=== PATIENT | female | born 1955 | race Caucasian/White ===

== ENCOUNTER 2022-03-06 17:49 | Inpatient (IN) ==
[2022-03-06] MEDS ORDERED: POLYETHYLENE (MIRALAX) 17 GM PACK PO PRN (19:50)
--- NOTE | 2022-03-06 20:01 | History & Physical Report ---
Date of Service March 06, 2022 Assessment & Plan (1) Severe protein-calorie malnutrition: Plan: Intolerant of p.o. for past 7 weeks. Not making much stool. Persistent nausea and heightened gag reflex. Patient and her are interested in PEG tube placement and additional work-up by GI for this issue. We will consult them to see her in the morning. OF note, recently had thrush 3 weeks ago, which was improved with the clotrimazole trouche. She feels like she may still have some there. Will start nystatin swish and swallow (or spit if unable to swallow). If GI doesn't opt for a PEG tube, may need to consider temporary PPN. Appreciate nutrition input. Speech pathology consulted to evaluate this gag reflex closer. Daily weights are important for monitoring. She has significant weakness as a result. Consider PT and OT only when she is stronger. (2) Malignant neoplasm of right lung: Plan: Stage III small cell lung cancer diagnosed November 2021. Started chemoradiation on December 2021. She received 2 cycles of cisplatin and etoposide along with radiation treatment at [facility]. Last treatment was 6 weeks ago. Since then she has not been able to eat having difficulties with vomiting and electrolyte disorders. For this reason additional chemotherapy treatments have been put on hold. She has completed XRT therapy. Managed by oncologist Dr. Prajapati at [facility]. (3) Hypothyroidism: Plan: chronic, stable. Repeating TSH. May need to adjust synthroid dose with her profound weight loss. (4) Depression: Plan: chronic, managed. Cont Buproprion. (5) COPD (chronic obstructive pulmonary disease): Plan: chronic, duonebs as needed. Not on any chronic inhalers. Denies any active smoking. (6) Adult failure to thrive: Plan: Plan as above. (7) DVT prophylaxis: Plan: SCDs/heparin Full Code confirmed on admission with father and daughter at bedside. Teri Bond DO [facility] Admission and Anticipated Discharge Date Admission Date: March 06, 2022 History of Present Illness Chief Complaint: transfer for GI evaluation Primary Care Provider: NO PCP 67-year-old female with lung cancer diagnosed in November 2021 status post radiation and 2 cycles of chemotherapy presents as a transfer from outside hospital for GI evaluation for PEG placement. She has failure to thrive and has not been able to tolerate p.o. for 7 weeks. She has been surviving on intermittent IV fluid infusions in outpatient clinics. She has had significant constipation with last bowel movement over a week ago. She denies any pain but is intermittently nauseous with some frothy sputum. She reports her biggest obstacle is an intense gag reflex that starts when she even smells food. All of this began when she started treatment for cancer. She has completed her XRT therapy. She is a person with history of smoking but is not currently smoking. Family is at bedside and is interested in PEG placement. She is a confirmed full code. Allergies Allergy/AdvReac Type Severity Reaction Status Date / Time No Known Drug Allergies Allergy Verified 02/03/22 11:24 Home Medications Medication Instructions Recorded Confirmed Type albuterol sulfate 90 mcg/actuation 2 puff inhalation QID PRN 12/19/21 03/06/22 History aerosol inhaler (ProAir HFA) shortness of breath or wheezing ascorbic acid (vitamin C) 100 mg 100 mg PO DAILY 12/19/21 03/06/22 History tablet bupropion HCl 300 mg 24 hr tablet, 300 mg PO QAM 12/19/21 03/06/22 History extended release cholecalciferol (vitamin D3) 50 2,000 unit PO DAILY 12/19/21 03/06/22 History mcg (2,000 unit) capsule famotidine 20 mg tablet 20 mg PO BID 12/19/21 03/06/22 History ipratropium 0.5 mg-albuterol 3 mg 3 ml inhalation Q6H PRN shortness 12/19/21 03/06/22 History (2.5 mg base)/3 mL nebulization of breath or wheezing soln levothyroxine 88 mcg tablet 88 mcg PO DAILY 12/19/21 03/06/22 History (Synthroid) mecobalamin (vitamin B12) 1,000 1,000 mcg PO DAILY 12/19/21 03/06/22 History mcg disintegrating tablet,sublingual ondansetron HCl 8 mg tablet 8 mg PO Q8H PRN n/v 12/30/21 03/06/22 History prochlorperazine maleate 10 mg 10 mg PO Q6H PRN n/v 12/30/21 03/06/22 History tablet (Compazine) Magic Mouthwash 300 mL mouthwash 10 ml mucous membrane ACHS 01/27/22 03/06/22 Rx Dysphagia #300 mL dronabinol 2.5 mg capsule (Marinol) 2.5 mg PO BID Nausea and appetite 02/07/22 03/06/22 Rx stimulant #60 caps omeprazole 20 mg capsule,delayed 20 mg PO DAILY 03/06/22 03/06/22 History release Past Med/Surg History Medical History (Updated 03/06/22 @ 19:58 by Teri Bond DO) Adult failure to thrive 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 Chronic bronchitis Chronic kidney disease, stage 3a COPD (chronic obstructive pulmonary disease) Depression DULCE (generalized anxiety disorder) GERD (gastroesophageal reflux disease) Hypothyroidism Idiopathic peripheral neuropathy Osteoarthritis Saccular aneurysm Severe protein-calorie malnutrition Small cell lung cancer Thoracic outlet syndrome Tobacco use disorder Surgical History H/O cataract removal with insertion of prosthetic lens H/O total hysterectomy S/P bronchoscopy with biopsy (~11/28/21) S/P tonsillectomy Status post bronchoscopy diagnostic with or without washing 12/06/2021 Status post knee surgery Family History Mother , Age 27 Ovarian cancer Father , Age 70 Alcoholism Alcohol abuse with other alcohol-induced disorder Brother , Age 65 Alcohol abuse with other alcohol-induced disorder Alcoholism Sister No problems noted. Social History Smoking Status: Former smoker Tobacco Type: Cigarettes Age Started Using Tobacco: 17; Age Quit Using Tobacco: 66; packs per day: 0.5; Years Smoked: 49; Cigarettes Per Day: 8-12; Second Hand Exposure: Yes; Hx Alcohol Use: No Hx Substance Use: No Preferred Language: Montenegrin Beliefs That Will Affect Care: None Current Living Situation: Spouse current occupational status: retired current occupation: [employer]; [employer] employee; [employer] How many Children do You have: 2 Feels Safe at Home: Yes Childhood Exposure to Second-Hand Smoke: Yes caffeine: Yes (2.5 cups/day) during the past year weight has: remained stable Dental Care, Regularly: Yes Review of Systems Review of Systems: All systems were reviewed and negative except as indicated on HPI above. Physical Exam Physical Exam: CONSTITUTIONAL: cachectic, vitals as above, chronically ill- appearing but in NAD. EYES: normal conjunctivae, no scleral icterus ENT: external ear and nose normal, OP clear but with whitish substance across her tongue possibly consistent with thrush NECK: trachea midline RESPIRATORY: clear to auscultation bilaterally, no crackles, rales or wheezes, normal respiratory effort CARDIOVASCULAR: regular rate and rhythm, S1 and 2 heard without murmurs, gallops or rubs, no JVD, no peripheral edema CHEST: inspection of chest was normal GASTROINTESTINAL: soft, nontender, ND, no guarding MUSCULOSKELETAL: generalized weakness with no focal deficits, head is normocephalic and atraumatic SKIN: warm and dry NEUROLOGIC: CN 2-12 grossly intact, no sensory deficit, normal cognition, normal speech, no tremor PSYCHIATRIC: alert cooperative and oriented to person, place and time. Code Status & VTE Plan VTE Prophylaxis Plan VTE Prophylaxis will be ordered: Yes
[2022-03-06] MEDS ORDERED: ALBUT/IPRATROP 3MG/0.5MG NEB 3 ML VIAL INH PRN (20:52)
[2022-03-06] MEDS ORDERED: ALBUTEROL HFA 8 GM INHALER INH PRN (20:52)
[2022-03-06] MEDS ORDERED: ACETAMINOPHEN 1,000 MG/100 ML VIAL IV PRN (20:53)
[2022-03-06] MEDS ORDERED: GLYCERIN ADULT 12 SUPP/BOX SUPP PR PRN (20:53)
[2022-03-06] MEDS ORDERED: PROMETHAZINE HCL 12.5 MG in SODIUM CHLORIDE 0.9% 50 ML IV PRN (21:00)
[2022-03-06 21:43] LABS: Basophils # (auto) 0.01 K/uL (0-0.2); Basophils % (auto) 0.3 %; Eosinophils # (auto) 0.01 K/uL (0-0.50); Eosinophils % (auto) 0.3 %; Hemoglobin 9.2 g/dl (12.0-16.0); Immature Granulocytes # (auto) 0.04 K/uL (0.00-0.02); Immature Granulocytes % (auto) 1.3 %; Lymphocytes % (auto) 6.5 %; Mean Corpuscular Hgb Conc 35.4 g/dL (32.0-36.0); Mean Corpuscular Volume 87.5 fL (80.0-100.0); Monocytes # (auto) 0.28 K/uL (0.24-0.82); Monocytes % (auto) 9.1 %; Neutrophils # (auto) 2.53 K/uL (1.4-6.5); Neutrophils % (auto) 82.5 %; Platelet Count 155 K/uL (130-400); RDW Coefficient of Variation 17.2 % (11.5-14.5); RDW Standard Deviation 53.9 fL (36.4-46.3); Red Blood Count 2.97 M/uL (3.93-5.22); White Blood Count 3.07 K/ul (4.8-10.8)
--- NOTE | 2022-03-06 21:46 | XRay Report ---
XR chest 1V portable CLINICAL HISTORY: cough, h/o lung cancer TECHNIQUE: Single frontal radiograph of the chest was obtained. Comparison: None available at the time of this dictation. FINDINGS: No lines and tubes are seen. The cardiomediastinal silhouette is normal. The lungs are clear. No evid ence of pleural effusion or pneumothorax. IMPRESSION: No acute abnormalities and in particular no evidence of pneumonia. ACT 112: Negative or not required by law. Electronically signed by: Abel Parra M.D. 03/06/2022 9:45 PM
[2022-03-06 21:52] LABS: INR 1.1 (0.9-1.1); Prothrombin Time 11.2 Seconds (9.0-12.0)
[2022-03-06 21:56] LABS: Alanine Aminotransferase 29 U/L (7-52); Albumin Globulin Ratio 1.9 (0.9-2); Albumin Level 3.6 gm/dl (3.4-5.0); Alkaline Phosphatase 66 U/L (34-104); Anion Gap 7 (3-11); Aspartate Aminotransferase 27 U/L (13-39); BUN Creatinine Ratio 11.1 (10-20); Bilirubin,Total 1.1 mg/dl (0.2-1.0); Blood Urea Nitrogen 7 mg/dl (6-23); Calcium 8.4 mg/dl (8.5-10.1); Carbon Dioxide 31 mmol/L (21-32); Chloride 89 mmol/L (98-107); Est GFR (African American) 106.1 ml/min; Est GFR (Non-African American) 91.5 ml/min; Globulin 1.9 gm/dl (2.5-4.0); Glucose 97 mg/dl (70-99(Fasting)); Magnesium 1.2 mg/dl (1.7-2.4); Potassium 3.8 mmol/L (3.5-5.1); Sodium 127 mmol/L (136-145); Total Protein 5.5 gm/dl (6.0-8.3)
[2022-03-06] MEDS: ONDANSETRON INJ 2 MG/ML 2 ML VIAL IV SCH (22:01)
[2022-03-06] MEDS: FOLIC ACID 1 MG in SYRINGE 9.8 ML IV SCH (22:02)
[2022-03-06] MEDS: THIAMINE HCL 100 MG in SYRINGE 9 ML IV SCH (22:02)
[2022-03-06] MEDS: D5NSS + 20MEQ KCL 20 MEQ/1,000 ML BAG IV SCH (22:02)
[2022-03-06 22:11] LABS: Thyroid Stimulating Hormone 15.537 uIu/ml (0.300-4.500)
[2022-03-06 22:50] LABS: T4 Free Thyroxine 1.28 ng/dl (0.61-1.60)
[2022-03-07] MEDS: MAGNESIUM SULFATE / D5W 1 GM/100 ML BAG IV SCH ×3 (04:17→08:20)
[2022-03-07] MEDS: ONDANSETRON INJ 2 MG/ML 2 ML VIAL IV SCH ×4 (04:17→20:31)
[2022-03-07] MEDS: LEVOTHYROXINE SODIUM 88 MCG TABLET PO SCH (07:35)
[2022-03-07 07:48] LABS: Appearance Urine Clear (Clear); Bacteria Urine Automated Negative (Negative); Bilirubin Urine Negative (Negative); Blood Urine Negative (Negative); Color Urine Orange; Epithelial Cell Urine Auto 20-30 /lpf (0-5); Glucose Urine UA Negative (Negative); Ketones Urine Negative (Negative); Leukocyte Esterase Urine 1+ (Negative); Nitrite Urine Negative (Negative); Protein Urine Negative (Negative); RBC Urine Automated 0-4 /hpf (0-4); Specific Gravity Urine 1.006 (1.000-1.030); Urobilinogen Urine Negative (Negative)
[2022-03-07 08:13] LABS: Eosinophils # (auto) 0.02 K/uL (0-0.50); Eosinophils % (auto) 0.8 %; Hemoglobin 7.7 g/dl (12.0-16.0); Immature Granulocytes # (auto) 0.02 K/uL (0.00-0.02); Immature Granulocytes % (auto) 0.8 %; Lymphocytes # (auto) 0.25 K/uL (1.2-3.4); Lymphocytes % (auto) 9.5 %; Mean Corpuscular Volume 88.7 fL (80.0-100.0); Mean Platelet Volume 10.1 fL (9.4-12.3); Monocytes # (auto) 0.26 K/uL (0.24-0.82); Monocytes % (auto) 9.9 %; Neutrophils # (auto) 2.07 K/uL (1.4-6.5); Platelet Count 131 K/uL (130-400); RDW Coefficient of Variation 17.2 % (11.5-14.5); RDW Standard Deviation 55.3 fL (36.4-46.3); Red Blood Count 2.48 M/uL (3.93-5.22); White Blood Count 2.62 K/ul (4.8-10.8)
[2022-03-07] MEDS: buPROPion XL 300 MG TABCR PO SCH (08:20)
[2022-03-07] MEDS ORDERED: CHLORASEPTIC 1.4% SOLN 180 ML BTL MT PRN (08:29)
--- NOTE | 2022-03-07 08:42 | Electrocardiogram Report ---
Test Reason : Blood Pressure : / mmHG Vent. Rate : 092 BPM Atrial Rate : 092 BPM P-R Int : 108 ms QRS Dur : 082 ms QT Int : 364 ms P-R-T Axes : 000 149 153 degrees QTc Int : 450 ms Poor data quality, interpretation may be adversely affected Sinus rhythm with short KS Probable limb lead reversal, recommend repeat tracing Abnormal ECG No previous ECGs available Confirmed by Ralph Mcintyre ([id number]) on 03/07/2022 8:42:16 AM Referred By: Teri Bond Confirmed By:Ralph Mcintrye
[2022-03-07 08:44] LABS: BUN Creatinine Ratio 11.9 (10-20); Calcium 8.2 mg/dl (8.5-10.1); Creatinine Clr Calc Pharmacy 57.2 ml/min; Est GFR (African American) 103.9 ml/min; Est GFR (Non-African American) 89.7 ml/min; Potassium 3.9 mmol/L (3.5-5.1)
[2022-03-07 09:03] LABS: Hypochromasia Present
--- NOTE | 2022-03-07 09:43 | Gastrointestinal Consultation ---
Date of Consultation March 07, 2022 Assessment & Plan (1) Adult failure to thrive: 67 year old female with lung CA s/p chemo/radiation who notes difficulty tolerating PO intake, chewing/swallowing for about 3 months around the time she was diagnosed with oral marylin. Soft, slippery diet as tolerated Would treat empirically for esophageal marylin - Fluconazole 400 mg x 1 day followed by 200 mg once daily x 28 days Can plan for diagnosed EGD Thursday to evaluate for pathology Would recommend video swallow study Thank you for allowing us to participate in the care of this patient. Please call with any acute changes, questions or concerns. Please see addendum below with additional recommendation from my supervising physician. Supervising Physician Co-Signing Physician Notes I saw and evaluated the patient. The patient has been on chemotherapy and radiation therapy for a recent diagnosis of lung cancer. The patient was transferred to our center for evaluation of postprandial nausea, difficulty with swallowing, and vomiting. Patient notes that she has had some difficulty with swallowing which has been ongoing for several weeks. She was thought to have oral thrush in the recent past. Physical examination Thin female, no obvious distress, elderly appearing Impression: Patient with a history of weight loss loss likely related to ongoing chemotherapy and radiation therapy. With the new onset dysphagia I think it would be reasonable to treat her empirically over the weekend for esophageal candidiasis. We can certainly provide endoscopic evaluation early next week to further assess her esophagus and determine if her symptoms would respond to simple esophageal dilation for this patient truly need a feeding tube placed. History of Present Illness Reason for Consultation: PEG evaluation Requesting Physician: Laverne Attending Physician: Rohit Galloway MD History of Present Illness 67 year old female with history of lung cancer diagnosed in November 2021 s/p chemo/radiation transferred from outside hospital for GI evaluation for PEG placement. Pt was seen and evaluated, chart reviewed. She notes about three months ago she developed difficulty chewing, swallowing. Notes food getting stuck when she swallowed. Solids and liquids. These symptoms started about one week before she was developed oral marylin. She notes has been treated on and off w/ nystatin but has had persistent symptoms. Suggests no appetite, dysphagia, oral discomfort, increased gag reflex. She does not recall any recent EGD/Colonoscopy PET 2021: Hypermetabolic infiltrative heterogeneous right hilar/right lower lobe mass measures up to 5 cm compatible with primary bronchogenic carcinoma.Subcarinal metastatic lymphadenopathy. Subcentimeter solid pulmonary nodules of the left lung redemonstrated measuring up to 4 mm demonstrate no appreciable hypermetabolic uptake. These may be too small for PET characterization. Attention at follow-up recommended. Indeterminate mildly hypermetabolic right iliac chain lymphadenopathy is most certainly unrelated to the patient's lung cancer, however, attention at follow-up is recommended. Allergies Allergy/AdvReac Type Severity Reaction Status Date / Time No Known Drug Allergies Allergy Verified 02/03/22 11:24 Home Medications Medication Instructions Recorded Confirmed Type albuterol sulfate 90 mcg/actuation 2 puff inhalation QID PRN 12/19/21 03/06/22 History aerosol inhaler (ProAir HFA) shortness of breath or wheezing ascorbic acid (vitamin C) 100 mg 100 mg PO DAILY 12/19/21 03/06/22 History tablet bupropion HCl 300 mg 24 hr tablet, 300 mg PO QAM 12/19/21 03/06/22 History extended release cholecalciferol (vitamin D3) 50 2,000 unit PO DAILY 12/19/21 03/06/22 History mcg (2,000 unit) capsule famotidine 20 mg tablet 20 mg PO BID 12/19/21 03/06/22 History ipratropium 0.5 mg-albuterol 3 mg 3 ml inhalation Q6H PRN shortness 12/19/21 03/06/22 History (2.5 mg base)/3 mL nebulization of breath or wheezing soln levothyroxine 88 mcg tablet 88 mcg PO DAILY 12/19/21 03/06/22 History (Synthroid) mecobalamin (vitamin B12) 1,000 1,000 mcg PO DAILY 12/19/21 03/06/22 History mcg disintegrating tablet,sublingual ondansetron HCl 8 mg tablet 8 mg PO Q8H PRN n/v 12/30/21 03/06/22 History prochlorperazine maleate 10 mg 10 mg PO Q6H PRN n/v 12/30/21 03/06/22 History tablet (Compazine) Magic Mouthwash 300 mL mouthwash 10 ml mucous membrane ACHS 01/27/22 03/06/22 Rx Dysphagia #300 mL dronabinol 2.5 mg capsule (Marinol) 2.5 mg PO BID Nausea and appetite 02/07/22 03/06/22 Rx stimulant #60 caps omeprazole 20 mg capsule,delayed 20 mg PO DAILY 03/06/22 03/06/22 History release Patient History Medical History (Updated 03/06/22 @ 19:58 by Teri Bond DO) Adult failure to thrive 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 Chronic bronchitis Chronic kidney disease, stage 3a COPD (chronic obstructive pulmonary disease) Depression DULCE (generalized anxiety disorder) GERD (gastroesophageal reflux disease) Hypothyroidism Idiopathic peripheral neuropathy Osteoarthritis Saccular aneurysm Severe protein-calorie malnutrition Small cell lung cancer Thoracic outlet syndrome Tobacco use disorder Surgical History H/O cataract removal with insertion of prosthetic lens H/O total hysterectomy S/P bronchoscopy with biopsy (~11/28/21) S/P tonsillectomy Status post bronchoscopy diagnostic with or without washing 12/06/2021 Status post knee surgery Family History Mother , Age 27 Ovarian cancer Father , Age 70 Alcoholism Alcohol abuse with other alcohol-induced disorder Brother , Age 65 Alcohol abuse with other alcohol-induced disorder Alcoholism Sister No problems noted. Social History Smoking Status: Never smoker Tobacco Type: Cigarettes Age Started Using Tobacco: 17; Age Quit Using Tobacco: 66; packs per day: 0.5; Years Smoked: 49; Cigarettes Per Day: 8-12; Second Hand Exposure: Yes; Hx Alcohol Use: No Hx Substance Use: No Preferred Language: Nepali Communication Ability: Effective Web Site Designer Required: No Beliefs That Will Affect Care: None marital status: Current Living Situation: Spouse current occupational status: retired current occupation: [employer] employee; [employer] How many Children do You have: 2 Feels Safe at Home: Yes Childhood Exposure to Second-Hand Smoke: Yes caffeine: Yes (2.5 cups/day) during the past year weight has: remained stable Dental Care, Regularly: Yes Assistive Devices: Walker Review of Systems Review of Systems: All systems reviewed & are unremarkable except as noted in HPI & below Physical Exam Constitutional: WD/WN, vitals as above (Chronically ill appearing, thin female laying in bed) Respiratory: normal respiratory effort; no respiratory distress, no labored breathing and does not use accessory muscles Cardiovascular: Rate/Rhythm: regular rate Gastrointestinal (Abdomen): Inspection/Auscultation: normal bowel sounds Percussion/Palpation: abdomen soft; abdomen nontender, no guarding and abdomen not rigid Skin: no rashes, warm and dry Results & Data ([facility]) Vital Signs (Past 12 Hours) Vital Signs Temp Pulse Resp BP Pulse Ox O2 Del Method 03/07/22 07:20 Room Air 03/07/22 07:36 36.6 C 93 H 12 109/68 96 Room Air Laboratory Results 03/07/22 03/07/22 03/07/22 Range/Units 07:47 07:39 07:39 WBC (4.8-10.8) K/ul RBC (3.93-5.22) M/uL Hgb (12.0-16.0) g/dl Hct (34.1-44.9) % MCV (80.0-100.0) fL MCH (25.0-34.0) pg MCHC (32.0-36.0) g/dL RDW Std Deviation (36.4-46.3) fL RDW Coeff of Wendy (11.5-14.5) % Plt Count (130-400) K/uL MPV (9.4-12.3) fL Immature Gran % (Auto) % Neut % (Auto) % Lymph % (Auto) % Hendry % (Auto) % Eos % (Auto) % Baso % (Auto) % Neut # (Auto) (1.4-6.5) K/uL Lymph # (Auto) (1.2-3.4) K/uL Hendry # (Auto) (0.24-0.82) K/uL Eos # (Auto) (0-0.50) K/uL Baso # (Auto) (0-0.2) K/uL Immature Gran # (Auto) (0.00-0.02) K/uL Hypochromasia PT (9.0-12.0) Seconds INR (0.9-1.1) Sodium (136-145) mmol/L Potassium (3.5-5.1) mmol/L Chloride (98-107) mmol/L Carbon Dioxide (21-32) mmol/L Anion Gap (3-11) BUN (6-23) mg/dl Creatinine (0.6-1.2) mg/dl Est Cr Clr Drug Dosing Est GFR ( Amer) ml/min Est GFR (Non-Af Amer) ml/min BUN/Creatinine Ratio (10-20) Glucose (70-99(Fasting)) mg/dl Osmolality (280-300) mOsm/kg Calcium (8.5-10.1) mg/dl Magnesium (1.7-2.4) mg/dl Total Bilirubin (0.2-1.0) mg/dl AST (13-39) U/L ALT (7-52) U/L Alkaline Phosphatase (34-104) U/L Total Protein (6.0-8.3) gm/dl Albumin (3.4-5.0) gm/dl Globulin (2.5-4.0) gm/dl Albumin/Globulin Ratio (0.9-2) TSH (0.300-4.500) uIu/ml Free T4 (0.61-1.60) ng/dl Urine Color Urine Appearance (Clear) Urine pH (4.5-7.5) Ur Specific [place] (1.000-1.030) Urine Protein (Negative) Urine Glucose (UA) (Negative) Urine Ketones (Negative) Urine Blood (Negative) Urine Nitrite (Negative) Urine Bilirubin (Negative) Urine Urobilinogen (Negative) Ur Leukocyte Esterase (Negative) Urine WBC (Auto) (0-5) /hpf Urine RBC (Auto) (0-4) /hpf U Hyaline Cast (Auto) (0-5) /lpf U Epithel Cells (Auto) (0-5) /lpf Urine Bacteria (Auto) (Negative) Urine Osmolality 242 L (500-800) mOsm/kg Ur Random Sodium 82 mmol/L SARS-CoV-2, RNA, NAAT NEGATIVE (NEGATIVE) 03/07/22 03/07/22 03/07/22 Range/Units 07:39 07:19 07:19 WBC 2.62 L (4.8-10.8) K/ul RBC 2.48 L (3.93-5.22) M/uL Hgb 7.7 L (12.0-16.0) g/dl Hct 22.0 L (34.1-44.9) % MCV 88.7 (80.0-100.0) fL MCH 31.0 (25.0-34.0) pg MCHC 35.0 (32.0-36.0) g/dL RDW Std Deviation 55.3 H (36.4-46.3) fL RDW Coeff of Wendy 17.2 H (11.5-14.5) % Plt Count 131 (130-400) K/uL MPV 10.1 (9.4-12.3) fL Immature Gran % (Auto) 0.8 % Neut % (Auto) 79.0 % Lymph % (Auto) 9.5 % Hendry % (Auto) 9.9 % Eos % (Auto) 0.8 % Baso % (Auto) 0.0 % Neut # (Auto) 2.07 (1.4-6.5) K/uL Lymph # (Auto) 0.25 L (1.2-3.4) K/uL Hendry # (Auto) 0.26 (0.24-0.82) K/uL Eos # (Auto) 0.02 (0-0.50) K/uL Baso # (Auto) 0.00 (0-0.2) K/uL Immature Gran # (Auto) 0.02 (0.00-0.02) K/uL Hypochromasia Present PT (9.0-12.0) Seconds INR (0.9-1.1) Sodium (136-145) mmol/L Potassium (3.5-5.1) mmol/L Chloride (98-107) mmol/L Carbon Dioxide (21-32) mmol/L Anion Gap (3-11) BUN (6-23) mg/dl Creatinine (0.6-1.2) mg/dl Est Cr Clr Drug Dosing Est GFR ( Amer) ml/min Est GFR (Non-Af Amer) ml/min BUN/Creatinine Ratio (10-20) Glucose (70-99(Fasting)) mg/dl Osmolality 264 L (280-300) mOsm/kg Calcium (8.5-10.1) mg/dl Magnesium (1.7-2.4) mg/dl Total Bilirubin (0.2-1.0) mg/dl AST (13-39) U/L ALT (7-52) U/L Alkaline Phosphatase (34-104) U/L Total Protein (6.0-8.3) gm/dl Albumin (3.4-5.0) gm/dl Globulin (2.5-4.0) gm/dl Albumin/Globulin Ratio (0.9-2) TSH (0.300-4.500) uIu/ml Free T4 (0.61-1.60) ng/dl Urine Color [place] Urine Appearance Clear (Clear) Urine pH 8.0 H (4.5-7.5) Ur Specific [place] 1.006 (1.000-1.030) Urine Protein Negative (Negative) Urine Glucose (UA) Negative (Negative) Urine Ketones Negative (Negative) Urine Blood Negative (Negative) Urine Nitrite Negative (Negative) Urine Bilirubin Negative (Negative) Urine Urobilinogen Negative (Negative) Ur Leukocyte Esterase 1+ H (Negative) Urine WBC (Auto) 1-5 (0-5) /hpf Urine RBC (Auto) 0-4 (0-4) /hpf U Hyaline Cast (Auto) 1-5 (0-5) /lpf U Epithel Cells (Auto) 20-30 H (0-5) /lpf Urine Bacteria (Auto) Negative (Negative) Urine Osmolality (500-800) mOsm/kg Ur Random Sodium mmol/L SARS-CoV-2, RNA, NAAT (NEGATIVE) 03/07/22 03/06/22 03/06/22 Range/Units 07:19 21:04 21:04 WBC (4.8-10.8) K/ul RBC (3.93-5.22) M/uL Hgb (12.0-16.0) g/dl Hct (34.1-44.9) % MCV (80.0-100.0) fL MCH (25.0-34.0) pg MCHC (32.0-36.0) g/dL RDW Std Deviation (36.4-46.3) fL RDW Coeff of Wendy (11.5-14.5) % Plt Count (130-400) K/uL MPV (9.4-12.3) fL Immature Gran % (Auto) % Neut % (Auto) % Lymph % (Auto) % Hendry % (Auto) % Eos % (Auto) % Baso % (Auto) % Neut # (Auto) (1.4-6.5) K/uL Lymph # (Auto) (1.2-3.4) K/uL Hendry # (Auto) (0.24-0.82) K/uL Eos # (Auto) (0-0.50) K/uL Baso # (Auto) (0-0.2) K/uL Immature Gran # (Auto) (0.00-0.02) K/uL Hypochromasia PT 11.2 (9.0-12.0) Seconds INR 1.1 (0.9-1.1) Sodium 129 L (136-145) mmol/L Potassium 3.9 (3.5-5.1) mmol/L Chloride 93 L (98-107) mmol/L Carbon Dioxide 31 (21-32) mmol/L Anion Gap 5 (3-11) BUN 8 (6-23) mg/dl Creatinine 0.67 (0.6-1.2) mg/dl Est Cr Clr Drug Dosing 57.2 Est GFR ( Amer) 103.9 ml/min Est GFR (Non-Af Amer) 89.7 ml/min BUN/Creatinine Ratio 11.9 (10-20) Glucose 93 (70-99(Fasting)) mg/dl Osmolality (280-300) mOsm/kg Calcium 8.2 L (8.5-10.1) mg/dl Magnesium 2.0 (1.7-2.4) mg/dl Total Bilirubin (0.2-1.0) mg/dl AST (13-39) U/L ALT (7-52) U/L Alkaline Phosphatase (34-104) U/L Total Protein (6.0-8.3) gm/dl Albumin (3.4-5.0) gm/dl Globulin (2.5-4.0) gm/dl Albumin/Globulin Ratio (0.9-2) TSH 15.537 H (0.300-4.500) uIu/ml Free T4 1.28 (0.61-1.60) ng/dl Urine Color Urine Appearance (Clear) Urine pH (4.5-7.5) Ur Specific [place] (1.000-1.030) Urine Protein (Negative) Urine Glucose (UA) (Negative) Urine Ketones (Negative) Urine Blood (Negative) Urine Nitrite (Negative) Urine Bilirubin (Negative) Urine Urobilinogen (Negative) Ur Leukocyte Esterase (Negative) Urine WBC (Auto) (0-5) /hpf Urine RBC (Auto) (0-4) /hpf U Hyaline Cast (Auto) (0-5) /lpf U Epithel Cells (Auto) (0-5) /lpf Urine Bacteria (Auto) (Negative) Urine Osmolality (500-800) mOsm/kg Ur Random Sodium mmol/L SARS-CoV-2, RNA, NAAT (NEGATIVE) 03/06/22 03/06/22 Range/Units 21:04 21:04 WBC 3.07 L (4.8-10.8) K/ul RBC 2.97 L (3.93-5.22) M/uL Hgb 9.2 L (12.0-16.0) g/dl Hct 26.0 L (34.1-44.9) % MCV 87.5 (80.0-100.0) fL MCH 31.0 (25.0-34.0) pg MCHC 35.4 (32.0-36.0) g/dL RDW Std Deviation 53.9 H (36.4-46.3) fL RDW Coeff of Wendy 17.2 H (11.5-14.5) % Plt Count 155 (130-400) K/uL MPV 10.0 (9.4-12.3) fL Immature Gran % (Auto) 1.3 % Neut % (Auto) 82.5 % Lymph % (Auto) 6.5 % Hendry % (Auto) 9.1 % Eos % (Auto) 0.3 % Baso % (Auto) 0.3 % Neut # (Auto) 2.53 (1.4-6.5) K/uL Lymph # (Auto) 0.20 L (1.2-3.4) K/uL Hendry # (Auto) 0.28 (0.24-0.82) K/uL Eos # (Auto) 0.01 (0-0.50) K/uL Baso # (Auto) 0.01 (0-0.2) K/uL Immature Gran # (Auto) 0.04 H (0.00-0.02) K/uL Hypochromasia PT (9.0-12.0) Seconds INR (0.9-1.1) Sodium 127 L (136-145) mmol/L Potassium 3.8 (3.5-5.1) mmol/L Chloride 89 L (98-107) mmol/L Carbon Dioxide 31 (21-32) mmol/L Anion Gap 7 (3-11) BUN 7 (6-23) mg/dl Creatinine 0.63 (0.6-1.2) mg/dl Est Cr Clr Drug Dosing Not Reportable Est GFR ( Amer) 106.1 ml/min Est GFR (Non-Af Amer) 91.5 ml/min BUN/Creatinine Ratio 11.1 (10-20) Glucose 97 (70-99(Fasting)) mg/dl Osmolality (280-300) mOsm/kg Calcium 8.4 L (8.5-10.1) mg/dl Magnesium 1.2 L (1.7-2.4) mg/dl Total Bilirubin 1.1 H (0.2-1.0) mg/dl AST 27 (13-39) U/L ALT 29 (7-52) U/L Alkaline Phosphatase 66 (34-104) U/L Total Protein 5.5 L (6.0-8.3) gm/dl Albumin 3.6 (3.4-5.0) gm/dl Globulin 1.9 L (2.5-4.0) gm/dl Albumin/Globulin Ratio 1.9 (0.9-2) TSH (0.300-4.500) uIu/ml Free T4 (0.61-1.60) ng/dl Urine Color Urine Appearance (Clear) Urine pH (4.5-7.5) Ur Specific [place] (1.000-1.030) Urine Protein (Negative) Urine Glucose (UA) (Negative) Urine Ketones (Negative) Urine Blood (Negative) Urine Nitrite (Negative) Urine Bilirubin (Negative) Urine Urobilinogen (Negative) Ur Leukocyte Esterase (Negative) Urine WBC (Auto) (0-5) /hpf Urine RBC (Auto) (0-4) /hpf U Hyaline Cast (Auto) (0-5) /lpf U Epithel Cells (Auto) (0-5) /lpf Urine Bacteria (Auto) (Negative) Urine Osmolality (500-800) mOsm/kg Ur Random Sodium mmol/L SARS-CoV-2, RNA, NAAT (NEGATIVE)
--- NOTE | 2022-03-07 10:04 | XRay Report ---
KUB HISTORY: Acute generalized abdominal pain with constipation constipation COMPARISON: PET CT 12/23/2021 FINDINGS: Nonobstructive bowel gas pattern. Mild colonic fecal retention. Obscuration of the renal sh adows. No renal calculi. No ureteral calculi. No pneumoperitoneum or pneumatosis. No fracture. IMPRESSION: Mild colonic fecal retention with nonobstructive bowel gas pattern. ACT 112: Negative or not required by law. The above report was generated using voice recognition software. It may contain grammatical, syntax o r spelling errors. Electronically signed by: Cullen Long M.D. 03/07/2022 10:02 AM
[2022-03-07] MEDS ORDERED: DOCUSATE SODIUM 100 MG CAP PO PRN (14:18)
[2022-03-07] MEDS: D5NSS + 20MEQ KCL 20 MEQ/1,000 ML BAG IV SCH (14:44)
--- NOTE | 2022-03-07 16:52 | Hospitalist Progress Note ---
Date of Service March 07, 2022 Assessment & Plan (1) Severe protein-calorie malnutrition: Plan: Severe protein calorie malnutrition Failure to thrive In setting of malignancy, ongoing chemoradiation Significant nausea secondary to above Recent oral thrush 3 weeks ago S/P clotrimazole Suspected esophageal candidiasis Empirically started on fluconazole Plan for EGD on Thursday Appreciate GI input Dietitian consulted Speech therapy evaluation Possible need for PEG tube placement (2) Malignant neoplasm of right lung: Plan: Stage III small cell lung cancer diagnosed November 2021. Started chemoradiation on December 2021. Received 2 cycles of cisplatin and etoposide along with radiation treatment at [facility]. Last treatment was 6 weeks ago. Completed radiation therapy. Follows with [facility] oncology Dr. Prajapati Poor appetite, significant nausea, vomiting since chemotherapy Constipation KUB:Mild colonic fecal retention with nonobstructive bowel gas pattern. Started on bowel regimen (3) Hypothyroidism: Plan: Elevated TSH Normal free T4 Continue levothyroxine Needs repeat thyroid function test as outpatient (4) Depression: Plan: Continue Bupropion. (5) COPD (chronic obstructive pulmonary disease): Plan: chronic No signs of COPD exacerbation Hyponatremia Likely due to poor oral intake Anemia of chronic disease Leukopenia Likely secondary to malignancy, chemotherapy No signs of bleeding Monitor CBC (6) Adult failure to thrive: Plan: Management as above. (7) DVT prophylaxis: Plan: SCDs for now Admission and Anticipated Discharge Date Admission Date: March 06, 2022 Subjective Patient is seen and examined at bedside States having sore throat, nausea, generalized weakness and chronic dizziness Denies any chest pain, dyspnea, abdominal pain Discussed with patient's family at bedside Also discussed with speech therapy No other complaints Review of Systems Review of Systems: All systems reviewed & are unremarkable except as noted in Subjective Physical Exam Physical Exam: Physical Exam: Vitals signs as noted above General Appearance: Cachectic, ill-appearing, frail, no apparent distress Head: normocephalic, Atraumatic Eyes: normal inspection, EOMI Neck: supple, Trachea midline Respiratory/Chest: Normal breath sounds, CTA, No accessory muscle use Cardiovascular: S1, S2, No murmur Abdomen/GI:Soft, Non tender, Bowel sounds present Extremities/Musculoskeletal:normal inspection, no edema Neurologic/Psych:AAOX3, grossly no focal neurological deficits Skin: normal color, warm Results & Data Results & Data ([facility]) Vital Signs (Past 12 Hours) Vital Signs Temp Pulse Resp BP Pulse Ox O2 Del Method 03/07/22 15:02 36.7 C 85 14 99/64 L 96 Room Air 03/07/22 07:20 Room Air 03/07/22 07:36 36.6 C 93 H 12 109/68 96 Room Air Laboratory Results Short CBC 03/06/22 03/07/22 Range/Units 21:04 07:19 WBC 3.07 L 2.62 L (4.8-10.8) K/ul Hgb 9.2 L 7.7 L (12.0-16.0) g/dl Hct 26.0 L 22.0 L (34.1-44.9) % Plt Count 155 131 (130-400) K/uL BMP 03/06/22 03/07/22 21:04 07:19 Sodium 127 L 129 L Potassium 3.8 3.9 Chloride 89 L 93 L Carbon Dioxide 31 31 BUN 7 8 Creatinine 0.63 0.67 Glucose 97 93 Calcium 8.4 L 8.2 L Liver Function 03/06/22 Range/Units 21:04 Total Bilirubin 1.1 H (0.2-1.0) mg/dl AST 27 (13-39) U/L ALT 29 (7-52) U/L Alkaline Phosphatase 66 (34-104) U/L Albumin 3.6 (3.4-5.0) gm/dl Urine 03/07/22 Range/Units 07:39 Urine Color [place] Urine Appearance Clear (Clear) Urine pH 8.0 H (4.5-7.5) Ur Specific [place] 1.006 (1.000-1.030) Urine Protein Negative (Negative) Urine Glucose (UA) Negative (Negative)
[2022-03-07] MEDS ORDERED: FLUCONAZOLE 100 MG TAB PO ONE (17:15)
[2022-03-07] MEDS: THIAMINE HCL 100 MG in SYRINGE 9 ML IV SCH (20:31)
[2022-03-07] MEDS: FOLIC ACID 1 MG in SYRINGE 9.8 ML IV SCH (20:31)
[2022-03-08] MEDS: D5NSS + 20MEQ KCL 20 MEQ/1,000 ML BAG IV SCH (02:33)
[2022-03-08] MEDS: ONDANSETRON INJ 2 MG/ML 2 ML VIAL IV SCH ×3 (03:13→15:02)
[2022-03-08] MEDS: LEVOTHYROXINE SODIUM 88 MCG TABLET PO SCH (06:03)
[2022-03-08 06:25] LABS: Hematocrit (blood only) 22.7 % (34.1-44.9); Hemoglobin 7.8 g/dl (12.0-16.0); Mean Platelet Volume 9.9 fL (9.4-12.3); Platelet Count 127 K/uL (130-400)
[2022-03-08 07:19] LABS: Calcium 8.4 mg/dl (8.5-10.1); Creatinine Clr Calc Pharmacy 51.1 ml/min; Est GFR (African American) 94.3 ml/min; Est GFR (Non-African American) 81.3 ml/min; Magnesium 1.9 mg/dl (1.7-2.4); Potassium 4.2 mmol/L (3.5-5.1)
[2022-03-08 07:52] LABS: Mean Corpuscular Hgb Conc 34.4 g/dL (32.0-36.0); Mean Corpuscular Volume 90.1 fL (80.0-100.0); RDW Coefficient of Variation 17.3 % (11.5-14.5); Red Blood Count 2.52 M/uL (3.93-5.22)
[2022-03-08] MEDS: buPROPion XL 300 MG TABCR PO SCH (08:25)
[2022-03-08] MEDS: FLUCONAZOLE 100 MG TAB PO SCH (08:25)
--- NOTE | 2022-03-08 16:50 | Hospitalist Progress Note ---
Date of Service March 08, 2022 Assessment & Plan (1) Severe protein-calorie malnutrition: Plan: Severe protein calorie malnutrition Failure to thrive In setting of malignancy, ongoing chemoradiation Significant nausea secondary to above Recent oral thrush 3 weeks ago S/P clotrimazole Suspected esophageal candidiasis Empirically started on fluconazole Plan for EGD on Thursday Appreciate GI input Dietitian consulted Speech therapy evaluation Possible need for PEG tube placement Encourage increased oral intake (2) Malignant neoplasm of right lung: Plan: Stage III small cell lung cancer diagnosed November 2021. Started chemoradiation on December 2021. Received 2 cycles of cisplatin and etoposide along with radiation treatment at [facility]. Last treatment was 6 weeks ago. Completed radiation therapy. Follows with [facility] oncology Dr. Prajapati Poor appetite, significant nausea, vomiting since chemotherapy Constipation KUB:Mild colonic fecal retention with nonobstructive bowel gas pattern. continue bowel regimen (3) Hypothyroidism: Plan: Elevated TSH Normal free T4 Continue levothyroxine Needs repeat thyroid function test as outpatient (4) Depression: Plan: Continue Bupropion. (5) COPD (chronic obstructive pulmonary disease): Plan: chronic No signs of COPD exacerbation Hyponatremia Likely due to poor oral intake Sodium 127> 129>132 Anemia of chronic disease Leukopenia Likely secondary to malignancy, chemotherapy No signs of bleeding Monitor CBC (6) Adult failure to thrive: Plan: Management as above. (7) DVT prophylaxis: Plan: SCDs for now Admission and Anticipated Discharge Date Admission Date: March 06, 2022 Subjective Patient is seen and examined at bedside Feels better today Sore throat slowly improving Has Chronic dizziness Denies any chest pain, dyspnea, abdominal pain Offers no complaints Review of Systems Review of Systems: All systems reviewed & are unremarkable except as noted in Subjective Physical Exam Physical Exam: Physical Exam: Vitals signs as noted above General Appearance: Cachectic, ill-appearing, frail, no apparent distress Head: normocephalic, Atraumatic Eyes: normal inspection, EOMI Neck: supple, Trachea midline Respiratory/Chest: Normal breath sounds, CTA, No accessory muscle use Cardiovascular: S1, S2, No murmur Abdomen/GI:Soft, Non tender, Bowel sounds present Extremities/Musculoskeletal:normal inspection, no edema Neurologic/Psych:AAOX3, grossly no focal neurological deficits Skin: normal color, warm Results & Data Results & Data ([facility]) Vital Signs (Past 12 Hours) Vital Signs Temp Pulse Resp BP Pulse Ox O2 Del Method 03/08/22 10:00 Room Air 03/08/22 14:45 36.7 C 87 16 118/74 97 Room Air 03/08/22 07:26 36.7 C 88 12 137/79 98 Room Air Laboratory Results Short CBC 03/08/22 Range/Units 05:56 WBC 3.00 L (4.8-10.8) K/ul Hgb 7.8 L (12.0-16.0) g/dl Hct 22.7 L (34.1-44.9) % Plt Count 127 L (130-400) K/uL BMP 03/08/22 05:56 Sodium 132 L Potassium 4.2 Chloride 97 L Carbon Dioxide 31 BUN 6 Creatinine 0.75 Glucose 94 Calcium 8.4 L
[2022-03-08] MEDS: FOLIC ACID 1 MG in SYRINGE 9.8 ML IV SCH (20:17)
[2022-03-08] MEDS: THIAMINE HCL 100 MG in SYRINGE 9 ML IV SCH (20:18)
[2022-03-09] MEDS: LEVOTHYROXINE SODIUM 88 MCG TABLET PO SCH (06:16)
[2022-03-09 07:05] LABS: Hematocrit (blood only) 23.8 % (34.1-44.9); Mean Platelet Volume 10.3 fL (9.4-12.3); Platelet Count 118 K/uL (130-400); White Blood Count 3.97 K/ul (4.8-10.8)
[2022-03-09 07:28] LABS: BUN Creatinine Ratio 9.2 (10-20); Calcium 9.1 mg/dl (8.5-10.1); Creatinine Clr Calc Pharmacy 42.1 ml/min; Est GFR (African American) 78.8 ml/min; Magnesium 1.7 mg/dl (1.7-2.4); Phosphorus 3.9 mg/dl (2.5-4.9)
[2022-03-09 07:32] LABS: Mean Corpuscular Hemoglobin 30.7 pg (25.0-34.0); Mean Corpuscular Hgb Conc 33.6 g/dL (32.0-36.0); Mean Corpuscular Volume 91.2 fL (80.0-100.0); RDW Coefficient of Variation 17.3 % (11.5-14.5); RDW Standard Deviation 56.1 fL (36.4-46.3); Red Blood Count 2.61 M/uL (3.93-5.22)
[2022-03-09] MEDS: buPROPion XL 300 MG TABCR PO SCH (08:37)
[2022-03-09] MEDS: FLUCONAZOLE 100 MG TAB PO SCH (08:37)
[2022-03-09] MEDS: SODIUM CHLORIDE 0.9% 1000ML 1,000 ML IV SCH ×2 (10:08→22:06)
--- NOTE | 2022-03-09 17:06 | Hospitalist Progress Note ---
Date of Service March 09, 2022 Assessment & Plan (1) Severe protein-calorie malnutrition: Plan: Severe protein calorie malnutrition Failure to thrive In setting of malignancy, ongoing chemoradiation Significant nausea secondary to above Recent oral thrush 3 weeks ago S/P clotrimazole Suspected esophageal candidiasis Empirically started on fluconazole Appreciate GI input Dietitian consulted Speech therapy evaluation Possible need for PEG tube placement Encourage increased oral intake We will keep her n.p.o. after midnight for possible EGD tomorrow (2) Malignant neoplasm of right lung: Plan: Stage III small cell lung cancer diagnosed November 2021. Started chemoradiation on December 2021. Received 2 cycles of cisplatin and etoposide along with radiation treatment at [facility]. Last treatment was 6 weeks ago. Completed radiation therapy. Follows with [facility] oncology Dr. Prajapati Poor appetite, significant nausea, vomiting since chemotherapy Constipation KUB:Mild colonic fecal retention with nonobstructive bowel gas pattern. continue bowel regimen (3) Hypothyroidism: Plan: Elevated TSH Normal free T4 Continue levothyroxine Needs repeat thyroid function test as outpatient (4) Depression: Plan: Continue Bupropion. (5) COPD (chronic obstructive pulmonary disease): Plan: chronic No signs of COPD exacerbation Hyponatremia Likely due to poor oral intake Sodium 127> 129>132> 130 Monitor Anemia of chronic disease Leukopenia Likely secondary to malignancy, chemotherapy No signs of bleeding Monitor CBC (6) Adult failure to thrive: Plan: Management as above. (7) DVT prophylaxis: Plan: SCDs for now Admission and Anticipated Discharge Date Admission Date: March 06, 2022 Subjective Patient is seen and examined at bedside States feeling tired Also states having some burning sore throat No other complaints Poor oral intake Denies any chest pain, dyspnea, abdominal pain Review of Systems Review of Systems: All systems reviewed & are unremarkable except as noted in Subjective Physical Exam Physical Exam: Physical Exam: Vitals signs as noted above General Appearance: Cachectic, ill-appearing, frail, no apparent distress Head: normocephalic, Atraumatic Eyes: normal inspection, EOMI Neck: supple, Trachea midline Respiratory/Chest: Normal breath sounds, CTA, No accessory muscle use Cardiovascular: S1, S2, No murmur Abdomen/GI:Soft, Non tender, Bowel sounds present Extremities/Musculoskeletal:normal inspection, no edema Neurologic/Psych:AAOX3, grossly no focal neurological deficits Skin: normal color, warm Results & Data Results & Data ([facility]) Vital Signs (Past 12 Hours) Vital Signs Temp Pulse Resp BP Pulse Ox O2 Del Method 03/09/22 14:37 36.7 C 83 14 117/74 97 Room Air 03/09/22 07:47 36.8 C 87 12 117/74 96 Room Air Laboratory Results Short CBC 03/09/22 Range/Units 06:25 WBC 3.97 L (4.8-10.8) K/ul Hgb 8.0 L (12.0-16.0) g/dl Hct 23.8 L (34.1-44.9) % Plt Count 118 L (130-400) K/uL BMP 03/09/22 06:25 Sodium 130 L Potassium 4.0 Chloride 94 L Carbon Dioxide 31 BUN 8 Creatinine 0.87 Glucose 83 Calcium 9.1
[2022-03-09] MEDS: THIAMINE HCL 100 MG in SYRINGE 9 ML IV SCH (19:59)
[2022-03-09] MEDS: FOLIC ACID 1 MG in SYRINGE 9.8 ML IV SCH (19:59)
[2022-03-10] MEDS: LEVOTHYROXINE SODIUM 88 MCG TABLET PO SCH (05:53)
[2022-03-10 07:13] LABS: BUN Creatinine Ratio 12.9 (10-20); Calcium 8.3 mg/dl (8.5-10.1); Creatinine Clr Calc Pharmacy 52.3 ml/min; Est GFR (African American) 102.5 ml/min; Est GFR (Non-African American) 88.4 ml/min; Magnesium 1.6 mg/dl (1.7-2.4); Potassium 3.6 mmol/L (3.5-5.1)
--- NOTE | 2022-03-10 08:22 | Anesthesiology Consultation ---
Date of Service March 10, 2022 Assessment & Plan (1) Encounter for pre-operative examination: Chart Review Chart Review: Acceptable Risk for Surgery, Patient NOT seen in Pre Admission Testing and hand buffing wheel former initiated Consults Requested none Proposed Anesthesia Anesthesia Type: MAC Risk / Benefits Reviewed With: PT / POA / Parent / Guardian, Accepts Plan and Informed Consent Obtained History Surgery Operation Date: 03/10/22 17:15 Proposed Procedures p Esophagogastroduodenoscopy Dr. Yunier Faye MD Height/Weight Height: 5 ft 6 in Weight: 43.7 kg Allergies Allergy/AdvReac Type Severity Reaction Status Date / Time No Known Drug Allergies Allergy Verified 02/03/22 11:24 Medications Home Medications Medication Instructions Recorded Confirmed Last Taken albuterol sulfate 90 mcg/actuation 2 puff inhalation QID PRN 12/19/21 03/06/22 Unknown aerosol inhaler (ProAir HFA) shortness of breath or wheezing ascorbic acid (vitamin C) 100 mg 100 mg PO DAILY 12/19/21 03/06/22 Unknown tablet bupropion HCl 300 mg 24 hr tablet, 300 mg PO QAM 12/19/21 03/06/22 Unknown extended release cholecalciferol (vitamin D3) 50 2,000 unit PO DAILY 12/19/21 03/06/22 Unknown mcg (2,000 unit) capsule famotidine 20 mg tablet 20 mg PO BID 12/19/21 03/06/22 Unknown ipratropium 0.5 mg-albuterol 3 mg 3 ml inhalation Q6H PRN shortness 12/19/21 03/06/22 Unknown (2.5 mg base)/3 mL nebulization of breath or wheezing soln levothyroxine 88 mcg tablet 88 mcg PO DAILY 12/19/21 03/06/22 Unknown (Synthroid) mecobalamin (vitamin B12) 1,000 1,000 mcg PO DAILY 12/19/21 03/06/22 Unknown mcg disintegrating tablet,sublingual ondansetron HCl 8 mg tablet 8 mg PO Q8H PRN n/v 12/30/21 03/06/22 Unknown prochlorperazine maleate 10 mg 10 mg PO Q6H PRN n/v 12/30/21 03/06/22 Unknown tablet (Compazine) Magic Mouthwash 300 mL mouthwash 10 ml mucous membrane ACHS 01/27/22 03/06/22 Unknown Dysphagia #300 mL dronabinol 2.5 mg capsule (Marinol) 2.5 mg PO BID Nausea and appetite 02/07/22 03/06/22 Unknown stimulant #60 caps omeprazole 20 mg capsule,delayed 20 mg PO DAILY 03/06/22 03/06/22 Unknown release Active Medications Generic Name Dose Route Start Last Admin Trade Name Freq PRN Reason Stop Dose Admin Bupropion HCl 300 mg 03/07/22 09:00 03/09/22 08:37 Bupropion Xl 300 Mg Tabcr PO 04/06/22 08:59 300 mg QAM MANULEA Administration Dronabinol 2.5 mg 03/06/22 21:00 03/09/22 19:59 Dronabinol 2.5 Mg Cap PO 04/05/22 20:59 2.5 mg BID MANUELA Administration Thiamine HCl 100 mg/ Syringe 10 mls @ 2 mls/min 03/06/22 21:00 03/09/22 19:59 IV 04/05/22 20:59 2 mls/min Q24H MANUELA Administration Folic Acid 1 mg/ Syringe 10 mls @ 5 mls/min 03/06/22 21:00 03/09/22 19:59 IV 04/05/22 20:59 5 mls/min Q24H MANUELA Administration Sodium Chloride 1,000 mls @ 80 mls/hr 03/09/22 09:15 03/10/22 08:02 Nss 1000ml IV 03/10/22 10:14 0 mls/hr .[id number] MANUELA Infusion Levothyroxine Sodium 88 mcg 03/07/22 06:30 03/10/22 05:53 Levothyroxine Sodium 88 Mcg Tablet PO 04/06/22 06:29 88 mcg DAILYBB MANUELA Administration Past Medical History Medical History (Updated 03/10/22 @ 08:23 by Jan Ordoñez MD) Adult failure to thrive 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 Chronic bronchitis Chronic kidney disease, stage 3a COPD (chronic obstructive pulmonary disease) Depression Encounter for pre-operative examination DULCE (generalized anxiety disorder) GERD (gastroesophageal reflux disease) Hypothyroidism Idiopathic peripheral neuropathy Osteoarthritis Saccular aneurysm Severe protein-calorie malnutrition Small cell lung cancer Thoracic outlet syndrome Tobacco use disorder Past Family History Family History Mother , Age 27 Ovarian cancer Father , Age 70 Alcoholism Alcohol abuse with other alcohol-induced disorder Brother , Age 65 Alcohol abuse with other alcohol-induced disorder Alcoholism Sister No problems noted. Past Surgical History Surgical History H/O cataract removal with insertion of prosthetic lens H/O total hysterectomy S/P bronchoscopy with biopsy (~11/28/21) S/P tonsillectomy Status post bronchoscopy diagnostic with or without washing 12/06/2021 Status post knee surgery Social History Smoking Status: Never smoker Smoking cigarettes per day: 8-12 Hx Alcohol Use: No Hx Substance Use: No Physical Exam Vital Signs Last Vital Signs Temp 36.8 C 03/10/22 07:20 Pulse 88 03/10/22 07:20 Resp 12 03/10/22 07:20 BP 111/69 03/10/22 07:20 Pulse Ox 96 03/10/22 07:20 O2 Del Method 03/10/22 07:20 Testing Laboratory Results 03/09/22 06:25 03/10/22 06:19 PT 11.2 Seconds (9.0-12.0) 03/06/22 21:04 INR 1.1 (0.9-1.1) 03/06/22 21:04 Urine Color [place] 03/07/22 07:39 Urine Appearance Clear (Clear) 03/07/22 07:39 Urine pH 8.0 (4.5-7.5) H 03/07/22 07:39 Ur Specific [place] 1.006 (1.000-1.030) 03/07/22 07:39 Urine Protein Negative (Negative) 03/07/22 07:39 Urine Glucose (UA) Negative (Negative) 03/07/22 07:39 Urine Ketones Negative (Negative) 03/07/22 07:39 Urine Nitrite Negative (Negative) 03/07/22 07:39 Ur Leukocyte Esterase 1+ (Negative) H 03/07/22 07:39 Urine WBC (Auto) 1-5 /hpf (0-5) 03/07/22 07:39 Urine RBC (Auto) 0-4 /hpf (0-4) 03/07/22 07:39 U Hyaline Cast (Auto) 1-5 /lpf (0-5) 03/07/22 07:39 U Epithel Cells (Auto) 20-30 /lpf (0-5) H 03/07/22 07:39 Urine Bacteria (Auto) Negative (Negative) 03/07/22 07:39 Electrocardiogram Date: 03/06/22 Test Reason : Blood Pressure : / mmHG Vent. Rate : 092 BPM Atrial Rate : 092 BPM P-R Int : 108 ms QRS Dur : 082 ms QT Int : 364 ms P-R-T Axes : 000 149 153 degrees QTc Int : 450 ms Poor data quality, interpretation may be adversely affected Sinus rhythm with short [place] Probable limb lead reversal, recommend repeat tracing Abnormal ECG No previous ECGs available Chest X-Ray Date: 03/06/22 XR chest 1V portable CLINICAL HISTORY: cough, h/o lung cancer TECHNIQUE: Single frontal radiograph of the chest was obtained. Comparison: None available at the time of this dictation. FINDINGS: No lines and tubes are seen. The cardiomediastinal silhouette is normal. The lungs are clear. No evidence of pleural effusion or pneumothorax. IMPRESSION: No acute abnormalities and in particular no evidence of pneumonia.
--- NOTE | 2022-03-10 08:33 | History & Physical Report ---
Date of Service March 10, 2022 Assessment & Plan Admission and Anticipated Discharge Date Admission Date: March 06, 2022 History of Present Illness Chief Complaint: Dysphagia Primary Care Provider: NO PCP 67 yo fm with dysphagia- being treated for marylin. Still with mild dysphagia. History of cancer with radiation. Allergies Allergy/AdvReac Type Severity Reaction Status Date / Time No Known Drug Allergies Allergy Verified 02/03/22 11:24 Home Medications Medication Instructions Recorded Confirmed Type albuterol sulfate 90 mcg/actuation 2 puff inhalation QID PRN 12/19/21 03/06/22 History aerosol inhaler (ProAir HFA) shortness of breath or wheezing ascorbic acid (vitamin C) 100 mg 100 mg PO DAILY 12/19/21 03/06/22 History tablet bupropion HCl 300 mg 24 hr tablet, 300 mg PO QAM 12/19/21 03/06/22 History extended release cholecalciferol (vitamin D3) 50 2,000 unit PO DAILY 12/19/21 03/06/22 History mcg (2,000 unit) capsule famotidine 20 mg tablet 20 mg PO BID 12/19/21 03/06/22 History ipratropium 0.5 mg-albuterol 3 mg 3 ml inhalation Q6H PRN shortness 12/19/21 03/06/22 History (2.5 mg base)/3 mL nebulization of breath or wheezing soln levothyroxine 88 mcg tablet 88 mcg PO DAILY 12/19/21 03/06/22 History (Synthroid) mecobalamin (vitamin B12) 1,000 1,000 mcg PO DAILY 12/19/21 03/06/22 History mcg disintegrating tablet,sublingual ondansetron HCl 8 mg tablet 8 mg PO Q8H PRN n/v 12/30/21 03/06/22 History prochlorperazine maleate 10 mg 10 mg PO Q6H PRN n/v 12/30/21 03/06/22 History tablet (Compazine) Magic Mouthwash 300 mL mouthwash 10 ml mucous membrane ACHS 01/27/22 03/06/22 Rx Dysphagia #300 mL dronabinol 2.5 mg capsule (Marinol) 2.5 mg PO BID Nausea and appetite 02/07/22 03/06/22 Rx stimulant #60 caps omeprazole 20 mg capsule,delayed 20 mg PO DAILY 03/06/22 03/06/22 History release Past Med/Surg History Medical History (Updated 03/10/22 @ 08:23 by Jan Ordoñez MD) Adult failure to thrive 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 Chronic bronchitis Chronic kidney disease, stage 3a COPD (chronic obstructive pulmonary disease) Depression Encounter for pre-operative examination DULCE (generalized anxiety disorder) GERD (gastroesophageal reflux disease) Hypothyroidism Idiopathic peripheral neuropathy Osteoarthritis Saccular aneurysm Severe protein-calorie malnutrition Small cell lung cancer Thoracic outlet syndrome Tobacco use disorder Surgical History H/O cataract removal with insertion of prosthetic lens H/O total hysterectomy S/P bronchoscopy with biopsy (~11/28/21) S/P tonsillectomy Status post bronchoscopy diagnostic with or without washing 12/06/2021 Status post knee surgery Family History Mother , Age 27 Ovarian cancer Father , Age 70 Alcoholism Alcohol abuse with other alcohol-induced disorder Brother , Age 65 Alcohol abuse with other alcohol-induced disorder Alcoholism Sister No problems noted. Social History Smoking Status: Never smoker Tobacco Type: Cigarettes Age Started Using Tobacco: 17; Age Quit Using Tobacco: 66; packs per day: 0.5; Years Smoked: 49; Cigarettes Per Day: 8-12; Second Hand Exposure: Yes; Hx Alcohol Use: No Hx Substance Use: No Preferred Language: Norwegian Communication Ability: Effective Spring Coverer Required: No Beliefs That Will Affect Care: None marital status: Current Living Situation: Spouse current occupational status: retired current occupation: [employer] employee; [employer] How many Children do You have: 2 Feels Safe at Home: Yes Childhood Exposure to Second-Hand Smoke: Yes caffeine: Yes (2.5 cups/day) during the past year weight has: remained stable Dental Care, Regularly: Yes Assistive Devices: Walker Review of Systems All systems reviewed & are unremarkable except as noted in HPI & below Physical Exam Physical Exam: Thin female in nad Eyes: PERRL, conjunctivae normal, anicteric sclerae Respiratory: normal respiratory effort, lungs clear to auscultation Gastrointestinal (Abdomen): soft nt nd Results & Data ([facility]) Vital Signs (Past 12 Hours) Vital Signs Temp Pulse Resp BP Pulse Ox O2 Del Method 03/10/22 08:19 36.5 C 85 16 117/71 95 Room Air 03/10/22 07:20 36.8 C 88 12 111/69 96 Room Air Code Status & VTE Plan VTE Prophylaxis Plan VTE Prophylaxis will be ordered: Yes Supervising Physician Co-Signing Physician Notes EGD for evaluation of dysphagia.
[2022-03-10] MEDS ORDERED: LIDOCAINE 2% MPF LOCAL 5 ML VIAL INFIL ONE (08:42)
[2022-03-10] MEDS ORDERED: KETAMINE 50 MG/5 ML SYRINGE ONE (08:42)
[2022-03-10] MEDS ORDERED: PROPOFOL IV EMULSION 10 MG/ML 20 ML VIAL IV ONE (08:42)
[2022-03-10] MEDS ORDERED: FLUCONAZOLE 100 MG TAB PO SCH (09:00)
--- NOTE | 2022-03-10 09:01 | GI REPORT ---
Patient Name: Bailey Diaz Procedure Date: 03/10/2022 8:27 AM Date of : 1955 Admit Type: Inpatient Age: 67 Gender: Female Attending MD: Stephanie Faye M.d. Procedure: Upper GI endoscopy Providers: Stephanie Faye M.d. Referring MD: Rohit Galloway Md Indications: Dysphagia Medicines: See anesthesia record Complications: No immediate complications. Estimated Blood Loss: Estimated blood loss: none. Procedure: Pre-Anesthesia Assessment: - Patient identification and proposed procedure were verified prior to the procedure by the physician, the nurse and the anesthesiologist. The procedure was verified in the pre-procedure area. - Prior to the procedure, a History and Physical was performed, and patient medications, allergies and sensitivities were reviewed. The patient's tolerance of previous anesthesia was reviewed. - The risks and benefits of the procedure and the sedation options and risks were discussed with the patient. All questions were answered and informed consent was obtained. After obtaining informed consent, the endoscope was passed under direct vision. Throughout the procedure, the patient's blood pressure, pulse, and oxygen saturations were monitored continuously. The Endoscope was introduced through the mouth, and advanced to the second part of duodenum. The upper GI endoscopy was accomplished without difficulty. Findings: The examined esophagus appeared normal. Faint LA Grade A (one or more mucosal breaks less than 5 mm, not extending between tops of 2 mucosal folds) esophagitis without bleeding was found in the distal esophagus. No overt marylin was noted. A guidewire was placed and the scope was withdrawn. An empiric dilation was performed with a Savary dilator with mild resistance at 45 Fr. The dilation site was examined following endoscope reinsertion and showed mild mucosal disruption. The Z-line appeared variable. The examined stomach appeared normal. The duodenal bulb and second portion of the duodenum appeared normal. Impression: - Normal esophagus. - LA Grade A distal esophagitis. Dilated. - Z-line variable. - Normal stomach. - Normal duodenal bulb and second portion of the duodenum. Recommendation: - Assess response to dilation today. - Continue treatment for suspected esophageal candidiasis for a total of 7 days. - Would also treat with PO BID ppi for 1 month then daily thereafter. Fortunato Samuel M.d. 03/10/2022 9:00:47 AM This report has been signed electronically. Note Initiated On: 03/10/2022 8:27 AM Number of Addenda: 0 I attest to the content of the Intraoperative Record and orders documented therein, exceptions below {[id number]}
[2022-03-10] MEDS ORDERED: MAGNESIUM SULFATE / D5W 1 GM/100 ML BAG IV ONE (09:24)
--- NOTE | 2022-03-10 09:52 | Communication Note ---
Date of Service: March 10, 2022 S/P EGD this AM w/ evidence of esophagitis. Dilation was completed. PPI BID x 28 days then PO once daily indefinitely. Recommend completing course of of PO Diflucan. Please see prior notes additional recommendations. Thank you for allowing us to participate in the care of this patient. Please call with any acute changes, questions or concerns. Please see addendum below with additional recommendation from my supervising physician.
[2022-03-10] MEDS: buPROPion XL 300 MG TABCR PO SCH (09:53)
[2022-03-10] MEDS: PANTOprazole 40 MG TAB PO SCH ×2 (10:02→21:35)
[2022-03-10] MEDS ORDERED: FLUCONAZOLE 100 MG TAB PO ONE (11:30)
--- NOTE | 2022-03-10 13:11 | Anesthesiology Progress Note ---
Date of Service March 10, 2022 Anesthesia Post Procedure Vital Signs Vital Signs: Temp Pulse Resp BP BP Pulse Ox O2 Del Method 03/10/22 09:48 36.7 C 86 16 126/72 96 Room Air 03/10/22 09:31 76 16 118/67 98 Room Air 03/10/22 09:17 91 H 16 123/65 94 Room Air 03/10/22 09:02 85 14 103/43 L 100 Room Air 03/10/22 08:19 36.5 C 85 16 117/71 95 Room Air 03/10/22 07:44 Room Air 03/10/22 07:20 36.8 C 88 12 111/69 96 Room Air 03/09/22 14:37 36.7 C 83 14 117/74 97 Room Air Pain Intensity Throat: Pain Intensity: 4 Transfer of Care Handoff Completed per policy Notes Mental Status: alert / awake / arousable and participated in evaluation Patient Amnestic to Procedure: Yes Nausea / Vomiting: adequately controlled Pain: adequately controlled Airway Patency, RR, SpO2: stable & adequate BP & HR: stable & adequate Hydration State: stable & adequate Anesthetic Complications: no major complications apparent and Pt Satisfied with anesthetic care
--- NOTE | 2022-03-10 16:32 | Hospitalist Progress Note ---
Date of Service March 10, 2022 Assessment & Plan (1) Severe protein-calorie malnutrition: Plan: Severe protein calorie malnutrition Failure to thrive In setting of malignancy, ongoing chemoradiation Esophagitis Significant nausea secondary to above Recent oral thrush 3 weeks ago S/P clotrimazole Suspected esophageal candidiasis S/P EGD: Normal esophagus. LA Grade A distal esophagitis. Dilated. Z-line variable. Normal stomach. Normal duodenal bulb and second portion of the duodenum. Plan to continue fluconazole--to complete 7-day course Appreciate GI input Dietitian consulted Speech therapy evaluation Possible need for PEG tube placement as outpatient if no improvement of oral intake despite treating esophagitis Encourage increased oral intake Started on Protonix 40 mg BID--continue for 1 month and then transition to daily Video swallow study tomorrow (2) Malignant neoplasm of right lung: Plan: Stage III small cell lung cancer diagnosed November 2021. Started chemoradiation on December 2021. Received 2 cycles of cisplatin and etoposide along with radiation treatment at [facility]. Last treatment was 6 weeks ago. Completed radiation therapy. Follows with [facility] oncology Dr. Prajapati Poor appetite, significant nausea, vomiting since chemotherapy Constipation KUB:Mild colonic fecal retention with nonobstructive bowel gas pattern. continue bowel regimen (3) Hypothyroidism: Plan: Elevated TSH Normal free T4 Continue levothyroxine Needs repeat thyroid function test as outpatient (4) Depression: Plan: Continue Bupropion. (5) COPD (chronic obstructive pulmonary disease): Plan: chronic No signs of COPD exacerbation Hyponatremia Likely due to poor oral intake Sodium 127> 129>132> 130>129 Monitor Anemia of chronic disease Leukopenia Likely secondary to malignancy, chemotherapy No signs of bleeding Monitor CBC (6) Adult failure to thrive: Plan: Management as above. (7) DVT prophylaxis: Plan: SCDs for now Admission and Anticipated Discharge Date Admission Date: March 06, 2022 Subjective Patient is seen and examined at bedside Had EGD earlier today Feels little drowsy postprocedure No new complaints Discussed with patient's family at bedside Denies any nausea today Oral intake remains poor Denies any chest pain, dyspnea, abdominal pain Review of Systems Review of Systems: All systems reviewed & are unremarkable except as noted in Subjective Physical Exam Physical Exam: Physical Exam: Vitals signs as noted above General Appearance: Cachectic, ill-appearing, frail, no apparent distress Head: normocephalic, Atraumatic Eyes: normal inspection, EOMI Neck: supple, Trachea midline Respiratory/Chest: Normal breath sounds, CTA, No accessory muscle use Cardiovascular: S1, S2, No murmur Abdomen/GI:Soft, Non tender, Bowel sounds present Extremities/Musculoskeletal:normal inspection, no edema Neurologic/Psych:AAOX3, grossly no focal neurological deficits Skin: normal color, warm Results & Data Results & Data ([facility]) Vital Signs (Past 12 Hours) Vital Signs Temp Pulse Resp BP BP Pulse Ox O2 Del Method 03/10/22 14:25 36.8 C 88 12 98/62 L 96 Room Air 03/10/22 09:48 36.7 C 86 16 126/72 96 Room Air 03/10/22 09:31 76 16 118/67 98 Room Air 03/10/22 09:17 91 H 16 123/65 94 Room Air 03/10/22 09:02 85 14 103/43 L 100 Room Air 03/10/22 08:19 36.5 C 85 16 117/71 95 Room Air 03/10/22 07:44 Room Air 03/10/22 07:20 36.8 C 88 12 111/69 96 Room Air Laboratory Results [facility] 03/10/22 06:19 Sodium 129 L Potassium 3.6 Chloride 95 L Carbon Dioxide 29 BUN 9 Creatinine 0.70 Glucose 78 Calcium 8.3 L
[2022-03-10] MEDS: FOLIC ACID 1 MG in SYRINGE 9.8 ML IV SCH (21:35)
[2022-03-10] MEDS: THIAMINE HCL 100 MG in SYRINGE 9 ML IV SCH (21:35)
[2022-03-11] MEDS: LEVOTHYROXINE SODIUM 88 MCG TABLET PO SCH (06:08)
[2022-03-11 07:40] LABS: BUN Creatinine Ratio 13.4 (10-20); Calcium 8.5 mg/dl (8.5-10.1); Creatinine Clr Calc Pharmacy 44.7 ml/min; Est GFR (African American) 84.6 ml/min; Magnesium 1.9 mg/dl (1.7-2.4); Potassium 3.5 mmol/L (3.5-5.1)
[2022-03-11] MEDS: buPROPion XL 300 MG TABCR PO SCH ×3 (08:23→17:07)
[2022-03-11] MEDS: PANTOprazole 40 MG TAB PO SCH ×2 (08:23→21:35)
[2022-03-11] MEDS: FLUCONAZOLE 100 MG TAB PO SCH (08:24)
[2022-03-11] MEDS ORDERED: Nursing to Pharmacy Communication SCH (08:45)
--- NOTE | 2022-03-11 15:42 | Fluoroscopy Report ---
MODIFIED BARIUM SWALLOW CLINICAL HISTORY: r/o aspiration COMPARISON STUDY: None. FLUOROSCOPY TIME: 2.2 minutes. TECHNIQUE: A modified barium swallow was performed in conjunction with Speech Pathology. The patient ingested varying consistencies of barium containing material. Video fluoroscopy was performed. FINDINGS: This exam is compromised given small swallows. However, no aspiration was identified with s wallows of thin liquids or crackers with paste. This exam was technically limited. IMPRESSION: 1. Technically limited exam but no aspiration identified. 2. Full recommendations by Speech pathology to follow. ACT 112: Negative or not required by law. Electronically signed by: Melquiades Sanchez M.D. 03/11/2022 3:41 PM
--- NOTE | 2022-03-11 17:37 | Hospitalist Progress Note ---
Date of Service March 11, 2022 Assessment & Plan (1) Severe protein-calorie malnutrition: Plan: Severe protein calorie malnutrition Failure to thrive In setting of malignancy, ongoing chemoradiation Esophagitis Significant nausea secondary to above Recent oral thrush 3 weeks ago S/P clotrimazole Suspected esophageal candidiasis S/P EGD: Normal esophagus. LA Grade A distal esophagitis. Dilated. Z-line variable. Normal stomach. Normal duodenal bulb and second portion of the duodenum. Plan to continue fluconazole--to complete 7-day course Appreciate GI input Dietitian consulted Speech therapy evaluation Encourage increased oral intake Started on Protonix 40 mg BID--continue for 1 month and then transition to daily Had Video swallow study today: Limited study, but no aspiration identified Family requesting PEG tube placement given very poor oral intake (2) Malignant neoplasm of right lung: Plan: Stage III small cell lung cancer diagnosed November 2021. Started chemoradiation on December 2021. Received 2 cycles of cisplatin and etoposide along with radiation treatment at [facility]. Last treatment was 6 weeks ago. Completed radiation therapy. Follows with [facility] oncology Dr. Prajapati Poor appetite, significant nausea, vomiting since chemotherapy Constipation KUB:Mild colonic fecal retention with nonobstructive bowel gas pattern. continue bowel regimen (3) Hypothyroidism: Plan: Elevated TSH Normal free T4 Continue levothyroxine Needs repeat thyroid function test as outpatient (4) Depression: Plan: Continue Bupropion. (5) COPD (chronic obstructive pulmonary disease): Plan: chronic No signs of COPD exacerbation Hyponatremia Likely due to poor oral intake Sodium 127> 129>132> 130 Monitor Hypomagnesemia Replace electrolytes as needed Anemia of chronic disease Leukopenia Likely secondary to malignancy, chemotherapy No signs of bleeding Monitor CBC (6) Adult failure to thrive: Plan: Management as above. (7) DVT prophylaxis: Plan: SCDs for now Admission and Anticipated Discharge Date Admission Date: March 06, 2022 Subjective Patient is seen and examined at bedside States having minimal soreness of mouth after EGD Appetite remains poor Discussed with GI today Denies nausea, vomiting today Also denies any chest pain, dyspnea, abdominal pain Review of Systems Review of Systems: All systems reviewed & are unremarkable except as noted in Subjective Physical Exam Physical Exam: Physical Exam: Vitals signs as noted above General Appearance: Cachectic, ill-appearing, frail, no apparent distress Head: normocephalic, Atraumatic Eyes: normal inspection, EOMI Neck: supple, Trachea midline Respiratory/Chest: Normal breath sounds, CTA, No accessory muscle use Cardiovascular: S1, S2, No murmur Abdomen/GI:Soft, Non tender, Bowel sounds present Extremities/Musculoskeletal:normal inspection, no edema Neurologic/Psych:AAOX3, grossly no focal neurological deficits Skin: normal color, warm Results & Data Results & Data ([facility]) Vital Signs (Past 12 Hours) Vital Signs Temp Pulse Resp BP BP Pulse Ox O2 Del Method 03/11/22 16:01 36.8 C 92 H 16 99/67 L 95 Room Air 03/11/22 08:14 Room Air 03/11/22 07:31 36.8 C 83 16 117/72 97 Room Air Laboratory Results [facility] 03/11/22 06:54 Sodium 130 L Potassium 3.5 Chloride 94 L Carbon Dioxide 28 BUN 11 Creatinine 0.82 Glucose 72 Calcium 8.5
[2022-03-11] MEDS: BENZOCAINE 20% (ORAJEL) 11.9 GM TUBE MT PRN (18:14)
[2022-03-11] MEDS ORDERED: NSS + 20MEQ KCL 20 MEQ/1,000 ML BAG IV ONE (19:30)
[2022-03-11] MEDS: THIAMINE HCL 100 MG in SYRINGE 9 ML IV SCH (21:35)
[2022-03-11] MEDS: FOLIC ACID 1 MG in SYRINGE 9.8 ML IV SCH (21:35)
[2022-03-11] MEDS ORDERED: MAGNESIUM SULFATE / D5W 1 GM/100 ML BAG IV ONE (23:23)
[2022-03-12] MEDS: POTASSIUM CHLORIDE PWD 20 MEQ PACK PO STA ×2 (00:01→00:03)
--- NOTE | 2022-03-12 00:35 | Communication Note ---
Date of Service: March 12, 2022 Patient noted to be orthostatic as per RN. SBP 80s, heart rate 120s. Dizzy while ambulating to the bathroom. Ongoing issue for patient as per RN. Lactic acid was normal. AP Orthostatic hypotension IVF Initiate midodrine Will relay to AM provider.
[2022-03-12] MEDS: POTASSIUM CHLORIDE / WTR 10 MEQ/100 ML PLCT IV SCH ×4 (02:14→06:13)
[2022-03-12] MEDS: MIDODRINE HCL 2.5 MG TAB PO SCH ×4 (02:14→17:21)
[2022-03-12] MEDS: LEVOTHYROXINE SODIUM 88 MCG TABLET PO SCH (05:49)
[2022-03-12] MEDS: BENZOCAINE 20% (ORAJEL) 11.9 GM TUBE MT PRN (05:53)
[2022-03-12] MEDS ORDERED: TPN/PPN CONSULT PHARMACY PRN (07:00)
[2022-03-12] MEDS ORDERED: DEXTROSE 10% 1,000 ML IV PRN (07:05)
[2022-03-12] MEDS ORDERED: TPN/PPN CONSULT PHARMACY STA (07:05)
[2022-03-12] MEDS: PANTOprazole 40 MG TAB PO SCH ×2 (08:02→20:51)
[2022-03-12] MEDS: FLUCONAZOLE 100 MG TAB PO SCH (08:03)
[2022-03-12 08:23] LABS: Hematocrit (blood only) 21.4 % (34.1-44.9); Hemoglobin 7.3 g/dl (12.0-16.0); Mean Corpuscular Hemoglobin 31.1 pg (25.0-34.0); Mean Corpuscular Hgb Conc 34.1 g/dL (32.0-36.0); Mean Corpuscular Volume 91.1 fL (80.0-100.0); Mean Platelet Volume 10.8 fL (9.4-12.3); Platelet Count 137 K/uL (130-400); RDW Coefficient of Variation 18.7 % (11.5-14.5); RDW Standard Deviation 60.6 fL (36.4-46.3); Red Blood Count 2.35 M/uL (3.93-5.22); White Blood Count 5.27 K/ul (4.8-10.8)
[2022-03-12 08:51] LABS: BUN Creatinine Ratio 14.9 (10-20); Bilirubin,Total 0.8 mg/dl (0.2-1.0); Calcium 8.4 mg/dl (8.5-10.1); Creatinine Clr Calc Pharmacy 47.9 ml/min; Est GFR (African American) 95.8 ml/min; Est GFR (Non-African American) 82.7 ml/min; Potassium 4.6 mmol/L (3.5-5.1)
--- NOTE | 2022-03-12 09:43 | Hospitalist Progress Note ---
Date of Service March 12, 2022 Assessment & Plan (1) Severe protein-calorie malnutrition: Plan: Severe protein calorie malnutrition Failure to thrive In setting of malignancy, ongoing chemoradiation Esophagitis Significant nausea secondary to above Recent oral thrush 3 weeks ago S/P clotrimazole Suspected esophageal candidiasis S/P EGD: Normal esophagus. LA Grade A distal esophagitis. Dilated. Z-line variable. Normal stomach. Normal duodenal bulb and second portion of the duodenum. Plan to continue fluconazole--to complete 7-day course Appreciate GI input Dietitian consulted Speech therapy evaluation Encourage increased oral intake Started on Protonix 40 mg BID--continue for 1 month and then transition to daily Had Video swallow study: Limited study, but no aspiration identified Family requesting PEG tube placement given very poor oral intake PPN ordered (2) Malignant neoplasm of right lung: Plan: Stage III small cell lung cancer diagnosed November 2021. Started chemoradiation on December 2021. Received 2 cycles of cisplatin and etoposide along with radiation treatment at [facility]. Last treatment was 6 weeks ago. Completed radiation therapy. Follows with [facility] oncology Dr. Prajapati Poor appetite, significant nausea, vomiting since chemotherapy Constipation KUB:Mild colonic fecal retention with nonobstructive bowel gas pattern. continue bowel regimen (3) Hypothyroidism: Plan: Elevated TSH Normal free T4 Continue levothyroxine Needs repeat thyroid function test as outpatient (4) Depression: Plan: Continue Bupropion. (5) COPD (chronic obstructive pulmonary disease): Plan: chronic No signs of COPD exacerbation Hyponatremia Likely due to poor oral intake Sodium 127> 129>132> 130 Monitor Hypomagnesemia Replace electrolytes as needed Anemia of chronic disease Leukopenia Likely secondary to malignancy, chemotherapy No signs of bleeding Monitor CBC FOBT ordered (6) Adult failure to thrive: Plan: Management as above. (7) DVT prophylaxis: Plan: SCDs for now Admission and Anticipated Discharge Date Admission Date: March 06, 2022 Subjective Patient is seen in follow up of dysphagia, failure to thrive States having minimal soreness of mouth after EGD Appetite remains poor Discussed with GI today Denies nausea, vomiting today Also denies any chest pain, dyspnea, abdominal pain Starting PPN Review of Systems Review of Systems: All systems reviewed & are unremarkable except as noted in Subjective Physical Exam Physical Exam: General Appearance: Cachectic, ill-appearing, frail, no apparent distress Head: normocephalic, Atraumatic Eyes: normal inspection, EOMI Neck: supple Respiratory/Chest: Normal breath sounds, CTA, No accessory muscle use Cardiovascular: S1, S2, No murmur Abdomen/GI:Soft, Non tender, Bowel sounds present Extremities/Musculoskeletal:normal inspection, no edema Neurologic/Psych:AAOX3, grossly no focal neurological deficits Skin: normal color, warm Results & Data Results & Data ([facility]) Vital Signs (Past 12 Hours) Vital Signs Temp Pulse Resp BP Pulse Ox O2 Del Method 03/12/22 07:57 36.8 C 86 16 120/74 98 Room Air 03/12/22 02:15 88 99/56 L Laboratory Results 03/12/22 03/12/22 03/11/22 Range/Units 07:57 07:57 23:49 WBC 5.27 (4.8-10.8) K/ul RBC 2.35 L (3.93-5.22) M/uL Hgb 7.3 L (12.0-16.0) g/dl Hct 21.4 L (34.1-44.9) % MCV 91.1 (80.0-100.0) fL MCH 31.1 (25.0-34.0) pg MCHC 34.1 (32.0-36.0) g/dL RDW Std Deviation 60.6 H (36.4-46.3) fL RDW Coeff of Wendy 18.7 H (11.5-14.5) % Plt Count 137 (130-400) K/uL MPV 10.8 (9.4-12.3) fL Sodium 132 L (136-145) mmol/L Potassium 4.6 D (3.5-5.1) mmol/L Chloride 98 (98-107) mmol/L Carbon Dioxide 24 (21-32) mmol/L Anion Gap 10 (3-11) BUN 11 (6-23) mg/dl Creatinine 0.74 (0.6-1.2) mg/dl Est Cr Clr Drug Dosing 47.9 ml/min Est GFR ( Amer) 95.8 ml/min Est GFR (Non-Af Amer) 82.7 ml/min BUN/Creatinine Ratio 14.9 (10-20) Glucose 66 L (70-99(Fasting)) mg/dl Lactate 0.7 (0.4-2.0) mmol/L Calcium 8.4 L (8.5-10.1) mg/dl Phosphorus 3.0 (2.5-4.9) mg/dl Magnesium 2.0 (1.7-2.4) mg/dl Total Bilirubin 0.8 (0.2-1.0) mg/dl AST 9 L (13-39) U/L ALT 13 (7-52) U/L Alkaline Phosphatase 77 (34-104) U/L Triglycerides 175 H (0-150) mg/dl Medications Administered Current Inpatient Medications Acetaminophen (Acetaminophen 325 Mg Tab) 650 mg PO Q4H PRN PRN Reason: Pain or Fever Stop: 04/05/22 19:49 Albuterol (Albuterol Hfa 8 Gm Inhaler) 2 puffs INH QID PRN PRN Reason: shortness of breath or wheezin Stop: 04/05/22 20:51 Albuterol (Albut/Ipratrop 3mg/0.5mg Neb 3 Ml Vial) 3 ml INH Q6H PRN; Protocol PRN Reason: shortness of breath or wheezing Stop: 04/05/22 20:51 Benzocaine (Benzocaine 20% (Orajel) 11.9 Gm Tube) 1 appln MT TID PRN PRN Reason: Cold Sores Stop: 04/10/22 13:19 Last Admin: 03/12/22 05:53 Dose: 1 appln Bupropion HCl (Bupropion Xl 300 Mg Tabcr) 300 mg PO DAILY@1700 MANUELA Stop: 04/06/22 08:59 Last Admin: 03/11/22 17:07 Dose: 300 mg Docusate Sodium (Docusate Sodium 100 Mg Cap) 100 mg PO BID PRN PRN Reason: Constipation Stop: 04/06/22 20:59 Dronabinol (Dronabinol 2.5 Mg Cap) 2.5 mg PO BID [facility] Stop: 04/05/22 20:59 Last Admin: 03/12/22 08:02 Dose: 2.5 mg Fluconazole (Fluconazole 100 Mg Tab) 200 mg PO QAM [facility]; Protocol Stop: 03/17/22 08:59 Last Admin: 03/12/22 08:03 Dose: 200 mg Glycerin (Glycerin Adult 12 Supp/Box Supp) 1 supp WA DAILY PRN PRN Reason: Constipation Stop: 04/05/22 20:52 Thiamine HCl 100 mg/ Syringe 10 mls @ 2 mls/min IV Q24H [facility] Stop: 04/05/22 20:59 Last Admin: 03/11/22 21:35 Dose: 2 mls/min Folic Acid 1 mg/ Syringe 10 mls @ 5 mls/min IV Q24H [facility] Stop: 04/05/22 20:59 Last Admin: 03/11/22 21:35 Dose: 5 mls/min Dextrose (D10w) 1,000 mls @ 0 mls/hr IV .Q0M PRN PRN Reason: protocol (see label comments) Stop: 04/11/22 07:04 Levothyroxine Sodium (Levothyroxine Sodium 88 Mcg Tablet) 88 mcg PO DAILYBB [facility] Stop: 04/06/22 06:29 Last Admin: 03/12/22 05:49 Dose: 88 mcg Midodrine (Midodrine Hcl 2.5 Mg Tab) 2.5 mg PO TID@0800,1200,1700 [facility] Stop: 04/11/22 00:34 Last Admin: 03/12/22 08:02 Dose: 2.5 mg Miscellaneous Information (Tpn/Ppn Consult Pharmacy) 1 each N/A UD PRN PRN Reason: Consult Stop: 04/11/22 06:59 Pantoprazole Sodium (Pantoprazole 40 Mg Tab) 40 mg PO BID [facility] Stop: 04/09/22 09:44 Last Admin: 03/12/22 08:02 Dose: 40 mg Phenol (Chloraseptic 1.4% Soln 180 Ml Btl) 2 sprays MT Q6H PRN PRN Reason: Sore Throat Stop: 04/06/22 08:28 Last Admin: 03/10/22 09:58 Dose: 2 sprays Polyethylene Glycol (Polyethylene (Miralax) 17 Gm Pack) 17 gm PO DAILY PRN PRN Reason: Constipation Stop: 04/05/22 19:49
[2022-03-12] MEDS ORDERED: LIDOCAINE VISCOUS 2% 15 ML UDC PO PRN (09:47)
--- NOTE | 2022-03-12 15:35 | Pharmacy Report ---
Pharmacy PN Initial Consult - Date of Service March 12, 2022 - Scope Pharmacy has been consulted to manage parenteral nutrition orders and order appropriate labs. As part of the Nutrition Support Team guidelines, pharmacy will work in conjunction with dietary when determining the patients caloric needs. - Subjective The patient is a 67 year old F admitted on 03/06/22 19:51 for FAILURE TO THRIVE. Patient is to receive parenteral nutrition for oral aversion/limited PO intake/ awaiting PEG eval. Pertinent PMH: small cell lung cancer - Objective Height: 5 ft 6 in Weight: 42.3 kg Diet: Full Liquid (limited intake) Intake & Output (Last 24Hrs): Intake & Output 03/10/22 03/11/22 03/12/22 03/13/22 06:59 06:59 06:59 06:59 Intake Total 1032.333 / 2818.797 0797.000 / 1100.000 958.167 / 372.160 5036.5 / 1494.5 Output Total 100 / 100 400 / 400 Balance 1032.333 / 6789.218 1189.000 / 1100.000 858.167 / 998.528 8106.5 / 1094.5 Weight 43.7 kg 43.7 kg 42.3 kg 42.3 kg Laboratory Data (Last 24 Hrs):: 03/12/22 07:57 Sodium 132 L Potassium 4.6 D Chloride 98 Carbon Dioxide 24 BUN 11 Creatinine 0.74 Glucose 66 L Calcium 8.4 L Phosphorus 3.0 Magnesium 2.0 Total Bilirubin 0.8 AST 9 L ALT 13 Alkaline Phosphatase 77 Triglycerides 175 H Nutrition Assessment:: Please refer to the Notes section of the EMR for the most recent perinatal technician note. - Plan For day 1 of PN administration, the following will be ordered: Macronutrients Amino acids 41 grams/day Dextrose 48 grams/day Lipids 40 grams/day Micronutrients Sodium phosphate 15 MMol Sodium chloride 75 mEq Sodium acetate 25 mEq Potassium chloride 20 mEq Magnesium sulfate 4.06 mEq Calcium gluconate 4.65 mEq Multivitamins 10 mL Trace Elements 10 mL Folic Acid 1 mg Thiamine 100 mg Additional additives: Total volume 1040.7 mL to be infused over 24 hrs will provide 726 kcal/day Final osmolarity 897.72 mOsm/L (maximum for PPN is 900 mOsm/L) Labs to be ordered per PN order protocol Pharmacy will follow and adjust parenteral nutrition orders on a daily basis. Thank you.
[2022-03-12] MEDS ORDERED: AMINO ACIDS 4.25% IV SCH (16:00)
[2022-03-12] MEDS ORDERED: D5W IV SCH (16:00)
[2022-03-12] MEDS ORDERED: PERIPHERAL TPN IV SCH (16:00)
[2022-03-12] MEDS ORDERED: CLINOLIPID 20% IV FAT EMULSION 200 ML IV SCH (16:00)
[2022-03-12] MEDS: buPROPion XL 300 MG TABCR PO SCH (17:21)
[2022-03-13] MEDS ORDERED: STOP CLINOLIPID ONE
[2022-03-13] MEDS: LEVOTHYROXINE SODIUM 88 MCG TABLET PO SCH (05:54)
[2022-03-13 07:31] LABS: Hematocrit (blood only) 20.3 % (34.1-44.9); Hemoglobin 6.9 g/dl (12.0-16.0); Mean Corpuscular Hemoglobin 31.4 pg (25.0-34.0); Mean Corpuscular Volume 92.3 fL (80.0-100.0); Mean Platelet Volume 10.5 fL (9.4-12.3); Platelet Count 148 K/uL (130-400); RDW Coefficient of Variation 18.6 % (11.5-14.5); RDW Standard Deviation 60.4 fL (36.4-46.3); White Blood Count 3.87 K/ul (4.8-10.8)
[2022-03-13 07:37] LABS: BUN Creatinine Ratio 23.5 (10-20); Calcium 8.6 mg/dl (8.5-10.1); Creatinine Clr Calc Pharmacy 51.5 ml/min; Est GFR (African American) 103.4 ml/min; Est GFR (Non-African American) 89.2 ml/min; Magnesium 1.8 mg/dl (1.7-2.4); Potassium 3.8 mmol/L (3.5-5.1)
--- NOTE | 2022-03-13 07:47 | Hospitalist Progress Note ---
Date of Service March 13, 2022 Assessment & Plan (1) Severe protein-calorie malnutrition: Plan: Severe protein calorie malnutrition Failure to thrive In setting of malignancy, ongoing chemoradiation Esophagitis Significant nausea secondary to above Recent oral thrush 3 weeks ago S/P clotrimazole Suspected esophageal candidiasis S/P EGD: Normal esophagus. LA Grade A distal esophagitis. Dilated. Z-line variable. Normal stomach. Normal duodenal bulb and second portion of the duodenum. Plan to continue fluconazole--to complete 7-day course Appreciate GI input Dietitian consulted Speech therapy evaluation Encourage increased oral intake Started on Protonix 40 mg BID--continue for 1 month and then transition to daily Had Video swallow study: Limited study, but no aspiration identified Family requesting PEG tube placement given very poor oral intake PPN ordered (2) Malignant neoplasm of right lung: Plan: Stage III small cell lung cancer diagnosed November 2021. Started chemoradiation on December 2021. Received 2 cycles of cisplatin and etoposide along with radiation treatment at [facility]. Last treatment was 6 weeks ago. Completed radiation therapy. Follows with [facility] oncology Dr. Prajapati Poor appetite, significant nausea, vomiting since chemotherapy Palliative medicine also consulted for symptom control Constipation KUB:Mild colonic fecal retention with nonobstructive bowel gas pattern. continue bowel regimen (3) Hypothyroidism: Plan: Elevated TSH Normal free T4 Continue levothyroxine Needs repeat thyroid function test as outpatient (4) Depression: Plan: Continue Bupropion. (5) COPD (chronic obstructive pulmonary disease): Plan: chronic No signs of COPD exacerbation Hyponatremia Likely due to poor oral intake Sodium 127> 129>132> 130 Monitor Hypomagnesemia Replace electrolytes as needed Anemia of chronic disease Leukopenia Likely secondary to malignancy, chemotherapy No signs of bleeding Monitor CBC FOBT ordered 03/13 - Hgb <7 -transfuse 1 unit PRBC (6) Adult failure to thrive: Plan: Management as above. (7) DVT prophylaxis: Plan: SCDs for now Admission and Anticipated Discharge Date Admission Date: March 06, 2022 Subjective Patient is seen in follow up of dysphagia, failure to thrive States having minimal soreness of mouth after EGD Appetite remains poor Discussed with GI yesterday and w/ palliative for symptom control today Denies nausea, vomiting today Also denies any chest pain, dyspnea, abdominal pain Started on PPN Also discussed possible NG tube and feeding through NG tube. Patient and her do not believe she would tolerate it. Patient with chronic anemia, now however hemoglobin less than 7, discussed blood transfusion with the patient. She wanted to wait and talk to the . I contacted over the phone as well and explained. Notified by the nursing staff that patient's present in the room and consent was signed. Review of Systems Review of Systems: All systems reviewed & are unremarkable except as noted in Subjective Physical Exam Physical Exam: General Appearance: Cachectic, ill-appearing, frail, no apparent distress Head: normocephalic, Atraumatic Eyes: normal inspection, EOMI Neck: supple Respiratory/Chest: Normal breath sounds, CTA, No accessory muscle use Cardiovascular: S1, S2, No murmur Abdomen/GI:Soft, Non tender, Bowel sounds present Extremities/Musculoskeletal:normal inspection, no edema Neurologic/Psych:AAOX3, grossly no focal neurological deficits Skin: normal color, warm Results & Data Results & Data ([facility]) Vital Signs (Past 12 Hours) Vital Signs Temp Pulse Resp BP BP Pulse Ox O2 Del Method 03/13/22 07:25 36.4 C L 84 16 126/68 97 Room Air 03/12/22 23:00 37.2 C 89 17 97/61 L 97 Room Air Laboratory Results 03/13/22 03/13/22 03/13/22 Range/Units 06:22 06:22 05:57 WBC 3.87 L (4.8-10.8) K/ul RBC 2.20 L (3.93-5.22) M/uL Hgb 6.9 L* (12.0-16.0) g/dl Hct 20.3 L* (34.1-44.9) % MCV 92.3 (80.0-100.0) fL MCH 31.4 (25.0-34.0) pg MCHC 34.0 (32.0-36.0) g/dL RDW Std Deviation 60.4 H (36.4-46.3) fL RDW Coeff of Wendy 18.6 H (11.5-14.5) % Plt Count 148 (130-400) K/uL MPV 10.5 (9.4-12.3) fL Sodium 131 L (136-145) mmol/L Potassium 3.8 (3.5-5.1) mmol/L Chloride 97 L (98-107) mmol/L Carbon Dioxide 25 (21-32) mmol/L Anion Gap 9 (3-11) BUN 16 (6-23) mg/dl Creatinine 0.68 (0.6-1.2) mg/dl Est Cr Clr Drug Dosing 51.5 ml/min Est GFR ( Amer) 103.4 ml/min Est GFR (Non-Af Amer) 89.2 ml/min BUN/Creatinine Ratio 23.5 H (10-20) Glucose 107 H (70-99(Fasting)) mg/dl POC Glucose 117 H (70-99) mg/dl Calcium 8.6 (8.5-10.1) mg/dl Phosphorus 4.0 D (2.5-4.9) mg/dl Magnesium 1.8 (1.7-2.4) mg/dl Total Bilirubin (0.2-1.0) mg/dl AST (13-39) U/L ALT (7-52) U/L Alkaline Phosphatase (34-104) U/L Triglycerides (0-150) mg/dl 03/13/22 03/12/22 03/12/22 Range/Units 02:02 07:57 07:57 WBC 5.27 (4.8-10.8) K/ul RBC 2.35 L (3.93-5.22) M/uL Hgb 7.3 L (12.0-16.0) g/dl Hct 21.4 L (34.1-44.9) % MCV 91.1 (80.0-100.0) fL MCH 31.1 (25.0-34.0) pg MCHC 34.1 (32.0-36.0) g/dL RDW Std Deviation 60.6 H (36.4-46.3) fL RDW Coeff of Wendy 18.7 H (11.5-14.5) % Plt Count 137 (130-400) K/uL MPV 10.8 (9.4-12.3) fL Sodium 132 L (136-145) mmol/L Potassium 4.6 D (3.5-5.1) mmol/L Chloride 98 (98-107) mmol/L Carbon Dioxide 24 (21-32) mmol/L Anion Gap 10 (3-11) BUN 11 (6-23) mg/dl Creatinine 0.74 (0.6-1.2) mg/dl Est Cr Clr Drug Dosing 47.9 ml/min Est GFR ( Amer) 95.8 ml/min Est GFR (Non-Af Amer) 82.7 ml/min BUN/Creatinine Ratio 14.9 (10-20) Glucose 66 L (70-99(Fasting)) mg/dl POC Glucose 105 H (70-99) mg/dl Calcium 8.4 L (8.5-10.1) mg/dl Phosphorus 3.0 (2.5-4.9) mg/dl Magnesium 2.0 (1.7-2.4) mg/dl Total Bilirubin 0.8 (0.2-1.0) mg/dl AST 9 L (13-39) U/L ALT 13 (7-52) U/L Alkaline Phosphatase 77 (34-104) U/L Triglycerides 175 H (0-150) mg/dl Medications Administered Current Inpatient Medications Acetaminophen (Acetaminophen 325 Mg Tab) 650 mg PO Q4H PRN PRN Reason: Pain or Fever Stop: 04/05/22 19:49 Albuterol (Albuterol Hfa 8 Gm Inhaler) 2 puffs INH QID PRN PRN Reason: shortness of breath or wheezin Stop: 04/05/22 20:51 Albuterol (Albut/Ipratrop 3mg/0.5mg Neb 3 Ml Vial) 3 ml INH Q6H PRN; Protocol PRN Reason: shortness of breath or wheezing Stop: 04/05/22 20:51 Benzocaine (Benzocaine 20% (Orajel) 11.9 Gm Tube) 1 appln MT TID PRN PRN Reason: Cold Sores Stop: 04/10/22 13:19 Last Admin: 03/12/22 05:53 Dose: 1 appln Bupropion HCl (Bupropion Xl 300 Mg Tabcr) 300 mg PO DAILY@1700 [facility] Stop: 04/06/22 08:59 Last Admin: 03/12/22 17:21 Dose: 300 mg Docusate Sodium (Docusate Sodium 100 Mg Cap) 100 mg PO BID PRN PRN Reason: Constipation Stop: 04/06/22 20:59 Dronabinol (Dronabinol 2.5 Mg Cap) 2.5 mg PO BID [facility] Stop: 04/05/22 20:59 Last Admin: 03/12/22 20:51 Dose: 2.5 mg Fluconazole (Fluconazole 100 Mg Tab) 200 mg PO QAM [facility]; Protocol Stop: 03/17/22 08:59 Last Admin: 03/12/22 08:03 Dose: 200 mg Glycerin (Glycerin Adult 12 Supp/Box Supp) 1 supp AL DAILY PRN PRN Reason: Constipation Stop: 04/05/22 20:52 Thiamine HCl 100 mg/ Syringe 10 mls @ 2 mls/min IV Q24H [facility] Stop: 04/05/22 20:59 Last Admin: 03/11/22 21:35 Dose: 2 mls/min Folic Acid 1 mg/ Syringe 10 mls @ 5 mls/min IV Q24H [facility] Stop: 04/05/22 20:59 Last Admin: 03/11/22 21:35 Dose: 5 mls/min Dextrose (D10w) 1,000 mls @ 0 mls/hr IV .Q0M PRN PRN Reason: protocol (see label comments) Stop: 04/11/22 07:04 Amino Acids 1,000 ml/ (Nutrition (Parenteral)) 2,041 mls @ 43.4 mls/hr IV .Q24H [facility]; Protocol Stop: 03/13/22 15:59 Last Admin: 03/12/22 17:11 Dose: 43.4 mls/hr Levothyroxine Sodium (Levothyroxine Sodium 88 Mcg Tablet) 88 mcg PO DAILYBB [facility] Stop: 04/06/22 06:29 Last Admin: 03/13/22 05:54 Dose: 88 mcg Lidocaine HCl (Lidocaine Viscous 2% 15 Ml Udc) 5 ml PO Q4H PRN PRN Reason: Pain Stop: 04/11/22 09:46 Last Admin: 03/12/22 12:35 Dose: 5 ml Midodrine (Midodrine Hcl 2.5 Mg Tab) 2.5 mg PO TID@0800,1200,1700 [facility] Stop: 04/11/22 00:34 Last Admin: 03/12/22 17:21 Dose: 2.5 mg Miscellaneous Information (Tpn/Ppn Consult Pharmacy) 1 each N/A UD PRN PRN Reason: Consult Stop: 04/11/22 06:59 Pantoprazole Sodium (Pantoprazole 40 Mg Tab) 40 mg PO BID MANUELA Stop: 04/09/22 09:44 Last Admin: 03/12/22 20:51 Dose: 40 mg Phenol (Chloraseptic 1.4% Soln 180 Ml Btl) 2 sprays MT Q6H PRN PRN Reason: Sore Throat Stop: 04/06/22 08:28 Last Admin: 03/10/22 09:58 Dose: 2 sprays Polyethylene Glycol (Polyethylene (Miralax) 17 Gm Pack) 17 gm PO DAILY PRN PRN Reason: Constipation Stop: 04/05/22 19:49
[2022-03-13] MEDS: FLUCONAZOLE 100 MG TAB PO SCH (08:20)
[2022-03-13] MEDS: MIDODRINE HCL 2.5 MG TAB PO SCH ×3 (08:22→16:54)
[2022-03-13] MEDS: PANTOprazole 40 MG TAB PO SCH ×2 (08:23→20:51)
--- NOTE | 2022-03-13 08:42 | Palliative Care Consultation ---
Date of Consultation DRAFT [] March 13, 2022 Assessment & Plan (1) Palliative care encounter: (2) Nausea & vomiting: Refractory n/v can often be best managed with metoclopramide vs moving to the setron (first generation 5-HT3 receptor antagonists)/NK1 agents. A recent update from Drs. Ethel Wilson ([facility]) and Jin Aguirre ([facility]) for the Multinational Association of Supportive Care in Cancer/ Society for Medical oncology (MASCC?ESMO) guidelines recommend that first-line antiemetics for nausea and vomiting in advanced cancer are metoclopramide and haloperidol, and second-line medications are methotrimeprazine and olanzapine (Steve Vivas, Ya Ronquillo, Mansoor A, et al. [facility] antiemetics in advanced [place] updated guideline.Support Care Cancer. 2020;29(12):8269-9889. doi:10.1007/t09526-606-85973-q). A recent clinical trial demonstrated efficacy for refractory n/v with fixed-dose Netupitant and Palonosetron (brand name Akynzeo) (Ya Ronquillo, Diamante Alejandro, Connie Carter, et al. Fixed-Dose Netupitant and Palonosetron for Chronic Nausea in Cancer Patients: A Double-Blind, Placebo Run-in Belly Roller Randomized Clinical Trial.J Pain Symptom Manage. 2020;62(2):223-232.e1. doi:10.1016/j.jpainsymman.2019.12.023/Clinicaltrials.[email or web address] http://clinicaltrials.gov/show/WVU31088159 ). Another option to consider doen the line would be olanzapine, a second- generation atypical antipsychotic that has shown off-label efficacy for the treatment of nausea, delirium, anxiety, insomnia, and cachexia in adults. In addition to antagonizing dopamine receptors in the FOOTWEAR SALES COORDINATOR (nausea, delirium), it blocks serotonin (5HT2) receptors (insomnia, anxiety, cachexia) and is anticholinergic. When compared to other antipsychotics, olanzapine causes fewer extrapyramidal symptoms and has lesser effect on the QTc interval compared to IV haloperidol, but it may have a higher prevalence of somnolence and weight ga in. Advanced cancer patients receiving olanzapine at doses between 2.5 to 10 mg had a significant improvement in quality of life and a decrease in nausea compared to baseline; olanzapine has been studied for use in cachexia related to chronic illnesses like cancer. Improvements have been seen in weight gain and appetite stimulation when olanzapine 5 mg/day was added to megestrol acetate therapy. All this being said, pt has potential for interaction with metoclopramide and Wellbutrin, which she has been on for a while. Therefore, would recommend a trial of low dose Haldol to help alleviate cancer related nausea along with OP referral for medical marijuana. Additionally would add a trial of dexamethasone 12 mg PO/IV day 1, then 8 mg PO days 24 as meta-analysis concluded there is strong evidence for glucocorticoids efficacy for prophylaxis of acute and delayedcancer/chemo induced n/v. Will try dual dexamethasone 12mg IV x 1 today then 8mg PO x4 more days along with Haldol intensol 0.5mg PO BID beginning today. The Haldol may also help with her slight confusion. Pt alternately tells me she is leaving tomorrow but also getting a PEG tube tomorrow. This will need clarification. (3) Malignant neoplasm of right lung: For Oncology Patients: Patient's Palliative Prognostic Score (PaP) Score = 6.5 points/interpretation:30-day survival probability 30-70%. SCORE ADJUSTED FOR WBC as "normal" https://www.mdapp.co/xfbcqhzwvd-qnmwignpfj-zztsr-nqy-voaetcboye-959/ Patient's Palliative Prognostic Index (PPI) Score = 8.5 points/please note: if the PPI is greater than 6.0, survival is less than three weeks (Sensitivity - 80%; Specificity - 85%). https://www.mdapp.co/auqivvmycu-toxrbqdgoe-mjcmm-deb-txhlniuldz-141/ (4) Refractory nausea and vomiting: See reccs above. She is asking about a feeding tube and adds her wants this done. She is less sure about wanting one but notes it is hard to go against her . I have recommended referral to medical marijuana center. Justification for referral as follows: I believe Bailey Noble age 67yo may benefit from medical marijuana because of her very severe, refractory nausea, voming and anorexia due to Stage IIIb small cell lung cancer, diagnosed November 2021. Bailey Noble has not improved with numerous trials of medication including Zofran, compazine, marinol. I anticipate this will be a fdc/chronic debilitating problem. Medical marijuana treatment may be of benefit. Patient has the following [place] qualifying conditions for medical marijuana: * Cancer: Stage IIIb small cell lung cancer Dr. Viktoria Storm DNP Clinical Director, Palliative Medicine Plan * refractory n/v recommendations as noted above, orders written/primary team aware * her MS seems a bit off, may be evolving metab enceph? I an cautiously hopeful Haldol might help with this. * Insight into disease process and expectations of therapies/their outcomes are unclear. She perceives being given cancer treatments that other cancer patients did not need such as the chemoradiation. Her prognosis is mixed - palliative prognostics support survival probability of 30-70% in 30day though the palliative prognostics index score was higher suggesting high risk mortality within 3 weeks - this may be skewed by current MS changes which potentially can be reversed. Would consider recalculating in 1-2 weeks. * She should be referred to a medical marijuana provider at discharge; I advised her to obtain the forms needing completion from the [facility] website then Dr Prajapati and colleagues can complete for her. * She can be followed in OP Palliative med by Dr Wang on her [facility] days; alternatively, she can see Pall med at [facility]. Viktoria Storm DNP Clinical Director, Palliative Medicine History of Present Illness Reason for Consultation: Cancer related n/v Attending Physician: Dakota Berry MD History of Present Illness Mrs. noble is a 67yo female with Stage IIIb small cell lung cancer that was diagnosed November 2021. Low dose Chest CT October 2021 revealed a right inferior hilar nodule measuring 2.2 x 1.6cm, right hilar LN enlargement, multiple enlarged right hilar and subcarinal LN and a small sclerotic lesion. Bronchial washing and RLL & subcari nal LN biopsies confirmed small cell lung cancer She was actively smoking at time of dx, has not smoked since lung cancer dx. CT CAP a month later November 2021 revealed 4mm nodule LLL, bilobed nodule LLL 0.4 x 0.7cm, 3mm nodule LLL, right hilar mass extending to RML and RLL measuring 5.4x3.4x7cm with occlusion of RLL bronchus. Subcarinal LN enlarged 2.5x3.5cm and right hilar LN enlarged 1.4x1cm Brain MRI and MRA did not find evidence of metastatic disease. There are findings of chronic microvascular changes consistent with hx of long time smoking and vascular system disease related to chronic nicotine abuse. MRI Brain did not find met disease. PET 2021:Hypermetabolic infiltrative heterogeneous right hilar/right lower lobe mass measures up to 5 cm compatible with primary bronchogenic carc inoma.Subcarinal metastatic lymphadenopathy. Subcentimeter solid pulmonary nodules of the left lung redemonstrated measuring up to 4 mm demonstrate no appreciable hypermetabolic uptake. These may be too small for PET characterization. Attention at follow-up recommended. Indeterminate mildly hypermetabolic right iliac chain lymphadenopathy is most certainly unrelated to the patient's lung cancer, however, attention at follow-up is recommended. She began chemoradiation December 2021 and she is s/p Cycle 2 cisplatin and etoposide (+RT) [facility], Cycle 2 was given approx 6 weeks ago. She has completed XRT Her OP oncology provider is [facility]/Dr.Nilesh Prajapati Pre existing issues include COPD, CKD III. COPD managed with albuterol, Lucy mercado MDI Chemo has been dose adjusted for renal disease. Radiation Hx as noted in chart review: 11/07/2021. Low-dose CT scan for lung cancer screening. Finding of a right hilar mass. 11/28/2021. Bronchoscopy with washings and lavage. Finding of small cell carcinoma. Fungal infection treated with amphotericin B. 12/05/2021. Chest CT. Subcarinal lymphadenopathy as well as right hilar mass. 12/06/2021. Repeat bronchoscopy. Resolution of fungal infection. Clinical stage T3N2M0. Stage IIIB. 12/10/2021. Brain MRI no metastatic disease. Finding of saccular aneurysm. To see neurosurgery for evaluation. 12/10/2021. T-spine MRI negative. 12/23/2021. Planned PET/CT. Metabolic activity confined to the chest. 02/20/2022. Status post completion of combined radiation and chemotherapy. She received 6600 cGy. Chemotherapy comprised of etoposide and cisplatin. She has a persistent complaint of anorexia, severe/refractory n/v since beginning cancer directed therapies. She reports these issues have not improved with ondansetron, Compazine and Marinol. She was transferred here from [facility] for "PEG tube placement." Evaluation notes esoph candidiasis and she was started on therapy. EGD completed and possible dilation may be done vs pursuing PEG placement. EGD done 03/10 noted the following: Impression: - Normal esophagus. - LA Grade A distal esophagitis. Dilated. - Z-line variable. - Normal stomach. - Normal duodenal bulb and second portion of the duodenum. Recommendation: - Assess response to dilation today. - Continue treatment for suspected esophageal candidiasis for a total of 7 days. - Would also treat with PO BID ppi for 1 month then daily thereafter. Video swallow done yesterday revealed: This exam is compromised given small swallows. However, no aspiration was identified with swallows of thin liquids or crackers with paste. This exam was technically limited. Chart review and d/w staff indicate her has been pushing for feeding tube, feeling that she will never adequately take in enough nutrition. Pt is less enthused about this option. Patient herself is quite frustrated by her experience with medical care since cancer diagnoses, specifically citing issues with undergoing chemoradiation "because I haven't seen that being done to anyone else, so why did they do it to me?" I met with pt at bedside earlier this morning, there was no family present. She was alert to self and place but would periodically wander off on a tangent and become a little confused. She was easy to reorient but she consistently demonstrated an inability to stay focused on the discussion at hand. Allergies Allergy/AdvReac Type Severity Reaction Status Date / Time No Known Drug Allergies Allergy Verified 02/03/22 11:24 Home Medications Medication Instructions Recorded Confirmed Type albuterol sulfate 90 mcg/actuation 2 puff inhalation QID PRN 12/19/21 03/06/22 History aerosol inhaler (ProAir HFA) shortness of breath or wheezing ascorbic acid (vitamin C) 100 mg 100 mg PO DAILY 12/19/21 03/06/22 History tablet bupropion HCl 300 mg 24 hr tablet, 300 mg PO QAM 12/19/21 03/06/22 History extended release cholecalciferol (vitamin D3) 50 2,000 unit PO DAILY 12/19/21 03/06/22 History mcg (2,000 unit) capsule famotidine 20 mg tablet 20 mg PO BID 12/19/21 03/06/22 History ipratropium 0.5 mg-albuterol 3 mg 3 ml inhalation Q6H PRN shortness 12/19/21 03/06/22 History (2.5 mg base)/3 mL nebulization of breath or wheezing soln levothyroxine 88 mcg tablet 88 mcg PO DAILY 12/19/21 03/06/22 History (Synthroid) mecobalamin (vitamin B12) 1,000 1,000 mcg PO DAILY 12/19/21 03/06/22 History mcg disintegrating tablet,sublingual ondansetron HCl 8 mg tablet 8 mg PO Q8H PRN n/v 12/30/21 03/06/22 History prochlorperazine maleate 10 mg 10 mg PO Q6H PRN n/v 12/30/21 03/06/22 History tablet (Compazine) Magic Mouthwash 300 mL mouthwash 10 ml mucous membrane ACHS 01/27/22 03/06/22 Rx Dysphagia #300 mL dronabinol 2.5 mg capsule (Marinol) 2.5 mg PO BID Nausea and appetite 02/07/22 03/06/22 Rx stimulant #60 caps omeprazole 20 mg capsule,delayed 20 mg PO DAILY 03/06/22 03/06/22 History release Patient History Medical History (Updated 03/13/22 @ 09:03 by Viktoria Storm DNP) Adult failure to thrive 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 Chronic bronchitis Chronic kidney disease, stage 3a COPD (chronic obstructive pulmonary disease) Depression Encounter for pre-operative examination DULCE (generalized anxiety disorder) GERD (gastroesophageal reflux disease) Hypothyroidism Idiopathic peripheral neuropathy Osteoarthritis Saccular aneurysm Severe protein-calorie malnutrition Small cell lung cancer Thoracic outlet syndrome Tobacco use disorder Surgical History H/O cataract removal with insertion of prosthetic lens H/O total hysterectomy S/P bronchoscopy with biopsy (~11/28/21) S/P tonsillectomy Status post bronchoscopy diagnostic with or without washing 12/06/2021 Status post knee surgery Family History Mother , Age 27 Ovarian cancer Father , Age 70 Alcoholism Alcohol abuse with other alcohol-induced disorder Brother , Age 65 Alcohol abuse with other alcohol-induced disorder Alcoholism Sister No problems noted. 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 Slightly confused at times, not able to answer all questions consistently. Constitutional: Bitemp wasting ENMT: Mouth: + dry oral mucous membranes Neck: trachea midline, no thyromegaly Respiratory: normal respiratory effort, able to speak in complete sentences and + prolonged expiratory phase Auscultation: + diminished lung sounds, + crackles and + bronchial breath sounds Cardiovascular: RRR, no murmur, no edema Gastrointestinal (Abdomen): normal bowel sounds, soft, nontender, no hepatosplenomegaly Musculoskeletal: Head/Neck/Chest: head atraumatic Spine: + paraspinal tenderness Extremities: + muscle atrophy Skin: + turgor decreased and + skin tightening Neurologic: intermittent mild confusion with tangential storytelling, stopping when she can no longer recall the thread of conversation she initiated. Random statements about "You're going to have to learn about strawberry marshmallows" and "we have to find that syrup, it's somewhere here" were mentioned throughout our discussion. Her brain MRI during work up was not indicative of met findings. She may have a metabolic encephalopathy evolving. Updated primary team. Psychiatric: Orientation: alert, oriented to person, oriented to place and cooperative Apperance: appropriately dressed Eye Contact: + fair eye contact Affect: + blunted affect and + labile affect Thought Process: + circumstantial thought process and + tangential thought process Insight: + limited insight Judgement: + limited judgement Results & Data ([facility]) Vital Signs (Past 12 Hours) Vital Signs Temp Pulse Resp BP BP Pulse Ox O2 Del Method 03/13/22 08:19 80 127/75 03/13/22 07:25 36.4 C L 84 16 126/68 97 Room Air 03/12/22 23:00 37.2 C 89 17 97/61 L 97 Room Air PG Care Time/CCT Total # of Minutes Spent Total Time Spent with Patient: Total time spent is greater than 50% in coordination of care (as documented) at patient's floor/unit and/or counseling patient: I spent 80 minutes overall addressing this case: 15 in medical data review/discussion with referring provider(s) and/or preparation for the visit 45 in direct interaction with the patient NONE Advance Care Planning/Goals of Care discussions as detailed above in note (must be >16min) 10 in subsequent review and synthesis of assessment and plan 10 in communicating with other providers regarding the patient's case: primary team, nursing. [place] [address] Inpt Consult Level 5 Patient Type New History Comprehensive Exam Comprehensive Medical Decision Making High Complexity Diagnoses Palliative care encounter Z51.5 Nausea & vomiting R11.2 Malignant neoplasm of right lung C34.91 Refractory nausea and vomiting R11.2
[2022-03-13] MEDS ORDERED: SODIUM CHLORIDE 0.9% 250 ML IV PRN (08:50)
[2022-03-13] MEDS ORDERED: dexAMETHasone 12 MG in SYRINGE 0 ML IV ONE (10:30)
[2022-03-13] MEDS: dexAMETHasone 12 MG in DEXTROSE 5% 25 ML IV ONE ×2 (14:28→14:46)
[2022-03-13] MEDS ORDERED: PERIPHERAL TPN IV SCH (16:00)
[2022-03-13] MEDS ORDERED: AMINO ACIDS 4.25% IV SCH (16:00)
[2022-03-13] MEDS ORDERED: CLINOLIPID 20% IV FAT EMULSION 200 ML IV SCH (16:00)
[2022-03-13] MEDS ORDERED: D5W IV SCH (16:00)
[2022-03-13] MEDS: buPROPion XL 300 MG TABCR PO SCH (16:55)
[2022-03-13] MEDS: HALOPERIDOL ORAL SOLN 2 MG/ML PO SCH (21:01)
[2022-03-14] MEDS: LEVOTHYROXINE SODIUM 88 MCG TABLET PO SCH (05:46)
[2022-03-14 06:50] LABS: Hematocrit (blood only) 27.6 % (34.1-44.9); Hemoglobin 9.8 g/dl (12.0-16.0); Mean Corpuscular Hemoglobin 31.2 pg (25.0-34.0); Mean Corpuscular Hgb Conc 35.5 g/dL (32.0-36.0); Mean Corpuscular Volume 87.9 fL (80.0-100.0); Mean Platelet Volume 10.3 fL (9.4-12.3); Platelet Count 175 K/uL (130-400); RDW Coefficient of Variation 18.4 % (11.5-14.5); RDW Standard Deviation 56.2 fL (36.4-46.3); Red Blood Count 3.14 M/uL (3.93-5.22)
[2022-03-14 07:03] LABS: BUN Creatinine Ratio 35.5 (10-20); Calcium 9.4 mg/dl (8.5-10.1); Creatinine Clr Calc Pharmacy 56.4 ml/min; Est GFR (African American) 106.6 ml/min; Magnesium 1.9 mg/dl (1.7-2.4); Phosphorus 3.5 mg/dl (2.5-4.9); Potassium 4.4 mmol/L (3.5-5.1)
--- NOTE | 2022-03-14 07:32 | Hospitalist Progress Note ---
Date of Service March 14, 2022 Assessment & Plan (1) Severe protein-calorie malnutrition: Plan: Severe protein calorie malnutrition Failure to thrive In setting of malignancy, ongoing chemoradiation Esophagitis Significant nausea secondary to above Recent oral thrush 3 weeks ago S/P clotrimazole Suspected esophageal candidiasis S/P EGD: Normal esophagus. LA Grade A distal esophagitis. Dilated. Z-line variable. Normal stomach. Normal duodenal bulb and second portion of the duodenum. Plan to continue fluconazole--to complete 7-day course Appreciate GI input Dietitian consulted Speech therapy evaluation Encourage increased oral intake Started on Protonix 40 mg BID--continue for 1 month and then transition to daily Had Video swallow study: Limited study, but no aspiration identified Family requesting PEG tube placement given very poor oral intake PPN ordered (2) Malignant neoplasm of right lung: Plan: Stage III small cell lung cancer diagnosed November 2021. Started chemoradiation on December 2021. Received 2 cycles of cisplatin and etoposide along with radiation treatment at [facility]. Last treatment was 6 weeks ago. Completed radiation therapy. Follows with [facility] oncology Dr. Prajapati Poor appetite, significant nausea, vomiting since chemotherapy Palliative medicine also consulted for symptom control, appreciate their input Constipation KUB:Mild colonic fecal retention with nonobstructive bowel gas pattern. continue bowel regimen - continues w/ constipation - obtain KUB -no stool softeners ordered prn given - discussed w/ nursing staff (3) Hypothyroidism: Plan: Elevated TSH Normal free T4 Continue levothyroxine Needs repeat thyroid function test as outpatient (4) Depression: Plan: Continue Bupropion. (5) COPD (chronic obstructive pulmonary disease): Plan: chronic No signs of COPD exacerbation Hyponatremia Likely due to poor oral intake Sodium 127> 129>132> 130 Monitor Hypomagnesemia Replace electrolytes as needed Anemia of chronic disease Leukopenia Likely secondary to malignancy, chemotherapy No signs of bleeding Monitor CBC FOBT ordered 03/13 - Hgb <7 -transfused 1 unit PRBC (6) Adult failure to thrive: Plan: Management as above. (7) DVT prophylaxis: Plan: SCDs for now Admission and Anticipated Discharge Date Admission Date: March 06, 2022 Subjective Patient is seen in follow up of dysphagia, failure to thrive Appetite remains poor GI and palliative for symptom control involved Denies nausea, vomiting today Also denies any chest pain, dyspnea, abdominal pain Started on PPN Also discussed possible NG tube and feeding through NG tube. Patient and her do not believe she would tolerate it. Received 1 unit of pRBC yesterday Today patient is awake however she seems a bit confused, not answering all my questions appropriately. Review of Systems Review of Systems: All systems reviewed & are unremarkable except as noted in Subjective Physical Exam Physical Exam: General Appearance: Cachectic, ill-appearing, frail, no apparent distress Head: normocephalic, Atraumatic Eyes: normal inspection, EOMI Neck: supple Respiratory/Chest: Normal breath sounds, CTA, No accessory muscle use Cardiovascular: S1, S2, No murmur Abdomen/GI:Soft, Non tender, Bowel sounds present Extremities/Musculoskeletal:normal inspection, no edema Neurologic/Psych:AAOX3, grossly no focal neurological deficits Skin: normal color, warm Results & Data Results & Data ([facility]) Vital Signs (Past 12 Hours) Vital Signs Temp Pulse Resp BP Pulse Ox O2 Del Method 03/14/22 07:25 36.5 C 100 H 16 130/75 90 Room Air 03/14/22 00:01 36.7 C 88 16 115/65 96 Laboratory Results 03/14/22 03/14/22 03/14/22 Range/Units 05:53 05:53 00:01 WBC 4.70 L (4.8-10.8) K/ul RBC 3.14 L (3.93-5.22) M/uL Hgb 9.8 L D (12.0-16.0) g/dl Hct 27.6 L (34.1-44.9) % MCV 87.9 (80.0-100.0) fL MCH 31.2 (25.0-34.0) pg MCHC 35.5 (32.0-36.0) g/dL RDW Std Deviation 56.2 H (36.4-46.3) fL RDW Coeff of Wendy 18.4 H (11.5-14.5) % Plt Count 175 (130-400) K/uL MPV 10.3 (9.4-12.3) fL Sodium 132 L (136-145) mmol/L Potassium 4.4 (3.5-5.1) mmol/L Chloride 98 (98-107) mmol/L Carbon Dioxide 25 (21-32) mmol/L Anion Gap 9 (3-11) BUN 22 (6-23) mg/dl Creatinine 0.62 (0.6-1.2) mg/dl Est Cr Clr Drug Dosing 56.4 ml/min Est GFR ( Amer) 106.6 ml/min Est GFR (Non-Af Amer) 92.0 ml/min BUN/Creatinine Ratio 35.5 H (10-20) Glucose 146 H (70-99(Fasting)) mg/dl POC Glucose 190 H (70-99) mg/dl Calcium 9.4 (8.5-10.1) mg/dl Phosphorus 3.5 (2.5-4.9) mg/dl Magnesium 1.9 (1.7-2.4) mg/dl Blood Type Blood Type Recheck Antibody Screen Crossmatch 03/13/22 03/13/22 03/13/22 Range/Units 18:21 11:55 09:27 WBC (4.8-10.8) K/ul RBC (3.93-5.22) M/uL Hgb (12.0-16.0) g/dl Hct (34.1-44.9) % MCV (80.0-100.0) fL MCH (25.0-34.0) pg MCHC (32.0-36.0) g/dL RDW Std Deviation (36.4-46.3) fL RDW Coeff of Wendy (11.5-14.5) % Plt Count (130-400) K/uL MPV (9.4-12.3) fL Sodium (136-145) mmol/L Potassium (3.5-5.1) mmol/L Chloride (98-107) mmol/L Carbon Dioxide (21-32) mmol/L Anion Gap (3-11) BUN (6-23) mg/dl Creatinine (0.6-1.2) mg/dl Est Cr Clr Drug Dosing ml/min Est GFR ( Amer) ml/min Est GFR (Non-Af Amer) ml/min BUN/Creatinine Ratio (10-20) Glucose (70-99(Fasting)) mg/dl POC Glucose 150 H 119 H (70-99) mg/dl Calcium (8.5-10.1) mg/dl Phosphorus (2.5-4.9) mg/dl Magnesium (1.7-2.4) mg/dl Blood Type A Positive Blood Type Recheck Antibody Screen NEGATIVE Crossmatch See Detail 03/13/22 03/13/22 03/13/22 Range/Units 07:57 06:22 06:22 WBC 3.87 L (4.8-10.8) K/ul RBC 2.20 L (3.93-5.22) M/uL Hgb 6.9 L* (12.0-16.0) g/dl Hct 20.3 L* (34.1-44.9) % MCV 92.3 (80.0-100.0) fL MCH 31.4 (25.0-34.0) pg MCHC 34.0 (32.0-36.0) g/dL RDW Std Deviation 60.4 H (36.4-46.3) fL RDW Coeff of Wendy 18.6 H (11.5-14.5) % Plt Count 148 (130-400) K/uL MPV 10.5 (9.4-12.3) fL Sodium 131 L (136-145) mmol/L Potassium 3.8 (3.5-5.1) mmol/L Chloride 97 L (98-107) mmol/L Carbon Dioxide 25 (21-32) mmol/L Anion Gap 9 (3-11) BUN 16 (6-23) mg/dl Creatinine 0.68 (0.6-1.2) mg/dl Est Cr Clr Drug Dosing 51.5 ml/min Est GFR ( Amer) 103.4 ml/min Est GFR (Non-Af Amer) 89.2 ml/min BUN/Creatinine Ratio 23.5 H (10-20) Glucose 107 H (70-99(Fasting)) mg/dl POC Glucose (70-99) mg/dl Calcium 8.6 (8.5-10.1) mg/dl Phosphorus 4.0 D (2.5-4.9) mg/dl Magnesium 1.8 (1.7-2.4) mg/dl Blood Type Blood Type Recheck A Positive Antibody Screen Crossmatch Medications Administered Current Inpatient Medications Acetaminophen (Acetaminophen 325 Mg Tab) 650 mg PO Q4H PRN PRN Reason: Pain or Fever Stop: 04/05/22 19:49 Albuterol (Albuterol Hfa 8 Gm Inhaler) 2 puffs INH QID PRN PRN Reason: shortness of breath or wheezin Stop: 04/05/22 20:51 Albuterol (Albut/Ipratrop 3mg/0.5mg Neb 3 Ml Vial) 3 ml INH Q6H PRN; Protocol PRN Reason: shortness of breath or wheezing Stop: 04/05/22 20:51 Benzocaine (Benzocaine 20% (Orajel) 11.9 Gm Tube) 1 appln MT TID PRN PRN Reason: Cold Sores Stop: 04/10/22 13:19 Last Admin: 03/12/22 05:53 Dose: 1 appln Bupropion HCl (Bupropion Xl 300 Mg Tabcr) 300 mg PO DAILY@1700 [facility] Stop: 04/06/22 08:59 Last Admin: 03/13/22 16:55 Dose: 300 mg Dexamethasone (Dexamethasone 4 Mg Tab) 8 mg PO DAILY [facility] Stop: 03/17/22 08:59 Docusate Sodium (Docusate Sodium 100 Mg Cap) 100 mg PO BID PRN PRN Reason: Constipation Stop: 04/06/22 20:59 Dronabinol (Dronabinol 2.5 Mg Cap) 5 mg PO BID [facility] Stop: 04/12/22 20:59 Last Admin: 03/13/22 20:51 Dose: 5 mg Fluconazole (Fluconazole 100 Mg Tab) 200 mg PO QAM [facility]; Protocol Stop: 03/17/22 08:59 Last Admin: 03/13/22 08:20 Dose: 200 mg Glycerin (Glycerin Adult 12 Supp/Box Supp) 1 supp NC DAILY PRN PRN Reason: Constipation Stop: 04/05/22 20:52 Haloperidol (Haloperidol Oral Soln 2 Mg/Ml) 0.5 mg PO BID [facility] Stop: 04/12/22 20:59 Last Admin: 03/13/22 21:01 Dose: 0.5 mg Thiamine HCl 100 mg/ Syringe 10 mls @ 2 mls/min IV Q24H MANUELA Stop: 04/05/22 20:59 Last Admin: 03/11/22 21:35 Dose: 2 mls/min Folic Acid 1 mg/ Syringe 10 mls @ 5 mls/min IV Q24H MANUELA Stop: 04/05/22 20:59 Last Admin: 03/11/22 21:35 Dose: 5 mls/min Dextrose (D10w) 1,000 mls @ 0 mls/hr IV .Q0M PRN PRN Reason: protocol (see label comments) Stop: 04/11/22 07:04 Amino Acids 1,291 ml/ (Nutrition (Parenteral)) 1,291 mls @ 53.8 mls/hr IV .Q24H MANUELA; Protocol Stop: 03/14/22 15:59 Last Admin: 03/13/22 16:32 Dose: 53.8 mls/hr Levothyroxine Sodium (Levothyroxine Sodium 88 Mcg Tablet) 88 mcg PO DAILYBB MANUELA Stop: 04/06/22 06:29 Last Admin: 03/14/22 05:46 Dose: 88 mcg Lidocaine HCl (Lidocaine Viscous 2% 15 Ml Udc) 5 ml PO Q4H PRN PRN Reason: Pain Stop: 04/11/22 09:46 Last Admin: 03/12/22 12:35 Dose: 5 ml Midodrine (Midodrine Hcl 2.5 Mg Tab) 2.5 mg PO TID@0800,1200,1700 [facility] Stop: 04/11/22 00:34 Last Admin: 03/13/22 16:54 Dose: Not Given Miscellaneous Information (Tpn/Ppn Consult Pharmacy) 1 each N/A UD PRN PRN Reason: Consult Stop: 04/11/22 06:59 Pantoprazole Sodium (Pantoprazole 40 Mg Tab) 40 mg PO BID [facility] Stop: 04/09/22 09:44 Last Admin: 03/13/22 20:51 Dose: 40 mg Phenol (Chloraseptic 1.4% Soln 180 Ml Btl) 2 sprays MT Q6H PRN PRN Reason: Sore Throat Stop: 04/06/22 08:28 Last Admin: 03/10/22 09:58 Dose: 2 sprays Polyethylene Glycol (Polyethylene (Miralax) 17 Gm Pack) 17 gm PO DAILY PRN PRN Reason: Constipation Stop: 04/05/22 19:49
[2022-03-14] MEDS ORDERED: dexAMETHasone 4 MG TAB PO SCH (09:00)
[2022-03-14] MEDS: FLUCONAZOLE 100 MG TAB PO SCH (09:25)
[2022-03-14] MEDS: MIDODRINE HCL 2.5 MG TAB PO SCH ×3 (09:25→17:10)
[2022-03-14] MEDS: HALOPERIDOL ORAL SOLN 2 MG/ML PO SCH ×2 (09:25→19:49)
[2022-03-14] MEDS: PANTOprazole 40 MG TAB PO SCH ×2 (09:26→19:55)
--- NOTE | 2022-03-14 13:15 | Palliative Care Consultation ---
Date of Consultation March 14, 2022 History of Present Illness Attending Physician: Dakota Berry MD Allergies Allergy/AdvReac Type Severity Reaction Status Date / Time No Known Drug Allergies Allergy Verified 02/03/22 11:24 Home Medications Medication Instructions Recorded Confirmed Type albuterol sulfate 90 mcg/actuation 2 puff inhalation QID PRN 12/19/21 03/06/22 History aerosol inhaler (ProAir HFA) shortness of breath or wheezing ascorbic acid (vitamin C) 100 mg 100 mg PO DAILY 12/19/21 03/06/22 History tablet bupropion HCl 300 mg 24 hr tablet, 300 mg PO QAM 12/19/21 03/06/22 History extended release cholecalciferol (vitamin D3) 50 2,000 unit PO DAILY 12/19/21 03/06/22 History mcg (2,000 unit) capsule famotidine 20 mg tablet 20 mg PO BID 12/19/21 03/06/22 History ipratropium 0.5 mg-albuterol 3 mg 3 ml inhalation Q6H PRN shortness 12/19/21 03/06/22 History (2.5 mg base)/3 mL nebulization of breath or wheezing soln levothyroxine 88 mcg tablet 88 mcg PO DAILY 12/19/21 03/06/22 History (Synthroid) mecobalamin (vitamin B12) 1,000 1,000 mcg PO DAILY 12/19/21 03/06/22 History mcg disintegrating tablet,sublingual ondansetron HCl 8 mg tablet 8 mg PO Q8H PRN n/v 12/30/21 03/06/22 History prochlorperazine maleate 10 mg 10 mg PO Q6H PRN n/v 12/30/21 03/06/22 History tablet (Compazine) Magic Mouthwash 300 mL mouthwash 10 ml mucous membrane ACHS 01/27/22 03/06/22 Rx Dysphagia #300 mL dronabinol 2.5 mg capsule (Marinol) 2.5 mg PO BID Nausea and appetite 02/07/22 03/06/22 Rx stimulant #60 caps omeprazole 20 mg capsule,delayed 20 mg PO DAILY 03/06/22 03/06/22 History release Patient History Medical History Adult failure to thrive 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 Chronic bronchitis Chronic kidney disease, stage 3a COPD (chronic obstructive pulmonary disease) Depression Encounter for pre-operative examination DULCE (generalized anxiety disorder) GERD (gastroesophageal reflux disease) Hypothyroidism Idiopathic peripheral neuropathy Osteoarthritis Saccular aneurysm Severe protein-calorie malnutrition Small cell lung cancer Thoracic outlet syndrome Tobacco use disorder Surgical History H/O cataract removal with insertion of prosthetic lens H/O total hysterectomy S/P bronchoscopy with biopsy (~11/28/21) S/P tonsillectomy Status post bronchoscopy diagnostic with or without washing 12/06/2021 Status post knee surgery Family History Mother , Age 27 Ovarian cancer Father , Age 70 Alcoholism Alcohol abuse with other alcohol-induced disorder Brother , Age 65 Alcohol abuse with other alcohol-induced disorder Alcoholism Sister No problems noted. 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 How many Children do You have: 2 Feels Safe at Home: Yes Childhood Exposure to Second-Hand Smoke: Yes caffeine: Yes (2.5 cups/day) during the past year weight has: remained stable Dental Care, Regularly: Yes Assistive Devices: Walker Results & Data ([facility]) Vital Signs (Past 12 Hours) Vital Signs Temp Pulse Resp BP BP Pulse Ox O2 Del Method 03/14/22 12:44 141/93 H 03/14/22 07:25 36.5 C 100 H 16 130/75 90 Room Air PG Care Time/CCT Total # of Minutes Spent Total Time Spent with Patient: Total time spent is greater than 50% in coordination of care (as documented) at patient's floor/unit and/or counseling patient: Coding Level of Care Code 42546 Inpt Consult Level 5
--- NOTE | 2022-03-14 13:47 | XRay Report ---
KUB HISTORY: constipation COMPARISON: KUB 03/07/2022. FINDINGS: Borderline dilated gas-filled loops of large and small bowel are seen throughout the abdome n. There is gas within the rectum. This favors a mild ileus. There is residual oral barium within the cecum. Small amount of well-formed stool seen throughout the colon. This remains unchanged. No sherly l calculi. No ureteral calculi. No pneumoperitoneum or pneumatosis. IMPRESSION: Borderline dilated gas-filled loops of large and small bowel seen throughout the abdomen which favors a mild ileus. No evidence for bowel obstruction. ACT 112: Negative or not required by law. Electronically signed by: Huy Vela M.D. 03/14/2022 1:45 PM
[2022-03-14] MEDS ORDERED: GLYCERIN ADULT 12 SUPP/BOX SUPP PR ONE (14:30)
--- NOTE | 2022-03-14 14:46 | CT Scan Report ---
CT head/brain wo con CLINICAL HISTORY: hx of lung ca, nausea, ams Technique: Contiguous axial CT images of the head were acquired from the base of the skull to the ramesh mary kay without intravenous contrast administration. Images were viewed in brain, subd[facility]. Automated dose lowering techniques and/or adjustment according to patient size were utilized for this exam. Comparison: Comparison is made to MRI brain 12/10/2021 Findings: Areas of decreased attenuation are present in the periventricular and subcortical white matter bilate rally consistent with small vessel ischemic disease. Generalized cerebral atrophy with commensurate e nlargement of the ventricles, sulci, and cisterns is also present. There is no acute intracranial hem orrhage or evidence of acute territorial infarction. No shift of the midline structures, mass effect, or extra-axial abnormalities are shown. Atherosclerotic calcifications are present in the intracran ial segments of the internal carotid arteries. Encephalomalacia is seen in the right frontoparietal region which may reflect old infarct. Imaged portions of the paranasal sinuses and mastoid air cells are clear. The orbits appear normal. There are no acute fractures of the calvaria or scalp swelling. Impression: No acute abnormality, in particular no evidence of intracranial metastasis. 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 ACT 112: Negative or not required by law. Electronically signed by: Abel Parra M.D. 03/14/2022 2:45 PM
--- NOTE | 2022-03-14 15:08 | Palliative Care Progress Note ---
Date of Service March 14, 2022 Assessment & Plan (1) Palliative care encounter: (2) Refractory nausea and vomiting: Plan: Continue decadron + BID Haldol. EKG was repeated yesterday. Fluconazole finishes this weeken. (3) Constipation: Plan: She is unable to drink a whole dose of Miralax. She took one sip in my 50 min bedside visit and grimaced. She is also not taking her PO tabs of colace/senna. (4) Severe protein-calorie malnutrition: (5) Malignant neoplasm of right lung: Plan * Complete Decadron as ordered. * continue Haldol * She cannot tolerate the volume of liquid for miralax nor is she taking PO tab reliably. * I called her oncologist Dr Charlene Prajapati/Naa Orellana. Reviewed her case to date and HPI. He does not feel this is chemo related as she is many weeks out from her last dose. He also agreed that she does not urgently need a feeding tube given normal swallow. He was in agreement with my [facility] for medical marijuana to help with her severe n/v and anorexia. He is willing to complete her paperwork once family submits the forms to him.Chemo has been held last few visits due to her malnutrition. Since she has limited stage disease, her prognosis is reasonable for remission/cure. He recommended imaging her brain as this has not been done in some time. If she has evidence of brain mets then she will need an MRI, and her prognosis would be worse. I reviewed her regimen for n/v with decadron and haldol, he was in agreement with a trial. If she has brain mets then it is possible the lower doses of decadron may help improve or forestall AMS progression/make it happen slower. * Updated Dr Berry, she will connect with Dr Prajapati once CT resulted. * I have updated patient and her . I advised I spoke with Dr Prajapati and also passed along to Dr Prajapati that they need a follow up appt scheduled. expressed appreciation for the updates and current plan. He will obtain medical marijuana forms fr Dr. Prajapati to complete. Dr. Viktoria Storm DNP Clinical Director, Palliative Medicine Admission and Anticipated Discharge Date Admission Date: March 06, 2022 Subjective Seen at bedside, is here visiting. her MS has worsened a it more from yesterday Today is day 12 without documented BM, feel it may be longer. He states "she once went 5 weeks without a BM." Pt is seated in bed. Tangential and confused at times. Will answer some questions accurately then off on tangents or topics not brought up for present discussion. Interestingly, she feels less nauseated today. Review of Systems Review of Systems: Unobtainable due to cognitive status Physical Exam Physical Exam: General Appearance: Cachectic, ill-appearing, frail, no apparent distress Head: normocephalic, Atraumatic Eyes: normal inspection, EOMI Neck: supple Respiratory/Chest: Normal breath sounds, CTA, No accessory muscle use Cardiovascular: S1, S2, No murmur Abdomen/GI:Soft, Non tender, Bowel sounds present Extremities/Musculoskeletal:normal inspection, no edema Neurologic/Psych:Alert to self, confused about place, tells me there is a post office right outside her window (she is looking at the brick side of the 3rd floor hospital building) Skin: normal color, warm Results & Data ([facility]) Vital Signs (Past 12 Hours) Vital Signs Temp Pulse Resp BP BP Pulse Ox O2 Del Method 03/14/22 14:33 36.7 C 85 16 117/68 97 Room Air 03/14/22 12:44 141/93 H 03/14/22 07:25 36.5 C 100 H 16 130/75 90 Room Air PG Care Time/CCT Total # of Minutes Spent Total Time Spent with Patient: Total time spent is greater than 50% in coordination of care (as documented) at patient's floor/unit and/or counseling patient: Coding Level of Care Code 64556 Subseq Hosp Care Lvl 3 Diagnoses Palliative care encounter Z51.5 Refractory nausea and vomiting R11.2 Constipation K59.00 Severe protein-calorie malnutrition E43 Malignant neoplasm of right lung C34.91
[2022-03-14] MEDS: SENNA 8.6 MG TAB PO SCH (15:10)
[2022-03-14] MEDS ORDERED: D5W IV SCH (16:00)
[2022-03-14] MEDS ORDERED: CLINOLIPID 20% IV FAT EMULSION 200 ML IV SCH (16:00)
[2022-03-14] MEDS ORDERED: AMINO ACIDS 4.25% IV SCH (16:00)
[2022-03-14] MEDS ORDERED: PERIPHERAL TPN IV SCH (16:00)
[2022-03-14] MEDS ORDERED: OLANZapine 10 MG/2.1 ML SDV IM PRN (16:22)
[2022-03-14] MEDS: buPROPion XL 300 MG TABCR PO SCH (17:10)
[2022-03-14] MEDS ORDERED: STOP CLINOLIPID ONE ×2 (22:00)
[2022-03-15] MEDS: LEVOTHYROXINE SODIUM 88 MCG TABLET PO SCH (06:15)
--- NOTE | 2022-03-15 08:10 | Hospitalist Progress Note ---
Date of Service March 15, 2022 Assessment & Plan (1) Severe protein-calorie malnutrition: Plan: Severe protein calorie malnutrition Failure to thrive In setting of malignancy, ongoing chemoradiation Esophagitis Significant nausea secondary to above Recent oral thrush 3 weeks ago S/P clotrimazole Suspected esophageal candidiasis S/P EGD: Normal esophagus. LA Grade A distal esophagitis. Dilated. Z-line variable. Normal stomach. Normal duodenal bulb and second portion of the duodenum. Plan to continue fluconazole--to complete 7-day course Appreciate GI input Dietitian consulted Speech therapy evaluation Encourage increased oral intake Started on Protonix 40 mg BID--continue for 1 month and then transition to daily Had Video swallow study: Limited study, but no aspiration identified Family requesting PEG tube placement given very poor oral intake PPN ordered (2) Malignant neoplasm of right lung: Plan: Stage III small cell lung cancer diagnosed November 2021. Started chemoradiation on December 2021. Received 2 cycles of cisplatin and etoposide along with radiation treatment at [facility]. Last treatment was 6 weeks ago. Completed radiation therapy. Follows with [facility] oncology Dr. Prajapati Poor appetite, significant nausea, vomiting since chemotherapy Palliative medicine also consulted for symptom control, appreciate their input Constipation KUB:Mild colonic fecal retention with nonobstructive bowel gas pattern. continue bowel regimen - continues w/ constipation - obtained repeat KUB and discussed w/ nursing staff providing prn stool regimen (3) Hypothyroidism: Plan: Elevated TSH Normal free T4 Continue levothyroxine Needs repeat thyroid function test as outpatient (4) Depression: Plan: Continue Bupropion. (5) COPD (chronic obstructive pulmonary disease): Plan: chronic No signs of COPD exacerbation Hyponatremia Likely due to poor oral intake Sodium 127> 129>132> 130 Monitor Hypomagnesemia Replace electrolytes as needed Anemia of chronic disease Leukopenia Likely secondary to malignancy, chemotherapy No signs of bleeding Monitor CBC FOBT ordered 03/13 - Hgb <7 -transfused 1 unit PRBC (6) Adult failure to thrive: Plan: Management as above. (7) DVT prophylaxis: Plan: SCDs for now Admission and Anticipated Discharge Date Admission Date: March 06, 2022 Subjective Patient is seen in follow up of dysphagia, failure to thrive Appetite remains poor however pt asked for eggs and coffee this AM GI and palliative for symptom control involved Denies any chest pain, dyspnea, abdominal pain Started on PPN Also discussed possible NG tube and feeding through NG tube. Patient and her do not believe she would tolerate it. Received 1 unit of pRBC 2 days ago Today patient is awake and oriented, not confused. Daughter at the bedside. Review of Systems Review of Systems: All systems reviewed & are unremarkable except as noted in Subjective Physical Exam Physical Exam: General Appearance: Cachectic, ill-appearing, frail, no apparent distress Head: normocephalic, Atraumatic Eyes: normal inspection, EOMI Neck: supple Respiratory/Chest: Normal breath sounds, CTA, No accessory muscle use Cardiovascular: S1, S2, No murmur Abdomen/GI:Soft, Non tender, Bowel sounds present Extremities/Musculoskeletal:normal inspection, no edema Neurologic/Psych:AAOX3, grossly no focal neurological deficits Skin: normal color, warm Results & Data Results & Data ([facility]) Vital Signs (Past 12 Hours) Vital Signs Temp Pulse Resp BP Pulse Ox O2 Del Method 03/15/22 06:12 37 C 92 H 16 124/67 97 03/15/22 00:06 Room Air Laboratory Results 03/15/22 03/15/22 03/15/22 Range/Units 12:15 07:38 06:08 Sodium 135 L (136-145) mmol/L Potassium 3.5 D (3.5-5.1) mmol/L Chloride 101 (98-107) mmol/L Carbon Dioxide 28 (21-32) mmol/L Anion Gap 6 (3-11) BUN 23 (6-23) mg/dl Creatinine 0.65 (0.6-1.2) mg/dl Est Cr Clr Drug Dosing 53.8 ml/min Est GFR ( Amer) 105.0 ml/min Est GFR (Non-Af Amer) 90.6 ml/min BUN/Creatinine Ratio 35.4 H (10-20) Glucose 89 (70-99(Fasting)) mg/dl POC Glucose 96 105 H (70-99) mg/dl Calcium 9.2 (8.5-10.1) mg/dl Phosphorus 3.9 (2.5-4.9) mg/dl Magnesium 2.0 (1.7-2.4) mg/dl 03/14/22 Range/Units 18:52 Sodium (136-145) mmol/L Potassium (3.5-5.1) mmol/L Chloride (98-107) mmol/L Carbon Dioxide (21-32) mmol/L Anion Gap (3-11) BUN (6-23) mg/dl Creatinine (0.6-1.2) mg/dl Est Cr Clr Drug Dosing ml/min Est GFR ( Amer) ml/min Est GFR (Non-Af Amer) ml/min BUN/Creatinine Ratio (10-20) Glucose (70-99(Fasting)) mg/dl POC Glucose 134 H (70-99) mg/dl Calcium (8.5-10.1) mg/dl Phosphorus (2.5-4.9) mg/dl Magnesium (1.7-2.4) mg/dl Medications Administered Current Inpatient Medications Acetaminophen (Acetaminophen 325 Mg Tab) 650 mg PO Q4H PRN PRN Reason: Pain or Fever Stop: 04/05/22 19:49 Albuterol (Albuterol Hfa 8 Gm Inhaler) 2 puffs INH QID PRN PRN Reason: shortness of breath or wheezin Stop: 04/05/22 20:51 Albuterol (Albut/Ipratrop 3mg/0.5mg Neb 3 Ml Vial) 3 ml INH Q6H PRN; Protocol PRN Reason: shortness of breath or wheezing Stop: 04/05/22 20:51 Benzocaine (Benzocaine 20% (Orajel) 11.9 Gm Tube) 1 appln MT TID PRN PRN Reason: Cold Sores Stop: 04/10/22 13:19 Last Admin: 03/12/22 05:53 Dose: 1 appln Bupropion HCl (Bupropion Xl 300 Mg Tabcr) 300 mg PO DAILY@1700 [facility] Stop: 04/06/22 08:59 Last Admin: 03/14/22 17:10 Dose: Not Given Docusate Sodium (Docusate Sodium 100 Mg Cap) 100 mg PO BID PRN PRN Reason: Constipation Stop: 04/06/22 20:59 Last Admin: 03/14/22 12:45 Dose: 100 mg Fluconazole (Fluconazole 100 Mg Tab) 200 mg PO QAM [facility]; Protocol Stop: 03/17/22 08:59 Last Admin: 03/14/22 09:25 Dose: 200 mg Glycerin (Glycerin Adult 12 Supp/Box Supp) 1 supp [place] DAILY PRN PRN Reason: Constipation Stop: 04/05/22 20:52 Haloperidol (Haloperidol Oral Soln 2 Mg/Ml) 0.5 mg PO BID [facility] Stop: 04/12/22 20:59 Last Admin: 03/14/22 19:49 Dose: 0.5 mg Thiamine HCl 100 mg/ Syringe 10 mls @ 2 mls/min IV Q24H [facility] Stop: 04/05/22 20:59 Last Admin: 03/11/22 21:35 Dose: 2 mls/min Folic Acid 1 mg/ Syringe 10 mls @ 5 mls/min IV Q24H [facility] Stop: 04/05/22 20:59 Last Admin: 03/11/22 21:35 Dose: 5 mls/min Dextrose (D10w) 1,000 mls @ 0 mls/hr IV .Q0M PRN PRN Reason: protocol (see label comments) Stop: 04/11/22 07:04 Amino Acids 1,299 ml/ (Nutrition (Parenteral)) 1,299 mls @ 54.1 mls/hr IV .Q24H [facility]; Protocol Stop: 03/15/22 15:59 Last Infusion: 03/14/22 17:44 Dose: 54.1 mls/hr Levothyroxine Sodium (Levothyroxine Sodium 88 Mcg Tablet) 88 mcg PO DAILYBB [facility] Stop: 04/06/22 06:29 Last Admin: 03/15/22 06:15 Dose: Not Given Lidocaine HCl (Lidocaine Viscous 2% 15 Ml Udc) 5 ml PO Q4H PRN PRN Reason: Pain Stop: 04/11/22 09:46 Last Admin: 03/12/22 12:35 Dose: 5 ml Midodrine (Midodrine Hcl 2.5 Mg Tab) 2.5 mg PO TID@0800,1200,1700 [facility] Stop: 04/11/22 00:34 Last Admin: 03/14/22 17:10 Dose: Not Given Miscellaneous Information (Tpn/Ppn Consult Pharmacy) 1 each N/A UD PRN PRN Reason: Consult Stop: 04/11/22 06:59 Olanzapine (Olanzapine 10 Mg/2.1 Ml Sdv) 2.5 mg IM Q12H PRN PRN Reason: agitation Stop: 04/13/22 16:29 Pantoprazole Sodium (Pantoprazole 40 Mg Tab) 40 mg PO BID [facility] Stop: 04/09/22 09:44 Last Admin: 03/14/22 19:55 Dose: Not Given Phenol (Chloraseptic 1.4% Soln 180 Ml Btl) 2 sprays MT Q6H PRN PRN Reason: Sore Throat Stop: 04/06/22 08:28 Last Admin: 03/10/22 09:58 Dose: 2 sprays Polyethylene Glycol (Polyethylene (Miralax) 17 Gm Pack) 17 gm PO DAILY PRN PRN Reason: Constipation Stop: 04/05/22 19:49 Last Admin: 03/14/22 12:45 Dose: 17 gm Sennosides (Senna 8.6 Mg Tab) 8.6 mg PO QAM [facility] Stop: 04/13/22 13:29 Last Admin: 03/14/22 15:10 Dose: Not Given
[2022-03-15 08:24] LABS: BUN Creatinine Ratio 35.4 (10-20); Calcium 9.2 mg/dl (8.5-10.1); Creatinine Clr Calc Pharmacy 53.8 ml/min; Est GFR (Non-African American) 90.6 ml/min; Phosphorus 3.9 mg/dl (2.5-4.9); Potassium 3.5 mmol/L (3.5-5.1)
[2022-03-15] MEDS: HALOPERIDOL ORAL SOLN 2 MG/ML PO SCH ×2 (10:16→19:58)
[2022-03-15] MEDS: PANTOprazole 40 MG TAB PO SCH ×2 (10:36→19:58)
[2022-03-15] MEDS: FLUCONAZOLE 100 MG TAB PO SCH (10:37)
[2022-03-15] MEDS: SENNA 8.6 MG TAB PO SCH (10:37)
[2022-03-15] MEDS: MIDODRINE HCL 2.5 MG TAB PO SCH ×2 (10:38→12:48)
[2022-03-15] MEDS: POTASSIUM CHLORIDE PWD 20 MEQ PACK PO SCH ×4 (12:48→20:01)
[2022-03-15] MEDS: POTASSIUM CHLORIDE / WTR 10 MEQ/100 ML PLCT IV SCH ×3 (13:00→19:19)
[2022-03-15] MEDS ORDERED: Nursing to Pharmacy Communication SCH (13:00)
[2022-03-15] MEDS ORDERED: GLYCERIN ADULT 12 SUPP/BOX SUPP PR ONE (15:01)
[2022-03-15] MEDS ORDERED: CLINOLIPID 20% IV FAT EMULSION 200 ML IV SCH (16:00)
[2022-03-15] MEDS ORDERED: PERIPHERAL TPN IV SCH (16:00)
[2022-03-15] MEDS ORDERED: D5W IV SCH (16:00)
[2022-03-15] MEDS ORDERED: AMINO ACIDS 4.25% IV SCH (16:00)
[2022-03-15] MEDS: buPROPion XL 300 MG TABCR PO SCH (17:34)
--- NOTE | 2022-03-15 21:52 | Electrocardiogram Report ---
Test Reason : Blood Pressure : / mmHG Vent. Rate : 075 BPM Atrial Rate : 075 BPM P-R Int : 136 ms QRS Dur : 084 ms QT Int : 382 ms P-R-T Axes : 150 147 150 degrees QTc Int : 426 ms Suspect arm lead reversal, interpretation assumes no reversal Unusual P axis, possible ectopic atrial rhythm Right axis deviation Nonspecific T wave abnormality Abnormal ECG When compared with ECG of 06-MAR-2022 22:41, T wave inversion more evident in Lateral leads Confirmed by Daniel Cooley [id number]) on 03/15/2022 9:52:28 PM Referred By: Teri Bond Confirmed By:Daniel Cooley
[2022-03-15] MEDS ORDERED: STOP CLINOLIPID ONE (22:00)
[2022-03-16] MEDS: LEVOTHYROXINE SODIUM 88 MCG TABLET PO SCH (06:20)
--- NOTE | 2022-03-16 08:23 | Hospitalist Progress Note ---
Date of Service March 16, 2022 Assessment & Plan (1) Severe protein-calorie malnutrition: Plan: Severe protein calorie malnutrition Failure to thrive In setting of malignancy, ongoing chemoradiation Esophagitis Significant nausea secondary to above Recent oral thrush 3 weeks ago S/P clotrimazole Suspected esophageal candidiasis S/P EGD: Normal esophagus. LA Grade A distal esophagitis. Dilated. Z-line variable. Normal stomach. Normal duodenal bulb and second portion of the duodenum. Plan to continue fluconazole--to complete 7-day course Appreciate GI input Dietitian consulted Speech therapy evaluation Encourage increased oral intake Started on Protonix 40 mg BID--continue for 1 month and then transition to daily Had Video swallow study: Limited study, but no aspiration identified Family requesting PEG tube placement given very poor oral intake PPN ordered PO intake slightly improved, pt is tolerating small portions, also picky eater (2) Malignant neoplasm of right lung: Plan: Stage III small cell lung cancer diagnosed November 2021. Started chemoradiation on December 2021. Received 2 cycles of cisplatin and etoposide along with radiation treatment at [facility]. Last treatment was 6 weeks ago. Completed radiation therapy. Follows with [facility] oncology Dr. Prajapati Poor appetite, significant nausea, vomiting since chemotherapy Palliative medicine also consulted for symptom control, appreciate their input Constipation KUB:Mild colonic fecal retention with nonobstructive bowel gas pattern. continue bowel regimen - continues w/ constipation - obtained repeat KUB and discussed w/ nursing staff providing prn stool regimen (3) Hypothyroidism: Plan: Elevated TSH Normal free T4 Continue levothyroxine Needs repeat thyroid function test as outpatient (4) Depression: Plan: Continue Bupropion. (5) COPD (chronic obstructive pulmonary disease): Plan: chronic No signs of COPD exacerbation Hyponatremia Likely due to poor oral intake Sodium 127> 129>132> 130 Monitor Hypomagnesemia Replace electrolytes as needed Anemia of chronic disease Leukopenia Likely secondary to malignancy, chemotherapy No signs of bleeding Monitor CBC FOBT ordered 03/13 - Hgb <7 -transfused 1 unit PRBC (6) Adult failure to thrive: Plan: Management as above. (7) DVT prophylaxis: Plan: SCDs for now Admission and Anticipated Discharge Date Admission Date: March 06, 2022 Subjective Patient is seen in follow up of dysphagia, failure to thrive Appetite remains poor however pt ate eggs and peaches yesterday, reports she plans to eat more peaches today GI and palliative for symptom control involved Denies any chest pain, dyspnea, abdominal pain Started on PPN Also discussed possible NG tube and feeding through NG tube. Patient and her do not believe she would tolerate it. Received 1 unit of pRBC few days ago. Today patient is awake and oriented, not confused. at the bedside. Review of Systems Review of Systems: All systems reviewed & are unremarkable except as noted in Subjective Physical Exam Physical Exam: General Appearance: Cachectic, ill-appearing, frail, no apparent distress Head: normocephalic, Atraumatic Eyes: normal inspection, EOMI Neck: supple Respiratory/Chest: Normal breath sounds, CTA, No accessory muscle use Cardiovascular: S1, S2, No murmur Abdomen/GI:Soft, Non tender, Bowel sounds present Extremities/Musculoskeletal:normal inspection, no edema Neurologic/Psych:AAOX3, grossly no focal neurological deficits Skin: normal color, warm Results & Data Results & Data ([facility]) Vital Signs (Past 12 Hours) Vital Signs Temp Pulse Resp BP BP Pulse Ox O2 Del Method 03/16/22 07:19 36.8 C 89 16 109/66 97 Room Air 03/15/22 22:04 36.8 C 83 18 104/64 97 Room Air Laboratory Results 03/16/22 03/15/22 Range/Units 08:01 12:15 Sodium 135 L (136-145) mmol/L Potassium 4.1 (3.5-5.1) mmol/L Chloride 99 (98-107) mmol/L Carbon Dioxide 29 (21-32) mmol/L Anion Gap 7 (3-11) BUN 23 (6-23) mg/dl Creatinine 0.68 (0.6-1.2) mg/dl Est Cr Clr Drug Dosing 51.0 ml/min Est GFR ( Amer) 103.4 ml/min Est GFR (Non-Af Amer) 89.2 ml/min BUN/Creatinine Ratio 33.8 H (10-20) Glucose 99 (70-99(Fasting)) mg/dl POC Glucose 96 (70-99) mg/dl Calcium 9.2 (8.5-10.1) mg/dl Phosphorus 4.2 (2.5-4.9) mg/dl Magnesium 2.0 (1.7-2.4) mg/dl Medications Administered Current Inpatient Medications Acetaminophen (Acetaminophen 325 Mg Tab) 650 mg PO Q4H PRN PRN Reason: Pain or Fever Stop: 04/05/22 19:49 Albuterol (Albuterol Hfa 8 Gm Inhaler) 2 puffs INH QID PRN PRN Reason: shortness of breath or wheezin Stop: 04/05/22 20:51 Albuterol (Albut/Ipratrop 3mg/0.5mg Neb 3 Ml Vial) 3 ml INH Q6H PRN; Protocol PRN Reason: shortness of breath or wheezing Stop: 04/05/22 20:51 Benzocaine (Benzocaine 20% (Orajel) 11.9 Gm Tube) 1 appln MT TID PRN PRN Reason: Cold Sores Stop: 04/10/22 13:19 Last Admin: 03/12/22 05:53 Dose: 1 appln Bupropion HCl (Bupropion Xl 300 Mg Tabcr) 300 mg PO DAILY@1700 [facility] Stop: 04/06/22 08:59 Last Admin: 03/15/22 17:34 Dose: 300 mg Docusate Sodium (Docusate Sodium 100 Mg Cap) 100 mg PO BID PRN PRN Reason: Constipation Stop: 04/06/22 20:59 Last Admin: 03/14/22 12:45 Dose: 100 mg Fluconazole ([facility] 100 Mg Tab) [facility] Protocol Stop: 03/17/22 08:59 Last Admin: 03/15/22 10:37 Dose: 200 mg Glycerin (Glycerin Adult 12 Supp/Box Supp) 1 supp [place] DAILY PRN PRN Reason: Constipation Stop: 04/05/22 20:52 Haloperidol (Haloperidol Oral Soln 2 Mg/Ml) 0.5 mg PO BID [facility] Stop: 04/12/22 20:59 Last Admin: 03/15/22 19:58 Dose: 0.5 mg Thiamine HCl 100 mg/ Syringe 10 mls @ 2 mls/min IV Q24H [facility] Stop: 04/05/22 20:59 Last Admin: 03/11/22 21:35 Dose: 2 mls/min Folic Acid 1 mg/ Syringe 10 mls @ 5 mls/min IV Q24H [facility] Stop: 04/05/22 20:59 Last Admin: 03/11/22 21:35 Dose: 5 mls/min Dextrose (D10w) 1,000 mls @ 0 mls/hr IV .Q0M PRN PRN Reason: protocol (see label comments) Stop: 04/11/22 07:04 Amino Acids 1,264 ml/ (Nutrition (Parenteral)) 1,264 mls @ 53 mls/hr IV .[id number] [facility]; Protocol Stop: 03/16/22 15:50 Last Admin: 03/15/22 16:03 Dose: 53 mls/hr Levothyroxine Sodium (Levothyroxine Sodium 88 Mcg Tablet) 88 mcg PO DAILYBB [facility] Stop: 04/06/22 06:29 Last Admin: 03/16/22 06:20 Dose: Not Given Lidocaine HCl (Lidocaine Viscous 2% 15 Ml Udc) 5 ml PO Q4H PRN PRN Reason: Pain Stop: 04/11/22 09:46 Last Admin: 03/12/22 12:35 Dose: 5 ml Miscellaneous Information (Tpn/Ppn Consult Pharmacy) 1 each N/A UD PRN PRN Reason: Consult Stop: 04/11/22 06:59 Olanzapine (Olanzapine 10 Mg/2.1 Ml Sdv) 2.5 mg IM Q12H PRN PRN Reason: agitation Stop: 04/13/22 16:29 Pantoprazole Sodium (Pantoprazole 40 Mg Tab) 40 mg PO BID [facility] Stop: 04/09/22 09:44 Last Admin: 03/15/22 19:58 Dose: 40 mg Phenol (Chloraseptic 1.4% Soln 180 Ml Btl) 2 sprays MT Q6H PRN PRN Reason: Sore Throat Stop: 04/06/22 08:28 Last Admin: 03/10/22 09:58 Dose: 2 sprays Polyethylene Glycol (Polyethylene (Miralax) 17 Gm Pack) 17 gm PO DAILY PRN PRN Reason: Constipation Stop: 04/05/22 19:49 Last Admin: 03/14/22 12:45 Dose: 17 gm Potassium Chloride (Potassium Chloride Pwd 20 Meq Pack) 20 meq PO TID [facility] Stop: 04/14/22 13:59 Last Admin: 03/15/22 20:01 Dose: Not Given Sennosides (Senna 8.6 Mg Tab) 8.6 mg PO QAM [facility] Stop: 04/13/22 13:29 Last Admin: 03/15/22 10:37 Dose: 8.6 mg
[2022-03-16] MEDS: SENNA 8.6 MG TAB PO SCH (08:28)
[2022-03-16] MEDS: HALOPERIDOL ORAL SOLN 2 MG/ML PO SCH ×2 (08:28→20:21)
[2022-03-16] MEDS: PANTOprazole 40 MG TAB PO SCH ×2 (08:29→20:21)
[2022-03-16] MEDS: FLUCONAZOLE 100 MG TAB PO SCH (08:29)
[2022-03-16] MEDS: POTASSIUM CHLORIDE PWD 20 MEQ PACK PO SCH (08:29)
[2022-03-16 08:49] LABS: BUN Creatinine Ratio 33.8 (10-20); Calcium 9.2 mg/dl (8.5-10.1); Est GFR (African American) 103.4 ml/min; Est GFR (Non-African American) 89.2 ml/min; Phosphorus 4.2 mg/dl (2.5-4.9); Potassium 4.1 mmol/L (3.5-5.1)
[2022-03-16] MEDS ORDERED: PERIPHERAL TPN IV SCH (16:00)
[2022-03-16] MEDS ORDERED: D5W IV SCH (16:00)
[2022-03-16] MEDS ORDERED: CLINOLIPID 20% IV FAT EMULSION 200 ML IV SCH (16:00)
[2022-03-16] MEDS ORDERED: AMINO ACIDS 4.25% IV SCH (16:00)
[2022-03-16] MEDS: buPROPion XL 300 MG TABCR PO SCH (17:36)
[2022-03-16] MEDS ORDERED: STOP CLINOLIPID ONE (22:00)
[2022-03-16] MEDS: ACETAMINOPHEN 325 MG TAB PO PRN (22:30)
[2022-03-16] MEDS ORDERED: MoRPHine SULFATE 2 MG/ML CARP IV STA (22:53)
[2022-03-17] MEDS: LEVOTHYROXINE SODIUM 88 MCG TABLET PO SCH (05:41)
--- NOTE | 2022-03-17 07:48 | Hospitalist Progress Note ---
Date of Service March 17, 2022 Assessment & Plan (1) Severe protein-calorie malnutrition: Plan: Severe protein calorie malnutrition Failure to thrive In setting of malignancy, ongoing chemoradiation Esophagitis Significant nausea secondary to above Recent oral thrush 3 weeks ago S/P clotrimazole Suspected esophageal candidiasis S/P EGD: Normal esophagus. LA Grade A distal esophagitis. Dilated. Z-line variable. Normal stomach. Normal duodenal bulb and second portion of the duodenum. Plan to continue fluconazole--to complete 7-day course Appreciate GI input Dietitian consulted Speech therapy evaluation Encourage increased oral intake Started on Protonix 40 mg BID--continue for 1 month and then transition to daily Had Video swallow study: Limited study, but no aspiration identified Family requesting PEG tube placement given very poor oral intake PPN ordered PO intake slightly improved, pt is tolerating small portions, also picky eater (2) Malignant neoplasm of right lung: Plan: Stage III small cell lung cancer diagnosed November 2021. Started chemoradiation on December 2021. Received 2 cycles of cisplatin and etoposide along with radiation treatment at [facility]. Last treatment was 6 weeks ago. Completed radiation therapy. Follows with [facility] oncology Dr. Prajapati Poor appetite, significant nausea, vomiting since chemotherapy Palliative medicine also consulted for symptom control, appreciate their input - patient was trialed on dexamethasone, Haldol and developed some confusion, dexamethasone was stopped Chest pain 03/17 patient developed substernal chest pain overnight EKG and troponin obtained overnight, troponin 18 This a.m. without any chest pain however troponin elevated at 750, stat ECG obtained Echo ordered, cardiology consulted, plan for cardiac cath Patient's updated over the phone Constipation KUB:Mild colonic fecal retention with nonobstructive bowel gas pattern. continue bowel regimen - continues w/ constipation - obtained repeat KUB and discussed w/ nursing staff providing prn stool regimen (3) Hypothyroidism: Plan: Elevated TSH Normal free T4 Continue levothyroxine Needs repeat thyroid function test as outpatient (4) Depression: Plan: Continue Bupropion. (5) COPD (chronic obstructive pulmonary disease): Plan: chronic No signs of COPD exacerbation Hyponatremia Likely due to poor oral intake Sodium 127> 129>132> 130 Monitor Hypomagnesemia Replace electrolytes as needed Anemia of chronic disease Leukopenia Likely secondary to malignancy, chemotherapy No signs of bleeding Monitor CBC FOBT ordered 03/13 - Hgb <7 -transfused 1 unit PRBC (6) Adult failure to thrive: Plan: Management as above. (7) DVT prophylaxis: Plan: SCDs Admission and Anticipated Discharge Date Admission Date: March 06, 2022 Subjective Patient is seen in follow up of dysphagia, failure to thrive Of note patient developed substernal chest pain, ECG and troponin was ordered. Patient received morphine and chest pain resolved. This morning patient feels chest pain-free, denies any shortness of breath, diaphoresis or any discomfort. She is laying in bed in no distress. Denies nausea vomiting, abdominal pain, fevers or chills. Troponin today elevated at 750 Stat ECG ordered. Echocardiogram ordered. Cardiology contacted. Plan for cardiac cath. Patient's updated on the phone. Appetite remains poor however pt ate a little yesterday. GI and palliative for symptom control involved Started on PPN on this admission. Today patient is awake and oriented, not confused. Review of Systems Review of Systems: All systems reviewed & are unremarkable except as noted in Subjective Physical Exam Physical Exam: General Appearance: Cachectic, ill-appearing, frail, no apparent distress Head: normocephalic, Atraumatic Eyes: normal inspection, EOMI Neck: supple Respiratory/Chest: Normal breath sounds, CTA, No accessory muscle use Cardiovascular: S1, S2, No murmur Abdomen/GI:Soft, Non tender, Bowel sounds present Extremities/Musculoskeletal:normal inspection, no edema Neurologic/Psych:AAOX3, grossly no focal neurological deficits Skin: normal color, warm Results & Data Results & Data ([facility]) Vital Signs (Past 12 Hours) Vital Signs Temp Pulse Resp BP Pulse Ox O2 Del Method O2 Flow Rate 03/16/22 23:33 36.7 C 72 18 126/76 98 Nasal Cannula 2 03/16/22 22:33 36.8 C 92 H 20 132/83 95 Room Air 03/16/22 20:17 36.8 C 82 18 115/70 96 Room Air Laboratory Results 03/17/22 03/16/22 Range/Units 07:20 23:12 Sodium 131 L (136-145) mmol/L Potassium 4.8 (3.5-5.1) mmol/L Chloride 98 (98-107) mmol/L Carbon Dioxide 28 (21-32) mmol/L Anion Gap 5 (3-11) BUN 28 H (6-23) mg/dl Creatinine 0.62 (0.6-1.2) mg/dl Est Cr Clr Drug Dosing 55.9 ml/min Est GFR ( Amer) 106.6 ml/min Est GFR (Non-Af Amer) 92.0 ml/min BUN/Creatinine Ratio 45.2 H (10-20) Glucose 111 H (70-99(Fasting)) mg/dl Calcium 8.9 (8.5-10.1) mg/dl Phosphorus 3.9 (2.5-4.9) mg/dl Magnesium 1.9 (1.7-2.4) mg/dl Troponin I High Sens 750.1 H* D 18.6 H (0-14) pg/ml Medications Administered Current Inpatient Medications Acetaminophen (Acetaminophen 325 Mg Tab) 650 mg PO Q4H PRN PRN Reason: Pain or Fever Stop: 04/05/22 19:49 Last Admin: 03/16/22 22:30 Dose: 650 mg Albuterol (Albuterol Hfa 8 Gm Inhaler) 2 puffs INH QID PRN PRN Reason: shortness of breath or wheezin Stop: 04/05/22 20:51 Albuterol (Albut/Ipratrop 3mg/0.5mg Neb 3 Ml Vial) 3 ml INH Q6H PRN; Protocol PRN Reason: shortness of breath or wheezing Stop: 04/05/22 20:51 Benzocaine (Benzocaine 20% (Orajel) 11.9 Gm Tube) 1 appln MT TID PRN PRN Reason: Cold Sores Stop: 04/10/22 13:19 Last Admin: 03/12/22 05:53 Dose: 1 appln Bupropion HCl (Bupropion Xl 300 Mg Tabcr) 300 mg PO DAILY@1700 MANUELA Stop: 04/06/22 08:59 Last Admin: 03/16/22 17:36 Dose: 300 mg Docusate Sodium (Docusate Sodium 100 Mg Cap) 100 mg PO BID PRN PRN Reason: Constipation Stop: 04/06/22 20:59 Last Admin: 03/14/22 12:45 Dose: 100 mg Fluconazole ([facility]conazole 100 Mg Tab) [facility] Protocol Stop: 03/17/22 08:59 Last Admin: 03/16/22 08:29 Dose: 200 mg Glycerin (Glycerin Adult 12 Supp/Box Supp) 1 supp NV DAILY PRN PRN Reason: Constipation Stop: 04/05/22 20:52 Haloperidol (Haloperidol Oral Soln 2 Mg/Ml) 0.5 mg PO BID [facility] Stop: 04/12/22 20:59 Last Admin: 03/16/22 20:21 Dose: 0.5 mg Thiamine HCl 100 mg/ Syringe 10 mls @ 2 mls/min IV Q24H [facility] Stop: 04/05/22 20:59 Last Admin: 03/11/22 21:35 Dose: 2 mls/min Folic Acid 1 mg/ Syringe 10 mls @ 5 mls/min IV Q24H [facility] Stop: 04/05/22 20:59 Last Admin: 03/11/22 21:35 Dose: 5 mls/min Dextrose (D10w) 1,000 mls @ 0 mls/hr IV .Q0M PRN PRN Reason: protocol (see label comments) Stop: 04/11/22 07:04 Amino Acids 1,304 ml/ (Nutrition (Parenteral)) 1,304 mls @ 54 mls/hr IV .Q24H [facility]; Protocol Stop: 03/17/22 15:59 Last Admin: 03/16/22 17:30 Dose: 54 mls/hr Levothyroxine Sodium (Levothyroxine Sodium 88 Mcg Tablet) 88 mcg PO DAILYBB [facility] Stop: 04/06/22 06:29 Last Admin: 03/17/22 05:41 Dose: 88 mcg Lidocaine HCl (Lidocaine Viscous 2% 15 Ml Udc) 5 ml PO Q4H PRN PRN Reason: Pain Stop: 04/11/22 09:46 Last Admin: 03/12/22 12:35 Dose: 5 ml Miscellaneous Information (Tpn/Ppn Consult Pharmacy) 1 each N/A UD PRN PRN Reason: Consult Stop: 04/11/22 06:59 Olanzapine (Olanzapine 10 Mg/2.1 Ml Sdv) 2.5 mg IM Q12H PRN PRN Reason: agitation Stop: 04/13/22 16:29 Pantoprazole Sodium (Pantoprazole 40 Mg Tab) 40 mg PO BID [facility] Stop: 04/09/22 09:44 Last Admin: 03/16/22 20:21 Dose: 40 mg Phenol (Chloraseptic 1.4% Soln 180 Ml Btl) 2 sprays MT Q6H PRN PRN Reason: Sore Throat Stop: 04/06/22 08:28 Last Admin: 03/10/22 09:58 Dose: 2 sprays Polyethylene Glycol (Polyethylene (Miralax) 17 Gm Pack) 17 gm PO DAILY PRN PRN Reason: Constipation Stop: 04/05/22 19:49 Last Admin: 03/14/22 12:45 Dose: 17 gm Potassium Chloride (Potassium Chloride Pwd 20 Meq Pack) 20 meq PO TID MANUELA Stop: 04/14/22 13:59 Last Admin: 03/16/22 08:29 Dose: 20 meq Sennosides (Senna 8.6 Mg Tab) 8.6 mg PO QAM MANUELA Stop: 04/13/22 13:29 Last Admin: 03/16/22 08:28 Dose: 8.6 mg
[2022-03-17 08:38] LABS: Troponin I High Sensitivity 750.1 pg/ml (0-14)
[2022-03-17 08:52] LABS: BUN Creatinine Ratio 45.2 (10-20); Calcium 8.9 mg/dl (8.5-10.1); Creatinine Clr Calc Pharmacy 55.9 ml/min; Est GFR (African American) 106.6 ml/min; Magnesium 1.9 mg/dl (1.7-2.4); Phosphorus 3.9 mg/dl (2.5-4.9); Potassium 4.8 mmol/L (3.5-5.1)
[2022-03-17] MEDS: PANTOprazole 40 MG TAB PO SCH ×2 (09:56→21:00)
[2022-03-17] MEDS: SENNA 8.6 MG TAB PO SCH (09:56)
[2022-03-17] MEDS: HALOPERIDOL ORAL SOLN 2 MG/ML PO SCH (09:57)
[2022-03-17] MEDS ORDERED: Heparin IV Adult Wt-Based Low-Dose WITH Bolus Protocol IV SCH (10:54)
[2022-03-17] MEDS ORDERED: ASPIRIN 300 MG SUPP PR ONE (11:00)
--- NOTE | 2022-03-17 11:01 | Electrocardiogram Report ---
Test Reason : Blood Pressure : / mmHG Vent. Rate : 088 BPM Atrial Rate : 088 BPM P-R Int : 128 ms QRS Dur : 070 ms QT Int : 388 ms P-R-T Axes : 080 082 091 degrees QTc Int : 469 ms Normal sinus rhythm Nonspecific ST abnormality Confirmed by Kunal Cisneros ([id number]) on 03/17/2022 11:00:48 AM Referred By: Teri Bond Confirmed By:Donovan Cisneros
--- NOTE | 2022-03-17 11:06 | Electrocardiogram Report ---
Test Reason : Blood Pressure : / mmHG Vent. Rate : 073 BPM Atrial Rate : 073 BPM P-R Int : 148 ms QRS Dur : 068 ms QT Int : 368 ms P-R-T Axes : 000 147 156 degrees QTc Int : 405 ms Poor data quality, interpretation may be adversely affected Suspect arm lead reversal, interpretation assumes no reversal Normal sinus rhythm Right axis deviation Poor R wave progression, consider anterior PR vs. lead placement vs. LVH Abnormal ECG Confirmed by Kunal Cisneros ([id number]) on 03/17/2022 11:06:26 AM Referred By: Teri Bond Confirmed By:Donovan Cisneros
--- NOTE | 2022-03-17 11:11 | Cardiology Consultation ---
Date of Consultation March 17, 2022 Assessment & Plan (1) Precordial chest pain: (2) Elevated troponin: (3) Cardiomyopathy: Plan Patient is a 67-year-old female with complex history as outlined currently undergoing therapy for small cell carcinoma of the lung including radiation and chemotherapy. Patient admitted for anorexia nausea vomiting and failure to thrive. Currently receiving parenteral nutrition. Last evening patient had extended episode of substernal chest discomfort. EKGs today sinus rhythm with Q waves anteriorly no acute ST elevation but suggestive of progression and evolution in comparison to prior studies. Troponin elevated Echocardiogram done urgently demonstrates new anteroseptal and apical wall motion abnormality with only basilar structures salty. Differential diagnosis includes apical ballooning cardiomyopathy versus acute myocardial infarction. I discussed findings with patient as echocardiogram being performed. Given relatively low blood pressures and limited ability to treat with medications would recommend proceeding to diagnostic cardiac catheterization recent acute symptoms and no prior chest pain last evening Will initiate anticoagulation with IV heparin. Aspirin written for per rectum dose Further recommendations pending the results of testing History of Present Illness Reason for Consultation: Chest pain, elevated troponin Requesting Physician: Dr. Berry Attending Physician: Dakota Berry MD History of Present Illness Patient is a 67-year-old female admitted to [facility] on 03/06/2022 with severe nausea and anorexia and weight loss in association with chemotherapy for small cell carcinoma the lung. Underlying issues include 1. Right hilar mass, small cell carcinoma status postradiation therapy, ongoing chemotherapy currently on hold 2. CKD stage III 3. Possible peripheral vascular disease Patient has been hospitalized and been treated for inability to eat and swallow anorexia. Receiving parenteral nutrition. Weight down 30 pounds since October. Underwent endoscopy which demonstrated possible esophageal candidiasis and on medical therapies for such. Last evening patient developed severe substernal burning and heavy chest pressure pain lasting at least 1 to 2 hours per patient before resolved EKG this a.m. suggest evolving anterior infarct and echocardiogram demonstrates large anteroseptal and apical wall motion or normality with basilar structures hyperdynamic. Currently asymptomatic. No chest pain or worsening shortness of breath. Blood pressure is relatively low in comparison to recent test No fevers chills or unexplained infections. No recent bleeding difficulties. Chronic cough but nonproductive No prior difficulties with sedation. Patient denies prior history of myocardial infarction, angina, congestive heart failure, valvular heart disease, rheumatic fever scarlet fever, TIA or stroke. No history of hypertension or diabetes mellitus. Patient uncertain of lipids. Prior tobacco smoker currently in cessation Allergies Allergy/AdvReac Type Severity Reaction Status Date / Time No Known Drug Allergies Allergy Verified 02/03/22 11:24 Home Medications Medication Instructions Recorded Confirmed Type albuterol sulfate 90 mcg/actuation 2 puff inhalation QID PRN 12/19/21 03/06/22 History aerosol inhaler (ProAir HFA) shortness of breath or wheezing ascorbic acid (vitamin C) 100 mg 100 mg PO DAILY 12/19/21 03/06/22 History tablet bupropion HCl 300 mg 24 hr tablet, 300 mg PO QAM 12/19/21 03/06/22 History extended release cholecalciferol (vitamin D3) 50 2,000 unit PO DAILY 12/19/21 03/06/22 History mcg (2,000 unit) capsule famotidine 20 mg tablet 20 mg PO BID 12/19/21 03/06/22 History ipratropium 0.5 mg-albuterol 3 mg 3 ml inhalation Q6H PRN shortness 12/19/21 03/06/22 History (2.5 mg base)/3 mL nebulization of breath or wheezing soln levothyroxine 88 mcg tablet 88 mcg PO DAILY 12/19/21 03/06/22 History (Synthroid) mecobalamin (vitamin B12) 1,000 1,000 mcg PO DAILY 12/19/21 03/06/22 History mcg disintegrating tablet,sublingual ondansetron HCl 8 mg tablet 8 mg PO Q8H PRN n/v 12/30/21 03/06/22 History prochlorperazine maleate 10 mg 10 mg PO Q6H PRN n/v 12/30/21 03/06/22 History tablet (Compazine) Magic Mouthwash 300 mL mouthwash 10 ml mucous membrane ACHS 01/27/22 03/06/22 Rx Dysphagia #300 mL dronabinol 2.5 mg capsule (Marinol) 2.5 mg PO BID Nausea and appetite 02/07/22 03/06/22 Rx stimulant #60 caps omeprazole 20 mg capsule,delayed 20 mg PO DAILY 03/06/22 03/06/22 History release Patient History Medical History Adult failure to thrive 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 Chronic bronchitis Chronic kidney disease, stage 3a COPD (chronic obstructive pulmonary disease) Depression Encounter for pre-operative examination DULCE (generalized anxiety disorder) GERD (gastroesophageal reflux disease) Hypothyroidism Idiopathic peripheral neuropathy Osteoarthritis Saccular aneurysm Severe protein-calorie malnutrition Small cell lung cancer Thoracic outlet syndrome Tobacco use disorder Surgical History H/O cataract removal with insertion of prosthetic lens H/O total hysterectomy S/P bronchoscopy with biopsy (~11/28/21) S/P tonsillectomy Status post bronchoscopy diagnostic with or without washing 12/06/2021 Status post knee surgery Family History Mother , Age 27 Ovarian cancer Father , Age 70 Alcoholism Alcohol abuse with other alcohol-induced disorder Brother , Age 65 Alcohol abuse with other alcohol-induced disorder Alcoholism Sister No problems noted. 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 How many Children do You have: 2 Feels Safe at Home: Yes Childhood Exposure to Second-Hand Smoke: Yes caffeine: Yes (2.5 cups/day) during the past year weight has: remained stable Dental Care, Regularly: Yes Assistive Devices: Walker Review of Systems Review of Systems: All systems reviewed & are unremarkable except as noted in HPI & below Physical Exam Constitutional: + ill appearing and + cachectic; no acute distress Eyes: PERRL, conjunctivae normal, anicteric sclerae ENMT: external ear and nose normal, oropharynx normal Neck: trachea midline, no thyromegaly Respiratory: + cough Auscultation: + rhonchi (Rhonchi on righ, t basilar crackles on left) and + wheezes Cardiovascular: Rate/Rhythm: regular rate and regular rhythm Heart Sounds: normal S1 and normal S2; no murmur Vessels: no JVD Extremities: no edema No pulses paradoxus Gastrointestinal (Abdomen): normal bowel sounds, soft, nontender, no hepatosplenomegaly Musculoskeletal: no cyanosis or clubbing, extremities motor strength 5/5 Results & Data ([facility]) Vital Signs (Past 12 Hours) Vital Signs Temp Pulse Resp BP BP Pulse Ox O2 Del Method 03/17/22 08:05 95/61 L 03/17/22 08:00 36.7 C 96 H 16 91/57 L 99 Room Air 03/17/22 07:30 Room Air 03/16/22 23:33 36.7 C 72 18 126/76 98 Nasal Cannula O2 Flow Rate 03/17/22 08:05 03/17/22 08:00 03/17/22 07:30 03/16/22 23:33 2 Laboratory Results Laboratory Results - last 24 hr 03/16/22 03/17/22 23:12 07:20 Sodium 131 L Potassium 4.8 Chloride 98 Carbon Dioxide 28 Anion Gap 5 BUN 28 H Creatinine 0.62 Est Cr Clr Drug Dosing 55.9 Est GFR ( Amer) 106.6 Est GFR (Non-Af Amer) 92.0 BUN/Creatinine Ratio 45.2 H Glucose 111 H Calcium 8.9 Phosphorus 3.9 Magnesium 1.9 Troponin I High Sens 18.6 H 750.1 H* D Diagnostic Findings MRI brain and PET scan November and December [address] chest and abdomen November 2021: Per report 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
[2022-03-17] MEDS ORDERED: niCARdipine HCL INJ 2.5 MG/ML 10 ML AMP ONE (11:12)
[2022-03-17] MEDS ORDERED: MIDAZOLAM HCL 1 MG/ML 2ML VIAL ONE (11:12)
[2022-03-17] MEDS ORDERED: HEPARIN (PORCINE) 1000 UNIT/ML 10 ML (CATH LAB USE ONLY) ONE (11:12)
[2022-03-17] MEDS ORDERED: NITROGLYCERIN/D5W 100MCG/ML 20ML SYR ONE (11:13)
[2022-03-17] MEDS ORDERED: fentaNYL citrate 100 MCG/2 ML VIAL ONE (11:13)
[2022-03-17] MEDS ORDERED: HEPARIN SOD (PORCINE) 1000 UNIT/ML IV ONE (11:15)
--- NOTE | 2022-03-17 11:35 | Pre Anesthesia Assessment ---
Date of Service March 17, 2022 Pre Sedation Assessment Vital Signs Temp Pulse Resp BP BP Pulse Ox O2 Del Method 03/17/22 08:05 95/61 L 03/17/22 08:00 36.7 C 96 H 16 91/57 L 99 Room Air 03/17/22 07:30 Room Air 03/16/22 23:33 36.7 C 72 18 126/76 98 Nasal Cannula 03/16/22 22:33 36.8 C 92 H 20 132/83 95 Room Air 03/16/22 20:17 36.8 C 82 18 115/70 96 Room Air 03/16/22 14:40 36.8 C 87 16 106/61 97 Room Air O2 Flow Rate 03/17/22 08:05 03/17/22 08:00 03/17/22 07:30 03/16/22 23:33 2 03/16/22 22:33 03/16/22 20:17 03/16/22 14:40 Pre-Sedation Airway Assessment Smoking Status: Never smoker Hx Sleep Apnea: No Short, Thick Neck: No Thyromental Distance: > or= 3.5 Finger Breadths Oral Cavity: + WNL Mallampati Class: IV ASA: ASA4 NPO Status Date of Last Intake of Fluids: 03/17/22 Time of Last Intake of Fluids: 08:00 Date of Last Intake of Solid Food: 03/16/22 Time of Last Intake of Solid Foods: 20:00 Notes The planned sedation has been discussed with the patient. Informed Consent was obtained. I have identified the patient, determined the appropriateness of sedation and have assessed the patient immediately prior to the procedure. All medicine(s) and interventions are by my order.
--- NOTE | 2022-03-17 12:32 | Post Anesthesia Assessment ---
Date of Service March 17, 2022 Post Sedation Assessment Vital Signs Temp Pulse Pulse Resp BP BP Pulse Ox 03/17/22 12:30 80 16 98/60 L 99 03/17/22 12:15 83 16 84/72 L 99 03/17/22 08:05 95/61 L 03/17/22 08:00 36.7 C 96 H 16 91/57 L 99 03/17/22 07:30 03/16/22 23:33 36.7 C 72 18 126/76 98 03/16/22 22:33 36.8 C 92 H 20 132/83 95 03/16/22 20:17 36.8 C 82 18 115/70 96 03/16/22 14:40 36.8 C 87 16 106/61 97 O2 Del Method O2 Flow Rate 03/17/22 12:30 Room Air 03/17/22 12:15 Room Air 03/17/22 08:05 03/17/22 08:00 Room Air 03/17/22 07:30 Room Air 03/16/22 23:33 Nasal Cannula 2 03/16/22 22:33 Room Air 03/16/22 20:17 Room Air 03/16/22 14:40 Room Air Recovery Score Activity: Moves 4 extremities Respiration: Deep Breath/Cough Circulation: +/-20% PreAnes Value Consciousness: Fully Awake Oxygen Saturation: > 92% On Room Air Post Anesthesia Score: 10 Discharge Sedation Level of Care: Phase I Post Sedation Plan On clinical assessment, the patient appears to have tolerated the sedation without complications. Patient is recovering as anticipated. Patient will continue to be monitored by nursing and may be discharged when sedation discharge criteria are met per below protocol. Upon Completions of procedure up to 15 minutes continue every 5 minute vital signs and the P.A.R. score; then discharge to a Phase I or Fast Track to Phase II per the following guidelines: * Discharge Patient to appropriate Phase II area if PAR is 8 or greater or return to pre- procedure baseline. The post - procedure orders will be as directed. * If PAR score is less than 8 or not return to pre-procedure baseline then patient will follow Phase I monitoring till PAR is reached for Phase II. The Phase I may be done in procedure room or may call to secure a Phase I area. * If naloxone or flumazenil are used for reversal, hold in Phase I for continued monitoring from when last reversal dose was given for a minimum of 60 minutes or longer pending the nurse and/or physician discretion of patient condition before discharge to Phase II. Please call the Sedation Physician to re-evaluate and complete post-note for discharge to Phase II area. Do NOT discharge from procedure sedation or Phase 1 until post- sedation evaluation note is complete by procedure /sedation MD Sedation Discharge Instructions to be given to the patient at discharge to home. [facility] Procedure Codes (Charges) Indication for Procedure Indication for procedure: NSTEMI Sedation/Anesthesia Procedure 1: Sedation/Anesthesia: 59542 Mod Sedation by the same physician;Init15 Min Child Age 5 & Up Total Sedation Time (minutes): 15
--- NOTE | 2022-03-17 12:45 | Cardiac Catheterization ---
[facility] Data: Admissions Coordinator Cardiac Status Clinical evaluation leading to the procedure CAD Presenation: Non STEMI Anginal Classification: CCS IV Heart Failure: No Cardiogenic Shock within 24 Hours: No Cardiac Arrest within 24 Hours: No Coronary Anatomy Dominant: Right Left Main (% Stenosis): Normal LAD (% Stenosis): Proximal (20%, calcified), Mid (20 to 30%) and Distal (30 to 40%) D1 (% Stenosis): Mid (Mild) Circumflex (% Stenosis): Mid (40%) OM1 (% Stenosis): Mid (Mild) RCA (% Stenosis): Proximal (Extends through the mid segment calcified 40%) and Mid (Calcified 40%) R PDA (% Stenosis): Normal R PL2 (% Stenosis): Normal Diagnostic Physicians Name: Cristian Quintana MD, PhD Closure Device Percutaneous Entry Location: Femoral Closure Device: Angio-Seal Recommendations: Medical Therapy and/or Counseling Cardiac Cath Procedure Full Procedure Date March 17, 2022 Pre-Procedure Diagnosis Pre-Procedure Diagnosis: Non STEMI AUC Score AUC Score: 07 Post-Procedure Diagnosis Post-Procedure Diagnosis: Mild CAD Procedure(s) Performed Procedure(s) Performed: Coronary Angiography and Ultrasound Guided Vascular Access [employer] Le[employer] Cristian Quintana MD, PhD Estimated Blood Loss Estimated Blood Loss: <5ml Medication(s) Medication(s): Lidocaine 1% and Versed Summary of Findings Brief description: Patient was brought to the cardiac catheterization suite where she was shaved and prepped in a sterile fashion. Sedated using IV Versed. Soft tissues of the right groin were anesthetized using 3 mL of 1% Xylocaine. Using the ultrasound for guidance (image saved in the permanent record), the right femoral artery was accessed and a 5 [place] femoral artery sheath was placed. All catheters were advanced and exchanged over a 0.035 J-tip wire. Left coronary angiography in orthogonal views with a 5 [place] JL 4 diagnostic catheter. Right coronary angiography in orthogonal views with a 5 [place] JR4 diagnostic catheter. Diagnostic catheters were removed. Limited right femoral artery angiography was performed to evaluate for closure. Findings were favorable, therefore, the femoral artery sheath was exchanged for a 6 [place] Angio-Seal closure device. This was deployed in the recommended fashion. We obtained immediate hemostasis and the patient remained hemodynamically stable. She was returned to the recovery area. This ended the case. Coronary angiography findings: LMT: Large caliber vessel bifurcating into LAD and left circumflex. No angiographically evident disease. LAD: Large caliber and transapical. Proximal segment has mild disease up to 20% narrowing. There is at least moderate to severe calcification throughout the proximal and mid vessel. There is a large septal trunk and then several smaller septal branches. There is a small caliber first diagonal followed by a large caliber branching second diagonal. The mid LAD has a long eccentric stenosis of 20 to 30%. The second diagonal has mild proximal plaque in the distal LAD has a focal 30 to 40% stenosis just after the second diagonal. The remainder of the LAD and its branches have no angiographically significant disease. LCx: Large caliber and nondominant. It gives a large caliber branching OM1. This vessel has mild disease in the midsegment. The mid circumflex has mild up to 40% stenosis. Circumflex then gives a small OM 2 followed by a small tortuous OM 3 before it terminates distally. There is no angiographically evident disease in the remainder of the circumflex and its branches. RCA: Large caliber and dominant vessel. There is calcification in the proximal and mid vessel. There is a long eccentric stenosis extending from the late proximal segment through the mid segment which has up to 40% stenosis. Distally the vessel bifurcates into a large PDA and a large posterior lateral branch. There is no angiographically evident disease in the distal RCA or its branches. Hemodynamics Rest Ao:: 102/69 mmHg, mean 81 mmHg Final Ao: 105/70 mmHg, mean 85 mmHg LV: Not performed Recommendations Recommendations: Medical Therapy and/or Counseling Radiation Exposure (mGy) 137 mGy, fluoroscopy time 1.4 minutes Contrast (mls) 40 mL Anesthesia 0.5 mg IV Versed Procedural Complication(s) None Disposition Recovery Room\PACU I attest to the content of the Intraoperative Record and any orders documented therein. Any exceptions are noted below. [facility] Card Cath Procedure Codes Cardiac Catheterization Procedure 1: Cardiovascular Cath Procedures: 85422 Coronaries Therapeutic Services & Ancillary Procedure 1: Cardiovascular Tx and Anc Procedures: 21451 Ultrasonic Guidance Vascular Access Moderate Sedation Procedure 1: Sedation/Anesthesia: 35994 Mod Sedation by the same physician;Init15 Min Child Age 5 & Up PG Care Time/CCT Total # of Minutes Spent Total Time Spent with Patient: Total time spent is greater than 50% in coordination of care (as documented) at patient's floor/unit and/or counseling patient:
--- NOTE | 2022-03-17 14:19 | Communication Note ---
Date of Service: March 17, 2022 Patient seen after cardiac catheterization and results discussed with patient and . Patient with chest pain last night, elevated troponin and new wall motion abnormalities on echocardiogram this morning with diffuse hypokinesis of the mid and apical ventricle Cardiac catheterization demonstrated mild to moderate coronary atherosclerosis but no obstructive disease. Acute findings suggest apical ballooning cardiomyopathy, stress mediated versus new onset cardiomyopathy nonischemic Plan: Continue IV heparin additional 24 hours We will begin to titrate low-dose beta-maría but limitations of low blood pressure present. No signs or symptoms of congestive heart failure Patient at risk for arrhythmias would maintain telemetry 24 to 48-hour
[2022-03-17] MEDS ORDERED: SODIUM CHLORIDE 0.9% 500 ML IV SCH (14:30)
[2022-03-17 15:09] LABS: iSTAT Creatinine 0.6 mg/dl (0.6-1.3); iSTAT Potassium 4.8 mmol/L (3.3-5.0)
[2022-03-17 15:10] LABS: iSTAT Hemoglobin 10.2 g/dl (12.0-16.0); iSTAT Ionized Calcium 1.25 mmol/l (1.12-1.32)
[2022-03-17 15:13] LABS: Basophils # (auto) 0.01 K/uL (0-0.2); Basophils % (auto) 0.3 %; Eosinophils # (auto) 0.11 K/uL (0-0.50); Eosinophils % (auto) 3.1 %; Hematocrit (blood only) 28.9 % (34.1-44.9); Hemoglobin 9.8 g/dl (12.0-16.0); Immature Granulocytes # (auto) 0.02 K/uL (0.00-0.02); Immature Granulocytes % (auto) 0.6 %; Lymphocytes # (auto) 0.34 K/uL (1.2-3.4); Lymphocytes % (auto) 9.6 %; Mean Corpuscular Hemoglobin 30.9 pg (25.0-34.0); Mean Corpuscular Hgb Conc 33.9 g/dL (32.0-36.0); Mean Corpuscular Volume 91.2 fL (80.0-100.0); Mean Platelet Volume 10.4 fL (9.4-12.3); Monocytes # (auto) 0.21 K/uL (0.24-0.82); Monocytes % (auto) 5.9 %; Neutrophils # (auto) 2.86 K/uL (1.4-6.5); Neutrophils % (auto) 80.5 %; Platelet Count 165 K/uL (130-400); RDW Standard Deviation 61.1 fL (36.4-46.3); Red Blood Count 3.17 M/uL (3.93-5.22); White Blood Count 3.55 K/ul (4.8-10.8)
[2022-03-17 15:30] LABS: Partial Thromboplastin Ratio 0.8; Partial Thromboplastin Time 23.2 Seconds (21.0-31.0); Prothrombin Time 10.7 Seconds (9.0-12.0)
[2022-03-17] MEDS: HEPARIN SODIUM/DEXTROSE 25,000 UNITS/500 ML BAG IV SCH (15:38)
[2022-03-17] MEDS: METOPROLOL SUCC 25MG EXT REL TAB PO SCH (15:47)
[2022-03-17] MEDS ORDERED: ALBUMIN 25% 100 mL 25 GM/100 ML VIAL IV ONE (16:47)
[2022-03-17] MEDS: buPROPion XL 300 MG TABCR PO SCH (20:00)
[2022-03-17 23:38] LABS: Partial Thromboplastin Ratio 1.5; Partial Thromboplastin Time 40.2 Seconds (21.0-31.0)
[2022-03-18] MEDS: LEVOTHYROXINE SODIUM 88 MCG TABLET PO SCH (06:18)
[2022-03-18 06:29] LABS: Hematocrit (blood only) 26.9 % (34.1-44.9); Hemoglobin 9.3 g/dl (12.0-16.0); Mean Corpuscular Hemoglobin 30.9 pg (25.0-34.0); Mean Corpuscular Hgb Conc 34.6 g/dL (32.0-36.0); Mean Corpuscular Volume 89.4 fL (80.0-100.0); Mean Platelet Volume 10.8 fL (9.4-12.3); Platelet Count 149 K/uL (130-400); RDW Coefficient of Variation 18.8 % (11.5-14.5); RDW Standard Deviation 60.1 fL (36.4-46.3); Red Blood Count 3.01 M/uL (3.93-5.22); White Blood Count 3.22 K/ul (4.8-10.8)
[2022-03-18 06:56] LABS: BUN Creatinine Ratio 28.6 (10-20); Calcium 8.6 mg/dl (8.5-10.1); Est GFR (African American) 106.1 ml/min; Est GFR (Non-African American) 91.5 ml/min; Magnesium 1.7 mg/dl (1.7-2.4); Phosphorus 3.8 mg/dl (2.5-4.9)
[2022-03-18 07:35] LABS: Partial Thromboplastin Ratio 1.7
[2022-03-18 07:37] LABS: Partial Thromboplastin Time 47.6 Seconds (21.0-31.0)
[2022-03-18] MEDS: SENNA 8.6 MG TAB PO SCH (08:16)
[2022-03-18] MEDS: PANTOprazole 40 MG TAB PO SCH ×2 (08:16→19:46)
[2022-03-18] MEDS ORDERED: MAGNESIUM OXIDE 400 MG TAB PO ONE (09:20)
--- NOTE | 2022-03-18 09:20 | Hospitalist Progress Note ---
Date of Service March 18, 2022 Assessment & Plan (1) Severe protein-calorie malnutrition: Plan: Severe protein calorie malnutrition Failure to thrive In setting of malignancy, ongoing chemoradiation Esophagitis Significant nausea secondary to above Recent oral thrush 3 weeks ago S/P clotrimazole Suspected esophageal candidiasis S/P EGD: Normal esophagus. LA Grade A distal esophagitis. Dilated. Z-line variable. Normal stomach. Normal duodenal bulb and second portion of the duodenum. Completed fluconazole 7-day course Appreciate GI input Dietitian consulted Speech therapy evaluation Encourage increased oral intake Started on Protonix 40 mg BID--continue for 1 month and then transition to daily Had Video swallow study: Limited study, but no aspiration identified Family requesting PEG tube placement given very poor oral intake PPN ordered PO intake slightly improved, pt is tolerating small portions, also picky eater (2) Malignant neoplasm of right lung: Plan: Stage III small cell lung cancer diagnosed November 2021. Started chemoradiation on December 2021. Received 2 cycles of cisplatin and etoposide along with radiation treatment at [facility]. Last treatment was 6 weeks ago. Completed radiation therapy. Follows with [facility] oncology Dr. Prajapati Poor appetite, significant nausea, vomiting since chemotherapy Palliative medicine also consulted for symptom control, appreciate their input - patient was trialed on dexamethasone, Haldol and developed some confusion, dexamethasone was stopped Chest pain 03/17 patient developed substernal chest pain overnight EKG and troponin obtained overnight, troponin 18 This a.m. without any chest pain however troponin elevated at 750, stat ECG obtained Echo ordered, cardiology consulted, plan for cardiac cath Patient's updated over the phone 03/18 Patient underwent diagnostic coronary angiography on 03/17/2022 without obstructive coronary Findings consistent with apical ballooning cardiomyopathy. Would continue low-dose beta-maría with metoprolol succinate 12.5 mg daily Constipation KUB:Mild colonic fecal retention with nonobstructive bowel gas pattern. continue bowel regimen - continues w/ constipation - obtained repeat KUB and discussed w/ nursing staff providing prn stool regimen (3) Hypothyroidism: Plan: Elevated TSH Normal free T4 Continue levothyroxine Needs repeat thyroid function test as outpatient (4) Depression: Plan: Continue Bupropion. (5) COPD (chronic obstructive pulmonary disease): Plan: chronic No signs of COPD exacerbation Hyponatremia Likely due to poor oral intake Sodium 127> 129>132> 130 Monitor Hypomagnesemia Replace electrolytes as needed Anemia of chronic disease Leukopenia Likely secondary to malignancy, chemotherapy No signs of bleeding Monitor CBC FOBT ordered 03/13 - Hgb <7 -transfused 1 unit PRBC (6) Adult failure to thrive: Plan: Management as above. (7) DVT prophylaxis: Plan: SCDs Admission and Anticipated Discharge Date Admission Date: March 06, 2022 Subjective Patient is seen in follow up of dysphagia, failure to thrive patient developed substernal chest pain at night, and next day troponin was elevated at 750 She underwent cardiac cath yesterday, echo findings c/w apical ballooning cardiomyopathy This morning she is laying in bed in no distress. Denies nausea vomiting, abdominal pain, fevers or chills. Appetite remains poor however pt ate a little prioe to having chest pain. GI and palliative for symptom control involved Started on PPN on this admission. Review of Systems Review of Systems: All systems reviewed & are unremarkable except as noted in Subjective Physical Exam Physical Exam: General Appearance: Cachectic, ill-appearing, frail, no apparent distress Head: normocephalic, Atraumatic Eyes: normal inspection, EOMI Neck: supple Respiratory/Chest: Normal breath sounds, CTA, No accessory muscle use Cardiovascular: S1, S2, No murmur Abdomen/GI:Soft, Non tender, Bowel sounds present Extremities/Musculoskeletal:normal inspection, no edema Neurologic/Psych:AAOX3, grossly no focal neurological deficits Skin: normal color, warm Results & Data Results & Data ([facility]) Vital Signs (Past 12 Hours) Vital Signs Temp Pulse Pulse Resp BP Pulse Ox O2 Del Method 03/18/22 08:23 36.6 C 96 H 16 93/52 L 97 Room Air 03/18/22 04:20 36.7 C 82 20 94/62 L 95 Room Air 03/18/22 02:37 95 H 03/17/22 22:57 37.1 C 72 20 95/60 L 97 Room Air 03/17/22 21:54 36.6 C 89 18 97/62 L Laboratory Results 03/18/22 03/18/22 03/18/22 Range/Units 06:08 06:08 06:08 WBC 3.22 L (4.8-10.8) K/ul RBC 3.01 L (3.93-5.22) M/uL Hgb 9.3 L (12.0-16.0) g/dl POC Hgb (12.0-16.0) g/dl Hct 26.9 L (34.1-44.9) % POC Hct (37-47) % MCV 89.4 (80.0-100.0) fL MCH 30.9 (25.0-34.0) pg MCHC 34.6 (32.0-36.0) g/dL RDW Std Deviation 60.1 H (36.4-46.3) fL RDW Coeff of Wendy 18.8 H (11.5-14.5) % Plt Count 149 (130-400) K/uL MPV 10.8 (9.4-12.3) fL Immature Gran % (Auto) % Neut % (Auto) % Lymph % (Auto) % Lanier % (Auto) % Eos % (Auto) % Baso % (Auto) % Neut # (Auto) (1.4-6.5) K/uL Lymph # (Auto) (1.2-3.4) K/uL Lanier # (Auto) (0.24-0.82) K/uL Eos # (Auto) (0-0.50) K/uL Baso # (Auto) (0-0.2) K/uL Immature Gran # (Auto) (0.00-0.02) K/uL PT (9.0-12.0) Seconds INR (0.9-1.1) APTT 47.6 H* (21.0-31.0) Seconds PTT Ratio 1.7 POC Sodium (135-144) mmol/L Sodium 132 L (136-145) mmol/L POC Potassium (3.3-5.0) mmol/L Potassium 4.0 (3.5-5.1) mmol/L POC Chloride (101-112) mmol/L Chloride 101 (98-107) mmol/L Carbon Dioxide 25 (21-32) mmol/L POC Total CO2 (24-31) mmol/L Anion Gap 6 (3-11) POC Anion Gap (16-25) mmol/L POC BUN (7-18) mg/dl BUN 18 (6-23) mg/dl Creatinine 0.63 (0.6-1.2) mg/dl POC Creatinine (0.6-1.3) mg/dl Est Cr Clr Drug Dosing 55.0 ml/min Est GFR ( Amer) 106.1 ml/min Est GFR (Non-Af Amer) 91.5 ml/min BUN/Creatinine Ratio 28.6 H (10-20) Glucose 93 (70-99(Fasting)) mg/dl POC Glucose (70-99) mg/dl POC Glucose (other) (70-99) mg/dl Calcium 8.6 (8.5-10.1) mg/dl POC Ioniz Calcium Av (1.12-1.32) mmol/l Phosphorus 3.8 (2.5-4.9) mg/dl Magnesium 1.7 (1.7-2.4) mg/dl 03/17/22 03/17/22 03/17/22 Range/Units 22:29 21:00 18:04 WBC (4.8-10.8) K/ul RBC (3.93-5.22) M/uL Hgb (12.0-16.0) g/dl POC Hgb (12.0-16.0) g/dl Hct (34.1-44.9) % POC Hct (37-47) % MCV (80.0-100.0) fL MCH (25.0-34.0) pg MCHC (32.0-36.0) g/dL RDW Std Deviation (36.4-46.3) fL RDW Coeff of Wendy (11.5-14.5) % Plt Count (130-400) K/uL MPV (9.4-12.3) fL Immature Gran % (Auto) % Neut % (Auto) % Lymph % (Auto) % Lanier % (Auto) % Eos % (Auto) % Baso % (Auto) % Neut # (Auto) (1.4-6.5) K/uL Lymph # (Auto) (1.2-3.4) K/uL Lanier # (Auto) (0.24-0.82) K/uL Eos # (Auto) (0-0.50) K/uL Baso # (Auto) (0-0.2) K/uL Immature Gran # (Auto) (0.00-0.02) K/uL PT (9.0-12.0) Seconds INR (0.9-1.1) APTT 40.2 H (21.0-31.0) Seconds PTT Ratio 1.5 POC Sodium (135-144) mmol/L Sodium (136-145) mmol/L POC Potassium (3.3-5.0) mmol/L Potassium (3.5-5.1) mmol/L POC Chloride (101-112) mmol/L Chloride (98-107) mmol/L Carbon Dioxide (21-32) mmol/L POC Total CO2 (24-31) mmol/L Anion Gap (3-11) POC Anion Gap (16-25) mmol/L POC BUN (7-18) mg/dl BUN (6-23) mg/dl Creatinine (0.6-1.2) mg/dl POC Creatinine (0.6-1.3) mg/dl Est Cr Clr Drug Dosing ml/min Est GFR ( Amer) ml/min Est GFR (Non-Af Amer) ml/min BUN/Creatinine Ratio (10-20) Glucose (70-99(Fasting)) mg/dl POC Glucose 101 H 107 H (70-99) mg/dl POC Glucose (other) (70-99) mg/dl Calcium (8.5-10.1) mg/dl POC Ioniz Calcium Av (1.12-1.32) mmol/l Phosphorus (2.5-4.9) mg/dl Magnesium (1.7-2.4) mg/dl 03/17/22 03/17/22 03/17/22 Range/Units 14:29 14:29 13:09 WBC 3.55 L (4.8-10.8) K/ul RBC 3.17 L (3.93-5.22) M/uL Hgb 9.8 L (12.0-16.0) g/dl POC Hgb (12.0-16.0) g/dl Hct 28.9 L (34.1-44.9) % POC Hct (37-47) % MCV 91.2 (80.0-100.0) fL MCH 30.9 (25.0-34.0) pg MCHC 33.9 (32.0-36.0) g/dL RDW Std Deviation 61.1 H (36.4-46.3) fL RDW Coeff of Wendy 19.0 H (11.5-14.5) % Plt Count 165 (130-400) K/uL MPV 10.4 (9.4-12.3) fL Immature Gran % (Auto) 0.6 % Neut % (Auto) 80.5 % Lymph % (Auto) 9.6 % Lanier % (Auto) 5.9 % Eos % (Auto) 3.1 % Baso % (Auto) 0.3 % Neut # (Auto) 2.86 (1.4-6.5) K/uL Lymph # (Auto) 0.34 L (1.2-3.4) K/uL Lanier # (Auto) 0.21 L (0.24-0.82) K/uL Eos # (Auto) 0.11 (0-0.50) K/uL Baso # (Auto) 0.01 (0-0.2) K/uL Immature Gran # (Auto) 0.02 (0.00-0.02) K/uL PT 10.7 (9.0-12.0) Seconds INR 1.0 (0.9-1.1) APTT 23.2 (21.0-31.0) Seconds PTT Ratio 0.8 POC Sodium (135-144) mmol/L Sodium (136-145) mmol/L POC Potassium (3.3-5.0) mmol/L Potassium (3.5-5.1) mmol/L POC Chloride (101-112) mmol/L Chloride (98-107) mmol/L Carbon Dioxide (21-32) mmol/L POC Total CO2 (24-31) mmol/L Anion Gap (3-11) POC Anion Gap (16-25) mmol/L POC BUN (7-18) mg/dl BUN (6-23) mg/dl Creatinine (0.6-1.2) mg/dl POC Creatinine (0.6-1.3) mg/dl Est Cr Clr Drug Dosing ml/min Est GFR ( Amer) ml/min Est GFR (Non-Af Amer) ml/min BUN/Creatinine Ratio (10-20) Glucose (70-99(Fasting)) mg/dl POC Glucose 102 H (70-99) mg/dl POC Glucose (other) (70-99) mg/dl Calcium (8.5-10.1) mg/dl POC Ioniz Calcium Av (1.12-1.32) mmol/l Phosphorus (2.5-4.9) mg/dl Magnesium (1.7-2.4) mg/dl 03/17/22 Range/Units 11:31 WBC (4.8-10.8) K/ul RBC (3.93-5.22) M/uL Hgb (12.0-16.0) g/dl POC Hgb 10.2 L (12.0-16.0) g/dl Hct (34.1-44.9) % POC Hct 30 L (37-47) % MCV (80.0-100.0) fL MCH (25.0-34.0) pg MCHC (32.0-36.0) g/dL RDW Std Deviation (36.4-46.3) fL RDW Coeff of Wendy (11.5-14.5) % Plt Count (130-400) K/uL MPV (9.4-12.3) fL Immature Gran % (Auto) % Neut % (Auto) % Lymph % (Auto) % [place]ier % (Auto) % Eos % (Auto) % Baso % (Auto) % Neut # (Auto) (1.4-6.5) K/uL Lymph # (Auto) (1.2-3.4) K/uL Lanier # (Auto) (0.24-0.82) K/uL Eos # (Auto) (0-0.50) K/uL Baso # (Auto) (0-0.2) K/uL Immature Gran # (Auto) (0.00-0.02) K/uL PT (9.0-12.0) Seconds INR (0.9-1.1) APTT (21.0-31.0) Seconds PTT Ratio POC Sodium 132 L (135-144) mmol/L Sodium (136-145) mmol/L POC Potassium 4.8 (3.3-5.0) mmol/L Potassium (3.5-5.1) mmol/L POC Chloride 94 L (101-112) mmol/L Chloride (98-107) mmol/L Carbon Dioxide (21-32) mmol/L POC Total CO2 25 (24-31) mmol/L Anion Gap (3-11) POC Anion Gap 19.0 (16-25) mmol/L POC BUN 25 H (7-18) mg/dl BUN (6-23) mg/dl Creatinine (0.6-1.2) mg/dl POC Creatinine 0.60 (0.6-1.3) mg/dl Est Cr Clr Drug Dosing ml/min Est GFR ( Amer) ml/min Est GFR (Non-Af Amer) ml/min BUN/Creatinine Ratio (10-20) Glucose (70-99(Fasting)) mg/dl POC Glucose (70-99) mg/dl POC Glucose (other) 107 H (70-99) mg/dl Calcium (8.5-10.1) mg/dl POC Ioniz Calcium Av 1.25 (1.12-1.32) mmol/l Phosphorus (2.5-4.9) mg/dl Magnesium (1.7-2.4) mg/dl Medications Administered Current Inpatient Medications Acetaminophen (Acetaminophen 325 Mg Tab) 650 mg PO Q4H PRN PRN Reason: Pain or Fever Stop: 04/05/22 19:49 Last Admin: 03/16/22 22:30 Dose: 650 mg Albuterol (Albuterol Hfa 8 Gm Inhaler) 2 puffs INH QID PRN PRN Reason: shortness of breath or wheezin Stop: 04/05/22 20:51 Albuterol (Albut/Ipratrop 3mg/0.5mg Neb 3 Ml Vial) 3 ml INH Q6H PRN; Protocol PRN Reason: shortness of breath or wheezing Stop: 04/05/22 20:51 Benzocaine (Benzocaine 20% (Orajel) 11.9 Gm Tube) 1 appln MT TID PRN PRN Reason: Cold Sores Stop: 04/10/22 13:19 Last Admin: 03/12/22 05:53 Dose: 1 appln Bupropion HCl (Bupropion Xl 300 Mg Tabcr) 300 mg PO DAILY@1700 MANUELA Stop: 04/06/22 08:59 Last Admin: 03/17/22 20:00 Dose: 300 mg Docusate Sodium (Docusate Sodium 100 Mg Cap) 100 mg PO BID PRN PRN Reason: Constipation Stop: 04/06/22 20:59 Last Admin: 03/14/22 12:45 Dose: 100 mg Dextrose (D10w) 1,000 mls @ 0 mls/hr IV .Q0M PRN PRN Reason: protocol (see label comments) Stop: 04/11/22 07:04 Heparin Sodium/Dextrose (Heparin Sodium/Dextrose) 25,000 units in 500 mls @ 11 mls/hr IV .Q24H MANUELA; Protocol Stop: 04/16/22 11:14 Last Titration: 03/18/22 07:47 Dose: 550 units/hr, 11 mls/hr Levothyroxine Sodium (Levothyroxine Sodium 88 Mcg Tablet) 88 mcg PO DAILYBB [facility] Stop: 04/06/22 06:29 Last Admin: 03/18/22 06:18 Dose: 88 mcg Lidocaine HCl (Lidocaine Viscous 2% 15 Ml Udc) 5 ml PO Q4H PRN PRN Reason: Pain Stop: 04/11/22 09:46 Last Admin: 03/12/22 12:35 Dose: 5 ml Metoprolol Succinate (Metoprolol Succ 25mg Ext Rel Tab) 12.5 mg PO DAILYBD [facility] Stop: 04/16/22 15:29 Last Admin: 03/17/22 15:47 Dose: Not Given Miscellaneous Information (Tpn/Ppn Consult Pharmacy) 1 each N/A UD PRN PRN Reason: Consult Stop: 04/11/22 06:59 Pantoprazole Sodium (Pantoprazole 40 Mg Tab) 40 mg PO BID [facility] Stop: 04/09/22 09:44 Last Admin: 03/18/22 08:16 Dose: 40 mg Phenol (Chloraseptic 1.4% Soln 180 Ml Btl) 2 sprays MT Q6H PRN PRN Reason: Sore Throat Stop: 04/06/22 08:28 Last Admin: 03/10/22 09:58 Dose: 2 sprays Polyethylene Glycol (Polyethylene (Miralax) 17 Gm Pack) 17 gm PO DAILY PRN PRN Reason: Constipation Stop: 04/05/22 19:49 Last Admin: 03/14/22 12:45 Dose: 17 gm Sennosides (Senna 8.6 Mg Tab) 8.6 mg PO QAM [facility] Stop: 04/13/22 13:29 Last Admin: 03/18/22 08:16 Dose: 8.6 mg
[2022-03-18] MEDS ORDERED: ALBUMIN 25% 100 mL 25 GM/100 ML VIAL IV ONE (12:06)
--- NOTE | 2022-03-18 14:43 | Cardiology Progress Note ---
Date of Service March 18, 2022 Assessment & Plan (1) Precordial chest pain: (2) Elevated troponin: (3) Cardiomyopathy: (4) Apical ballooning syndrome: Plan Patient is a 67-year-old female with complex history as outlined currently undergoing therapy for small cell carcinoma of the lung including radiation and chemotherapy. Patient admitted for anorexia nausea vomiting and failure to thrive. Currently receiving parenteral nutrition. Last evening patient had extended episode of substernal chest discomfort. EKGs today sinus rhythm with Q waves anteriorly no acute ST elevation but suggestive of progression and evolution in comparison to prior studies. Troponin elevated Echocardiogram done urgently demonstrates new anteroseptal and apical wall motion abnormality with only basilar structures salty. Differential diagnosis includes apical ballooning cardiomyopathy versus acute myocardial infarction. I discussed findings with patient as echocardiogram being performed. Given relatively low blood pressures and limited ability to treat with medications would recommend proceeding to diagnostic cardiac catheterization recent acute symptoms and no prior chest pain last evening Will initiate anticoagulation with IV heparin. 03/18/2022 as above. Patient underwent diagnostic coronary angiography on 03/17/2022 without obstructive coronary Findings consistent with apical ballooning cardiomyopathy. No further chest pain or discomfort overnight. No arrhythmias on telemetry. No signs of fluid retention or heart failure. Tolerated IV fluids well Recommendations we will discontinue IV heparin now greater than 24 hours of straight Would continue low-dose beta-maría with metoprolol succinate 12.5 mg daily No further cardiac plans at this time Admission and Anticipated Discharge Date Admission Date: March 06, 2022 Subjective Patient seen and examined, chart, medications telemetry reviewed. No arrhythmias. No further chest pain or discomfort. Appetite remains poor and patient mildly confused disease (needs to go home and do [employer] shopping before ) No fevers or chills. Right femoral access site healing well. No bleeding Physical Exam Constitutional: + ill appearing and + cachectic; no acute distress Eyes: PERRL, conjunctivae normal, anicteric sclerae ENMT: external ear and nose normal, oropharynx normal Neck: trachea midline, no thyromegaly Respiratory: + cough Auscultation: + rhonchi (Rhonchi on righ, t basilar crackles on left) and + wheezes Cardiovascular: Rate/Rhythm: regular rate and regular rhythm Heart Sounds: normal S1 and normal S2; no murmur Vessels: no JVD Extremities: no edema Gastrointestinal (Abdomen): normal bowel sounds, soft, nontender, no hepatosplenomegaly Musculoskeletal: no cyanosis or clubbing, extremities motor strength 5/5 Results & Data ([facility]) Vital Signs (Past 12 Hours) Vital Signs Temp Pulse Pulse Pulse Resp BP BP 03/18/22 14:13 37.0 C 88 18 97/56 L 03/18/22 12:35 36.6 C 89 18 101/65 03/18/22 11:41 36.7 C 70 16 77/53 L 03/18/22 07:20 102 H 03/18/22 07:20 03/18/22 08:23 36.6 C 96 H 16 93/52 L 03/18/22 04:20 36.7 C 82 20 94/62 L Pulse Ox O2 Del Method 03/18/22 14:13 98 Room Air 03/18/22 12:35 97 Room Air 03/18/22 11:41 93 Room Air 03/18/22 07:20 03/18/22 07:20 Room Air 03/18/22 08:23 97 Room Air 03/18/22 04:20 95 Room Air
[2022-03-18] MEDS: HEPARIN SODIUM/DEXTROSE 25,000 UNITS/500 ML BAG IV SCH (15:09)
[2022-03-18] MEDS: METOPROLOL SUCC 25MG EXT REL TAB PO SCH (15:53)
[2022-03-18] MEDS ORDERED: PERIPHERAL TPN IV SCH (16:00)
[2022-03-18] MEDS ORDERED: AMINO ACIDS 4.25% IV SCH (16:00)
[2022-03-18] MEDS ORDERED: D5W IV SCH (16:00)
[2022-03-18] MEDS ORDERED: CLINOLIPID 20% IV FAT EMULSION 200 ML IV SCH (16:00)
[2022-03-18] MEDS: buPROPion XL 300 MG TABCR PO SCH (17:28)
[2022-03-18] MEDS ORDERED: HALOPERIDOL ORAL SOLN 2 MG/ML PO ONE (18:30)
[2022-03-18] MEDS: ACETAMINOPHEN 325 MG TAB PO PRN (19:46)
[2022-03-18] MEDS ORDERED: STOP CLINOLIPID ONE (22:00)
[2022-03-19] MEDS: LEVOTHYROXINE SODIUM 88 MCG TABLET PO SCH (04:36)
[2022-03-19] MEDS: PANTOprazole 40 MG TAB PO SCH ×2 (08:09→20:16)
[2022-03-19] MEDS: SENNA 8.6 MG TAB PO SCH (08:10)
[2022-03-19 09:13] LABS: Hematocrit (blood only) 28.8 % (34.1-44.9); Hemoglobin 9.7 g/dl (12.0-16.0); Mean Corpuscular Hgb Conc 33.7 g/dL (32.0-36.0); Mean Platelet Volume 10.8 fL (9.4-12.3); Platelet Count 168 K/uL (130-400); RDW Coefficient of Variation 19.2 % (11.5-14.5); RDW Standard Deviation 62.5 fL (36.4-46.3); Red Blood Count 3.13 M/uL (3.93-5.22); White Blood Count 3.57 K/ul (4.8-10.8)
[2022-03-19 09:28] LABS: Partial Thromboplastin Time 26.2 Seconds (21.0-31.0)
[2022-03-19 09:42] LABS: BUN Creatinine Ratio 30.4 (10-20); Calcium 9.1 mg/dl (8.5-10.1); Creatinine Clr Calc Pharmacy 50.3 ml/min; Est GFR (African American) 102.9 ml/min; Est GFR (Non-African American) 88.8 ml/min; Phosphorus 3.6 mg/dl (2.5-4.9); Potassium 4.5 mmol/L (3.5-5.1)
--- NOTE | 2022-03-19 09:55 | Gastroenterology Progress Note ---
Date of Service March 19, 2022 Assessment & Plan (1) Severe protein-calorie malnutrition: Plan: Though she has mild oropharyngeal dysphagia on speech pathology eval, the primary reason for her poor nutritional status seems to be food aversion, poor appetite and general failure to thrive secondary to cancer treatment. Patient is hesitant to undergo any procedures. She is "afraid,' of problems during procedures. She does not wish to have a PEG tube placed. She is at higher risk for complications from sedation due to newly diagnosed cardiomyopathy. At this time, would recommend placement of an NG tube to deliver Feedings and avoidance of sedation or other procedures. May consider an appetite enhancing agent such as Dianabol or Remeron. Would add antiemetics prn, though pt does not seem to have a lot of nausea at this time. Admission and Anticipated Discharge Date Admission Date: March 06, 2022 Supervising Physician Co-Signing Physician Notes Attending attestation I have seen, examined this patient, and agree with the findings and above by our mid-level provider ZACK Coles, with the following additions: Had a long discussion with the patient as well as her today. She has a food aversion and can tolerate liquids but cannot tolerate solid food. She does even have intermittent emesis with foods like boost. That would make a PEG tube potentially not beneficial in the capacity evaluation difficult to manage still has nausea vomiting with tube feedings. She is not really interested in any enteric tube, but she may be able to be nudged into undergoing the procedure, however she is just had a cardiac catheterization with evidence of Takotsubo's cardiomyopathy. This would increase her risk of anesthesia as well as arrhythmia. This is usually self-limited and overall its own. I think at this time we have opportunities to maximize appetite stimulants, scheduled antiemetics, so the other temporizing option would be to place a Dobbhoff tube for enteral feeding access through the NG tube while she is has time to include for her cardiomyopathy. Her option would be to discharge with outpatient interventional radiology placed PEG and/or PEG-J may be the best option in the long If he does not do well without enteral feeding does do well with dobhoff. Subjective GI was asked to reevaluate to consider PEG tube placement for treatment of malnutrition. She is underweight, has poor p.o. intake, citing no appetite, aversion to some foods, since undergoing chemo and radiation. He is also had some dysphagia. Speech path evaluated and noted mild oropharyngeal dysphagia, and recommended a PEG tube for nutritional support. She denies any abdominal pain. He underwent EGD on 03/10/2022 with grade A esophagitis. She underwent cardiac cath yesterday with findings of cardiomyopathy. Review of Systems Review of Systems: ROS:+weakness, + weight loss, + poor appetite Eyes: No eye redness, or pain, no recent vision changes Resp: No SOB, no cough Cardio: No palpitations/irregular beats, no chest pain GI: As per HPI, otherwise negative : Denies pain on urination Skin: No jaundice, itching or new rashes Physical Exam Constitutional: + ill appearing (Chronically), + cachectic, + frail appearing and cooperative Eyes: PERRL, conjunctivae normal, anicteric sclerae ENMT: external ear and nose normal, oropharynx normal Neck: trachea midline, no thyromegaly Respiratory: Very diminished breath sounds, no adventitious sounds. Cardiovascular: RRR, no murmur, no edema Gastrointestinal (Abdomen): Inspection/Auscultation: abdomen normal to inspection and + hypoactive bowel sounds; abdomen not distended Percussion/Palpation: abdomen soft; abdomen nontender, no abdominal mass and no ascites Skin: + turgor decreased; no rashes, no lesions, no ulcers and no jaundice Neurologic: PERRL, EOMI, accommodation nl, no face palsy, no dysarthria Psychiatric: A+Ox3, euthymic affect Lymphatic: no cervical or axillary lymphadenopathy Results & Data ([facility]) Vital Signs (Past 12 Hours) Vital Signs Temp Pulse Pulse Resp BP BP Pulse Ox 03/19/22 07:30 103 H 03/19/22 07:30 03/19/22 08:28 100/65 03/19/22 08:16 36.4 C L 84 14 85/45 L 92 03/19/22 03:54 36.7 C 84 18 99/63 L 98 03/18/22 23:46 36.7 C 96 H 16 95/63 L 95 03/18/22 23:00 88 O2 Del Method 03/19/22 07:30 03/19/22 07:30 Room Air 03/19/22 08:28 03/19/22 08:16 Room Air 03/19/22 03:54 Room Air 03/18/22 23:46 Room Air 03/18/22 23:00 Laboratory Results WBC 3.5, Hb 9.7, HCT 28, PLT S168, PT 26, INR 1.0, NA 132, K4.5, CL 100, CO2 25, BUN 21, CR 0.69, glucose 110 Most recent serum albumin 2021 normal at 3.6 Diagnostic Findings Modified barium swallow 03/06/2022 no aspiration EGD 03/10/2022 with grade a esophagitis recommendation to complete empiric treatment for candidiasis, and treat with p.o. twice daily PPIs times 1 month then daily.
--- NOTE | 2022-03-19 14:10 | Cardiology Progress Note ---
Date of Service March 19, 2022 Assessment & Plan (1) Precordial chest pain: (2) Elevated troponin: (3) Cardiomyopathy: (4) Apical ballooning syndrome: Plan Patient is a 67-year-old female with complex history as outlined currently undergoing therapy for small cell carcinoma of the lung including radiation and chemotherapy. Patient admitted for anorexia nausea vomiting and failure to thrive. Previously receiving parenteral nutrition. Patient on 03/16/2021 had chest pain overnight and underwent diagnostic coronary angiography due to elevated troponin on 1031 Study demonstrated no obstructive coronary disease with echocardiogram reflecting apical ballooning cardiomyopathy consistent with patient's acute illness Patient asymptomatic since event. No further chest pain. No signs of heart failure. No arrhythmias on telemetry Recommendations: Would continue metoprolol succinate 12.5 mg daily as long as blood pressure allows. Would treat underlying physical and emotional stressors Admission and Anticipated Discharge Date Admission Date: March 06, 2022 Subjective Patient seen and examined, chart, medications, telemetry reviewed. Patient denies any further chest pains. Notes no dizziness or lightheadedness notes no syncope or near syncope. Telemetry without arrhythmia. Blood pressures do trend low Review of Systems Review of Systems: All systems reviewed & are unremarkable except as noted in Subjective Physical Exam Constitutional: + ill appearing and + cachectic; no acute distress Eyes: PERRL, conjunctivae normal, anicteric sclerae ENMT: external ear and nose normal, oropharynx normal Neck: trachea midline, no thyromegaly Respiratory: + cough Auscultation: + rhonchi (Rhonchi on righ, t basilar crackles on left) and + wheezes Cardiovascular: Rate/Rhythm: regular rate and regular rhythm Heart Sounds: normal S1 and normal S2; no gallop, no murmur and no cardiac rub Vessels: no JVD Extremities: no edema Gastrointestinal (Abdomen): normal bowel sounds, soft, nontender, no hepatosplenomegaly Musculoskeletal: no cyanosis or clubbing, extremities motor strength 5/5 Results & Data ([facility]) Vital Signs (Past 12 Hours) Vital Signs Temp Pulse Pulse Pulse Resp BP BP 03/19/22 11:32 36.7 C 87 18 83/47 L 03/19/22 07:30 103 H 03/19/22 07:30 03/19/22 08:28 100/65 03/19/22 08:16 36.4 C L 84 14 85/45 L 03/19/22 03:54 36.7 C 84 18 99/63 L Pulse Ox O2 Del Method 03/19/22 11:32 97 Room Air 03/19/22 07:30 03/19/22 07:30 Room Air 03/19/22 08:28 03/19/22 08:16 92 Room Air 03/19/22 03:54 98 Room Air
[2022-03-19] MEDS: METOPROLOL SUCC 25MG EXT REL TAB PO SCH (15:33)
--- NOTE | 2022-03-19 15:44 | Hospitalist Progress Note ---
Date of Service March 19, 2022 Assessment & Plan (1) Adult failure to thrive: (2) Severe protein-calorie malnutrition: Plan: Severe protein calorie malnutrition Failure to thrive In setting of malignancy, ongoing chemoradiation Esophagitis Significant nausea secondary to above Recent oral thrush 3 weeks ago S/P clotrimazole Suspected esophageal candidiasis S/P EGD: Normal esophagus. LA Grade A distal esophagitis. Dilated. Z-line variab le. Normal stomach. Normal duodenal bulb and second portion of the duodenum. Completed fluconazole 7-day course Appreciate GI input Dietitian consulted Speech therapy evaluation Encourage increased oral intake Started on Protonix 40 mg BID--continue for 1 month and then transition to daily Had Video swallow study: Limited study, but no aspiration identified Family requesting PEG tube placement given very poor oral intake PPN ordered Still remains intolerant of food per patient and today, who is requesting a PEG tube. Per GI notes, patient is declining at the moment, and a Dophoff trial is recommended to see if she can tolerate this. continues on PPN therapy. (3) Apical ballooning syndrome: Plan: 03/18 Patient underwent diagnostic coronary angiography on 03/17/2022 without obstructive coronary Findings consistent with apical ballooning cardiomyopathy. continue low-dose beta-maría with metoprolol succinate 12.5 mg daily as BP allows 03/19: euvolemic and asymptomatic today (4) Cardiomyopathy: Plan: plan as above. GDMT per cardiology, currently on Toprol XL 12.5mg daily which was held for SBP in the 80s. (5) Malignant neoplasm of right lung: Plan: Stage III small cell lung cancer diagnosed November 2021. Started chemoradiation on December 2021. Received 2 cycles of cisplatin and etoposide along with radiation treatment at [facility]. Last treatment was 6 weeks ago. Completed radiation therapy. Follows with [facility] oncology Dr. Prajapati Poor appetite, significant nausea, vomiting since chemotherapy Palliative medicine also consulted for symptom control, appreciate their input - patient was trialed on dexamethasone, Haldol and developed some confusion, dexamethasone was stopped (6) Hyponatremia: Plan: Hyponatremia Likely due to poor oral intake Today she is 132, cont to monitor (7) Depression: Plan: Continue Bupropion, but with plans to wean down slowly given anorexigenic side effect of this medication, which she started for uncontrolled anxiety. Will taper over two weeks. Currently at 300mg daily. Start 75mg PO TID x 4 days, then 75mg PO BID x 4 days, then 37.5mg PO BID x 4 days, then stop. (8) Hypothyroidism: Plan: chronic, stable. Cont levothyroxine (9) Anemia: Plan: Anemia of chronic disease Leukopenia Likely secondary to malignancy, chemotherapy No signs of bleeding Monitor CBC 03/13 - Hgb <7 -transfused 1 unit PRBC (10) COPD (chronic obstructive pulmonary disease): Plan: chronic, stable. No signs of COPD exacerbation (11) Constipation: Plan: BM reported two days ago. Limited physical mobility 2/2 weakness and being off balance. Cont PT/OT (12) DVT prophylaxis: Plan: SCDs Full Code Dispo-uncertain at this time. Will see how she does with Dophoff trial. Teri Bond DO [facility] Hospitalist Admission and Anticipated Discharge Date Admission Date: March 06, 2022 Subjective 67 y F with severe malnutrition and recent Takatsobu's cardiomyopathy She denies chest pain (last was yesterday afternoon) She reports no SOB and is sstill very weak, per who is at bedside, she cannot walk alone around the room. She is still avoiding all food and on PPN Describes some nausea this am, but none now She doesn't appear to understand the PEG tube conversation which was explained in detail to both she and her Her said that he wants this. I received a message from her PCP today that family had called her, and asked multiple questions about PEG tube placement. Patient denies any pain or other issues at this time. Review of Systems Review of Systems: All systems were reviewed and negative except as indicated on subjective above. Physical Exam Physical Exam: CONSTITUTIONAL: cachectic, vitals as above, chronically ill- appearing but in NAD. +alopecia EYES: normal conjunctivae, no scleral icterus ENT: external ear and nose normal NECK: trachea midline RESPIRATORY: clear to auscultation bilaterally, no crackles, rales or wheezes, normal respiratory effort CARDIOVASCULAR: regular rate and rhythm, S1 and 2 heard without murmurs, gallops or rubs, no JVD, no peripheral edema CHEST: inspection of chest was normal GASTROINTESTINAL: soft, nontender, ND, no guarding MUSCULOSKELETAL: generalized weakness with no focal deficits, head is normocephalic and atraumatic SKIN: warm and dry NEUROLOGIC: CN 2-12 grossly intact, no sensory deficit, normal cognition, normal speech, no tremor PSYCHIATRIC: alert cooperative and oriented to person, place and time. Results & Data Results & Data ([facility]) Vital Signs (Past 12 Hours) Vital Signs Temp Pulse Pulse Pulse Resp BP BP 03/19/22 11:32 36.7 C 87 18 83/47 L 03/19/22 07:30 103 H 03/19/22 07:30 03/19/22 08:28 100/65 03/19/22 08:16 36.4 C L 84 14 85/45 L 03/19/22 03:54 36.7 C 84 18 99/63 L Pulse Ox O2 Del Method 03/19/22 11:32 97 Room Air 03/19/22 07:30 03/19/22 07:30 Room Air 03/19/22 08:28 03/19/22 08:16 92 Room Air 03/19/22 03:54 98 Room Air Laboratory Results Short CBC 03/19/22 Range/Units 08:07 WBC 3.57 L (4.8-10.8) K/ul Hgb 9.7 L (12.0-16.0) g/dl Hct 28.8 L (34.1-44.9) % Plt Count 168 (130-400) K/uL BMP 03/19/22 08:07 Sodium 132 L Potassium 4.5 Chloride 100 Carbon Dioxide 25 BUN 21 Creatinine 0.69 Glucose 110 H Calcium 9.1 Medications Administered Current Inpatient Medications Acetaminophen (Acetaminophen 325 Mg Tab) 650 mg PO Q4H PRN PRN Reason: Pain or Fever Stop: 04/05/22 19:49 Last Admin: 03/18/22 19:46 Dose: 650 mg Albuterol (Albuterol Hfa 8 Gm Inhaler) 2 puffs INH QID PRN PRN Reason: shortness of breath or wheezin Stop: 04/05/22 20:51 Albuterol (Albut/Ipratrop 3mg/0.5mg Neb 3 Ml Vial) 3 ml INH Q6H PRN; Protocol PRN Reason: shortness of breath or wheezing Stop: 04/05/22 20:51 Benzocaine (Benzocaine 20% (Orajel) 11.9 Gm Tube) 1 appln MT TID PRN PRN Reason: Cold Sores Stop: 04/10/22 13:19 Last Admin: 03/12/22 05:53 Dose: 1 appln Bupropion HCl (Bupropion Xl 300 Mg Tabcr) 300 mg PO DAILY@1700 [facility] Stop: 04/06/22 08:59 Last Admin: 03/18/22 17:28 Dose: 300 mg Docusate Sodium (Docusate Sodium 100 Mg Cap) 100 mg PO BID PRN PRN Reason: Constipation Stop: 04/06/22 20:59 Last Admin: 03/14/22 12:45 Dose: 100 mg Dextrose (D10w) 1,000 mls @ 0 mls/hr IV .Q0M PRN PRN Reason: protocol (see label comments) Stop: 04/11/22 07:04 Amino Acids 1,304 ml/ (Nutrition (Parenteral)) 1,304 mls @ 54 mls/hr IV .Q24H [facility]; Protocol Stop: 03/19/22 15:59 Last Admin: 03/18/22 16:02 Dose: 54 mls/hr Fat Emulsion-Sutton Oil/Soybean Oil (Clinolipid 20% Iv Fat Emulsion) 200 mls @ 33.333 mls/hr IV .Q6H [facility] Stop: 03/19/22 21:59 Amino Acids 1,304 ml/ (Nutrition (Parenteral)) 1,304 mls @ 54 mls/hr IV .Q24H [facility]; Protocol Stop: 03/20/22 15:59 Sodium Chloride (Nss) 500 mls @ 100 mls/hr IV .Q5H [facility] Stop: 03/19/22 20:44 Levothyroxine Sodium (Levothyroxine Sodium 88 Mcg Tablet) 88 mcg PO DAILYBB [facility] Stop: 04/06/22 06:29 Last Admin: 03/19/22 04:36 Dose: 88 mcg Lidocaine HCl (Lidocaine Viscous 2% 15 Ml Udc) 5 ml PO Q4H PRN PRN Reason: Pain Stop: 04/11/22 09:46 Last Admin: 03/12/22 12:35 Dose: 5 ml Metoprolol Succinate (Metoprolol Succ 25mg Ext Rel Tab) 12.5 mg PO DAILYBD [facility] Stop: 04/16/22 15:29 Last Admin: 03/19/22 15:33 Dose: Not Given Miscellaneous (Stop Clinolipid) 1 each N/A TODAY@2200 [facility] Stop: 03/19/22 22:01 Miscellaneous Information (Tpn/Ppn Consult Pharmacy) 1 each N/A UD PRN PRN Reason: Consult Stop: 04/11/22 06:59 Pantoprazole Sodium (Pantoprazole 40 Mg Tab) 40 mg PO BID [facility] Stop: 04/09/22 09:44 Last Admin: 03/19/22 08:09 Dose: 40 mg Phenol (Chloraseptic 1.4% Soln 180 Ml Btl) 2 sprays MT Q6H PRN PRN Reason: Sore Throat Stop: 04/06/22 08:28 Last Admin: 03/10/22 09:58 Dose: 2 sprays Polyethylene Glycol (Polyethylene (Miralax) 17 Gm Pack) 17 gm PO DAILY PRN PRN Reason: Constipation Stop: 04/05/22 19:49 Last Admin: 03/14/22 12:45 Dose: 17 gm Sennosides (Senna 8.6 Mg Tab) 8.6 mg PO QAM [facility] Stop: 04/13/22 13:29 Last Admin: 03/19/22 08:10 Dose: 8.6 mg
[2022-03-19] MEDS ORDERED: SODIUM CHLORIDE 0.9% 500 ML IV SCH (15:45)
[2022-03-19] MEDS ORDERED: AMINO ACIDS 4.25% IV SCH (16:00)
[2022-03-19] MEDS ORDERED: CLINOLIPID 20% IV FAT EMULSION 200 ML IV SCH (16:00)
[2022-03-19] MEDS ORDERED: PERIPHERAL TPN IV SCH (16:00)
[2022-03-19] MEDS ORDERED: D5W IV SCH (16:00)
[2022-03-19] MEDS: buPROPion HCl 75 MG TABLET PO SCH (20:16)
[2022-03-19] MEDS ORDERED: STOP CLINOLIPID ONE (22:00)
[2022-03-20] MEDS: LEVOTHYROXINE SODIUM 88 MCG TABLET PO SCH (04:52)
[2022-03-20 07:38] LABS: BUN Creatinine Ratio 39.7 (10-20); Calcium 8.7 mg/dl (8.5-10.1); Creatinine Clr Calc Pharmacy 55.2 ml/min; Est GFR (African American) 106.1 ml/min; Est GFR (Non-African American) 91.5 ml/min; Phosphorus 3.8 mg/dl (2.5-4.9); Potassium 4.5 mmol/L (3.5-5.1)
[2022-03-20] MEDS: PANTOprazole 40 MG TAB PO SCH ×2 (09:14→20:04)
[2022-03-20] MEDS: buPROPion HCl 75 MG TABLET PO SCH ×3 (09:14→20:04)
[2022-03-20] MEDS: SENNA 8.6 MG TAB PO SCH (09:16)
--- NOTE | 2022-03-20 10:29 | Cardiology Progress Note ---
Date of Service March 20, 2022 Assessment & Plan (1) Precordial chest pain: (2) Elevated troponin: (3) Cardiomyopathy: (4) Apical ballooning syndrome: Plan Patient is a 67-year-old female with complex history as outlined currently undergoing therapy for small cell carcinoma of the lung including radiation and chemotherapy. Patient admitted for anorexia nausea vomiting and failure to thrive. Previously receiving parenteral nutrition. Patient on 03/16/2021 had chest pain overnight and underwent diagnostic coronary angiography due to elevated troponin on 1031 Study demonstrated no obstructive coronary disease with echocardiogram reflecting apical ballooning cardiomyopathy consistent with patient's acute illness Patient asymptomatic since event. No further chest pain. No signs of heart failure. No arrhythmias on telemetry Recommendations: Continue metoprolol succinate 12.5 mg daily. We will lower hold parameters to 90 mmHg systolic. All other medical issues as per primary service Admission and Anticipated Discharge Date Admission Date: March 06, 2022 Subjective Patient seen and examined, telemetry reviewed. No acute changes. No further chest pain or shortness of breath. Telemetry sinus and sinus tachycardia Patient with difficulties receiving metoprolol due to low blood pressures. Sti ll with generalized anorexia. Now back on parenteral nutrition No signs of fluid overload or congestive heart failure Review of Systems Review of Systems: All systems reviewed & are unremarkable except as noted in Subjective Physical Exam Constitutional: + ill appearing and + cachectic; no acute distress Eyes: PERRL, conjunctivae normal, anicteric sclerae ENMT: external ear and nose normal, oropharynx normal Neck: trachea midline, no thyromegaly Respiratory: + cough Auscultation: + rhonchi (Rhonchi on righ, t basilar crackles on left) and + wheezes Cardiovascular: Rate/Rhythm: regular rate and regular rhythm Heart Sounds: normal S1 and normal S2; no gallop, no murmur and no cardiac rub Vessels: no JVD Extremities: no edema Gastrointestinal (Abdomen): normal bowel sounds, soft, nontender, no hepatosplenomegaly Musculoskeletal: no cyanosis or clubbing, extremities motor strength 5/5 Results & Data ([facility]) Vital Signs (Past 12 Hours) Vital Signs Temp Pulse Pulse Resp BP Pulse Ox O2 Del Method 03/20/22 08:00 Room Air 03/20/22 07:42 36.7 C 86 18 88/55 L 98 Room Air 03/20/22 03:20 36.6 C 108 H 16 101/63 96 Room Air 03/20/22 00:53 99 H 03/19/22 22:56 36.8 C 101 H 18 86/55 L 97 Room Air Laboratory Results Laboratory Results - last 24 hr 03/19/22 03/19/22 03/19/22 11:27 17:40 23:03 Sodium Potassium Chloride Carbon Dioxide Anion Gap BUN Creatinine Est Cr Clr Drug Dosing Est GFR ( Amer) Est GFR (Non-Af Amer) BUN/Creatinine Ratio Glucose POC Glucose 126 H 126 H 96 Calcium Phosphorus Magnesium 03/20/22 06:02 Sodium 131 L Potassium 4.5 Chloride 100 Carbon Dioxide 26 Anion Gap 5 BUN 25 H Creatinine 0.63 Est Cr Clr Drug Dosing 55.2 Est GFR ( Amer) 106.1 Est GFR (Non-Af Amer) 91.5 BUN/Creatinine Ratio 39.7 H Glucose 98 POC Glucose Calcium 8.7 Phosphorus 3.8 Magnesium 2.0
--- NOTE | 2022-03-20 11:07 | Hospitalist Progress Note ---
Date of Service March 20, 2022 Assessment & Plan (1) Adult failure to thrive: (2) Severe protein-calorie malnutrition: Plan: Severe protein calorie malnutrition Failure to thrive In setting of malignancy, ongoing chemoradiation Esophagitis Significant nausea secondary to above Recent oral thrush 3 weeks ago S/P clotrimazole Suspected esophageal candidiasis S/P EGD: Normal esophagus. LA Grade A distal esophagitis. Dilated. Z-line variab le. Normal stomach. Normal duodenal bulb and second portion of the duodenum. Completed fluconazole 7-day course Dietitian consulted and following/managing PPN which is ongoing. Speech therapy evaluation revealed no aspiration on video swallow study that was identified. Started on Protonix 40 mg BID--continue for 1 month and then transition to daily Family requesting PEG tube placement given very poor oral intake since start of admission Anesthesia not recommended for PEG tube placement at this time given recent Takotsobu's Temporary NG tube placement was not successful May be a better option to pursue local anesthesia via outpatient IR-this was discussed with family For now, best option is PICC placement and upgrade to TPN. Risks/benefits reviewed with patient and including risks of infection, blood clot, etc. She was still encouraged to try food and we will also restart dronabinol (3) Apical ballooning syndrome: Plan: Patient underwent diagnostic coronary angiography on 03/17/2022 without obstructive coronary Findings consistent with apical ballooning cardiomyopathy. continue low-dose beta-maría with metoprolol succinate 12.5 mg daily as BP allows She has been hypotensive and BB held. She remains asymptomatic and appears euvolemic to dry. (4) Cardiomyopathy: Plan: plan as above. GDMT per cardiology, currently on Toprol XL 12.5mg daily which was held for SBP in the 80s. (5) Malignant neoplasm of right lung: Plan: Stage III small cell lung cancer diagnosed November 2021. Started chemoradiation on December 2021. Received 2 cycles of cisplatin and etoposide along with radiation treatment at [facility]. Last treatment was 6 weeks ago. Completed radiation therapy. Follows with [facility] oncology Dr. Prajapati Poor appetite, significant nausea, vomiting since chemotherapy Palliative medicine also consulted for symptom control, appreciate their input - patient was trialed on dexamethasone, Haldol and developed some confusion, dexamethasone was stopped (6) Hyponatremia: Plan: Hyponatremia Likely due to poor oral intake Today she is 131, cont to monitor (7) Depression: Plan: Continue Bupropion, but with plans to wean down slowly given anorexigenic side effect of this medication, which she started for uncontrolled anxiety. Will taper over two weeks. Starting dose was 300mg daily. Start 75mg PO TID x 4 days, then 75mg PO BID x 4 days, then 37.5mg PO BID x 4 days, then stop. (8) Hypothyroidism: Plan: chronic, stable. Cont levothyroxine (9) Anemia: Plan: Anemia of chronic disease Leukopenia Likely secondary to malignancy, chemotherapy No signs of bleeding Monitor CBC 03/13 - Hgb <7 -transfused 1 unit PRBC (10) COPD (chronic obstructive pulmonary disease): Plan: chronic, stable. No signs of COPD exacerbation (11) Constipation: Plan: BM reported two days ago. Limited physical mobility 2/2 weakness and being off balance. Cont PT/OT (12) DVT prophylaxis: Plan: SCDs Full Code Dispo-uncertain at this time. Will see how she does with the TPN adm inistration. She remains weak and reports feeling unsteady rising up off the toilet. She has continued to lose body weight including an additional 4kg since admission on 03/06. She is now more hypotensive. Cont supportive care as needed/TPN and monitor. Plan to discharge to home with TPN once demonstrates stability. Teri Bond DO [facility] Hospitalist Admission and Anticipated Discharge Date Admission Date: March 06, 2022 Subjective 67 yo F with lung cancer presents with severe protein calorie malnutrition. Today she reports no pain or nausea but is still unable to tolerate anything by mouth She is now appearing more confused, stating she doesn't remember blue conversations that took place today regarding her management is at bedside and these conversations regarding a dophoff were reviewed with him. We decided to proceed together and two trials were unsuccessful A backup plan of PICC line placement and switching to TPN was reviewed with Nutrition and GI who agreed wtih this plan. The patient and also agreed and she was consented for a PICC line. TPN orders were conveyed to pharmacy who is following and it was confirmed we can start TPN on 03/21. Review of Systems Review of Systems: All systems were reviewed and negative except as indicated on subjective above. Physical Exam Physical Exam: CONSTITUTIONAL: cachectic, vitals as above, chronically ill- appearing but in NAD. +alopecia EYES: normal conjunctivae, no scleral icterus ENT: external ear and nose normal NECK: trachea midline RESPIRATORY: clear to auscultation bilaterally, no crackles, rales or wheezes, normal respiratory effort CARDIOVASCULAR: regular rate and rhythm, S1 and 2 heard without murmurs, gallops or rubs, no JVD, no peripheral edema CHEST: inspection of chest was normal GASTROINTESTINAL: soft, nontender, ND, no guarding MUSCULOSKELETAL: generalized weakness with no focal deficits, head is normocephalic and atraumatic SKIN: warm and dry NEUROLOGIC: CN 2-12 grossly intact, no sensory deficit, normal cognition, normal speech, no tremor PSYCHIATRIC: alert cooperative and oriented to person, place and time. Results & Data Results & Data ([facility]) Vital Signs (Past 12 Hours) Vital Signs Temp Pulse Pulse Resp BP Pulse Ox O2 Del Method 03/20/22 08:00 Room Air 03/20/22 07:42 36.7 C 86 18 88/55 L 98 Room Air 03/20/22 03:20 36.6 C 108 H 16 101/63 96 Room Air 03/20/22 00:53 99 H Laboratory Results [facility] 03/20/22 06:02 Sodium 131 L Potassium 4.5 Chloride 100 Carbon Dioxide 26 BUN 25 H Creatinine 0.63 Glucose 98 Calcium 8.7 Medications Administered Current Inpatient Medications Acetaminophen (Acetaminophen 325 Mg Tab) 650 mg PO Q4H PRN PRN Reason: Pain or Fever Stop: 04/05/22 19:49 Last Admin: 03/18/22 19:46 Dose: 650 mg Albuterol (Albuterol Hfa 8 Gm Inhaler) 2 puffs INH QID PRN PRN Reason: shortness of breath or wheezin Stop: 04/05/22 20:51 Albuterol (Albut/Ipratrop 3mg/0.5mg Neb 3 Ml Vial) 3 ml INH Q6H PRN; Protocol PRN Reason: shortness of breath or wheezing Stop: 04/05/22 20:51 Benzocaine (Benzocaine 20% (Orajel) 11.9 Gm Tube) 1 appln MT TID PRN PRN Reason: Cold Sores Stop: 04/10/22 13:19 Last Admin: 03/12/22 05:53 Dose: 1 appln Bupropion HCl (Bupropion Hcl 75 Mg Tablet) 75 mg PO TID [facility] Stop: 03/23/22 14:01 Last Admin: 03/20/22 09:14 Dose: 75 mg Bupropion HCl (Bupropion Hcl 75 Mg Tablet) 75 mg PO BID [facility] Stop: 03/27/22 09:01 Bupropion HCl (Bupropion Hcl 75 Mg Tablet) 37.5 mg PO BID [facility] Stop: 03/31/22 09:01 Docusate Sodium (Docusate Sodium 100 Mg Cap) 100 mg PO BID PRN PRN Reason: Constipation Stop: 04/06/22 20:59 Last Admin: 03/14/22 12:45 Dose: 100 mg Dextrose (D10w) 1,000 mls @ 0 mls/hr IV .Q0M PRN PRN Reason: protocol (see label comments) Stop: 04/11/22 07:04 Amino Acids 1,304 ml/ (Nutrition (Parenteral)) 1,304 mls @ 54 mls/hr IV .Q24H [facility]; Protocol Stop: 03/20/22 15:59 Last Admin: 03/19/22 16:22 Dose: 54 mls/hr Amino Acids 1,301 ml/ (Nutrition (Parenteral)) 1,301 mls @ 54.2 mls/hr IV .Q24H [facility]; Protocol Stop: 03/21/22 15:59 Fat Emulsion-[place] Oil/Soybean Oil (Clinolipid 20% Iv Fat Emulsion) 200 mls @ 33.333 mls/hr IV .Q6H [facility] Stop: 03/20/22 21:59 Levothyroxine Sodium (Levothyroxine Sodium 88 Mcg Tablet) 88 mcg PO DAILYBB [facility] Stop: 04/06/22 06:29 Last Admin: 03/20/22 04:52 Dose: 88 mcg Lidocaine HCl (Lidocaine Viscous 2% 15 Ml Udc) 5 ml PO Q4H PRN PRN Reason: Pain Stop: 04/11/22 09:46 Last Admin: 03/12/22 12:35 Dose: 5 ml Metoprolol Succinate (Metoprolol Succ 25mg Ext Rel Tab) 12.5 mg PO DAILYBD [facility] Stop: 04/16/22 15:29 Last Admin: 03/19/22 15:33 Dose: Not Given Miscellaneous (Stop Clinolipid) 1 each N/A TODAY@2200 ONE Stop: 03/20/22 22:01 Miscellaneous Information (Tpn/Ppn Consult Pharmacy) 1 each N/A UD PRN PRN Reason: Consult Stop: 04/11/22 06:59 Pantoprazole Sodium (Pantoprazole 40 Mg Tab) 40 mg PO BID [facility] Stop: 04/09/22 09:44 Last Admin: 03/20/22 09:14 Dose: 40 mg Phenol (Chloraseptic 1.4% Soln 180 Ml Btl) 2 sprays MT Q6H PRN PRN Reason: Sore Throat Stop: 04/06/22 08:28 Last Admin: 03/10/22 09:58 Dose: 2 sprays Polyethylene Glycol (Polyethylene (Miralax) 17 Gm Pack) 17 gm PO DAILY PRN PRN Reason: Constipation Stop: 04/05/22 19:49 Last Admin: 03/14/22 12:45 Dose: 17 gm Sennosides (Senna 8.6 Mg Tab) 8.6 mg PO QAM [facility] Stop: 04/13/22 13:29 Last Admin: 03/20/22 09:16 Dose: Not Given
[2022-03-20] MEDS ORDERED: AMINO ACIDS 4.25% IV SCH (16:00)
[2022-03-20] MEDS ORDERED: PERIPHERAL TPN IV SCH (16:00)
[2022-03-20] MEDS ORDERED: D5W IV SCH (16:00)
[2022-03-20] MEDS ORDERED: CLINOLIPID 20% IV FAT EMULSION 200 ML IV SCH (16:00)
[2022-03-20] MEDS: METOPROLOL SUCC 25MG EXT REL TAB PO SCH (16:42)
[2022-03-20] MEDS ORDERED: STOP CLINOLIPID ONE (22:00)
[2022-03-21] MEDS: LEVOTHYROXINE SODIUM 88 MCG TABLET PO SCH (06:09)
[2022-03-21 07:33] LABS: BUN Creatinine Ratio 37.3 (10-20); Creatinine Clr Calc Pharmacy 51.8 ml/min; Est GFR (African American) 103.9 ml/min; Est GFR (Non-African American) 89.7 ml/min; Phosphorus 4.9 mg/dl (2.5-4.9); Potassium 4.5 mmol/L (3.5-5.1)
[2022-03-21] MEDS: SENNA 8.6 MG TAB PO SCH (08:49)
[2022-03-21] MEDS: PANTOprazole 40 MG TAB PO SCH ×2 (08:50→20:56)
[2022-03-21] MEDS: buPROPion HCl 75 MG TABLET PO SCH ×3 (08:51→20:57)
[2022-03-21] MEDS: METOPROLOL SUCC 25MG EXT REL TAB PO SCH (15:57)
[2022-03-21] MEDS ORDERED: PERIPHERAL TPN IV SCH (16:00)
[2022-03-21] MEDS ORDERED: AMINO ACIDS 4.25% IV SCH (16:00)
[2022-03-21] MEDS ORDERED: D5W IV SCH (16:00)
[2022-03-21] MEDS ORDERED: CLINOLIPID 20% IV FAT EMULSION 200 ML IV SCH (16:00)
--- NOTE | 2022-03-21 16:23 | Hospitalist Progress Note ---
Date of Service March 21, 2022 Assessment & Plan (1) Adult failure to thrive: (2) Severe protein-calorie malnutrition: Plan: Severe protein calorie malnutrition Failure to thrive In setting of malignancy, ongoing chemoradiation Esophagitis Significant nausea secondary to above Recent oral thrush 3 weeks ago S/P clotrimazole Suspected esophageal candidiasis S/P EGD: Normal esophagus. LA Grade A distal esophagitis. Dilated. Z-line variab le. Normal stomach. Normal duodenal bulb and second portion of the duodenum. Completed fluconazole 7-day course Dietitian consulted and following/managing PPN which is ongoing. Speech therapy evaluation revealed no aspiration on video swallow study that was identified. Started on Protonix 40 mg BID--continue for 1 month and then transition to daily Family requesting PEG tube placement given very poor oral intake since start of admission Anesthesia not recommended for PEG tube placement at this time given recent Takotsobu's Temporary NG tube placement was not successful May be a better option to pursue local anesthesia via outpatient IR-this was discussed with family For now, best option is PICC placement and upgrade to TPN. Previous hospitalist team discussed risks/benefits with patient and including risks of infection, blood clot, pain, bleeding etc. Continue to encourage with oral intake/ food Continue dronabinol IV team had a jose time to place PICC line, will talk to ICU team about central line placement and will discuss with family for consent if ICU ok to put a central line. Will try PICC line again tomorrow (3) Apical ballooning syndrome: Plan: (4) Cardiomyopathy: Plan: Patient underwent diagnostic coronary angiography on 03/17/2022 without obstructive coronary Findings consistent with apical ballooning cardiomyopathy. continue low-dose beta-maría with metoprolol succinate 12.5 mg daily as BP allows She has been hypotensive and BB was on hold She remains asymptomatic and appears euvolemic to dry. case discussed with cardiology that recommended to continue low dose Toprol with parameter (5) Malignant neoplasm of right lung: Plan: Stage III small cell lung cancer diagnosed November 2021. Started chemoradiation on December 2021. Received 2 cycles of cisplatin and etoposide along with radiation treatment at [facility]. Last treatment was 6 weeks ago. Completed radiation therapy. [facility] Pra[facility] Poor appetite, significant nausea, vomiting since chemotherapy Palliative medicine also consulted for symptom control, appreciate their input - patient was trialed on dexamethasone, Haldol and developed some confusion, dexamethasone was stopped (6) Hyponatremia: Plan: Hyponatremia Likely due to poor oral intake Today she is 132, cont to monitor (7) Depression: Plan: Continue Bupropion, but with plans to wean down slowly given anorexigenic side effect of this medication, which she started for uncontrolled anxiety. Will taper over two weeks. Starting dose was 300mg daily. Start 75mg PO TID x 4 days, then 75mg PO BID x 4 days, then 37.5mg PO BID x 4 days, then stop. (8) Hypothyroidism: Plan: chronic, stable. Cont levothyroxine (9) Anemia: Plan: Anemia of chronic disease Leukopenia Likely secondary to malignancy, chemotherapy No signs of bleeding Monitor CBC 03/13 - Hgb <7 -transfused 1 unit PRBC last hgb 9.7 on 02/16 (10) COPD (chronic obstructive pulmonary disease): Plan: chronic, stable. No signs of COPD exacerbation (11) Constipation: Plan: BM reported two days ago. Limited physical mobility 2/2 weakness and being off balance. Cont PT/OT (12) DVT prophylaxis: Plan: SCDs Full Code Dispo-uncertain at this time. Will see how she does with the TPN administration. She remains weak and reports feeling unsteady rising up off the toilet. She has continued to lose body weight including an additional 4kg since admission on 03/06. She is now more hypotensive. Cont supportive care as needed/TPN and monitor. Plan to discharge to home with TPN once demonstrates stability. Admission and Anticipated Discharge Date Admission Date: March 06, 2022 Subjective 67 yo F with lung cancer presents with severe protein calorie malnutrition. Sitting in chair with no acute distress Pt said that she is not having her pain, nausea and voimiting She removed dophoff x 2 yesterday IV team tried to place PICC line, unfortunately unable to find a good vein Denies any chest pain, palpitation,dizziness and SOB Review of Systems Review of Systems: All systems reviewed & are unremarkable except as noted in Subjective Physical Exam Physical Exam: General- No acute distress, +alopecia Head- atraumatic Eyes- PERRL, EOMI, ENT- oropharynx clear Neck- supple, no JVD Lungs- clear to auscultation Heart- regular rhythm; no murmur Abdomen- normal bowel sounds, soft, nontender Extremities- no calf tenderness Neuro- alert, oriented x 3; PERRL, EOMI; no facial palsy; no dysarthria Skin- warm & dry Results & Data Results & Data ([facility]) Vital Signs (Past 12 Hours) Vital Signs Temp Pulse Resp BP Pulse Ox O2 Del Method 03/21/22 15:55 36.4 C L 84 16 114/76 94 Room Air 03/21/22 11:19 36.8 C 86 18 83/47 L 99 Room Air 03/21/22 07:47 36.3 C L 79 16 84/54 L 94 Room Air
--- NOTE | 2022-03-21 20:35 | Communication Note ---
Date of Service: March 21, 2022 Received a call from elizabeth that has been waiting for me since 1pm because he was scheduled to have a meeting with me. I did not have any idea that I was scheduled to have a meeting with today. Around 6:30pm I received a call from the nurse that would like to speak to me. I replied to the nurse to let the know that i left for the day that I would speak to him the next day. After I spoke to my colleague, I called the on the phone to apologize because i did not have know if there was a meeting schedule today at 1pm. I gave him a brief update about the patient. I told him that IV team tried to place a PICC line, but failed. I explained to him that I ll make IV team try again tomorrow because asking ICU team to place a central line. said that his here to take the patient home tonight because she has been in the hospital for more than 2 weeks and she is confused and delirious. He said that he has been staying at [facility] with her, but tonight he does not feel to stay in the hospital with her. He wants to take her home tonight. I explained to him that would not be a safe discharge since case management will need to arrange for feeding supply and pt will need access for the TPN. He continued to insist that he would take her home tonight. He said that someone told her that pt will be ok if she does not eat for 1 week while waiting for the G-J tube placement. I explained to him the risk by leaving AMA such as dehydration, failure to thrive, multiple organs failure and even . understood the risks. Spoke to nursing in charge that will try to put 1 to 1 with patient for tonight that does not have to stay tonight since that his one of the issues that he wants to take her home. Nurse will notify me if decides to take her home. MD Joyce
[2022-03-21] MEDS ORDERED: STOP CLINOLIPID ONE (22:00)
[2022-03-22] MEDS: LEVOTHYROXINE SODIUM 88 MCG TABLET PO SCH (05:57)
[2022-03-22 06:43] LABS: Hematocrit (blood only) 24.3 % (34.1-44.9); Hemoglobin 8.2 g/dl (12.0-16.0); Mean Corpuscular Hemoglobin 31.1 pg (25.0-34.0); Mean Corpuscular Hgb Conc 33.7 g/dL (32.0-36.0); Mean Platelet Volume 11.1 fL (9.4-12.3); Platelet Count 187 K/uL (130-400); RDW Coefficient of Variation 19.5 % (11.5-14.5); RDW Standard Deviation 63.7 fL (36.4-46.3); Red Blood Count 2.64 M/uL (3.93-5.22); White Blood Count 2.43 K/ul (4.8-10.8)
[2022-03-22 07:25] LABS: BUN Creatinine Ratio 41.4 (10-20); Calcium 8.9 mg/dl (8.5-10.1); Est GFR (African American) 102.5 ml/min; Est GFR (Non-African American) 88.4 ml/min; Phosphorus 4.2 mg/dl (2.5-4.9); Potassium 4.2 mmol/L (3.5-5.1)
[2022-03-22] MEDS: buPROPion HCl 75 MG TABLET PO SCH ×3 (08:38→22:00)
[2022-03-22] MEDS: PANTOprazole 40 MG TAB PO SCH ×2 (08:38→21:59)
[2022-03-22] MEDS: SENNA 8.6 MG TAB PO SCH (08:38)
[2022-03-22] MEDS ORDERED: TPN/PPN CONSULT PHARMACY STA (13:39)
[2022-03-22] MEDS: METOPROLOL SUCC 25MG EXT REL TAB PO SCH (14:57)
--- NOTE | 2022-03-22 15:14 | Hospitalist Progress Note ---
Date of Service March 22, 2022 Assessment & Plan (1) Adult failure to thrive: (2) Severe protein-calorie malnutrition: Plan: Severe protein calorie malnutrition Failure to thrive In setting of malignancy, ongoing chemoradiation Esophagitis Significant nausea secondary to above Recent oral thrush 3 weeks ago S/P clotrimazole Suspected esophageal candidiasis S/P EGD: Normal esophagus. LA Grade A distal esophagitis. Dilated. Z-line variab le. Normal stomach. Normal duodenal bulb and second portion of the duodenum. Completed fluconazole 7-day course Dietitian consulted and following/managing PPN which is ongoing. Speech therapy evaluation revealed no aspiration on video swallow study that was identified. Started on Protonix 40 mg BID--continue for 1 month and then transition to daily Family requesting PEG tube placement given very poor oral intake since start of admission Anesthesia not recommended for PEG tube placement at this time given recent Takotsobu's Temporary NG tube placement was not successful May be a better option to pursue local anesthesia via outpatient IR-this was discussed with family For now, best option is PICC placement and upgrade to TPN. Previous hospitalist team discussed risks/benefits with patient and including risks of infection, blood clot, pain, bleeding etc. Continue to encourage with oral intake/ food Continue dronabinol IV team had a jose time to place PICC line yesterday But today IV team was able to place PICC Line Case management notified and arranged for TPN (3) Apical ballooning syndrome: (4) Cardiomyopathy: Plan: Patient underwent diagnostic coronary angiography on 03/17/2022 without obstructive coronary Findings consistent with apical ballooning cardiomyopathy. continue low-dose beta-maría with metoprolol succinate 12.5 mg daily as BP allows She has been hypotensive and BB was on hold She remains asymptomatic and appears euvolemic to dry. case discussed with cardiology that recommended to continue low dose Toprol with parameter (5) Malignant neoplasm of right lung: Plan: Stage III small cell lung cancer diagnosed November 2021. Started chemoradiation on December 2021. Received 2 cycles of cisplatin and etoposide along with radiation treatment at [facility]. Last treatment was 6 weeks ago. Completed radiation therapy. [facility] Poor appetite, significant nausea, vomiting since chemotherapy Palliative medicine also consulted for symptom control, appreciate their input - patient was trialed on dexamethasone, Haldol and developed some confusion, dexamethasone was stopped (6) Hyponatremia: Plan: Hyponatremia Likely due to poor oral intake Today she is 132, cont to monitor (7) Depression: Plan: Continue Bupropion, but with plans to wean down slowly given anorexigenic side effect of this medication, which she started for uncontrolled anxiety. Will taper over two weeks. Starting dose was 300mg daily. Start 75mg PO TID x 4 days, then 75mg PO BID x 4 days, then 37.5mg PO BID x 4 days, then stop. (8) Hypothyroidism: Plan: chronic, stable. Cont levothyroxine (9) Anemia: Plan: Anemia of chronic disease Leukopenia Likely secondary to malignancy, chemotherapy No signs of bleeding Monitor CBC 03/13 - Hgb <7 -transfused 1 unit PRBC last hgb 8.2 today (10) COPD (chronic obstructive pulmonary disease): Plan: chronic, stable. No signs of COPD exacerbation (11) Constipation: Plan: BM reported two days ago. Limited physical mobility 2/2 weakness and being off balance. Cont PT/OT (12) DVT prophylaxis: Plan: SCDs Full Code Dispo-uncertain at this time. Will see how she does with the TPN administration. She remains weak and reports feeling unsteady rising up off the toilet. She has continued to lose body weight including an additional 4kg since admission on 03/06. She is now more hypotensive. Cont supportive care as needed/TPN and monitor. Plan to discharge home on TPN once case management able to arrange for the supply Admission and Anticipated Discharge Date Admission Date: March 06, 2022 Subjective 67 yo F with lung cancer presents with severe protein calorie malnutrition. Lying in bed with no acute distress with 1 to 1 sitter Pt said that she only slept for a few hrs Pt said that she is not having her pain, nausea, vomiting was upset last night because he thought I was supposed to have a meeting with him at 1pm I took over the care yesterday and there was no meeting set up, not sure if confused me for another provider I called daughter Rachel twice today in detail and answered all her questions a nd addressed her concerns Case management notified, she will arrange for TPN on discharge Review of Systems Review of Systems: All systems reviewed & are unremarkable except as noted in Subjective Physical Exam Physical Exam: General- No acute distress, +alopecia Head- atraumatic Eyes- PERRL, EOMI, ENT- oropharynx clear Neck- supple, no JVD Lungs- clear to auscultation Heart- regular rhythm; no murmur Abdomen- normal bowel sounds, soft, nontender Extremities- no calf tenderness Neuro- alert, oriented x 3; PERRL, EOMI; no facial palsy; no dysarthria Skin- warm & dry Results & Data Results & Data ([facility]) Vital Signs (Past 12 Hours) Vital Signs Temp Pulse Pulse Pulse Resp BP Pulse Ox 03/22/22 11:18 36.7 C 87 17 92/51 L 99 03/22/22 08:00 03/22/22 08:00 84 03/22/22 07:02 36.8 C 80 18 93/48 L 97 03/22/22 03:35 36.4 C L 84 20 90/57 L 94 O2 Del Method 03/22/22 11:18 Room Air 03/22/22 08:00 Room Air 03/22/22 08:00 03/22/22 07:02 Room Air 03/22/22 03:35 Room Air
[2022-03-22] MEDS ORDERED: CENTRAL TPN IV SCH (16:00)
[2022-03-22] MEDS ORDERED: [UNRECOGNIZED DRUG - OTHER] IV SCH (16:00)
[2022-03-22] MEDS ORDERED: CLINOLIPID 20% IV FAT EMULSION 200 ML IV SCH (16:00)
[2022-03-22] MEDS ORDERED: AMINO ACID 8% IV SCH (16:00)
[2022-03-22] MEDS: STOP CLINOLIPID SCH (22:33)
[2022-03-23] MEDS: LEVOTHYROXINE SODIUM 88 MCG TABLET PO SCH (03:29)
[2022-03-23 06:34] LABS: Calcium 8.8 mg/dl (8.5-10.1); Creatinine Clr Calc Pharmacy 54.1 ml/min; Est GFR (African American) 104.5 ml/min; Est GFR (Non-African American) 90.1 ml/min; Magnesium 1.9 mg/dl (1.7-2.4); Phosphorus 3.6 mg/dl (2.5-4.9); Potassium 4.2 mmol/L (3.5-5.1)
[2022-03-23] MEDS: PANTOprazole 40 MG TAB PO SCH ×2 (08:17→21:45)
[2022-03-23] MEDS: buPROPion HCl 75 MG TABLET PO SCH ×3 (08:18→21:45)
[2022-03-23] MEDS: SENNA 8.6 MG TAB PO SCH (08:19)
[2022-03-23 08:23] LABS: Hematocrit (blood only) 25.3 % (34.1-44.9); Hemoglobin 8.3 g/dl (12.0-16.0); Mean Corpuscular Hemoglobin 31.3 pg (25.0-34.0); Mean Corpuscular Hgb Conc 32.8 g/dL (32.0-36.0); Mean Corpuscular Volume 95.5 fL (80.0-100.0); Platelet Count 181 K/uL (130-400); RDW Coefficient of Variation 20.2 % (11.5-14.5); RDW Standard Deviation 67.6 fL (36.4-46.3); Red Blood Count 2.65 M/uL (3.93-5.22); White Blood Count 2.55 K/ul (4.8-10.8)
[2022-03-23 10:38] LABS: Bilirubin,Total 0.6 mg/dl (0.2-1.0)
[2022-03-23] MEDS: METOPROLOL SUCC 25MG EXT REL TAB PO SCH (14:44)
--- NOTE | 2022-03-23 14:57 | Pharmacy Report ---
PHA: Parenteral Nutrition Con - Date of Service March 23, 2022 - Scope Pharmacy was consulted on to manage parenteral nutrition orders for this patient. - Subjective The patient is currently on day 2 of central parenteral nutrition - Objective Height: 5 ft 6 in Weight: 42.6 kg Diet: Full Liquid (limited intake) Intake & Output (24hrs):: Intake & Output 03/21/22 03/22/22 03/23/22 03/24/22 07:59 07:59 06:59 06:59 Intake Total 100 / 100 Output Total 0 / 0 Balance 100 / 100 Weight Laboratory Data (Last 24 Hr):: 03/23/22 03/23/22 05:40 05:40 Sodium 133 L Potassium 4.2 Chloride 101 Carbon Dioxide 27 BUN 31 H Creatinine 0.66 Glucose 110 H Calcium 8.8 Phosphorus 3.6 Magnesium 1.9 Total Bilirubin 0.6 AST 36 ALT 61 H Alkaline Phosphatase 139 H Triglycerides 196 H Nutrition Assessment:: Please refer to the Notes section of the EMR for the most recent process engineering intern note. - Plan Able to obtain central access yesterday and changed to central TPN. Continues on day #2 of central TPN. Pharmacy will utilize premixed bags for order per protocol. LFTs/TG stable today. TPN is at goal and providing ~25 kcal/kg/day (20-30 kcal/kg/day). Macronutrients Amino acids 67 grams/day Dextrose 118 grams/day Lipids 40 grams/day Micronutrients Sodium chloride 100 mEq Sodium acetate 40 mEq Potassium acetate 40 mEq Magnesium sulfate 8.12 mEq Calcium gluconate 9.3 mEq Multivitamins 10 mL Trace Elements 1 mL Additional additives: folic acid 1 mg, thiamine 100 mg Total volume 954 mL to be infused over 24 hrs will provide 1068 kcal/day Labs, as indicated, will be ordered per protocol Pharmacy will continue to follow and adjust parenteral nutrition orders on a daily basis. Thank you for allowing us to participate in the care of this patient.
--- NOTE | 2022-03-23 15:20 | Hospitalist Progress Note ---
Date of Service March 23, 2022 Assessment & Plan (1) Adult failure to thrive: (2) Severe protein-calorie malnutrition: Plan: Severe protein calorie malnutrition Failure to thrive In setting of malignancy, ongoing chemoradiation Esophagitis Significant nausea secondary to above Recent oral thrush 3 weeks ago S/P clotrimazole Suspected esophageal candidiasis S/P EGD: Normal esophagus. LA Grade A distal esophagitis. Dilated. Z-line variab le. Normal stomach. Normal duodenal bulb and second portion of the duodenum. Completed fluconazole 7-day course Dietitian consulted and following/managing PPN which is ongoing. Speech therapy evaluation revealed no aspiration on video swallow study that was identified. Started on Protonix 40 mg BID--continue for 1 month and then transition to daily Family requesting PEG tube placement given very poor oral intake since start of admission Anesthesia not recommended for PEG tube placement at this time given recent Takotsobu's Temporary NG tube placement was not successful May be a better option to pursue local anesthesia via outpatient IR-this was discussed with family For now, best option is PICC placement and upgrade to TPN. Previous hospitalist team discussed risks/benefits with patient and including risks of infection, blood clot, pain, bleeding etc. Continue to encourage with oral intake/ food Continue dronabinol IV team had a jose time to place PICC line yesterday But today IV team was able to place PICC Line Case management notified and arranged for TPN Continue TPN for now (3) Apical ballooning syndrome: (4) Cardiomyopathy: Plan: Patient underwent diagnostic coronary angiography on 03/17/2022 without obstructive coronary Findings consistent with apical ballooning cardiomyopathy. continue low-dose beta-maría with metoprolol succinate 12.5 mg daily as BP allows She has been hypotensive and BB was on hold She remains asymptomatic and appears euvolemic to dry. case discussed with cardiology that recommended to continue low dose Toprol with parameter (5) Malignant neoplasm of right lung: Plan: Stage III small cell lung cancer diagnosed November 2021. Started chemoradiation on December 2021. Received 2 cycles of cisplatin and etoposide along with radiation treatment at [facility]. Last treatment was 6 weeks ago. Completed radiation therapy. Follows with [facility] oncology Dr. Prajapati Poor appetite, significant nausea, vomiting since chemotherapy Palliative medicine also consulted for symptom control, appreciate their input - patient was trialed on dexamethasone, Haldol and developed some confusion, dexamethasone was stopped (6) Hyponatremia: Plan: Hyponatremia Likely due to poor oral intake Today she is 132, cont to monitor (7) Depression: Plan: Continue Bupropion, but with plans to wean down slowly given anorexigenic side effect of this medication, which she started for uncontrolled anxiety. Will taper over two weeks. Starting dose was 300mg daily. Start 75mg PO TID x 4 days, then 75mg PO BID x 4 days, then 37.5mg PO BID x 4 days, then stop. (8) Hypothyroidism: Plan: chronic, stable. Cont levothyroxine (9) Anemia: Plan: Anemia of chronic disease Leukopenia Likely secondary to malignancy, chemotherapy No signs of bleeding Monitor CBC 03/13 - Hgb <7 -transfused 1 unit PRBC last hgb 8.3 today (10) COPD (chronic obstructive pulmonary disease): Plan: chronic, stable. No signs of COPD exacerbation (11) Constipation: Plan: BM reported two days ago. Limited physical mobility 2/2 weakness and being off balance. Cont PT/OT (12) DVT prophylaxis: Plan: SCDs Full Code Dispo-uncertain at this time. Will see how she does with the TPN administration. She remains weak and reports feeling unsteady rising up off the toilet. She has continued to lose body weight including an additional 4kg since admission on 03/06. She is now more hypotensive. Cont supportive care as needed/TPN and monitor. Plan to discharge home on TPN once case management able to arrange for the supply Admission and Anticipated Discharge Date Admission Date: March 06, 2022 Subjective 67 yo F with lung cancer presents with severe protein calorie malnutrition. Lying in bed with no acute distress with 1 to 1 sitter Pt said that she slept much better last night I spoke to daughter at bedside later and she was concerned about the Wellbutrin that is being weaning I explained to her in details the reason due to weight loss side effect from Wellbutrin and addressed all her concerned Pt said that she is not having her pain, nausea, vomiting Review of Systems Review of Systems: All systems reviewed & are unremarkable except as noted in Subjective Physical Exam 2 Physical Exam: General- No acute distress, +alopecia Head- atraumatic Eyes- PERRL, EOMI, ENT- oropharynx clear Neck- supple, no JVD Lungs- clear to auscultation Heart- regular rhythm; no murmur Abdomen- normal bowel sounds, soft, nontender Extremities- no calf tenderness Neuro- alert, oriented x 3; PERRL, EOMI; no facial palsy; no dysarthria Skin- warm & dry Results & Data Results & Data ([facility]) Vital Signs (Past 12 Hours) Vital Signs Temp Pulse Pulse Resp BP BP Pulse Ox 03/23/22 11:01 36.6 C 93 H 18 96/67 L 94 03/23/22 08:00 03/23/22 08:00 74 03/23/22 07:02 36.6 C 80 19 110/61 98 03/23/22 03:53 36.6 C 82 20 101/65 98 O2 Del Method 03/23/22 11:01 Room Air 03/23/22 08:00 Room Air 03/23/22 08:00 03/23/22 07:02 Room Air 03/23/22 03:53 Room Air
[2022-03-23] MEDS ORDERED: AMINO ACID 8% IV SCH (16:00)
[2022-03-23] MEDS ORDERED: CLINOLIPID 20% IV FAT EMULSION 200 ML IV SCH (16:00)
[2022-03-23] MEDS ORDERED: [UNRECOGNIZED DRUG - OTHER] IV SCH (16:00)
[2022-03-23] MEDS ORDERED: CENTRAL TPN IV SCH (16:00)
[2022-03-23] MEDS: STOP CLINOLIPID SCH (22:40)
[2022-03-24] MEDS: LEVOTHYROXINE SODIUM 88 MCG TABLET PO SCH (06:27)
[2022-03-24 07:47] LABS: BUN Creatinine Ratio 65.4 (10-20); Calcium 8.7 mg/dl (8.5-10.1); Creatinine Clr Calc Pharmacy 67.4 ml/min; Est GFR (Non-African American) 97.5 ml/min; Magnesium 1.9 mg/dl (1.7-2.4); Phosphorus 3.4 mg/dl (2.5-4.9); Potassium 4.1 mmol/L (3.5-5.1)
[2022-03-24] MEDS: SENNA 8.6 MG TAB PO SCH (08:34)
[2022-03-24] MEDS: buPROPion HCl 75 MG TABLET PO SCH ×2 (08:34→20:14)
[2022-03-24] MEDS: PANTOprazole 40 MG TAB PO SCH ×2 (08:34→20:14)
[2022-03-24] MEDS ORDERED: CLINOLIPID 20% IV FAT EMULSION 200 ML IV SCH (16:00)
[2022-03-24] MEDS ORDERED: AMINO ACID 8% IV SCH (16:00)
[2022-03-24] MEDS ORDERED: CENTRAL TPN IV SCH (16:00)
[2022-03-24] MEDS ORDERED: [UNRECOGNIZED DRUG - OTHER] IV SCH (16:00)
[2022-03-24] MEDS: METOPROLOL SUCC 25MG EXT REL TAB PO SCH (16:26)
[2022-03-24] MEDS: STOP CLINOLIPID SCH (23:22)
--- NOTE | 2022-03-25 01:24 | Hospitalist Progress Note ---
Date of Service March 24, 2022 Assessment & Plan (1) Adult failure to thrive: (2) Severe protein-calorie malnutrition: Plan: Severe protein calorie malnutrition Failure to thrive In setting of malignancy, ongoing chemoradiation Esophagitis Significant nausea secondary to above Recent oral thrush 3 weeks ago S/P clotrimazole Suspected esophageal candidiasis S/P EGD: Normal esophagus. LA Grade A distal esophagitis. Dilated. Z-line variab le. Normal stomach. Normal duodenal bulb and second portion of the duodenum. Completed fluconazole 7-day course Dietitian consulted and following/managing PPN which is ongoing. Speech therapy evaluation revealed no aspiration on video swallow study that was identified. Started on Protonix 40 mg BID--continue for 1 month and then transition to daily Family requesting PEG tube placement given very poor oral intake since start of admission Anesthesia not recommended for PEG tube placement at this time given recent Takotsobu's Temporary NG tube placement was not successful May be a better option to pursue local anesthesia via outpatient IR-this was discussed with family For now, best option is PICC placement and upgrade to TPN. Previous hospitalist team discussed risks/benefits with patient and including risks of infection, blood clot, pain, bleeding etc. Continue to encourage with oral intake/ food Continue dronabinol IV team had a jose time to place PICC line yesterday But today IV team was able to place PICC Line Case management notified and arranged for TPN Continue TPN for now Plan to discharge on since home health will come on afternoon to start the home TPN (3) Apical ballooning syndrome: (4) Cardiomyopathy: Plan: Patient underwent diagnostic coronary angiography on 03/17/2022 without obstructive coronary Findings consistent with apical ballooning cardiomyopathy. continue low-dose beta-maría with metoprolol succinate 12.5 mg daily as BP allows She has been hypotensive and BB was on hold She remains asymptomatic and appears euvolemic to dry. case discussed with cardiology that recommended to continue low dose Toprol with parameter (5) Malignant neoplasm of right lung: Plan: Stage III small cell lung cancer diagnosed November 2021. Started chemoradiation on December 2021. Received 2 cycles of cisplatin and etoposide along with radiation treatment at [facility]. Last treatment was 6 weeks ago. Completed radiation therapy. Follows with [facility] oncology Dr. Prajapati Poor appetite, significant nausea, vomiting since chemotherapy Palliative medicine also consulted for symptom control, appreciate their input - patient was trialed on dexamethasone, Haldol and developed some confusion, dexamethasone was stopped (6) Hyponatremia: Plan: Hyponatremia Likely due to poor oral intake Na 135 today, cont to monitor (7) Depression: Plan: Continue Bupropion, but with plans to wean down slowly given anorexigenic side effect of this medication, which she started for uncontrolled anxiety. Will taper over two weeks. Starting dose was 300mg daily. Start 75mg PO TID x 4 days, then 75mg PO BID x 4 days, then 37.5mg PO BID x 4 days, then stop. (8) Hypothyroidism: Plan: chronic, stable. Cont levothyroxine (9) Anemia: Plan: Anemia of chronic disease Leukopenia Likely secondary to malignancy, chemotherapy No signs of bleeding Monitor CBC 03/13 - Hgb <7 -transfused 1 unit PRBC last hgb 8.3 (10) COPD (chronic obstructive pulmonary disease): Plan: chronic, stable. No signs of COPD exacerbation (11) Constipation: Plan: BM reported two days ago. Limited physical mobility 2/2 weakness and being off balance. Cont PT/OT (12) DVT prophylaxis: Plan: SCDs Full Code Dispo-uncertain at this time. Will see how she does with the TPN administration. She remains weak and reports feeling unsteady rising up off the toilet. She has continued to lose body weight including an additional 4kg since admission on 03/06. She is now more hypotensive. Cont supportive care as needed/TPN and monitor. Plan to discharge home on TPN Admission and Anticipated Discharge Date Admission Date: March 06, 2022 Subjective 67 yo F with lung cancer presents with severe protein calorie malnutrition. Lying in bed with no acute distress with 1 to 1 sitter Pt said that she slept last night Case management has been working to find home health to start to teach the TPN outpatient Pt said that she is not having her pain, nausea, vomiting Review of Systems Review of Systems: All systems reviewed & are unremarkable except as noted in Subjective Physical Exam Physical Exam: General- No acute distress, +alopecia Head- atraumatic Eyes- PERRL, EOMI, ENT- oropharynx clear Neck- supple, no JVD Lungs- clear to auscultation Heart- regular rhythm; no murmur Abdomen- normal bowel sounds, soft, nontender Extremities- no calf tenderness Neuro- alert, oriented x 3; PERRL, EOMI; no facial palsy; no dysarthria Skin- warm & dry Results & Data Results & Data ([facility]) Vital Signs (Past 12 Hours) Vital Signs Temp Pulse Pulse Resp BP Pulse Ox O2 Del Method 03/24/22 19:36 36.7 C 79 20 105/73 97 Room Air 03/24/22 16:00 77 03/24/22 16:45 36.5 C 77 16 113/70 98 Room Air
[2022-03-25] MEDS: LEVOTHYROXINE SODIUM 88 MCG TABLET PO SCH (06:11)
[2022-03-25 08:04] LABS: Hematocrit (blood only) 24.8 % (34.1-44.9); Hemoglobin 8.4 g/dl (12.0-16.0); Mean Corpuscular Hemoglobin 31.5 pg (25.0-34.0); Mean Corpuscular Hgb Conc 33.9 g/dL (32.0-36.0); Mean Corpuscular Volume 92.9 fL (80.0-100.0); Mean Platelet Volume 10.9 fL (9.4-12.3); Platelet Count 204 K/uL (130-400); RDW Coefficient of Variation 19.9 % (11.5-14.5); RDW Standard Deviation 65.2 fL (36.4-46.3); Red Blood Count 2.67 M/uL (3.93-5.22); White Blood Count 2.24 K/ul (4.8-10.8)
[2022-03-25 08:29] LABS: BUN Creatinine Ratio 56.1 (10-20); Calcium 8.6 mg/dl (8.5-10.1); Creatinine Clr Calc Pharmacy 61.5 ml/min; Est GFR (African American) 109.6 ml/min; Est GFR (Non-African American) 94.6 ml/min; Magnesium 1.9 mg/dl (1.7-2.4); Phosphorus 3.4 mg/dl (2.5-4.9); Potassium 3.9 mmol/L (3.5-5.1)
[2022-03-25] MEDS: buPROPion HCl 75 MG TABLET PO SCH ×2 (08:43→20:49)
[2022-03-25] MEDS: SENNA 8.6 MG TAB PO SCH (08:43)
[2022-03-25] MEDS: PANTOprazole 40 MG TAB PO SCH ×2 (08:43→20:48)
[2022-03-25] MEDS: METOPROLOL SUCC 25MG EXT REL TAB PO SCH (15:18)
[2022-03-25] MEDS ORDERED: AMINO ACID 8% IV SCH (16:00)
[2022-03-25] MEDS ORDERED: CLINOLIPID 20% IV FAT EMULSION 200 ML IV SCH (16:00)
[2022-03-25] MEDS ORDERED: [UNRECOGNIZED DRUG - OTHER] IV SCH (16:00)
[2022-03-25] MEDS ORDERED: CENTRAL TPN IV SCH (16:00)
[2022-03-25] MEDS: STOP CLINOLIPID SCH (22:27)
--- NOTE | 2022-03-25 23:46 | Hospitalist Progress Note ---
Date of Service March 25, 2022 Assessment & Plan (1) Adult failure to thrive: (2) Severe protein-calorie malnutrition: Plan: Severe protein calorie malnutrition Failure to thrive In setting of malignancy, ongoing chemoradiation Esophagitis Significant nausea secondary to above Recent oral thrush 3 weeks ago S/P clotrimazole Suspected esophageal candidiasis S/P EGD: Normal esophagus. LA Grade A distal esophagitis. Dilated. Z-line variab le. Normal stomach. Normal duodenal bulb and second portion of the duodenum. Completed fluconazole 7-day course Dietitian consulted and following/managing PPN which is ongoing. Speech therapy evaluation revealed no aspiration on video swallow study that was identified. Started on Protonix 40 mg BID--continue for 1 month and then transition to daily Family requesting PEG tube placement given very poor oral intake since start of admission Anesthesia not recommended for PEG tube placement at this time given recent Takotsobu's Temporary NG tube placement was not successful May be a better option to pursue local anesthesia via outpatient IR-this was discussed with family For now, best option is PICC placement and upgrade to TPN. Previous hospitalist team discussed risks/benefits with patient and including risks of infection, blood clot, pain, bleeding etc. Continue to encourage with oral intake/ food Continue dronabinol IV team had a jose time to place PICC line yesterday But today IV team was able to place PICC Line Case management notified and arranged for TPN Continue TPN for now TPN script signed and given to case management Plan to discharge on since home health will come to the house on afternoon to start the home TPN (3) Apical ballooning syndrome: (4) Cardiomyopathy: Plan: Patient underwent diagnostic coronary angiography on 03/17/2022 without obstructive coronary Findings consistent with apical ballooning cardiomyopathy. continue low-dose beta-maría with metoprolol succinate 12.5 mg daily as BP allows She has been hypotensive and BB was on hold She remains asymptomatic and appears euvolemic to dry. case discussed with cardiology that recommended to continue low dose Toprol with parameter (5) Malignant neoplasm of right lung: Plan: Stage III small cell lung cancer diagnosed November 2021. Started chemoradiation on December 2021. Received 2 cycles of cisplatin and etoposide along with radiation treatment at [facility]. Last treatment was 6 weeks ago. Completed radiation therapy. Follows with [facility] oncology Dr. Prajapati Poor appetite, significant nausea, vomiting since chemotherapy Palliative medicine also consulted for symptom control, appreciate their input - patient was trialed on dexamethasone, Haldol and developed some confusion, dexamethasone was stopped (6) Hyponatremia: Plan: Hyponatremia Likely due to poor oral intake Na 135 today, cont to monitor (7) Depression: Plan: Continue Bupropion, but with plans to wean down slowly given anorexigenic side effect of this medication, which she started for uncontrolled anxiety. Will taper over two weeks. Starting dose was 300mg daily. Start 75mg PO TID x 4 days, then 75mg PO BID x 4 days, then 37.5mg PO BID x 4 days, then stop. (8) Hypothyroidism: Plan: chronic, stable. Cont levothyroxine (9) Anemia: Plan: Anemia of chronic disease Leukopenia Likely secondary to malignancy, chemotherapy No signs of bleeding Monitor CBC 03/13 - Hgb <7 -transfused 1 unit PRBC last hgb 8.3 (10) COPD (chronic obstructive pulmonary disease): Plan: chronic, stable. No signs of COPD exacerbation (11) Constipation: Plan: BM reported two days ago. Limited physical mobility 2/2 weakness and being off balance. Cont PT/OT (12) DVT prophylaxis: Plan: SCDs Full Code Dispo-uncertain at this time. Will see how she does with the TPN administration. She remains weak and reports feeling unsteady rising up off the toilet. She has continued to lose body weight including an additional 4kg since admission on 03/06. She is now more hypotensive. Cont supportive care as needed/TPN and monitor. Plan to discharge home on TPN Admission and Anticipated Discharge Date Admission Date: March 06, 2022 Subjective 67 yo F with lung cancer presents with severe protein calorie malnutrition. Lying in bed with no acute distress with 1 to 1 sitter watching TV Pt said that she is not having her pain, nausea, vomiting Review of Systems Review of Systems: All systems reviewed & are unremarkable except as noted in Subjective Physical Exam Physical Exam: General- No acute distress, +alopecia Head- atraumatic Eyes- PERRL, EOMI, ENT- oropharynx clear Neck- supple, no JVD Lungs- clear to auscultation Heart- regular rhythm; no murmur Abdomen- normal bowel sounds, soft, nontender Extremities- no calf tenderness Neuro- alert, oriented x 3; PERRL, EOMI; no facial palsy; no dysarthria Skin- warm & dry Results & Data Results & Data ([facility]) Vital Signs (Past 12 Hours) Vital Signs Temp Pulse Pulse Pulse Resp BP BP 03/25/22 19:23 37.1 C 81 81 18 78/48 L 03/25/22 17:08 76 03/25/22 15:16 37.2 C 80 18 119/77 03/25/22 11:56 36.6 C 78 18 105/64 Pulse Ox O2 Del Method 03/25/22 19:23 95 Room Air 03/25/22 17:08 03/25/22 15:16 95 Room Air 03/25/22 11:56 98 Room Air
[2022-03-26] MEDS: LEVOTHYROXINE SODIUM 88 MCG TABLET PO SCH (06:45)
[2022-03-26] MEDS: PANTOprazole 40 MG TAB PO SCH ×2 (07:53→20:32)
[2022-03-26] MEDS: buPROPion HCl 75 MG TABLET PO SCH ×2 (07:53→20:32)
[2022-03-26] MEDS: SENNA 8.6 MG TAB PO SCH (07:54)
--- NOTE | 2022-03-26 09:54 | Hospitalist Progress Note ---
Date of Service March 26, 2022 Assessment & Plan (1) Adult failure to thrive: (2) Severe protein-calorie malnutrition: Plan: Severe protein calorie malnutrition Failure to thrive In setting of malignancy, ongoing chemoradiation Esophagitis Significant nausea secondary to above Recent oral thrush 3 weeks ago S/P clotrimazole Suspected esophageal candidiasis S/P EGD: Normal esophagus. LA Grade A distal esophagitis. Dilated. Z-line variab le. Normal stomach. Normal duodenal bulb and second portion of the duodenum. Completed fluconazole 7-day course Dietitian consulted and following/managing PPN which is ongoing. Speech therapy evaluation revealed no aspiration on video swallow study that was identified. Started on Protonix 40 mg BID--continue for 1 month and then transition to daily Family requesting PEG tube placement given very poor oral intake since start of admission Anesthesia not recommended for PEG tube placement at this time given recent Takotsobu's Temporary NG tube placement was not successful May be a better option to pursue local anesthesia via outpatient IR-this was discussed with family For now, best option is PICC placement and upgrade to TPN. Previous hospitalist team discussed risks/benefits with patient and including risks of infection, blood clot, pain, bleeding etc. Continue to encourage with oral intake/ food Continue dronabinol PICC Line placed Case management notified and arranged for TPN Continue TPN for now TPN script signed and given to case management (by previous provider) Plan to discharge on since home health will come to the house on afternoon to start the home TPN (3) Apical ballooning syndrome: (4) Cardiomyopathy: Plan: Patient underwent diagnostic coronary angiography on 03/17/2022 without obstructive coronary Findings consistent with apical ballooning cardiomyopathy. continue low-dose beta-maría with metoprolol succinate 12.5 mg daily as BP allows She has been hypotensive and BB was on hold She remains asymptomatic and appears euvolemic to dry. case discussed with cardiology that recommended to continue low dose Toprol with parameter (5) Malignant neoplasm of right lung: Plan: Stage III small cell lung cancer diagnosed November 2021. Started chemoradiation on December 2021. Received 2 cycles of cisplatin and etoposide along with radiation treatment at [facility]. Last treatment was 6 weeks ago. Completed radiation therapy. Follows with [facility] oncology Dr. Prajapati Poor appetite, significant nausea, vomiting since chemotherapy Palliative medicine also consulted for symptom control, appreciate their input - patient was trialed on dexamethasone, Haldol and developed some confusion, dexamethasone was stopped (6) Hyponatremia: Plan: Hyponatremia Likely due to poor oral intake current Na 135, cont to monitor (7) Depression: Plan: Continue Bupropion, but with plans to wean down slowly given anorexigenic side effect of this medication, which she started for uncontrolled anxiety. Will taper over two weeks. Starting dose was 300mg daily. Start 75mg PO TID x 4 days, then 75mg PO BID x 4 days, then 37.5mg PO BID x 4 days, then stop. Currently pt is on 75 bid. (8) Hypothyroidism: Plan: chronic, stable. Cont levothyroxine (9) Anemia: Plan: Anemia of chronic disease Leukopenia Likely secondary to malignancy, chemotherapy No signs of bleeding Monitor CBC 03/13 - Hgb <7 -transfused 1 unit PRBC last hgb 8.4 (10) COPD (chronic obstructive pulmonary disease): Plan: chronic, stable. No signs of COPD exacerbation (11) Constipation: Plan: BM reported two days ago. Limited physical mobility 2/2 weakness and being off balance. Cont PT/OT (12) DVT prophylaxis: Plan: SCDs Full Code Dispo-uncertain at this time. Will see how she does with the TPN administration. She remains weak and reports feeling unsteady rising up off the toilet. She has continued to lose body weight including an additional 4kg since admission on 03/06. She is now more hypotensive. Cont supportive care as needed/TPN and monitor. Plan to discharge home on TPN Admission and Anticipated Discharge Date Admission Date: March 06, 2022 Subjective 67 yo F with lung cancer presents with severe protein calorie malnutrition. Lying in bed with no acute distress with 1 to 1 sitter watching TV Pt said that she is not having any pain, nausea, vomiting Also denies any fever, chills, chest pain, shortness of breath. She is inquiring about going home. She seems confused at times. Review of Systems Review of Systems: All systems reviewed & are unremarkable except as noted in Subjective Physical Exam 2 Physical Exam: General Appearance: Cachectic, ill-appearing, frail, no apparent distress Head: normocephalic, Atraumatic Eyes: normal inspection, EOMI Neck: supple Respiratory/Chest: Normal breath sounds, CTA, No accessory muscle use Cardiovascular: S1, S2, No murmur Abdomen/GI:Soft, Non tender, Bowel sounds present Extremities/Musculoskeletal:normal inspection, no edema Neurologic/Psych:AAOX3, grossly no focal neurological deficits Skin: normal color, warm Results & Data Results & Data ([facility]) Vital Signs (Past 12 Hours) Vital Signs Temp Pulse Pulse Pulse Resp BP Pulse Ox 03/26/22 08:00 79 03/26/22 08:00 03/26/22 07:04 36.8 C 82 20 92/61 L 95 03/26/22 00:00 36.9 C 71 71 18 80/51 L 97 O2 Del Method 03/26/22 08:00 03/26/22 08:00 Room Air 03/26/22 07:04 Room Air 03/26/22 00:00 Room Air Laboratory Results 03/26/22 03/26/22 03/26/22 Range/Units 09:18 07:11 00:55 Sodium Pending Potassium Pending Chloride Pending Carbon Dioxide Pending Anion Gap Pending BUN Pending Creatinine Pending Est Cr Clr Drug Dosing Pending Est GFR ( Amer) Pending Est GFR (Non-Af Amer) Pending BUN/Creatinine Ratio Pending Glucose Pending POC Glucose 127 H 118 H (70-99) mg/dl Calcium Pending Phosphorus Pending Magnesium Pending 03/25/22 03/25/22 Range/Units 18:20 12:30 Sodium Potassium Chloride Carbon Dioxide Anion Gap BUN Creatinine Est Cr Clr Drug Dosing Est GFR ( Amer) Est GFR (Non-Af Amer) BUN/Creatinine Ratio Glucose POC Glucose 127 H 99 (70-99) mg/dl Calcium Phosphorus Magnesium Medications Administered Current Inpatient Medications Acetaminophen (Acetaminophen 325 Mg Tab) 650 mg PO Q4H PRN PRN Reason: Pain or Fever Stop: 04/05/22 19:49 Last Admin: 03/18/22 19:46 Dose: 650 mg Albuterol (Albuterol Hfa 8 Gm Inhaler) 2 puffs INH QID PRN PRN Reason: shortness of breath or wheezin Stop: 04/05/22 20:51 Albuterol (Albut/Ipratrop 3mg/0.5mg Neb 3 Ml Vial) 3 ml INH Q6H PRN; Protocol PRN Reason: shortness of breath or wheezing Stop: 04/05/22 20:51 Benzocaine (Benzocaine 20% (Orajel) 11.9 Gm Tube) 1 appln MT TID PRN PRN Reason: Cold Sores Stop: 04/10/22 13:19 Last Admin: 03/12/22 05:53 Dose: 1 appln Bupropion HCl (Bupropion Hcl 75 Mg Tablet) 75 mg PO BID MANUELA Stop: 03/27/22 09:01 Last Admin: 03/26/22 07:53 Dose: 75 mg Bupropion HCl (Bupropion Hcl 75 Mg Tablet) 37.5 mg PO BID [facility]UELA Stop: 03/31/22 09:01 Docusate Sodium (Docusate Sodium 100 Mg Cap) 100 mg PO BID PRN PRN Reason: Constipation Stop: 04/06/22 20:59 Last Admin: 03/14/22 12:45 Dose: 100 mg Dronabinol (Dronabinol 2.5 Mg Cap) 2.5 mg PO BID MANUELA Stop: 04/19/22 20:59 Last Admin: 03/26/22 07:53 Dose: 2.5 mg Dextrose (D10w) 1,000 mls @ 0 mls/hr IV .Q0M PRN PRN Reason: protocol (see label comments) Stop: 04/11/22 07:04 Amino Acids/Dextrose 954.2 ml/ (Nutrition (Parenteral)) 954.2 mls @ 28.3 mls/hr IV .Q24H MANUELA; Protocol Stop: 03/26/22 10:00 Last Admin: 03/25/22 15:59 Dose: 28.3 mls/hr, 28.3 mls/hr Levothyroxine Sodium (Levothyroxine Sodium 88 Mcg Tablet) 88 mcg PO DAILYBB MANUELA Stop: 04/06/22 06:29 Last Admin: 03/26/22 06:45 Dose: 88 mcg Lidocaine HCl (Lidocaine Viscous 2% 15 Ml Udc) 5 ml PO Q4H PRN PRN Reason: Pain Stop: 04/11/22 09:46 Last Admin: 03/12/22 12:35 Dose: 5 ml Metoprolol Succinate (Metoprolol Succ 25mg Ext Rel Tab) 12.5 mg PO DAILYBD [facility]UELA Stop: 04/16/22 15:29 Last Admin: 03/25/22 15:18 Dose: 12.5 mg Miscellaneous (Stop Clinolipid) 1 each N/A TODAY@2200 [facility] Stop: 04/21/22 21:59 Last Admin: 03/25/22 22:27 Dose: 1 each Miscellaneous (Pending Order~ Tpn Rate Change) 1 each N/A TODAY@1700 [facility] Stop: 04/24/22 16:59 Last Admin: 03/25/22 17:02 Dose: 1 each Miscellaneous (Pending Order~ Tpn Rate Change) 1 each N/A TODAY@0900 [facility] Stop: 04/25/22 08:59 Last Admin: 03/26/22 07:53 Dose: 1 each Miscellaneous (Stop Order: Tpn) 1 each N/A ONE ONE Stop: 03/26/22 10:01 Miscellaneous Information (Tpn/Ppn Consult Pharmacy) 1 each N/A UD PRN PRN Reason: Consult Stop: 04/11/22 06:59 Pantoprazole Sodium (Pantoprazole 40 Mg Tab) 40 mg PO BID [facility] Stop: 04/09/22 09:44 Last Admin: 03/26/22 07:53 Dose: 40 mg Phenol (Chloraseptic 1.4% Soln 180 Ml Btl) 2 sprays MT Q6H PRN PRN Reason: Sore Throat Stop: 04/06/22 08:28 Last Admin: 03/10/22 09:58 Dose: 2 sprays Polyethylene Glycol (Polyethylene (Miralax) 17 Gm Pack) 17 gm PO DAILY PRN PRN Reason: Constipation Stop: 04/05/22 19:49 Last Admin: 03/14/22 12:45 Dose: 17 gm Sennosides (Senna 8.6 Mg Tab) 8.6 mg PO QAM [facility] Stop: 04/13/22 13:29 Last Admin: 03/26/22 07:54 Dose: 8.6 mg
[2022-03-26] MEDS ORDERED: STOP ORDER: TPN ONE (10:00)
[2022-03-26 10:14] LABS: BUN Creatinine Ratio 48.5 (10-20); Calcium 8.7 mg/dl (8.5-10.1); Est GFR (African American) 104.5 ml/min; Est GFR (Non-African American) 90.1 ml/min; Magnesium 1.8 mg/dl (1.7-2.4); Potassium 4.3 mmol/L (3.5-5.1)
[2022-03-26] MEDS: METOPROLOL SUCC 25MG EXT REL TAB PO SCH (15:46)
[2022-03-26] MEDS ORDERED: CLINOLIPID 20% IV FAT EMULSION 200 ML IV SCH (16:00)
[2022-03-26] MEDS ORDERED: [UNRECOGNIZED DRUG - OTHER] IV SCH (16:00)
[2022-03-26] MEDS ORDERED: CENTRAL TPN IV SCH (16:00)
[2022-03-26] MEDS ORDERED: AMINO ACID 8% IV SCH (16:00)
[2022-03-26] MEDS: STOP CLINOLIPID SCH (22:04)
[2022-03-27] MEDS: LEVOTHYROXINE SODIUM 88 MCG TABLET PO SCH (06:31)
[2022-03-27 07:29] VITALS: TEMP 97.9; O2SAT 100
--- NOTE | 2022-03-27 07:47 | Hospitalist Progress Note ---
Date of Service March 27, 2022 Assessment & Plan (1) Adult failure to thrive: (2) Severe protein-calorie malnutrition: Plan: Severe protein calorie malnutrition Failure to thrive In setting of malignancy, ongoing chemoradiation Esophagitis Significant nausea secondary to above Recent oral thrush 3 weeks ago S/P clotrimazole Suspected esophageal candidiasis S/P EGD: Normal esophagus. LA Grade A distal esophagitis. Dilated. Z-line varia ble. Normal stomach. Normal duodenal bulb and second portion of the duodenum. Completed fluconazole 7-day course Dietitian consulted and following/managing PPN which is ongoing. Speech therapy evaluation revealed no aspiration on video swallow study that was identified. Started on Protonix 40 mg BID--continue for 1 month and then transition to daily Family requesting PEG tube placement given very poor oral intake since start of admission Anesthesia not recommended for PEG tube placement at this time given recent Takotsobu's Temporary NG tube placement was not successful May be a better option to pursue local anesthesia via outpatient IR-this was discussed with family For now, best option is PICC placement and upgrade to TPN. Previous hospitalist team discussed risks/benefits with patient and including risks of infection, blood clot, pain, bleeding etc. Continue to encourage with oral intake/ food Continue dronabinol PICC Line placed Case management notified and arranged for TPN , continue TPN for now TPN script signed and given to case management (by previous provider) Plan to discharge with home health Outpt GI - for poss. PEG tube (IR in [place]) (3) Apical ballooning syndrome: (4) Cardiomyopathy: Plan: Patient underwent diagnostic coronary angiography on 03/17/2022 without obstructive coronary Findings consistent with apical ballooning cardiomyopathy. continue low-dose beta-maría with metoprolol succinate 12.5 mg daily as BP allows She has been hypotensive and BB was on hold She remains asymptomatic and appears euvolemic to dry. case discussed with cardiology that recommended to continue low dose Toprol with parameter (5) Malignant neoplasm of right lung: Plan: Stage III small cell lung cancer diagnosed November 2021. Started chemoradiation on December 2021. Received 2 cycles of cisplatin and etoposide along with radiation treatment at [facility]. Last treatment was 6 weeks ago. Completed radiation therapy. [facility] Prajapati Poor appetite, significant nausea, vomiting since chemotherapy Palliative medicine also consulted for symptom control, appreciate their input - patient was trialed on dexamethasone, Haldol and developed some confusion, meds were stopped (6) Hyponatremia: Plan: Hyponatremia Likely due to poor oral intake current Na 135, cont to monitor (7) Depression: Plan: Continue Bupropion, but with plans to wean down slowly given anorexigenic side effect of this medication, which she started for uncontrolled anxiety. Will taper over two weeks. Starting dose was 300mg daily. Start 75mg PO TID x 4 days, then 75mg PO BID x 4 days, then 37.5mg PO BID x 4 days, then stop. This AM last dose of 75 mg. Then transition to 37.5 mg tonight. (8) Hypothyroidism: Plan: chronic, stable. Cont levothyroxine (9) Anemia: Plan: Anemia of chronic disease Leukopenia Likely secondary to malignancy, chemotherapy No signs of bleeding Monitor CBC 03/13 - Hgb <7 -transfused 1 unit PRBC last hgb 8.4 (10) COPD (chronic obstructive pulmonary disease): Plan: chronic, stable. No signs of COPD exacerbation (11) Constipation: Plan: BM reported two days ago. Limited physical mobility 2/2 weakness and being off balance. Cont PT/OT (12) DVT prophylaxis: Plan: SCDs Full Code Dispo- Plan to discharge home on TPN Admission and Anticipated Discharge Date Admission Date: March 06, 2022 Subjective 67 yo F with lung cancer presents with severe protein calorie malnutrition. Sitting up in bed in no acute distress Pt's at the bedside Discussed discharge in detail. Patient overall feels well and excited to be going home. Denies any pain or nausea vomiting at this time. Denies any fevers chills chest pain shortness of breath. Review of Systems Review of Systems: All systems reviewed & are unremarkable except as noted in Subjective Physical Exam Physical Exam: General Appearance: Cachectic, ill-appearing, frail, no apparent distress Head: normocephalic, Atraumatic Eyes: normal inspection, EOMI Neck: supple Respiratory/Chest: Normal breath sounds, CTA, No accessory muscle use Cardiovascular: S1, S2, No murmur Abdomen/GI:Soft, Non tender, Bowel sounds present Extremities/Musculoskeletal:normal inspection, no edema Neurologic/Psych:AAOX3, grossly no focal neurological deficits Skin: normal color, warm Results & Data Results & Data ([facility]) Vital Signs (Past 12 Hours) Vital Signs Temp Pulse Pulse Resp BP Pulse Ox O2 Del Method 03/27/22 07:35 81 03/27/22 07:28 36.6 C 75 16 116/72 100 Room Air 03/27/22 02:51 36.4 C L 81 18 115/74 98 03/26/22 23:05 36.8 C 79 18 93/66 L 96 Laboratory Results 03/27/22 03/26/22 03/26/22 Range/Units 06:59 23:51 18:12 Sodium (136-145) mmol/L Potassium (3.5-5.1) mmol/L Chloride (98-107) mmol/L Carbon Dioxide (21-32) mmol/L Anion Gap (3-11) BUN (6-23) mg/dl Creatinine (0.6-1.2) mg/dl Est Cr Clr Drug Dosing ml/min Est GFR ( Amer) ml/min Est GFR (Non-Af Amer) ml/min BUN/Creatinine Ratio (10-20) Glucose (70-99(Fasting)) mg/dl POC Glucose 121 H 120 H 131 H (70-99) mg/dl Calcium (8.5-10.1) mg/dl Phosphorus (2.5-4.9) mg/dl Magnesium (1.7-2.4) mg/dl 03/26/22 03/26/22 Range/Units 11:59 09:18 Sodium 137 (136-145) mmol/L Potassium 4.3 (3.5-5.1) mmol/L Chloride 105 (98-107) mmol/L Carbon Dioxide 27 (21-32) mmol/L Anion Gap 5 (3-11) BUN 32 H (6-23) mg/dl Creatinine 0.66 (0.6-1.2) mg/dl Est Cr Clr Drug Dosing 52.0 ml/min Est GFR ( Amer) 104.5 ml/min Est GFR (Non-Af Amer) 90.1 ml/min BUN/Creatinine Ratio 48.5 H (10-20) Glucose 129 H (70-99(Fasting)) mg/dl POC Glucose 96 (70-99) mg/dl Calcium 8.7 (8.5-10.1) mg/dl Phosphorus 3.0 (2.5-4.9) mg/dl Magnesium 1.8 (1.7-2.4) mg/dl Medications Administered Current Inpatient Medications Acetaminophen (Acetaminophen 325 Mg Tab) 650 mg PO Q4H PRN PRN Reason: Pain or Fever Stop: 04/05/22 19:49 Last Admin: 03/18/22 19:46 Dose: 650 mg Albuterol (Albuterol Hfa 8 Gm Inhaler) 2 puffs INH QID PRN PRN Reason: shortness of breath or wheezin Stop: 04/05/22 20:51 Albuterol (Albut/Ipratrop 3mg/0.5mg Neb 3 Ml Vial) 3 ml INH Q6H PRN; Protocol PRN Reason: shortness of breath or wheezing Stop: 04/05/22 20:51 Benzocaine (Benzocaine 20% (Orajel) 11.9 Gm Tube) 1 appln MT TID PRN PRN Reason: Cold Sores Stop: 04/10/22 13:19 Last Admin: 03/12/22 05:53 Dose: 1 appln Bupropion HCl (Bupropion Hcl 75 Mg Tablet) 75 mg PO BID [facility] Stop: 03/27/22 09:01 Last Admin: 03/26/22 20:32 Dose: 75 mg Bupropion HCl (Bupropion Hcl 75 Mg Tablet) 37.5 mg PO BID [facility] Stop: 03/31/22 09:01 Docusate Sodium (Docusate Sodium 100 Mg Cap) 100 mg PO BID PRN PRN Reason: Constipation Stop: 04/06/22 20:59 Last Admin: 03/14/22 12:45 Dose: 100 mg Dronabinol (Dronabinol 2.5 Mg Cap) 2.5 mg PO BID [facility] Stop: 04/19/22 20:59 Last Admin: 03/26/22 20:32 Dose: 2.5 mg Dextrose (D10w) 1,000 mls @ 0 mls/hr IV .Q0M PRN PRN Reason: protocol (see label comments) Stop: 04/11/22 07:04 Amino Acids/Dextrose 942.2 ml/ (Nutrition (Parenteral)) 942.2 mls @ 27.9 mls/hr IV TODAY@1600 [facility]; Protocol Stop: 03/27/22 10:00 Last Admin: 03/26/22 15:51 Dose: 27.9 ml/hr, 27.9 mls/hr Levothyroxine Sodium (Levothyroxine Sodium 88 Mcg Tablet) 88 mcg PO DAILYBB [facility] Stop: 04/06/22 06:29 Last Admin: 03/27/22 06:31 Dose: 88 mcg Lidocaine HCl (Lidocaine Viscous 2% 15 Ml Udc) 5 ml PO Q4H PRN PRN Reason: Pain Stop: 04/11/22 09:46 Last Admin: 03/12/22 12:35 Dose: 5 ml Metoprolol Succinate (Metoprolol Succ 25mg Ext Rel Tab) 12.5 mg PO DAILYBD [facility] Stop: 04/16/22 15:29 Last Admin: 03/26/22 15:46 Dose: 12.5 mg Miscellaneous (Stop Clinolipid) 1 each N/A TODAY@2200 [facility] Stop: 04/21/22 21:59 Last Admin: 03/26/22 22:04 Dose: 1 each Miscellaneous (Pending Order~ Tpn Rate Change) 1 each N/A TODAY@1700 [facility] Stop: 04/24/22 16:59 Last Admin: 03/26/22 17:09 Dose: 1 each Miscellaneous (Pending Order~ Tpn Rate Change) 1 each N/A TODAY@0900 [facility] Stop: 04/25/22 08:59 Last Admin: 03/26/22 07:53 Dose: 1 each Miscellaneous (Stop Order: Tpn) 1 each N/A ONE ONE Stop: 03/27/22 10:01 Miscellaneous Information (Tpn/Ppn Consult Pharmacy) 1 each N/A UD PRN PRN Reason: Consult Stop: 04/11/22 06:59 Pantoprazole Sodium (Pantoprazole 40 Mg Tab) 40 mg PO BID [facility] Stop: 04/09/22 09:44 Last Admin: 03/26/22 20:32 Dose: 40 mg Phenol (Chloraseptic 1.4% Soln 180 Ml Btl) 2 sprays MT Q6H PRN PRN Reason: Sore Throat Stop: 04/06/22 08:28 Last Admin: 03/10/22 09:58 Dose: 2 sprays Polyethylene Glycol (Polyethylene (Miralax) 17 Gm Pack) 17 gm PO DAILY PRN PRN Reason: Constipation Stop: 04/05/22 19:49 Last Admin: 03/14/22 12:45 Dose: 17 gm Sennosides (Senna 8.6 Mg Tab) 8.6 mg PO [facility] Stop: 04/13/22 13:29 Last Admin: 03/26/22 07:54 Dose: 8.6 mg
[2022-03-27] MEDS: SENNA 8.6 MG TAB PO SCH (07:57)
[2022-03-27] MEDS: PANTOprazole 40 MG TAB PO SCH (07:58)
[2022-03-27] MEDS: buPROPion HCl 75 MG TABLET PO SCH ×2 (07:58→10:36)
[2022-03-27] MEDS ORDERED: STOP ORDER: TPN ONE (10:00)
[2022-03-27 10:01] VITALS: BP 119/77; PULSE 75
--- NOTE | 2022-03-27 10:08 | Discharge Summary ---
Date of Service March 27, 2022 Admission HPI Per Admitting Provider 67-year-old female with lung cancer diagnosed in November 2021 status post radiation and 2 cycles of chemotherapy presents as a transfer from outside hospital for GI evaluation for PEG placement. She has failure to thrive and has not been able to tolerate p.o. for 7 weeks. She has been surviving on intermittent IV fluid infusions in outpatient clinics. She has had significant constipation with last bowel movement over a week ago. She denies any pain but is intermittently nauseous with some frothy sputum. She reports her biggest obstacle is an intense gag reflex that starts when she even smells food. All of this began when she started treatment for cancer. She has completed her XRT therapy. She is a person with history of smoking but is not currently smoking. Family is at bedside and is interested in PEG placement. She is a confirmed full code. Admission Exam Per Admitting Provider CONSTITUTIONAL: cachectic, vitals as above, chronically ill-appearing but in NAD. EYES: normal conjunctivae, no scleral icterus ENT: external ear and nose normal, OP clear but with whitish substance across her tongue possibly consistent with thrush NECK: trachea midline RESPIRATORY: clear to auscultation bilaterally, no crackles, rales or wheezes, normal respiratory effort CARDIOVASCULAR: regular rate and rhythm, S1 and 2 heard without murmurs, gallops or rubs, no JVD, no peripheral edema CHEST: inspection of chest was normal GASTROINTESTINAL: soft, nontender, ND, no guarding MUSCULOSKELETAL: generalized weakness with no focal deficits, head is normocephalic and atraumatic SKIN: warm and dry NEUROLOGIC: CN 2-12 grossly intact, no sensory deficit, normal cognition, normal speech, no tremor PSYCHIATRIC: alert cooperative and oriented to person, place and time. Principal Diagnosis Severe protein calorie malnutrition Failure to thrive In setting of malignancy, ongoing chemoradiation Esophagitis Discharge Exam General Appearance: Cachectic, ill-appearing, frail, no apparent distress Head: normocephalic, Atraumatic Eyes: normal inspection, EOMI Neck: supple Respiratory/Chest: Normal breath sounds, CTA, No accessory muscle use Cardiovascular: S1, S2, No murmur Abdomen/GI:Soft, Non tender, Bowel sounds present Extremities/Musculoskeletal:normal inspection, no edema Neurologic/Psych:AAOX3, grossly no focal neurological deficits Skin: normal color, warm Discharge Data Allergies Allergy/AdvReac Type Severity Reaction Status Date / Time No Known Drug Allergies Allergy Verified 02/03/22 11:24 Consultations 03/06/22 20:27 Consult Gastroenterology Routine 03/12/22 18:29 Consult Palliative Care Routine 03/17/22 09:03 Consult Cardiology Routine Procedures Performed Operation Date: 03/10/22 17:15 Actual Procedures p EGD Dilatation - Stephanie Faye MD Operation Date: 03/17/22 12:00 Actual Procedures s Cineradiography w/Routine Exam - Cristian Qunitana MD, PhD p Cath, Coronaries ONLY (no LV) - Cristian Quintana MD, PhD s Placement Art Occlusive Device - Cristian Quintana MD, PhD Ordered Studies 03/11/22 14:15 Fluoro video [FL video swallow] Routine 03/14/22 13:27 CT head/brain wo con Urgent Findings: Areas of decreased attenuation are present in the periventricular and subcortical white matter bilaterally consistent with small vessel ischemic disease. Generalized cerebral atrophy with commensurate enlargement of the ventricles, sulci, and cisterns is also present. There is no acute intracranial hemorrhage or evidence of acute territorial infarction. No shift of the midline structures, mass effect, or extra-axial abnormalities are shown. Atherosclerotic calcifications are present in the intracranial segments of the internal carotid arteries. Encephalomalacia is seen in the right frontoparietal region which may reflect old infarct. Imaged portions of the paranasal sinuses and mastoid air cells are clear. The orbits appear normal. There are no acute fractures of the calvaria or scalp swelling. Impression: No acute abnormality, in particular no evidence of intracranial metastasis. 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 03/17/22 11:12 CL Cath Imgs for PACS use only Routine Hospital Course (1) Adult failure to thrive: (2) Severe protein-calorie malnutrition: Severe protein calorie malnutrition Failure to thrive In setting of malignancy, ongoing chemoradiation Esophagitis Significant nausea secondary to above Recent oral thrush 3 weeks ago S/P clotrimazole Suspected esophageal candidiasis S/P EGD: Normal esophagus. LA Grade A distal esophagitis. Dilated. Z-line variable. Normal stomach. Normal duodenal bulb and second portion of the duodenum. Completed fluconazole 7-day course Dietitian consulted and following/managing PPN which is ongoing. Speech therapy evaluation revealed no aspiration on video swallow study that was identified. Started on Protonix 40 mg BID--continue for 1 month and then transition to daily Family requesting PEG tube placement given very poor oral intake since start of admission Anesthesia not recommended for PEG tube placement at this time given recent [place]sobu's Temporary NG tube placement was not successful May be a better option to pursue local anesthesia via outpatient IR-this was discussed with family For now, best option is PICC placement and upgrade to TPN. Previous hospitalist team discussed risks/benefits with patient and including risks of infection, blood clot, pain, bleeding etc. Continue to encourage with oral intake/ food Continue dronabinol PICC Line placed Case management notified and arranged for TPN , continue TPN for now TPN script signed and given to case management (by previous provider) Plan to discharge with home health Outpt GI - for poss. PEG tube (IR in [place]) (3) Apical ballooning syndrome: (4) Cardiomyopathy: Patient underwent diagnostic coronary angiography on 03/17/2022 without obstructive coronary Findings consistent with apical ballooning cardiomyopathy. continue low-dose beta-maría with metoprolol succinate 12.5 mg daily as BP allows She has been hypotensive and BB was on hold She remains asymptomatic and appears euvolemic to dry. case discussed with cardiology that recommended to continue low dose Toprol with parameter (5) Malignant neoplasm of right lung: Stage III small cell lung cancer diagnosed November 2021. Started chemoradiation on December 2021. Received 2 cycles of cisplatin and etoposide along with radiation treatment at [facility]. Last treatment was 6 weeks ago. Completed radiation therapy. [facility] Prajapati Poor appetite, significant nausea, vomiting since chemotherapy Palliative medicine also consulted for symptom control, appreciate their input - patient was trialed on dexamethasone, Haldol and developed some confusion, meds were stopped (6) Hyponatremia: Hyponatremia Likely due to poor oral intake current Na 135, cont to monitor (7) Depression: Continue Bupropion, but with plans to wean down slowly given anorexigenic side effect of this medication, which she started for uncontrolled anxiety. Will taper over two weeks. Starting dose was 300mg daily. Start 75mg PO TID x 4 days, then 75mg PO BID x 4 days, then 37.5mg PO BID x 4 days, then stop. This AM last dose of 75 mg. Then transition to 37.5 mg tonight. (8) Hypothyroidism: chronic, stable. Cont levothyroxine (9) Anemia: Anemia of chronic disease Leukopenia Likely secondary to malignancy, chemotherapy No signs of bleeding Monitor CBC 03/13 - Hgb <7 -transfused 1 unit PRBC last hgb 8.4 (10) COPD (chronic obstructive pulmonary disease): chronic, stable. No signs of COPD exacerbation (11) Constipation: BM reported two days ago. Limited physical mobility 2/2 weakness and being off balance. Cont PT/OT (12) DVT prophylaxis: SCDs Full Code Dispo- Plan to discharge home on TPN Total Time Total Time Spent Total Time Spent (In Minutes): 40 Discharge Plan Discharge Items Patient Disposition: Home - Home Health Services Reason For Visit: FAILURE TO THRIVE Discharge Diagnosis: Severe protein calorie malnutrition Failure to thrive In setting of malignancy, ongoing chemoradiation Esophagitis Activity: Resume your previous activity Non-emergency contact: Primary Care Provider Call non-emergency contact if: you have any medication questions and your s ymptoms worsen Follow-up/Referrals: Nina To MD [Primary Care Provider] - (Date & Time 04/01/2022 3:00 PM Provider Nina To MD Department [facility] ) Diet: Regular Diet Texture: Easy to Chew Addtl Attending Provider Instructions: Follow-up with your primary care doctor, the appointment was scheduled for you for April 01. 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 You will be contacted by their office. You were diagnosed with cardiomyopathy, and it is recommended to take metoprolol 12.5 mg daily. It is also recommended to take Protonix twice a day for next 2 weeks, then take it only once a day. Continue taking Dronabinol (Marinol). For constipation, recommend to take senna daily. Lastly, your medication Bupropion, was decreased and is being tapered down. Take 37.5 mg starting this evening, and continue for 4 days. Then stop taking bupropion altogether. Discuss further with your primary care doctor if you should be started on other medications. Pending Studies at Discharge: No Stand-Alone Forms: My [employer], Smoking Cessation Medications and DC Order Prescriptions: New metoprolol succinate 25 mg Tablet Extended Release 24 Hr 12.5 mg PO DAILY 30 Days Qty: 15 0RF bupropion HCl 75 mg Tablet 37.5 mg PO BID 4 Days Qty: 4 0RF pantoprazole 40 mg Tablet,Delayed Release (Dr/Ec) 40 mg PO BID 14 Days Qty: 28 0RF sennosides [Senokot] 8.6 mg Tablet 8.6 mg PO QAM 30 Days Qty: 30 0RF Continued ascorbic acid (vitamin C) 100 mg tablet 100 mg PO DAILY cholecalciferol (vitamin D3) 50 mcg (2,000 unit) capsule 2,000 unit PO DAILY mecobalamin (vitamin B12) 1,000 mcg tablet,disintegrating 1,000 mcg PO DAILY famotidine 20 mg tablet 20 mg PO BID levothyroxine [Synthroid] 88 mcg tablet 88 mcg PO DAILY albuterol sulfate [ProAir HFA] 90 mcg/actuation HFA aerosol inhaler 2 puff inhalation QID PRN (Reason: shortness of breath or wheezing) ipratropium-albuterol 0.5 mg-3 mg(2.5 mg base)/3 mL solution for nebulization 3 ml inhalation Q6H PRN (Reason: shortness of breath or wheezing) ondansetron HCl 8 mg tablet 8 mg PO Q8H PRN (Reason: n/v) prochlorperazine maleate [Compazine] 10 mg tablet 10 mg PO Q6H PRN (Reason: n/v) Magic Mouthwash 300 mL mouthwash 10 ml mucous membrane ACHS Qty: 300 5RF Rx Instructions: Benadryl 12.5 mg/5 mL oral elixir; Maalox 200 mg-200 mg-20 mg/5 mL oral suspension; Xylocaine Viscous 2 % mucosal solution;[Generic substitution ok] 1:1:1 compound Per 300 mL dronabinol [Marinol] 2.5 mg capsule 2.5 mg PO BID Qty: 60 0RF Rx Instructions: administer before lunch and evening meal/dinner omeprazole 20 mg capsule,delayed release(DR/EC) 20 mg PO DAILY Discontinued bupropion HCl 300 mg tablet extended release 24 hr 300 mg PO QAM Discharge Orders: Discharge Order (Routine); Ordered 03/27/22 Ordered By: Dakota Berry Admission Data Admit Date/Time: 03/06/22 19:51 Attending Provider: Dakota Berry Admit Provider: Teri Bond Primary Care Provider: Nina To Other Providers: Rohit Galloway ; Orquidea Mena ; Sushma Hines ; Lan Lara ; Teri Bond ; [place] ; Codey Cook Other Interventions: Discharge Summary Assessment (RN) Last Done: 03/27/22 09:59
[2022-03-27 10:18] LABS: BUN Creatinine Ratio 63.6 (10-20); Creatinine Clr Calc Pharmacy 62.4 ml/min; Est GFR (African American) 110.9 ml/min; Est GFR (Non-African American) 95.7 ml/min; Phosphorus 3.9 mg/dl (2.5-4.9); Potassium 3.8 mmol/L (3.5-5.1)
[2022-03-27] MEDS ORDERED: buPROPion HCl 75 MG TABLET PO SCH (21:00)
== END 2022-03-27 11:04 | disposition home health service (06) | DRG 640 ==
LOC: 3E 19:43 → SUATTDRO 19:51 → 2S 03-17 10:14
PROC: CLB.CCO (2022-03-17 12:00)

== ENCOUNTER 2022-04-20 11:07 | Inpatient (IN) ==
[2022-04-20 12:40] LABS: Basophils # (auto) 0.03 K/uL (0-0.2); Basophils % (auto) 0.4 %; Eosinophils # (auto) 0.06 K/uL (0-0.50); Eosinophils % (auto) 0.8 %; Hematocrit (blood only) 30.7 % (34.1-44.9); Hemoglobin 9.9 g/dl (12.0-16.0); Immature Granulocytes # (auto) 0.02 K/uL (0.00-0.02); Immature Granulocytes % (auto) 0.3 %; Lymphocytes # (auto) 0.42 K/uL (1.2-3.4); Lymphocytes % (auto) 5.4 %; Mean Corpuscular Hemoglobin 34.7 pg (25.0-34.0); Mean Corpuscular Hgb Conc 32.2 g/dL (32.0-36.0); Mean Corpuscular Volume 107.7 fL (80.0-100.0); Mean Platelet Volume 10.8 fL (9.4-12.3); Monocytes # (auto) 0.49 K/uL (0.24-0.82); Monocytes % (auto) 6.3 %; Neutrophils # (auto) 6.82 K/uL (1.4-6.5); Neutrophils % (auto) 86.8 %; Platelet Count 310 K/uL (130-400); RDW Coefficient of Variation 17.8 % (11.5-14.5); RDW Standard Deviation 71.3 fL (36.4-46.3); Red Blood Count 2.85 M/uL (3.93-5.22); White Blood Count 7.84 K/ul (4.8-10.8)
--- NOTE | 2022-04-20 12:59 | XRay Report ---
CHEST AND ABDOMEN 2 VIEWS HISTORY: feeding tube, abd pain, vomiting COMPARISON: KUB 03/06/2022. FINDINGS: No pneumothorax. No pleural effusions. The lungs are hyperexpanded with apical predominant emphysematous changes. No focal lung consolidations to suggest a pneumonia. No evidence for pulmonary edema. The heart is normal in size. No pneumoperitoneum. No pneumatosis. Mildly distended and fluid- filled stomach. There is a percutaneous gastrostomy tube seen within the left upper quadrant. No dila reilly loops of small bowel to suggest an obstruction. Vascular calcifications are noted. No renal or ur eteral calculi. IMPRESSION: 1. No acute process within the chest. 2. No evidence for small bowel obstruction. 3. Mildly distended and fluid-filled stomach. 4. There is a percutaneous gastrostomy tube is seen within the left upper quadrant. ACT 112: Negative or not required by law. Electronically signed by: Huy Vela M.D. 04/20/2022 12:57 PM
[2022-04-20 13:04] LABS: Alanine Aminotransferase 207 U/L (7-52); Albumin Globulin Ratio 1.6 (0.9-2); Albumin Level 3.9 gm/dl (3.4-5.0); Alkaline Phosphatase 325 U/L (34-104); Anion Gap 7 (3-11); Aspartate Aminotransferase 415 U/L (13-39); BUN Creatinine Ratio 40.9 (10-20); Blood Urea Nitrogen 27 mg/dl (6-23); Calcium 9.3 mg/dl (8.5-10.1); Carbon Dioxide 33 mmol/L (21-32); Chloride 102 mmol/L (98-107); Est GFR (African American) 104.5 ml/min; Est GFR (Non-African American) 90.1 ml/min; Globulin 2.4 gm/dl (2.5-4.0); Glucose 174 mg/dl (70-99(Fasting)); Lipase 152 U/L (11-82); Potassium 4.2 mmol/L (3.5-5.1); Sodium 142 mmol/L (136-145); Total Protein 6.3 gm/dl (6.0-8.3)
--- NOTE | 2022-04-20 13:25 | XRay Report ---
KUB HISTORY: Check feeding tube. COMPARISON: Chest and abdominal series 04/20/2022. FINDINGS: A total of 50 cc of Optiray 300 was injected into the indwelling peg tube. Contrast is seen within the stomach. No extraluminal contrast to suggest a leak. No dilated loops of bowel to suggest an obstruction. No renal calculi. No ureteral calculi. No pneumoperitoneum or pneumatosis. IMPRESSION: The indwelling gastrostomy tube appears in good position. ACT 112: Negative or not required by law. Electronically signed by: Huy Vela M.D. 04/20/2022 1:24 PM
[2022-04-20] MEDS ORDERED: OPTIRAY 350 100ml IV ONE (15:09)
--- NOTE | 2022-04-20 15:39 | CT Scan Report ---
ABDOMEN AND PELVIS CT WITH IV CONTRAST CT DOSE: 249.31 mGy.cm HISTORY: interant to tube feed, elevated liver enzymes TECHNIQUE: Multiaxial CT images of the abdomen and pelvis were performed following the use of intrave nous contrast. A dose lowering technique was utilized adhering to the principles of ALARA. COMPARISON STUDY: PET CT 12/23/2021. FINDINGS: Right basilar linear densities consistent with subsegmental atelectasis or scarring. No pne umoperitoneum. No pneumatosis. No fractures within the visualized osseous structures. There are sever e circumferential thickening of the distal esophagus with paraesophageal fat stranding/edema. This is consistent with a nonspecific esophagitis. There is mild circumferential thickening at the the stoma ch is moderately distended with contrast. The percutaneous gastrostomy tube is in good position. Ther e is mild circumferential thickening within the gastric antrum. No dilated loops of bowel to suggest an obstruction. The bladder is unremarkable. The uterus is surgically absent. A few prominent bilater al common iliac nodes remain stable. These measure subcentimeter in short axis diameter. The spleen, adrenal glands, and pancreas are unremarkable. Bilateral renal hypodense lesions are consistent with cysts. Stable scarring within the left kidney. No hydronephrosis. No retroperitoneal lymphadenopathy. There is a left circumaortic renal vein. The main portal vein is patent. Calcified and mildly ectati c abdominal aorta measuring up to 2.4 cm in diameter. Heavily calcified bilateral common iliac arteri es with multifocal moderate to severe stenosis. Mild intra and extra hepatic bile duct dilatation wit h the common bile duct measuring up to 8 mm. The gallbladder is also mildly distended. Questionable g allbladder wall thickening given the degree of distention. No definite filling defects within the com mon bile duct. No hepatic masses. No evidence for bowel obstruction. Normal appendix. Questionable th ickening of the colon is likely due to underdistention. A low-grade colitis is considered less likely but not entirely excluded. IMPRESSION: 1. Mild intra and extrahepatic bile duct dilatation. The gallbladder is also distended with questiona ble gallbladder wall thickening given the degree of distention. Therefore, this could represent a dev eloping acute cholecystitis. Recommend follow-up ultrasound to assess for the possibility of an obstr uctive stone within the common bile duct. 2. Severe thickening of the distal esophagus with paraesophageal fat stranding/edema. This is consist ent with a nonspecific esophagitis 3. Mild thickening of the gastric antrum. 4. Questionable thickening of the colon is likely due to underdistention. A low-grade colitis is cons idered less likely but not entirely excluded. 5. A percutaneous gastrostomy tube is in good position. ACT 112: Negative or not required by law. Electronically signed by: Huy Vela M.D. 04/20/2022 3:36 PM
[2022-04-20] MEDS ORDERED: ONDANSETRON INJ 2 MG/ML 2 ML VIAL ONE (17:16)
[2022-04-20] MEDS ORDERED: ONDANSETRON INJ 2 MG/ML 2 ML VIAL IV STA (17:21)
[2022-04-20] MEDS ORDERED: cefOXitin 2,000 MG/60 ML BAG IV STA (17:25)
--- NOTE | 2022-04-20 17:48 | Ultrasound Report ---
ABDOMINAL ULTRASOUND, RIGHT UPPER QUADRANT HISTORY: Elevated LFTs. cholecystitis, elevated LFT. COMPARISON: Abdomen and pelvis CT 04/20/2022. FINDINGS: Pancreas: The pancreas demonstrates a normal echotexture. Liver: 14 cm in length. Mild intrahepatic bile duct dilatation again noted. Gallbladder: The gallbladder is distended and almost completely filled with sludge/tiny stones. Howev er, no gallbladder wall thickening. No pericholecystic fluid. Negative sonographic CBD: Upper limits of normal measuring 6.5 mm. Right kidney: No hydronephrosis. A 2.3 cm upper pole cyst. IMPRESSION: 1. Redemonstration of the mild intrahepatic bile duct dilatation. The common bile duct is technically at the upper limits of normal for age. 2. Distended gallbladder which is almost completely filled with sludge/small stones. However, no gall bladder wall thickening. ACT 112: Negative or not required by law. Electronically signed by: Huy Vela M.D. 04/20/2022 5:47 PM
--- NOTE | 2022-04-20 17:53 | History & Physical Report ---
Date of Service April 20, 2022 Assessment & Plan (1) Cholecystitis: (2) Delayed gastric emptying: (3) Nausea & vomiting: (4) Small cell lung cancer: (5) Chronic kidney disease, stage 3a: (6) Severe protein-calorie malnutrition: Plan 67 y/o with metastatic small cell lung CA; presents with nausea and vomiting. Imaging reveals gallbladder distention with likely acute cholecystitis with obstructing gallstones. GEN surge consult placed. Patient n.p.o. Acute cholecystitis: Delayed gastric emptying: Nausea and vomiting: Pt reports poor appetite, significant nausea, vomiting since chemotherapy She did have a Percutaneous G-tube placed per family recommendation at [facility] on 04/11/2022 GB Ultrasound: Distended gallbladder which is almost completely filled with sludge/small stones Abdominal/pelvic CT: gall bladder distention with likely acute cholecystitis and obstructing gallstones. Stop Cefoxitin; start Zosyn NPO; General surgery consultation MRCP ordered IVF @ 80mL/hour x2 bags; reevaluate fluid status GI Consult placed as well. Intermittent chest pain R/O ACS: EKG NSR without ST elevation Will get Troponin level x2 EKG in AM Small cell lung CA: Severe protein caloric malnutrition Palliative care encounter: Stage III small cell lung cancer diagnosed November 2021. Started chemoradiation on December 2021. Received 2 cycles of cisplatin and etoposide along with radiation treatment at [facility] Completed radiation therapy and is no on chemotherapy holiday Follows with [facility] oncology Dr. Prajapati NPO for now; General surgery consultation. Hypothyroidism: Continue levothyroxine Disposition: PCP: Dr. Hanna CODE STATUS: Full Code VTE prophylaxis: Lovenox SQ I personally was able to review all current laboratory work and diagnostic images obtained in the ED. Additionally, I was able to review the patients past medication reconciliation and history with direct visualization in the patients chart. This patient was seen in collaboration with Dr. Galloway. Please see his addendum for further details. History of Present Illness Chief Complaint: abdominal pain Primary Care Provider: Nina To MD Ms. Diaz is a 67 year old female that presented to the [facility] as she has been having abdominal pain intermittently and described it as sharp 6/10. SHe recently had a G-tube placed at [facility] and has been pursuing tube feedings for management of severe protein calorie malnourishment related to her malignant small cell lung cancer. She also reports intermittent chest pain that started this morning that is different than what she feels in her abdomen. An abdominal CT scan was obtained with gallbladder distention noted with possible acute cholecystitis with numerous obstructing gallstones. GI and general surgery consult placed. As mentioned, the patient has malignant small cell lung cancer that was diagnosed December 11, 2021 and she is a patient of Dr. Prajapati's. She has completed a course of radiation treatment along with a combined chemotherapy cisplatin/eto poside and is currently on a chemotherapy holiday. Patient was due to have an appointment with Dr. Prajapati this coming week on Thursday. Patient has had significant nausea throughout her chemotherapy and has been seen by palliative medicine as well. Additional past medical history includes severe protein caloric malnourishment, GERD, and hypothyroidism. The patient was sitting upright in her hospital bed and denies PENA, SOB, diarrhea, recent falls, or dizziness, trauma. Patient does use a walker at home. She denies any changes in her recent medications outside of a new low dose Metoprolol. Patient will be admitted for further evaluation and management. Please see A/P for further details. Allergies Allergy/AdvReac Type Severity Reaction Status Date / Time No Known Drug Allergies Allergy Verified 02/03/22 11:24 Home Medications Medication Instructions Recorded Confirmed Type albuterol sulfate 90 mcg/actuation 2 puff inhalation QID PRN 12/19/21 04/20/22 History aerosol inhaler (ProAir HFA) shortness of breath or wheezing ascorbic acid (vitamin C) 100 mg 100 mg PO DAILY 12/19/21 04/20/22 History tablet cholecalciferol (vitamin D3) 50 2,000 unit PO DAILY 12/19/21 04/20/22 History mcg (2,000 unit) capsule famotidine 20 mg tablet 20 mg PO BID 12/19/21 04/20/22 History ipratropium 0.5 mg-albuterol 3 mg 3 ml inhalation Q6H PRN shortness 12/19/21 04/20/22 History (2.5 mg base)/3 mL nebulization of breath or wheezing soln levothyroxine 88 mcg tablet 88 mcg PO DAILY 12/19/21 04/20/22 History (Synthroid) mecobalamin (vitamin B12) 1,000 1,000 mcg PO DAILY 12/19/21 04/20/22 History mcg disintegrating tablet,sublingual ondansetron HCl 8 mg tablet 8 mg PO Q8H PRN n/v 12/30/21 04/20/22 History prochlorperazine maleate 10 mg 10 mg PO Q6H PRN n/v 12/30/21 04/20/22 History tablet (Compazine) Magic Mouthwash 300 mL mouthwash 10 ml mucous membrane ACHS 01/27/22 04/20/22 Rx Dysphagia #300 mL dronabinol 2.5 mg capsule (Marinol) 2.5 mg PO BID Nausea and appetite 02/07/22 04/20/22 Rx stimulant #60 caps omeprazole 20 mg capsule,delayed 20 mg PO DAILY 03/06/22 04/20/22 History release metoprolol succinate 25 mg 12.5 mg PO DAILY 30 days #15 tabs 03/27/22 04/20/22 Rx tablet,extended release 24 hr sennosides 8.6 mg tablet (Senokot) 8.6 mg PO QAM 30 days #30 tabs 03/27/22 04/20/22 Rx Past Med/Surg History Medical History Adult failure to thrive Anemia Aneurysm of anterior communicating artery Apical ballooning syndrome Calcified granuloma of lung Cardiomyopathy Cholecystitis Chronic bronchitis Chronic kidney disease, stage 3a Constipation COPD (chronic obstructive pulmonary disease) Depression Elevated troponin Encounter for pre-operative examination DULCE (generalized anxiety disorder) GERD (gastroesophageal reflux disease) Hyponatremia Hypothyroidism Idiopathic peripheral neuropathy Malignant neoplasm of right lung (11/28/21) Nausea & vomiting Osteoarthritis Palliative care encounter Precordial chest pain Refractory nausea and vomiting Saccular aneurysm Severe protein-calorie malnutrition Small cell lung cancer Thoracic outlet syndrome Tobacco use disorder Surgical History H/O cataract removal with insertion of prosthetic lens H/O total hysterectomy S/P bronchoscopy with biopsy (~11/28/21) S/P tonsillectomy Status post bronchoscopy diagnostic with or without washing 12/06/2021 Status post knee surgery Family History Mother , Age 27 Ovarian cancer Father , Age 70 Alcoholism Alcohol abuse with other alcohol-induced disorder Brother , Age 65 Alcohol abuse with other alcohol-induced disorder Alcoholism Sister No problems noted. 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 Galloway's addendum for further details Physical Exam Physical Exam: see Dr. Galloway's addendum for further details Results & Data Results & Data ([facility]) Vital Signs (Past 12 Hours) Vital Signs Temp Pulse Pulse Resp BP BP Pulse Ox 04/20/22 16:00 87 18 156/86 H 98 04/20/22 15:19 98 H 18 159/88 H 98 04/20/22 12:30 96 H 22 158/76 H 97 04/20/22 11:48 96 H 22 142/80 H 100 04/20/22 11:15 36.8 C 106 H 20 121/66 97 O2 Del Method 04/20/22 16:00 Room Air 04/20/22 15:19 Room Air 04/20/22 12:30 04/20/22 11:48 04/20/22 11:15 Room Air Laboratory Results Short CBC 04/20/22 Range/Units 12:00 WBC 7.84 (4.8-10.8) K/ul Hgb 9.9 L (12.0-16.0) g/dl Hct 30.7 L (34.1-44.9) % Plt Count 310 (130-400) K/uL BMP 04/20/22 12:00 Sodium 142 Potassium 4.2 Chloride 102 Carbon Dioxide 33 H BUN 27 H Creatinine 0.66 Glucose 174 H Calcium 9.3 Liver Function 04/20/22 Range/Units 12:00 Total Bilirubin 1.0 (0.2-1.0) mg/dl AST 415 H (13-39) U/L ALT 207 H (7-52) U/L Alkaline Phosphatase 325 H (34-104) U/L Albumin 3.9 (3.4-5.0) gm/dl Diagnostic Findings KUB X-Ray 04/20/22 00:00 KUB HISTORY: Check feeding tube. COMPARISON: Chest and abdominal series 04/20/2022. FINDINGS: A total of 50 cc of Optiray 300 was injected into the indwelling peg tube. Contrast is seen within the stomach. No extraluminal contrast to suggest a leak. No dilated loops of bowel to suggest an obstruction. No renal calculi. No ureteral calculi. No pneumoperitoneum or pneumatosis. IMPRESSION: The indwelling gastrostomy tube appears in good position. ACT 112: Negative or not required by law. Electronically signed by: Huy Vela M.D. 04/20/2022 1:24 PM Chest/Abdomen X-ray 04/20/22 11:59 CHEST AND ABDOMEN 2 VIEWS HISTORY: feeding tube, abd pain, vomiting COMPARISON: KUB 03/06/2022. FINDINGS: No pneumothorax. No pleural effusions. The lungs are hyperexpanded with apical predominant emphysematous changes. No focal lung consolidations to suggest a pneumonia. No evidence for pulmonary edema. The heart is normal in size. No pneumoperitoneum. No pneumatosis. Mildly distended and fluid-filled stomach. There is a percutaneous gastrostomy tube seen within the left upper quadrant. No dilated loops of small bowel to suggest an obstruction. Vascular calcifications are noted. No renal or ureteral calculi. IMPRESSION: 1. No acute process within the chest. 2. No evidence for small bowel obstruction. 3. Mildly distended and fluid-filled stomach. 4. There is a percutaneous gastrostomy tube is seen within the left upper quadrant. ACT 112: Negative or not required by law. Electronically signed by: Huy Vela M.D. 04/20/2022 12:57 PM Abdomen/Pelvis CT 04/20/22 14:[address] WITH IV CONTRAST CT DOSE: 249.31 mGy.cm HISTORY: interant to tube feed, elevated liver enzymes TECHNIQUE: Multiaxial CT images of the abdomen and pelvis were performed following the use of intravenous contrast. A dose lowering technique was utilized adhering to the principles of ALARA. COMPARISON STUDY: PET CT 12/23/2021. FINDINGS: Right basilar linear densities consistent with subsegmental atelectasis or scarring. No pneumoperitoneum. No pneumatosis. No fractures within the visualized osseous structures. There are severe circumferential thickening of the distal esophagus with paraesophageal fat stranding/edema. This is consistent with a nonspecific esophagitis. There is mild circumferential thickening at the the stomach is moderately distended with contrast. The percutaneous gastrostomy tube is in good position. There is mild circumferential thickening within the gastric antrum. No dilated loops of bowel to suggest an obstruction. The bladder is unremarkable. The uterus is surgically absent. A few prominent bilateral common iliac nodes remain stable. These measure subcentimeter in short axis diameter. The spleen, adrenal glands, and pancreas are unremarkable. Bilateral renal hypodense lesions are consistent with cysts. Stable scarring within the left kidney. No hydronephrosis. No retroperitoneal lymphadenopathy. There is a left circumaortic renal vein. The main portal vein is patent. Calcified and mildly ectatic abdominal aorta measuring up to 2.4 cm in diameter. Heavily calcified bilateral common iliac arteries with multifocal moderate to severe stenosis. Mild intra and extra hepatic bile duct dilatation with the common bile duct measuring up to 8 mm. The gallbladder is also mildly distended. Questionable gallbladder wall thickening given the degree of distention. No definite filling defects within the common bile duct. No hepatic masses. No evidence for bowel obstruction. Normal appendix. Questionable thickening of the colon is likely due to underdistention. A low-grade colitis is considered less likely but not entirely excluded. IMPRESSION: 1. Mild intra and extrahepatic bile duct dilatation. The gallbladder is also distended with questionable gallbladder wall thickening given the degree of distention. Therefore, this could represent a developing acute cholecystitis. Recommend follow-up ultrasound to assess for the possibility of an obstructive stone within the common bile duct. 2. Severe thickening of the distal esophagus with paraesophageal fat stranding/edema. This is consistent with a nonspecific esophagitis 3. Mild thickening of the gastric antrum. 4. Questionable thickening of the colon is likely due to underdistention. A low- grade colitis is considered less likely but not entirely excluded. 5. A percutaneous gastrostomy tube is in good position. ACT 112: Negative or not required by law. Electronically signed by: Huy Vela M.D. 04/20/2022 3:36 PM Gallbladder Ultrasound 04/20/22 16:09 ABDOMINAL ULTRASOUND, RIGHT UPPER QUADRANT HISTORY: Elevated LFTs. cholecystitis, elevated LFT. COMPARISON: Abdomen and pelvis CT 04/20/2022. FINDINGS: Pancreas: The pancreas demonstrates a normal echotexture. Liver: 14 cm in length. Mild intrahepatic bile duct dilatation again noted. Gallbladder: The gallbladder is distended and almost completely filled with sludge/tiny stones. However, no gallbladder wall thickening. No pericholecystic fluid. Negative sonographic CBD: Upper limits of normal measuring 6.5 mm. Right kidney: No hydronephrosis. A 2.3 cm upper pole cyst. IMPRESSION: 1. Redemonstration of the mild intrahepatic bile duct dilatation. The common bile duct is technically at the upper limits of normal for age. 2. Distended gallbladder which is almost completely filled with sludge/small stones. However, no gallbladder wall thickening. ACT 112: Negative or not required by law. Electronically signed by: Huy Vela M.D. 04/20/2022 5:47 PM Code Status & VTE Plan VTE Prophylaxis Plan VTE Prophylaxis will be ordered: Yes Supervising Physician Co-Signing Physician Notes Patient is a 67-year-old female with history of stage III small cell lung cancer on chemotherapy, apical ballooning cardiomyopathy, severe protein calorie malnutrition, COPD and other medical problems presents with history of abdominal pain predominantly epigastric, radiates upwards towards the chest, generalized abdominal region, associated with nausea, vomiting since this morning. Patient was recently admitted at [facility] and had a G-tube placed given significant protein calorie malnutrition for tube feeds. Patient has been doing well until this morning when she had sudden onset of abdominal pain. She denies any fever, chills, dyspnea, diarrhea, blood in stools. Please review HPI for complete details of presentation. Blood work suggestive of chronic anemia hemoglobin 9.9, hematocrit 30.7, normal WBC count, BMP should sodium 142, potassium 4.2, chloride 102, bicarbonate 33, BUN 27, creatinine 0.66, glucose 174, calcium 9.3, total bilirubin 1.0, AST 415, ALT 207, alkaline phosphatase 325, albumin 3.9, lipase 152. CT abdomen showed mild intra and extrahepatic bile duct dilatation, distended gallbladder with wall thickening suggestive of acute cholecystitis. Also showed findings suggestive of possible obstructive stone within the CBD, esophagitis and mild antral thickening. Physical Exam: Vitals signs as noted above General Appearance: Thin, cachectic, chronically ill appearing, no apparent distress Head: normocephalic, Atraumatic Eyes: normal inspection, EOMI Neck: supple, Trachea midline Respiratory/Chest: Decreased breath sounds, CTA, No accessory muscle use Cardiovascular: S1, S2, No murmur Abdomen/GI:Soft, +G tube, tender generalized, predominantly epigastric, LLQ, Bowel sounds present, No guarding/rigidity Extremities/Musculoskeletal:normal inspection, no edema Neurologic/Psych:AAOX3, grossly no focal neurological deficits Skin: normal color, warm Acute cholecystitis Suspected acute cholangitis Esophagitis Hold tube feeds, keep her n.p.o. Started on broad-spectrum IV antibiotics, gentle fluids Consulted GI and surgery MRCP pending Blood cultures, pain control Monitor LFTs Started on PPI for Esophagitis I personally reviewed the record. Patient is interviewed and examined at bedside. Patient's care is coordinated with Lavern Cali SENIOR INTERNAL AUDITOR. Please refer to the documentation above for details of patient's presentation and for discussion of other issues.
[2022-04-20] MEDS ORDERED: ONDANSETRON 4 MG OD TAB PO PRN (18:55)
[2022-04-20] MEDS ORDERED: PROCHLORPERAZINE MALEATE 10 MG TAB PO PRN (18:55)
[2022-04-20] MEDS ORDERED: ALBUTEROL HFA 8 GM INHALER INH PRN (18:55)
[2022-04-20] MEDS ORDERED: ALBUT/IPRATROP 3MG/0.5MG NEB 3 ML VIAL INH PRN (18:55)
[2022-04-20] MEDS ORDERED: METOPROLOL TARTRATE 1 MG/ML VIAL IV PRN (18:55)
[2022-04-20 19:29] LABS: Troponin I High Sensitivity 9.8 pg/ml (0-14)
[2022-04-20] MEDS ORDERED: PIPERACILLIN/TAZOBACTAM 3.375 GM in DEXTROSE 5% 100 ML IV STA (19:30)
--- NOTE | 2022-04-20 19:36 | Emergency Department Note ---
Impression & Plan Delayed gastric emptying, G tube feedings ED Provider Note CHIEF COMPLAINT: Abdominal pain, vomiting HISTORY OF PRESENT ILLNESS: This 67-year-old female patient presents to the emergency department with complaints of upper abdominal pain and back pain. The patient did vomit today. She does have a history of lung cancer and has undergone radiation treatments in addition to chemotherapy. She is currently on a break from her chemotherapy. She did have a G-tube placed last week and began tube feedings. Her states that she has not had anything to eat in 18 months. She was on TPN prior to the G-tube. Patient states she has been tolerating the tube feeds without difficulty but woke up today with severe discomfort that has since resolved after vomiting. She denies any fevers, blood in the emesis and diarrhea. states she did have a normal bowel movement last evening. REVIEW OF SYSTEMS: A review of systems was performed with positives and pertinent negatives listed in the history of present illness. 10 systems were reviewed and are otherwise negative. ALLERGIES: see below MEDICATIONS: see below PMH: see below SOCIAL HISTORY: see below DDx: Gastric outlet obstruction, misplaced G-tube, gastroparesis, cholecystitis, pancreatitis, biliary obstruction amongst others. PHYSICAL EXAM: Vital signs reviewed. General: Chronically ill-appearing 67-year-old female, no significant distress. HEENT: No scleral icterus, PERRLA, neck supple. Moist mucous membranes. Cardiovascular: Regular rate and rhythm, no extra sounds. Pulmonary: Clear to auscultation bilaterally, normal work of breathing. Abdomen: Soft, mild diffuse abdominal tenderness, nondistended, positive bowel sounds. G-tube in place Musculoskeletal: Atraumatic, no peripheral edema. Neurologic: Patient awake alert and oriented x 3, speech is clear Skin: Warm, dry, no rash EMERGENCY DEPARTMENT COURSE/MDM: This patient was evaluated and appeared to be in no significant distress. IV access was obtained and laboratory work was drawn. The patient was placed on the test administrator noted to be in a normal sinus rhythm. X-ray of the abdomen were performed to reveal no evidence of noé wel obstruction although there is an air-fluid level noted in the stomach. Patient's laboratory work reveals elevated liver function studies with a normal bilirubin and WBC. CT imaging of the abdomen pelvis was pursued reveals a distended gallbladder and biliary ducts. Ultrasound of the right upper quadrant was recommended and subsequently performed revealing a distended gallbladder without gallbladder wall thickening, no evidence of choledocholithiasis. Patient was medicated with 2 g of IV Mefoxin and hydrated with normal saline solution. Patient's case was discussed with the hospitalist service will evaluate the patient for further management as she will likely need consultation with gastroenterology/dietitian for management of the tube feeds and potentially general surgery regarding the gallbladder. Patient and expressed understanding the plan and agreed. MONITORING: An order for cardiac monitoring was placed and the patient is noted to be in a normal sinus rhythm at 96 beats per minute. RADIOLOGY: See below DISPOSITION: Admission Past Med/Surg History Medical History Adult failure to thrive Anemia Aneurysm of anterior communicating artery Apical ballooning syndrome Calcified granuloma of lung Cardiomyopathy Cholecystitis Chronic bronchitis Chronic kidney disease, stage 3a Constipation COPD (chronic obstructive pulmonary disease) Depression Elevated troponin Encounter for pre-operative examination DULCE (generalized anxiety disorder) GERD (gastroesophageal reflux disease) Hyponatremia Hypothyroidism Idiopathic peripheral neuropathy Malignant neoplasm of right lung (11/28/21) Nausea & vomiting Osteoarthritis Palliative care encounter Precordial chest pain Refractory nausea and vomiting Saccular aneurysm Severe protein-calorie malnutrition Small cell lung cancer Thoracic outlet syndrome Tobacco use disorder Surgical History H/O cataract removal with insertion of prosthetic lens H/O total hysterectomy S/P bronchoscopy with biopsy (~11/28/21) S/P tonsillectomy Status post bronchoscopy diagnostic with or without washing 12/06/2021 Status post knee surgery Family History Mother , Age 27 Ovarian cancer Father , Age 70 Alcoholism Alcohol abuse with other alcohol-induced disorder Brother , Age 65 Alcohol abuse with other alcohol-induced disorder Alcoholism Sister No problems noted. Social History Smoking Status: Former smoker Tobacco Type: Cigarettes Age Started Using Tobacco: 17; Age Quit Using Tobacco: 66; packs per day: 0.5; Cigarettes Per Day: 8-12; Second Hand Exposure: Yes; Hx Alcohol Use: No Hx Substance Use: No Preferred Language: Arabic Communication Ability: Effective Director Of Customer Acquisition Required: No Beliefs That Will Affect Care: Confucianism marital status: Current Living Situation: Spouse current occupational status: retired current occupation: [employer]; [employer] employee; [employer] How many Children do You have: 2 Feels Safe at Home: Yes Childhood Exposure to Second-Hand Smoke: Yes caffeine: Yes (2.5 cups/day) during the past year weight has: remained stable Dental Care, Regularly: Yes Assistive Devices: Walker Allergies Allergies Allergy/AdvReac Type Severity Reaction Status Date / Time No Known Drug Allergies Allergy Verified 02/03/22 11:24 Home Meds Home Medications Medication Instructions Recorded Confirmed albuterol sulfate 90 mcg/actuation 2 puff inhalation QID PRN 12/19/21 04/20/22 aerosol inhaler (ProAir HFA) shortness of breath or wheezing ascorbic acid (vitamin C) 100 mg 100 mg PO DAILY 12/19/21 04/20/22 tablet cholecalciferol (vitamin D3) 50 2,000 unit PO DAILY 12/19/21 04/20/22 mcg (2,000 unit) capsule famotidine 20 mg tablet 20 mg PO BID 12/19/21 04/20/22 ipratropium 0.5 mg-albuterol 3 mg 3 ml inhalation Q6H PRN shortness 12/19/21 04/20/22 (2.5 mg base)/3 mL nebulization of breath or wheezing soln levothyroxine 88 mcg tablet 88 mcg PO DAILY 12/19/21 04/20/22 (Synthroid) mecobalamin (vitamin B12) 1,000 1,000 mcg PO DAILY 12/19/21 04/20/22 mcg disintegrating tablet,sublingual ondansetron HCl 8 mg tablet 8 mg PO Q8H PRN n/v 12/30/21 04/20/22 prochlorperazine maleate 10 mg 10 mg PO Q6H PRN n/v 12/30/21 04/20/22 tablet (Compazine) omeprazole 20 mg capsule,delayed 20 mg PO DAILY 03/06/22 04/20/22 release Previous Rx's Medication Instructions Recorded Magic Mouthwash 300 mL mouthwash 10 ml mucous membrane ACHS 01/27/22 Dysphagia #300 mL dronabinol 2.5 mg capsule (Marinol) 2.5 mg PO BID Nausea and appetite 02/07/22 stimulant #60 caps metoprolol succinate 25 mg 12.5 mg PO DAILY 30 days #15 tabs 03/27/22 tablet,extended release 24 hr sennosides 8.6 mg tablet (Senokot) 8.6 mg PO QAM 30 days #30 tabs 03/27/22 Results & Data (ED) Vital Signs Vital Signs - 24 hr 04/20/22 11:15 04/20/22 11:48 04/20/22 12:30 Temperature 36.8 C Temperature Source Temporal Artery Scan Pulse Rate 106 H 96 H Pulse Rate [Finger] 96 H Pulse Rate from SpO2 Sensor 98 H Respiratory Rate 20 22 22 Respiratory Effort / Characteristics Non-Labored Spontaneous Respiratory Depth Normal Respiratory Pattern Regular Blood Pressure 121/66 142/80 H Blood Pressure [Right Arm] 158/76 H Blood Pressure Mean 84 100 Blood Pressure Mean [Right Arm] 103 Pulse Oximetry 97 100 97 Oxygen Delivery Method Room Air Sepsis Recent Fever Within 48 Hours No Sepsis New/Unexplained Change in Mental Status No Sepsis Action Taken by Nursing No Action Required 04/20/22 15:19 04/20/22 16:00 04/20/22 19:16 Temperature 36.9 C Temperature Source Oral Pulse Rate Pulse Rate [Finger] 98 H 87 94 H Pulse Rate from SpO2 Sensor Respiratory Rate 18 18 22 Respiratory Effort / Characteristics Respiratory Depth Respiratory Pattern Blood Pressure Blood Pressure [Right Arm] 159/88 H 156/86 H 153/77 H Blood Pressure Mean Blood Pressure Mean [Right Arm] 111 109 102 Pulse Oximetry 98 98 96 Oxygen Delivery Method Room Air Room Air Room Air Sepsis Recent Fever Within 48 Hours Sepsis New/Unexplained Change in Mental Status Sepsis Action Taken by Residential Medications Current Medication List: was personally reviewed by me Laboratory Data Attestation: I reviewed the patient's lab results. Result diagrams: 04/20/22 12:00 04/20/22 12:00 Lab Results 04/20/22 04/20/22 04/20/22 Range/Units 12:00 12:00 18:46 WBC 7.84 (4.8-10.8) K/ul RBC 2.85 L (3.93-5.22) M/uL Hgb 9.9 L (12.0-16.0) g/dl Hct 30.7 L (34.1-44.9) % MCV 107.7 H (80.0-100.0) fL MCH 34.7 H (25.0-34.0) pg MCHC 32.2 (32.0-36.0) g/dL RDW Std Deviation 71.3 H (36.4-46.3) fL RDW Coeff of Wendy 17.8 H (11.5-14.5) % Plt Count 310 (130-400) K/uL MPV 10.8 (9.4-12.3) fL Immature Gran % (Auto) 0.3 % Neut % (Auto) 86.8 % Lymph % (Auto) 5.4 % [place] % (Auto) 6.3 % Eos % (Auto) 0.8 % Baso % (Auto) 0.4 % Neut # (Auto) 6.82 H (1.4-6.5) K/uL Lymph # (Auto) 0.42 L (1.2-3.4) K/uL [place] # (Auto) 0.49 (0.24-0.82) K/uL Eos # (Auto) 0.06 (0-0.50) K/uL Baso # (Auto) 0.03 (0-0.2) K/uL Immature Gran # (Auto) 0.02 (0.00-0.02) K/uL Sodium 142 (136-145) mmol/L Potassium 4.2 (3.5-5.1) mmol/L Chloride 102 (98-107) mmol/L Carbon Dioxide 33 H (21-32) mmol/L Anion Gap 7 (3-11) BUN 27 H (6-23) mg/dl Creatinine 0.66 (0.6-1.2) mg/dl Est Cr Clr Drug Dosing Not Reportable Est GFR ( Amer) 104.5 ml/min Est GFR (Non-Af Amer) 90.1 ml/min BUN/Creatinine Ratio 40.9 H (10-20) Glucose 174 H (70-99(Fasting)) mg/dl Calcium 9.3 (8.5-10.1) mg/dl Total Bilirubin 1.0 (0.2-1.0) mg/dl AST 415 H (13-39) U/L ALT 207 H (7-52) U/L Alkaline Phosphatase 325 H (34-104) U/L Total Protein 6.3 (6.0-8.3) gm/dl Albumin 3.9 (3.4-5.0) gm/dl Globulin 2.4 L (2.5-4.0) gm/dl Albumin/Globulin Ratio 1.6 (0.9-2) Lipase 152 H 100 H (11-82) U/L Administered Medications Discontinued Medications Cefoxitin Sodium (Mefoxin) 2,000 mg in 60 mls @ 100 mls/hr IV NOW STA Stop: 04/20/22 18:00 Last Infusion: 04/20/22 18:54 Dose: 0 mls/hr Documented By: Admin: 04/20/22 18:02 Dose: 100 mls/hr Documented By: QGV Ioversol (Optiray 350 100ml) 89 ml IV ONCE ONE Stop: 04/20/22 15:10 Last Admin: 04/20/22 15:11 Dose: 89 ml Documented By: MANISH Ondansetron HCl (Ondansetron Inj 2 Mg/Ml 2 Ml Vial) Confirm Administered Dose 4 mg .ROUTE .STK-MED ONE Stop: 04/20/22 17:17 Last Admin: 04/20/22 17:23 Dose: Not Given Documented By: QGV Ondansetron HCl (Ondansetron Inj 2 Mg/Ml 2 Ml Vial) 4 mg IV NOW STA Stop: 04/20/22 17:22 Last Admin: 04/20/22 17:23 Dose: 4 mg Documented By: QGV Imaging Data Radiologist's Impression: KUB X-Ray 04/20/22 00:00 KUB HISTORY: Check feeding tube. COMPARISON: Chest and abdominal series 04/20/2022. FINDINGS: A total of 50 cc of Optiray 300 was injected into the indwelling peg tube. Contrast is seen within the stomach. No extraluminal contrast to suggest a leak. No dilated loops of bowel to suggest an obstruction. No renal calculi. No ureteral calculi. No pneumoperitoneum or pneumatosis. IMPRESSION: The indwelling gastrostomy tube appears in good position. ACT 112: Negative or not required by law. Electronically signed by: Huy Vela M.D. 04/20/2022 1:24 PM Chest/Abdomen X-ray 04/20/22 11:59 CHEST AND ABDOMEN 2 VIEWS HISTORY: feeding tube, abd pain, vomiting COMPARISON: KUB 03/06/2022. FINDINGS: No pneumothorax. No pleural effusions. The lungs are hyperexpanded with apical predominant emphysematous changes. No focal lung consolidations to suggest a pneumonia. No evidence for pulmonary edema. The heart is normal in size. No pneumoperitoneum. No pneumatosis. Mildly distended and fluid-filled stomach. There is a percutaneous gastrostomy tube seen within the left upper quadrant. No dilated loops of small bowel to suggest an obstruction. Vascular calcifications are noted. No renal or ureteral calculi. IMPRESSION: 1. No acute process within the chest. 2. No evidence for small bowel obstruction. 3. Mildly distended and fluid-filled stomach. 4. There is a percutaneous gastrostomy tube is seen within the left upper quadrant. ACT 112: Negative or not required by law. Electronically signed by: Huy Vela M.D. 04/20/2022 12:57 PM Abdomen/Pelvis CT 04/20/22 14:[address] WITH IV CONTRAST CT DOSE: 249.31 mGy.cm HISTORY: interant to tube feed, elevated liver enzymes TECHNIQUE: Multiaxial CT images of the abdomen and pelvis were performed following the use of intravenous contrast. A dose lowering technique was utilized adhering to the principles of ALARA. COMPARISON STUDY: PET CT 12/23/2021. FINDINGS: Right basilar linear densities consistent with subsegmental atelectasis or scarring. No pneumoperitoneum. No pneumatosis. No fractures within the visualized osseous structures. There are severe circumferential thickening of the distal esophagus with paraesophageal fat stranding/edema. This is consistent with a nonspecific esophagitis. There is mild circumferential thickening at the the stomach is moderately distended with contrast. The percutaneous gastrostomy tube is in good position. There is mild circumferential thickening within the gastric antrum. No dilated loops of bowel to suggest an obstruction. The bladder is unremarkable. The uterus is surgically absent. A few prominent bilateral common iliac nodes remain stable. These measure subcentimeter in short axis diameter. The spleen, adrenal glands, and pancreas are unremarkable. Bilateral renal hypodense lesions are consistent with cysts. Stable scarring within the left kidney. No hydronephrosis. No retroperitoneal lymphadenopathy. There is a left circumaortic renal vein. The main portal vein is patent. Calcified and mildly ectatic abdominal aorta measuring up to 2.4 cm in diameter. Heavily calcified bilateral common iliac arteries with multifocal m oderate to severe stenosis. Mild intra and extra hepatic bile duct dilatation with the common bile duct measuring up to 8 mm. The gallbladder is also mildly distended. Questionable gallbladder wall thickening given the degree of distention. No definite filling defects within the common bile duct. No hepatic masses. No evidence for bowel obstruction. Normal appendix. Questionable thickening of the colon is likely due to underdistention. A low-grade colitis is considered less likely but not entirely excluded. IMPRESSION: 1. Mild intra and extrahepatic bile duct dilatation. The gallbladder is also distended with questionable gallbladder wall thickening given the degree of distention. Therefore, this could represent a developing acute cholecystitis. Recommend follow-up ultrasound to assess for the possibility of an obstructive stone within the common bile duct. 2. Severe thickening of the distal esophagus with paraesophageal fat stranding/edema. This is consistent with a nonspecific esophagitis 3. Mild thickening of the gastric antrum. 4. Questionable thickening of the colon is likely due to underdistention. A low- grade colitis is considered less likely but not entirely excluded. 5. A percutaneous gastrostomy tube is in good position. ACT 112: Negative or not required by law. Electronically signed by: Huy Vela M.D. 04/20/2022 3:36 PM Gallbladder Ultrasound 04/20/22 16:09 ABDOMINAL ULTRASOUND, RIGHT UPPER QUADRANT HISTORY: Elevated LFTs. cholecystitis, elevated LFT. COMPARISON: Abdomen and pelvis CT 04/20/2022. FINDINGS: Pancreas: The pancreas demonstrates a normal echotexture. Liver: 14 cm in length. Mild intrahepatic bile duct dilatation again noted. Gallbladder: The gallbladder is distended and almost completely filled with sludge/tiny stones. However, no gallbladder wall thickening. No pericholecystic fluid. Negative sonographic CBD: Upper limits of normal measuring 6.5 mm. Right kidney: No hydronephrosis. A 2.3 cm upper pole cyst. IMPRESSION: 1. Redemonstration of the mild intrahepatic bile duct dilatation. The common bile duct is technically at the upper limits of normal for age. 2. Distended gallbladder which is almost completely filled with sludge/small stones. However, no gallbladder wall thickening. ACT 112: Negative or not required by law. Electronically signed by: Huy Vela M.D. 04/20/2022 5:47 PM Blood Pressure Blood Pressure Findings: Elevated blood pressure Blood Pressure Disposition: further management by hospitalist Discharge Plan Visit Data Chief Complaint: Abdominal Pain Stated Complaint: ABD PAIN,VOMITING ED Provider: Sunshine Barlow Discharge Problem: Delayed gastric emptying, G tube feedings Patient Disposition: Home - Self-Care Forms Stand Alone Forms: [facility], Virtual Emergency Department, Important Visit Information Prescriptions Prescriptions: No Action ascorbic acid (vitamin C) 100 mg tablet 100 mg PO DAILY cholecalciferol (vitamin D3) 50 mcg (2,000 unit) capsule 2,000 unit PO DAILY mecobalamin (vitamin B12) 1,000 mcg tablet,disintegrating 1,000 mcg PO DAILY famotidine 20 mg tablet 20 mg PO BID levothyroxine [Synthroid] 88 mcg tablet 88 mcg PO DAILY albuterol sulfate [ProAir HFA] 90 mcg/actuation HFA aerosol inhaler 2 puff inhalation QID PRN (Reason: shortness of breath or wheezing) ipratropium-albuterol 0.5 mg-3 mg(2.5 mg base)/3 mL solution for nebulization 3 ml inhalation Q6H PRN (Reason: shortness of breath or wheezing) ondansetron HCl 8 mg tablet 8 mg PO Q8H PRN (Reason: n/v) prochlorperazine maleate [Compazine] 10 mg tablet 10 mg PO Q6H PRN (Reason: n/v) Magic Mouthwash 300 mL mouthwash 10 ml mucous membrane ACHS Qty: 300 5RF Rx Instructions: Benadryl 12.5 mg/5 mL oral elixir; Maalox 200 mg-200 mg-20 mg/5 mL oral suspension; Xylocaine Viscous 2 % mucosal solution;[Generic substitution ok] 1:1:1 compound Per 300 mL dronabinol [Marinol] 2.5 mg capsule 2.5 mg PO BID Qty: 60 0RF Rx Instructions: administer before lunch and evening meal/dinner omeprazole 20 mg capsule,delayed release(DR/EC) 20 mg PO DAILY metoprolol succinate 25 mg Tablet Extended Release 24 Hr 12.5 mg PO DAILY 30 Days Qty: 15 0RF sennosides [Senokot] 8.6 mg Tablet 8.6 mg PO QAM 30 Days Qty: 30 0RF Referrals Referrals: Nina oT MD [Primary Care Provider] -
[2022-04-20] MEDS: SODIUM CHLORIDE 0.9% 1000ML 1,000 ML IV SCH (20:46)
[2022-04-20] MEDS ORDERED: FIRST - Mouthwash BLM 119 ML MT SCH (21:00)
[2022-04-20] MEDS ORDERED: ACETAMINOPHEN 325 MG TAB PO PRN (21:45)
[2022-04-20] MEDS ORDERED: ONDANSETRON INJ 2 MG/ML 2 ML VIAL IV PRN ×2 (21:45)
[2022-04-20] MEDS ORDERED: MoRPHine SULFATE 2 MG/ML CARP IV PRN (21:45)
[2022-04-20] MEDS ORDERED: ALUMINUM/MAGNESIUM SUSP 30 ML UDC PO PRN (21:45)
[2022-04-20] MEDS ORDERED: POLYETHYLENE (MIRALAX) 17 GM PACK PO PRN (21:45)
[2022-04-20] MEDS ORDERED: MAGNESIUM HYDROXIDE SUSP 30 ML UDC PO PRN (21:45)
[2022-04-20] MEDS: PANTOprazole 40 MG in SYRINGE 0 ML IV SCH (21:58)
[2022-04-21] MEDS: PIPERACILLIN/TAZOBACTAM 3.375 GM in DEXTROSE 5% 100 ML IV SCH ×3 (01:01→17:59)
[2022-04-21 08:02] LABS: Hematocrit (blood only) 27.3 % (34.1-44.9); Hemoglobin 8.8 g/dl (12.0-16.0); Mean Corpuscular Hemoglobin 35.1 pg (25.0-34.0); Mean Corpuscular Hgb Conc 32.2 g/dL (32.0-36.0); Mean Corpuscular Volume 108.8 fL (80.0-100.0); Mean Platelet Volume 10.4 fL (9.4-12.3); Platelet Count 281 K/uL (130-400); RDW Coefficient of Variation 17.5 % (11.5-14.5); RDW Standard Deviation 70.2 fL (36.4-46.3); Red Blood Count 2.51 M/uL (3.93-5.22); White Blood Count 7.36 K/ul (4.8-10.8)
[2022-04-21 08:24] LABS: Albumin Level 3.3 gm/dl (3.4-5.0); Bilirubin Direct 0.6 mg/dl (0-0.2); Bilirubin,Total 1.2 mg/dl (0.2-1.0); Calcium 8.5 mg/dl (8.5-10.1); Creatinine Clr Calc Pharmacy 58.4 ml/min; Est GFR (African American) 106.1 ml/min; Est GFR (Non-African American) 91.5 ml/min; Magnesium 1.8 mg/dl (1.7-2.4); Phosphorus 4.2 mg/dl (2.5-4.9); Potassium 3.9 mmol/L (3.5-5.1); Total Protein 5.5 gm/dl (6.0-8.3)
[2022-04-21] MEDS: PANTOprazole 40 MG in SYRINGE 0 ML IV SCH ×2 (08:44→20:19)
--- NOTE | 2022-04-21 08:49 | Magnetic Resonance Report ---
MRCP CLINICAL HISTORY: Gallstones. Abdominal pain. TECHNIQUE: Utilizing a 1.5 Mary magnet and dedicated coil, multiplanar, multiecho imaging of [facility] er abdomen was performed utilizing heavily T2 weighted pulsing sequences without IV contrast. COMPARISON STUDY: CT of the abdomen and pelvis and right upper quadrant ultrasound April 20, 2022. FINDINGS: Mild intra and extra hepatic biliary ductal dilatation is noted. Common bile duct measures 7 mm in caliber. This exam is mildly compromised by motion artifact. There is a possible 3 mm distal common bile duct calculus. The gallbladder is distended and filled with gallstones and sludge. Suspec reilly mild gallbladder wall thickening is present. No hepatic lesions are identified on this unenhanced exam. Water attenuation bilateral renal lesions favor cysts. Marked wall thickening of the distal es ophagus with adjacent fluid is noted. This was shown on CT. Trace right pleural effusion is noted. Th ere is no pancreatic ductal dilatation. Extensive plaque of the abdominal aorta and bilateral coronar y arteries is noted. Infrarenal abdominal aorta is ectatic. Caliber of visualized small and large bow el are normal. Gastrostomy tube is in place. IMPRESSION: 1. Mild intra and extra hepatic biliary ductal dilatation. Exam mildly compromised by artifact. Possi ble 3 mm distal common bile duct calculus. 2. Distended gallbladder which contains stones and sludge. Mild gallbladder wall thickening. If suspi cion for acute cholecystitis, a hepatobiliary scan could be obtained. 3. Distal esophageal wall thickening with adjacent fluid, as shown on prior CT. This favors esophagit is. ACT 112: Negative or not required by law. Electronically signed by: Melquiades Sanchez M.D. 04/21/2022 8:48 AM
[2022-04-21] MEDS ORDERED: ENOXAPARIN INJ 30 MG/0.3 ML SYR SQ SCH (09:00)
[2022-04-21 11:17] LABS: Appearance Urine Clear (Clear); Bacteria Urine Automated Negative (Negative); Bilirubin Urine Negative (Negative); Blood Urine Trace (Negative); Color Urine Yellow; Glucose Urine UA Negative (Negative); Ketones Urine Negative (Negative); Leukocyte Esterase Urine 1+ (Negative); Nitrite Urine Negative (Negative); Protein Urine Trace (Negative); RBC Urine Automated 0-4 /hpf (0-4); Specific Gravity Urine 1.025 (1.000-1.030); Urobilinogen Urine Negative (Negative)
--- NOTE | 2022-04-21 12:48 | Gastrointestinal Consultation ---
Date of Consultation April 21, 2022 Assessment & Plan (1) Nausea & vomiting: (2) Cholecystitis: (3) Elevated LFTs: (4) Bile duct abnormality: Plan 67-year-old female with history of lung cancer on chemotherapy, G-tube in place for feedings given history of severe malnutrition, admitted after presenting with sudden onset of abdominal pain. Imaging, labs suggestive of cholelithiasis, possible cholecystitis, with abnormal biliary dilation, possible stone in the CBD, mildly elevated lipase but pancreas appears normal imaging, along with esophagitis. Today abd soft, mild TTP. She is HD stable and afebrile. - Will plan for ERCP tomorrow to evaluate for choledocholithiasis Continue supportive care with IVF Continue IV ABX Continue PPI - Analgesia as needed - Hold Lovenox prior to procedure - NPO with regard to her feeds as per primary team - Further recommendations to follow procedure - Await BCx results - Await surgery input on cholecystectomy Thank you for allowing us to participate in the care of this patient. Please call with any acute changes, questions or concerns. Please see addendum below with additional recommendation from my supervising physician. Supervising Physician Co-Signing Physician Notes I performed a history and physical examination of the patient today, including specifically on physical exam - soft abdomen. I have discussed the patient's management with the advanced practitioner. Please refer to the nurse practitioner's note for the documented findings and plan of care. ERCP tomorrow. Surgery eval for cholecystectomy. History of Present Illness Attending Physician: Rohit Galloway MD History of Present Illness This is a 67 y/o female with PMhx stage III small cell lung cancer on chemotherapy, apical ballooning cardiomyopathy, severe protein calorie nutrition, COPD and others, admitted with sudden onset of abdominal pain which is epigastric/but also LUQ in location and radiated to the chest, with nausea vomiting. She does have a G-tube placed recently for her malnutrition. On arrival, labs notable for chronic anemia with hemoglobin 9.9, acutely elevated LFTs with AST 14, ALT 207, tbili 1, alk phos 3.5, albumin, lipase 152. Imaging showing mild intra and intrahepatic bile duct dilatation, distended ga llbladder with wall thickening suggestive of acute cholecystitis, possible obstructive stone in the CBD with esophagitis and mild antral thickening. Diffuse throughout. She is placed on IVF and IV ABX. Also started on PPI. Today LFTs have increased with dbili 0.6, Tbili 1.2, AST 598, ALT 460, alk phos 397. MRCP with mild intra and extrahepatic biliary ductal dilation, possible 3 mm distal CBD calculus, distended GB with stones and sludge, with mild GB wall thickening. Distal esophageal thickening with adjacent fluid, favoring esophagitis. General surgery was also consulted consider cholecystectomy. Today she feels a bit better, not as much abdominal pain, no nausea vomiting. Has not had a BM, passing flatus. Denies melena hematochezia, hematemesis, CP, SOB, fevers or chills, jaundice, dark urine or brown stool Allergies Allergy/AdvReac Type Severity Reaction Status Date / Time No Known Drug Allergies Allergy Verified 02/03/22 11:24 Home Medications Medication Instructions Recorded Confirmed Type albuterol sulfate 90 mcg/actuation 2 puff inhalation QID PRN 12/19/21 04/20/22 History aerosol inhaler (ProAir HFA) shortness of breath or wheezing ascorbic acid (vitamin C) 100 mg 100 mg PO DAILY 12/19/21 04/20/22 History tablet cholecalciferol (vitamin D3) 50 2,000 unit PO DAILY 12/19/21 04/20/22 History mcg (2,000 unit) capsule famotidine 20 mg tablet 20 mg PO BID 12/19/21 04/20/22 History ipratropium 0.5 mg-albuterol 3 mg 3 ml inhalation Q6H PRN shortness 12/19/21 04/20/22 History (2.5 mg base)/3 mL nebulization of breath or wheezing soln levothyroxine 88 mcg tablet 88 mcg PO DAILY 12/19/21 04/20/22 History (Synthroid) mecobalamin (vitamin B12) 1,000 1,000 mcg PO DAILY 12/19/21 04/20/22 History mcg disintegrating tablet,sublingual ondansetron HCl 8 mg tablet 8 mg PO Q8H PRN n/v 12/30/21 04/20/22 History prochlorperazine maleate 10 mg 10 mg PO Q6H PRN n/v 12/30/21 04/20/22 History tablet (Compazine) Magic Mouthwash 300 mL mouthwash 10 ml mucous membrane ACHS 01/27/22 04/20/22 Rx Dysphagia #300 mL dronabinol 2.5 mg capsule (Marinol) 2.5 mg PO BID Nausea and appetite 02/07/22 04/20/22 Rx stimulant #60 caps omeprazole 20 mg capsule,delayed 20 mg PO DAILY 03/06/22 04/20/22 History release metoprolol succinate 25 mg 12.5 mg PO DAILY 30 days #15 tabs 03/27/22 04/20/22 Rx tablet,extended release 24 hr sennosides 8.6 mg tablet (Senokot) 8.6 mg PO QAM 30 days #30 tabs 03/27/22 04/20/22 Rx Patient History Medical History Adult failure to thrive Anemia Aneurysm of anterior communicating artery Apical ballooning syndrome Calcified granuloma of lung Cardiomyopathy Cholecystitis Chronic bronchitis Chronic kidney disease, stage 3a Constipation COPD (chronic obstructive pulmonary disease) Depression Elevated troponin Encounter for pre-operative examination DULCE (generalized anxiety disorder) GERD (gastroesophageal reflux disease) Hyponatremia Hypothyroidism Idiopathic peripheral neuropathy Malignant neoplasm of right lung (11/28/21) Nausea & vomiting Osteoarthritis Palliative care encounter Precordial chest pain Refractory nausea and vomiting Saccular aneurysm Severe protein-calorie malnutrition Small cell lung cancer Thoracic outlet syndrome Tobacco use disorder Surgical History H/O cataract removal with insertion of prosthetic lens H/O total hysterectomy S/P bronchoscopy with biopsy (~11/28/21) S/P tonsillectomy Status post bronchoscopy diagnostic with or without washing 12/06/2021 Status post knee surgery Family History Mother , Age 27 Ovarian cancer Father , Age 70 Alcoholism Alcohol abuse with other alcohol-induced disorder Brother , Age 65 Alcohol abuse with other alcohol-induced disorder Alcoholism Sister No problems noted. 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[employer] How many Children do You have: 2 Other Information That Helps Us Care for You: No Feels Safe at Home: Yes Safety Concerns: Feels Safe At This Time Childhood Exposure to Second-Hand Smoke: Yes caffeine: Yes (2.5 cups/day) during the past year weight has: remained stable Dental Care, Regularly: Yes Assistive Devices: Glasses Review of Systems Review of Systems: All systems reviewed & are unremarkable except as noted in HPI & below Physical Exam Constitutional: Chronically ill, cachectic, no acute distress, resting comfortably in bed Eyes: PERRL, conjunctivae normal, anicteric sclerae Respiratory: normal respiratory effort, lungs clear to auscultation Cardiovascular: Rate/Rhythm: regular rate and regular rhythm Gastrointestinal (Abdomen): Soft, mildly tender in the left upper quadrant, le ft lower quadrant, G-tube in place, surrounding skin without erythema or edema, drainage. BS x4 quadrant, abdomen is nondistended Skin: no rashes, warm and dry Psychiatric: A+Ox3, euthymic affect Results & Data ([facility]) Vital Signs (Past 12 Hours) Vital Signs Temp Pulse Pulse Resp BP BP Pulse Ox 04/21/22 11:59 37.3 C 97 H 14 94/55 L 96 04/21/22 09:59 37.0 C 84 16 102/64 95 04/21/22 07:55 37.1 C 95 H 16 108/54 L 94 04/21/22 06:04 93 H 04/21/22 02:28 37.5 C 88 16 94/54 L 95 O2 Del Method 04/21/22 11:59 Room Air 04/21/22 09:59 Room Air 04/21/22 07:55 Room Air 04/21/22 06:04 04/21/22 02:28 Room Air Laboratory Results 04/21/22 04/21/22 04/21/22 Range/Units 10:56 07:34 07:34 WBC 7.36 (4.8-10.8) K/ul RBC 2.51 L (3.93-5.22) M/uL Hgb 8.8 L (12.0-16.0) g/dl Hct 27.3 L (34.1-44.9) % MCV 108.8 H (80.0-100.0) fL MCH 35.1 H (25.0-34.0) pg MCHC 32.2 (32.0-36.0) g/dL RDW Std Deviation 70.2 H (36.4-46.3) fL RDW Coeff of Wendy 17.5 H (11.5-14.5) % Plt Count 281 (130-400) K/uL MPV 10.4 (9.4-12.3) fL Sodium 137 (136-145) mmol/L Potassium 3.9 (3.5-5.1) mmol/L Chloride 105 (98-107) mmol/L Carbon Dioxide 29 (21-32) mmol/L Anion Gap 3 (3-11) BUN 17 (6-23) mg/dl Creatinine 0.63 (0.6-1.2) mg/dl Est Cr Clr Drug Dosing 58.4 Est GFR ( Amer) 106.1 ml/min Est GFR (Non-Af Amer) 91.5 ml/min BUN/Creatinine Ratio 27.0 H (10-20) Glucose 105 H (70-99(Fasting)) mg/dl Calcium 8.5 (8.5-10.1) mg/dl Phosphorus 4.2 (2.5-4.9) mg/dl Magnesium 1.8 (1.7-2.4) mg/dl Total Bilirubin 1.2 H (0.2-1.0) mg/dl Direct Bilirubin 0.6 H (0-0.2) mg/dl AST 598 H (13-39) U/L ALT 460 H (7-52) U/L Alkaline Phosphatase 397 H (34-104) U/L Troponin I High Sens (0-14) pg/ml Total Protein 5.5 L (6.0-8.3) gm/dl Albumin 3.3 L (3.4-5.0) gm/dl Globulin (2.5-4.0) gm/dl Albumin/Globulin Ratio (0.9-2) Lipase (11-82) U/L Urine Color Yellow Urine Appearance Clear (Clear) Urine pH 6.0 (4.5-7.5) Ur Specific Garner 1.025 (1.000-1.030) Urine Protein Trace H (Negative) Urine Glucose (UA) Negative (Negative) Urine Ketones Negative (Negative) Urine Blood Trace H (Negative) Urine Nitrite Negative (Negative) Urine Bilirubin Negative (Negative) Urine Urobilinogen Negative (Negative) Ur Leukocyte Esterase 1+ H (Negative) Urine WBC (Auto) 5-10 H (0-5) /hpf Urine RBC (Auto) 0-4 (0-4) /hpf U Hyaline Cast (Auto) 1-5 (0-5) /lpf U Epithel Cells (Auto) 10-20 H (0-5) /lpf Urine Bacteria (Auto) Negative (Negative) SARS-CoV-2, RNA, NAAT (NEGATIVE) 04/21/22 04/20/22 04/20/22 Range/Units 00:39 19:47 18:46 WBC (4.8-10.8) K/ul RBC (3.93-5.22) M/uL Hgb (12.0-16.0) g/dl Hct (34.1-44.9) % MCV (80.0-100.0) fL MCH (25.0-34.0) pg MCHC (32.0-36.0) g/dL RDW Std Deviation (36.4-46.3) fL RDW Coeff of Wendy (11.5-14.5) % Plt Count (130-400) K/uL MPV (9.4-12.3) fL Sodium (136-145) mmol/L Potassium (3.5-5.1) mmol/L Chloride (98-107) mmol/L Carbon Dioxide (21-32) mmol/L Anion Gap (3-11) BUN (6-23) mg/dl Creatinine (0.6-1.2) mg/dl Est Cr Clr Drug Dosing Est GFR ( Amer) ml/min Est GFR (Non-Af Amer) ml/min BUN/Creatinine Ratio (10-20) Glucose (70-99(Fasting)) mg/dl Calcium (8.5-10.1) mg/dl Phosphorus (2.5-4.9) mg/dl Magnesium (1.7-2.4) mg/dl Total Bilirubin (0.2-1.0) mg/dl Direct Bilirubin (0-0.2) mg/dl AST (13-39) U/L ALT (7-52) U/L Alkaline Phosphatase (34-104) U/L Troponin I High Sens 8.8 9.8 D (0-14) pg/ml Total Protein (6.0-8.3) gm/dl Albumin (3.4-5.0) gm/dl Globulin (2.5-4.0) gm/dl Albumin/Globulin Ratio (0.9-2) Lipase 100 H (11-82) U/L Urine Color Urine Appearance (Clear) Urine pH (4.5-7.5) Ur Specific Garner (1.000-1.030) Urine Protein (Negative) Urine Glucose (UA) (Negative) Urine Ketones (Negative) Urine Blood (Negative) Urine Nitrite (Negative) Urine Bilirubin (Negative) Urine Urobilinogen (Negative) Ur Leukocyte Esterase (Negative) Urine WBC (Auto) (0-5) /hpf Urine RBC (Auto) (0-4) /hpf U Hyaline Cast (Auto) (0-5) /lpf U Epithel Cells (Auto) (0-5) /lpf Urine Bacteria (Auto) (Negative) SARS-CoV-2, RNA, NAAT NEGATIVE (NEGATIVE) 04/20/22 Range/Units 12:00 WBC (4.8-10.8) K/ul RBC (3.93-5.22) M/uL Hgb (12.0-16.0) g/dl Hct (34.1-44.9) % MCV (80.0-100.0) fL MCH (25.0-34.0) pg MCHC (32.0-36.0) g/dL RDW Std Deviation (36.4-46.3) fL RDW Coeff of Wendy (11.5-14.5) % Plt Count (130-400) K/uL MPV (9.4-12.3) fL Sodium 142 (136-145) mmol/L Potassium 4.2 (3.5-5.1) mmol/L Chloride 102 (98-107) mmol/L Carbon Dioxide 33 H (21-32) mmol/L Anion Gap 7 (3-11) BUN 27 H (6-23) mg/dl Creatinine 0.66 (0.6-1.2) mg/dl Est Cr Clr Drug Dosing Not Reportable Est GFR ( Amer) 104.5 ml/min Est GFR (Non-Af Amer) 90.1 ml/min BUN/Creatinine Ratio 40.9 H (10-20) Glucose 174 H (70-99(Fasting)) mg/dl Calcium 9.3 (8.5-10.1) mg/dl Phosphorus (2.5-4.9) mg/dl Magnesium (1.7-2.4) mg/dl Total Bilirubin 1.0 (0.2-1.0) mg/dl Direct Bilirubin (0-0.2) mg/dl AST 415 H (13-39) U/L ALT 207 H (7-52) U/L Alkaline Phosphatase 325 H (34-104) U/L Troponin I High Sens (0-14) pg/ml Total Protein 6.3 (6.0-8.3) gm/dl Albumin 3.9 (3.4-5.0) gm/dl Globulin 2.4 L (2.5-4.0) gm/dl Albumin/Globulin Ratio 1.6 (0.9-2) Lipase 152 H (11-82) U/L Urine Color Urine Appearance (Clear) Urine pH (4.5-7.5) Ur Specific Garner (1.000-1.030) Urine Protein (Negative) Urine Glucose (UA) (Negative) Urine Ketones (Negative) Urine Blood (Negative) Urine Nitrite (Negative) Urine Bilirubin (Negative) Urine Urobilinogen (Negative) Ur Leukocyte Esterase (Negative) Urine WBC (Auto) (0-5) /hpf Urine RBC (Auto) (0-4) /hpf U Hyaline Cast (Auto) (0-5) /lpf U Epithel Cells (Auto) (0-5) /lpf Urine Bacteria (Auto) (Negative) SARS-CoV-2, RNA, NAAT (NEGATIVE) Diagnostic Findings MRCP CLINICAL HISTORY: Gallstones. Abdominal pain. TECHNIQUE: Utilizing a 1.5 Mary magnet and dedicated coil, multiplanar, multiecho imaging of the upper abdomen was performed utilizing heavily T2 weighted pulsing sequences without IV contrast. COMPARISON STUDY: CT of the abdomen and pelvis and right upper quadrant ultrasound April 20, 2022. FINDINGS: Mild intra and extra hepatic biliary ductal dilatation is noted. Common bile duct measures 7 mm in caliber. This exam is mildly compromised by motion artifact. There is a possible 3 mm distal common bile duct calculus. The gallbladder is distended and filled with gallstones and sludge. Suspected mild gallbladder wall thickening is present. No hepatic lesions are identified on this unenhanced exam. Water attenuation bilateral renal lesions favor cysts. Marked wall thickening of the distal esophagus with adjacent fluid is noted. This was shown on CT. Trace right pleural effusion is noted. There is no pancreatic ductal dilatation. Extensive plaque of the abdominal aorta and bilateral coronary arteries is noted. Infrarenal abdominal aorta is ectatic. Caliber of visualized small and large bowel are normal. Gastrostomy tube is in place. IMPRESSION: 1. Mild intra and extra hepatic biliary ductal dilatation. Exam mildly compromised by artifact. Possible 3 mm distal common bile duct calculus. 2. Distended gallbladder which contains stones and sludge. Mild gallbladder wall thickening. If suspicion for acute cholecystitis, a hepatobiliary scan could be obtained. 3. Distal esophageal wall thickening with adjacent fluid, as shown on prior CT. This favors esophagitis. GB US: ABDOMINAL ULTRASOUND, RIGHT UPPER QUADRANT HISTORY: Elevated LFTs. cholecystitis, elevated LFT. COMPARISON: Abdomen and pelvis CT 04/20/2022. FINDINGS: Pancreas: The pancreas demonstrates a normal echotexture. Liver: 14 cm in length. Mild intrahepatic bile duct dilatation again noted. Gallbladder: The gallbladder is distended and almost completely filled with sludge/tiny stones. However, no gallbladder wall thickening. No pericholecystic fluid. Negative sonographic CBD: Upper limits of normal measuring 6.5 mm. Right kidney: No hydronephrosis. A 2.3 cm upper pole cyst. IMPRESSION: 1. Redemonstration of the mild intrahepatic bile duct dilatation. The common bile duct is technically at the upper limits of normal for age. 2. Distended gallbladder which is almost completely filled with sludge/small stones. However, no gallbladder wall thickening. CTAP: ABDOMEN AND PELVIS CT WITH IV CONTRAST CT DOSE: 249.31 mGy.cm HISTORY: interant to tube feed, elevated liver enzymes TECHNIQUE: Multiaxial CT images of the abdomen and pelvis were performed following the use of intravenous contrast. A dose lowering technique was utilized adhering to the principles of ALARA. COMPARISON STUDY: PET CT 12/23/2021. FINDINGS: Right basilar linear densities consistent with subsegmental atelectasis or scarring. No pneumoperitoneum. No pneumatosis. No fractures withi n the visualized osseous structures. There are severe circumferential thickening of the distal esophagus with paraesophageal fat stranding/edema. This is consistent with a nonspecific esophagitis. There is mild circumferential thickening at the the stomach is moderately distended with contrast. The percutaneous gastrostomy tube is in good position. There is mild circumferential thickening within the gastric antrum. No dilated loops of bowel to suggest an obstruction. The bladder is unremarkable. The uterus is surgically absent. A few prominent bilateral common iliac nodes remain stable. These measure subcentimeter in short axis diameter. The spleen, adrenal glands, and pancreas are unremarkable. Bilateral renal hypodense lesions are consistent with cysts. Stable scarring within the left kidney. No hydronephrosis. No retroperitoneal lymphadenopathy. There is a left circumaortic renal vein. The main portal vein is patent. Calcified and mildly ectatic abdominal aorta measuring up to 2.4 cm in diameter. Heavily calcified bilateral common iliac arteries with multifocal moderate to severe stenosis. Mild intra and extra hepatic bile duct dilatation with the common bile duct measuring up to 8 mm. The gallbladder is also mildly distended. Questionable gallbladder wall thickening given the degree of distention. No definite filling defects within the common bile duct. No hepatic masses. No evidence for bowel obstruction. Normal appendix. Questionable thickening of the colon is likely due to underdistention. A low-grade colitis is considered less likely but not entirely excluded. IMPRESSION: 1. Mild intra and extrahepatic bile duct dilatation. The gallbladder is also distended with questionable gallbladder wall thickening given the degree of distention. Therefore, this could represent a developing acute cholecystitis. Recommend follow-up ultrasound to assess for the possibility of an obstructive stone within the common bile duct. 2. Severe thickening of the distal esophagus with paraesophageal fat stranding/edema. This is consistent with a nonspecific esophagitis 3. Mild thickening of the gastric antrum. 4. Questionable thickening of the colon is likely due to underdistention. A low- grade colitis is considered less likely but not entirely excluded. 5. A percutaneous gastrostomy tube is in good position. ACT 112: Negative or not required by law. Chest/abd xray: CHEST AND ABDOMEN 2 VIEWS HISTORY: feeding tube, abd pain, vomiting COMPARISON: KUB 03/06/2022. FINDINGS: No pneumothorax. No pleural effusions. The lungs are hyperexpanded with apical predominant emphysematous changes. No focal lung consolidations to suggest a pneumonia. No evidence for pulmonary edema. The heart is normal in size. No pneumoperitoneum. No pneumatosis. Mildly distended and fluid-filled stomach. There is a percutaneous gastrostomy tube seen within the left upper quadrant. No dilated loops of small bowel to suggest an obstruction. Vascular calcifications are noted. No renal or ureteral calculi. IMPRESSION: 1. No acute process within the chest. 2. No evidence for small bowel obstruction. 3. Mildly distended and fluid-filled stomach. 4. There is a percutaneous gastrostomy tube is seen within the left upper quadrant. KUB: KUB HISTORY: Check feeding tube. COMPARISON: Chest and abdominal series 04/20/2022. FINDINGS: A total of 50 cc of Optiray 300 was injected into the indwelling peg tube. Contrast is seen within the stomach. No extraluminal contrast to suggest a leak. No dilated loops of bowel to suggest an obstruction. No renal calculi. No ureteral calculi. No pneumoperitoneum or pneumatosis. IMPRESSION: The indwelling gastrostomy tube appears in good position.
[2022-04-21] MEDS: SODIUM CHLORIDE 0.9% 1000ML 1,000 ML IV SCH (12:50)
--- NOTE | 2022-04-21 17:03 | Electrocardiogram Report ---
Test Reason : Blood Pressure : / mmHG Vent. Rate : 100 BPM Atrial Rate : 100 BPM P-R Int : 118 ms QRS Dur : 078 ms QT Int : 360 ms P-R-T Axes : 079 077 084 degrees QTc Int : 464 ms Normal sinus rhythm Septal infarct (cited on or before 21-APR-2022) Abnormal ECG When compared with ECG of 17-MAR-2022 09:06, ST no longer elevated in Inferior leads T wave inversion less evident in Anterior leads Confirmed by Alexander Trinh ([id number]) on 04/21/2022 5:03:09 PM Referred By: REFERRED SELF Confirmed By:Alexander Trinh
--- NOTE | 2022-04-21 17:29 | Surgery Consultation ---
Date of Consultation April 21, 2022 Assessment & Plan (1) Bile duct abnormality: (2) Elevated LFTs: (3) Nausea & vomiting: (4) Cholelithiasis: Plan 67-year-old female with a history of stage III small cell lung cancer diagnosed in November status postradiation therapy and currently on chemotherapy holiday presented to the emergency room with complaint of abdominal pain with nausea and vomiting. She recently had a PEG tube placed at [facility] for severe protein calorie malnutrition which is currently working without any issues. CT scan of the abdomen and pelvis as well as gallbladder ultrasound and MRCP showing cholelithiasis with mild wall thickening and question of a possible 3 mm occult common bile duct stone. She has no leukocytosis. T bili is 1.2, direct bili is 0.6, LFTs elevated elevated lipase improved to 100. Plan: She is currently scheduled for ERCP tomorrow with gastroenterology. Await results of ERCP and determine need for cholecystectomy following results. Continue current medical management N.p.o. after midnight Dr. Scott has seen and examined patient and agrees with above. History of Present Illness Reason for Consultation: Choledocholithiasis, possible cholecystitis Requesting Physician: Rohit Galloway MD Attending Physician: Rohit Galloway MD History of Present Illness Bailey is a 67-year-old female recently diagnosed with small cell lung cancer in November who has received radiation therapy and chemotherapy and is currently now on chemotherapy holiday presented to the emergency room with complaint of abdominal pain and nausea and vomiting. She recently had a PEG tube placed down at [facility] on 04/11/22 ago for severe protein malnutrition and weight loss. She states PEG tube has been working without any difficulty. ER work-up included labs which showed no leukocytosis, elevated LFTs and alk phos as well as slight elevation of lipase. Her total bilirubin was 1.0. She had a CT scan of the abdomen and pelvis which showed mild intra and extrahepatic bile duct dilatation and a gallbladder distended with gallstones and questionable wall thickening. She had severe thickening of the distal esophagus consistent with a nonspecific esophagitis. She had a gallbladder ultrasound which showed redemonstration of mild intrahepatic bile duct dilatation and common bile duct slightly at upper limits of normal for age with a distended gallbladder mostly filled with sludge and small stones however no gallbladder wall thickening. She underwent a MRCP which showed a possible 3 mm distal common bile duct stone and distended gallbladder and mild gallbladder wall thickening. Her total bilirubin is slightly elevated to 1.2 today as well as elevated LFTs. She states she is slightly feeling a little bit better compared to yesterday and is not having any nausea or vomiting. Allergies Allergy/AdvReac Type Severity Reaction Status Date / Time No Known Drug Allergies Allergy Verified 02/03/22 11:24 Home Medications Medication Instructions Recorded Confirmed Type albuterol sulfate 90 mcg/actuation 2 puff inhalation QID PRN 12/19/21 04/20/22 History aerosol inhaler (ProAir HFA) shortness of breath or wheezing ascorbic acid (vitamin C) 100 mg 100 mg PO DAILY 12/19/21 04/20/22 History tablet cholecalciferol (vitamin D3) 50 2,000 unit PO DAILY 12/19/21 04/20/22 History mcg (2,000 unit) capsule famotidine 20 mg tablet 20 mg PO BID 12/19/21 04/20/22 History ipratropium 0.5 mg-albuterol 3 mg 3 ml inhalation Q6H PRN shortness 12/19/21 04/20/22 History (2.5 mg base)/3 mL nebulization of breath or wheezing soln levothyroxine 88 mcg tablet 88 mcg PO DAILY 12/19/21 04/20/22 History (Synthroid) mecobalamin (vitamin B12) 1,000 1,000 mcg PO DAILY 12/19/21 04/20/22 History mcg disintegrating tablet,sublingual ondansetron HCl 8 mg tablet 8 mg PO Q8H PRN n/v 12/30/21 04/20/22 History prochlorperazine maleate 10 mg 10 mg PO Q6H PRN n/v 12/30/21 04/20/22 History tablet (Compazine) Magic Mouthwash 300 mL mouthwash 10 ml mucous membrane ACHS 01/27/22 04/20/22 Rx Dysphagia #300 mL dronabinol 2.5 mg capsule (Marinol) 2.5 mg PO BID Nausea and appetite 02/07/22 04/20/22 Rx stimulant #60 caps omeprazole 20 mg capsule,delayed 20 mg PO DAILY 03/06/22 04/20/22 History release metoprolol succinate 25 mg 12.5 mg PO DAILY 30 days #15 tabs 03/27/22 04/20/22 Rx tablet,extended release 24 hr sennosides 8.6 mg tablet (Senokot) 8.6 mg PO QAM 30 days #30 tabs 03/27/22 04/20/22 Rx Patient History Medical History Adult failure to thrive Anemia Aneurysm of anterior communicating artery Apical ballooning syndrome Calcified granuloma of lung Cardiomyopathy Cholecystitis Chronic bronchitis Chronic kidney disease, stage 3a Constipation COPD (chronic obstructive pulmonary disease) Depression Elevated troponin Encounter for pre-operative examination DULCE (generalized anxiety disorder) GERD (gastroesophageal reflux disease) Hyponatremia Hypothyroidism Idiopathic peripheral neuropathy Malignant neoplasm of right lung (11/28/21) Nausea & vomiting Osteoarthritis Palliative care encounter Precordial chest pain Refractory nausea and vomiting Saccular aneurysm Severe protein-calorie malnutrition Small cell lung cancer Thoracic outlet syndrome Tobacco use disorder Surgical History H/O cataract removal with insertion of prosthetic lens H/O total hysterectomy S/P bronchoscopy with biopsy (~11/28/21) S/P tonsillectomy Status post bronchoscopy diagnostic with or without washing 12/06/2021 Status post knee surgery Family History Mother , Age 27 Ovarian cancer Father , Age 70 Alcoholism Alcohol abuse with other alcohol-induced disorder Brother , Age 65 Alcohol abuse with other alcohol-induced disorder Alcoholism Sister No problems noted. Social History Smoking Status: Former smoker Tobacco Type: Cigarettes Age Started Using Tobacco: 17; Age Quit Using Tobacco: 66; packs per day: 0.5; Cigarettes Per Day: 8-12; Second Hand Exposure: Yes; Do You Dip or Chew Tobacco: No; Tobacco Cessation Education Requested by Patient: No Hx Alcohol Use: No Hx Substance Use: No Preferred Language: Surinamese Communication Ability: Effective Microbiology Lab Analyst Required: No Beliefs That Will Affect Care: None marital status: Current Living Situation: Spouse current occupational status: retired current occupation: [employer]; [employer] employee; [employer] How many Children do You have: 2 Other Information That Helps Us Care for You: No Feels Safe at Home: Yes Safety Concerns: Feels Safe At This Time Childhood Exposure to Second-Hand Smoke: Yes caffeine: Yes (2.5 cups/day) during the past year weight has: remained stable Dental Care, Regularly: Yes Assistive Devices: None Review of Systems Review of Systems: All systems reviewed & are unremarkable except as noted in HPI & below Physical Exam Constitutional: WD/WN, vitals as above + frail appearing, cooperative and comfortable; no acute distress and not ill appearing Neck: normal visual inspection and trachea midline Respiratory: normal respiratory effort; no respiratory distress Gastrointestinal (Abdomen): Inspection/Auscultation: abdomen normal to inspection; abdomen not distended Percussion/Palpation: + abdomen tender (Mild in the left upper quadrant and left lower quadrant) and abdomen soft; no guarding and abdomen not rigid PEG tube in the left upper quadrant Skin: no rashes, warm and dry no jaundice Psychiatric: Orientation: alert and oriented x 3 Results & Data ([facility]) Vital Signs (Past 12 Hours) Vital Signs Temp Pulse Pulse Resp BP BP Pulse Ox 04/21/22 14:18 92 H 04/21/22 15:26 37.4 C 99 H 14 118/69 94 04/21/22 13:57 37.1 C 93 H 14 125/65 95 04/21/22 13:00 37.0 C 80 14 128/73 97 04/21/22 11:59 37.3 C 97 H 14 94/55 L 96 04/21/22 09:59 37.0 C 84 16 102/64 95 04/21/22 07:55 37.1 C 95 H 16 108/54 L 94 04/21/22 06:04 93 H O2 Del Method 04/21/22 14:18 04/21/22 15:26 Room Air 04/21/22 13:57 Room Air 04/21/22 13:00 Room Air 04/21/22 11:59 Room Air 04/21/22 09:59 Room Air 04/21/22 07:55 Room Air 04/21/22 06:04 Laboratory Results 04/21/22 04/21/22 04/21/22 Range/Units 10:56 07:34 07:34 WBC 7.36 (4.8-10.8) K/ul RBC 2.51 L (3.93-5.22) M/uL Hgb 8.8 L (12.0-16.0) g/dl Hct 27.3 L (34.1-44.9) % MCV 108.8 H (80.0-100.0) fL MCH 35.1 H (25.0-34.0) pg MCHC 32.2 (32.0-36.0) g/dL RDW Std Deviation 70.2 H (36.4-46.3) fL RDW Coeff of Wendy 17.5 H (11.5-14.5) % Plt Count 281 (130-400) K/uL MPV 10.4 (9.4-12.3) fL Sodium 137 (136-145) mmol/L Potassium 3.9 (3.5-5.1) mmol/L Chloride 105 (98-107) mmol/L Carbon Dioxide 29 (21-32) mmol/L Anion Gap 3 (3-11) BUN 17 (6-23) mg/dl Creatinine 0.63 (0.6-1.2) mg/dl Est Cr Clr Drug Dosing 58.4 ml/min Est GFR ( Amer) 106.1 ml/min Est GFR (Non-Af Amer) 91.5 ml/min BUN/Creatinine Ratio 27.0 H (10-20) Glucose 105 H (70-99(Fasting)) mg/dl Calcium 8.5 (8.5-10.1) mg/dl Phosphorus 4.2 (2.5-4.9) mg/dl Magnesium 1.8 (1.7-2.4) mg/dl Total Bilirubin 1.2 H (0.2-1.0) mg/dl Direct Bilirubin 0.6 H (0-0.2) mg/dl AST 598 H (13-39) U/L ALT 460 H (7-52) U/L Alkaline Phosphatase 397 H (34-104) U/L Troponin I High Sens (0-14) pg/ml Total Protein 5.5 L (6.0-8.3) gm/dl Albumin 3.3 L (3.4-5.0) gm/dl Lipase (11-82) U/L Urine Color Yellow Urine Appearance Clear (Clear) Urine pH 6.0 (4.5-7.5) Ur Specific [place] 1.025 (1.000-1.030) Urine Protein Trace H (Negative) Urine Glucose (UA) Negative (Negative) Urine Ketones Negative (Negative) Urine Blood Trace H (Negative) Urine Nitrite Negative (Negative) Urine Bilirubin Negative (Negative) Urine Urobilinogen Negative (Negative) Ur Leukocyte Esterase 1+ H (Negative) Urine WBC (Auto) 5-10 H (0-5) /hpf Urine RBC (Auto) 0-4 (0-4) /hpf U Hyaline Cast (Auto) 1-5 (0-5) /lpf U Epithel Cells (Auto) 10-20 H (0-5) /lpf Urine Bacteria (Auto) Negative (Negative) SARS-CoV-2, RNA, NAAT (NEGATIVE) 04/21/22 04/20/22 04/20/22 Range/Units 00:39 19:47 18:46 WBC (4.8-10.8) K/ul RBC (3.93-5.22) M/uL Hgb (12.0-16.0) g/dl Hct (34.1-44.9) % MCV (80.0-100.0) fL MCH (25.0-34.0) pg MCHC (32.0-36.0) g/dL RDW Std Deviation (36.4-46.3) fL RDW Coeff of Wendy (11.5-14.5) % Plt Count (130-400) K/uL MPV (9.4-12.3) fL Sodium (136-145) mmol/L Potassium (3.5-5.1) mmol/L Chloride (98-107) mmol/L Carbon Dioxide (21-32) mmol/L Anion Gap (3-11) BUN (6-23) mg/dl Creatinine (0.6-1.2) mg/dl Est Cr Clr Drug Dosing ml/min Est GFR ( Amer) ml/min Est GFR (Non-Af Amer) ml/min BUN/Creatinine Ratio (10-20) Glucose (70-99(Fasting)) mg/dl Calcium (8.5-10.1) mg/dl Phosphorus (2.5-4.9) mg/dl Magnesium (1.7-2.4) mg/dl Total Bilirubin (0.2-1.0) mg/dl Direct Bilirubin (0-0.2) mg/dl AST (13-39) U/L ALT (7-52) U/L Alkaline Phosphatase (34-104) U/L Troponin I High Sens 8.8 9.8 D (0-14) pg/ml Total Protein (6.0-8.3) gm/dl Albumin (3.4-5.0) gm/dl Lipase 100 H (11-82) U/L Urine Color Urine Appearance (Clear) Urine pH (4.5-7.5) Ur Specific [place] (1.000-1.030) Urine Protein (Negative) Urine Glucose (UA) (Negative) Urine Ketones (Negative) Urine Blood (Negative) Urine Nitrite (Negative) Urine Bilirubin (Negative) Urine Urobilinogen (Negative) Ur Leukocyte Esterase (Negative) Urine WBC (Auto) (0-5) /hpf Urine RBC (Auto) (0-4) /hpf U Hyaline Cast (Auto) (0-5) /lpf U Epithel Cells (Auto) (0-5) /lpf Urine Bacteria (Auto) (Negative) SARS-CoV-2, RNA, NAAT NEGATIVE (NEGATIVE) Diagnostic Findings ABDOMEN AND PELVIS CT WITH IV CONTRAST CT DOSE: 249.31 mGy.cm HISTORY: interant to tube feed, elevated liver enzymes TECHNIQUE: Multiaxial CT images of the abdomen and pelvis were performed foll owing the use of intravenous contrast. A dose lowering technique was utilized adhering to the principles of ALARA. COMPARISON STUDY: PET CT 12/23/2021. FINDINGS: Right basilar linear densities consistent with subsegmental atelectasis or scarring. No pneumoperitoneum. No pneumatosis. No fractures within the visualized osseous structures. There are severe circumferential thickening of the distal esophagus with paraesophageal fat stranding/edema. This is consistent with a nonspecific esophagitis. There is mild circumferential thickening at the the stomach is moderately distended with contrast. The percutaneous gastrostomy tube is in good position. There is mild circumferential thickening within the gastric antrum. No dilated loops of bowel to suggest an obstruction. The bladder is unremarkable. The uterus is surgically absent. A few prominent bilateral common iliac nodes remain stable. These measure subcentimeter in short axis diameter. The spleen, adrenal glands, and pancreas are unremarkable. Bilateral renal hypodense lesions are consistent with cysts. Stable scarring within the left kidney. No hydronephrosis. No retroperitoneal lymphadenopathy. There is a left circumaortic renal vein. The main portal vein is patent. Calcified and mildly ectatic abdominal aorta measuring up to 2.4 cm in diameter. Heavily calcified bilateral common iliac arteries with multifocal moderate to severe stenosis. Mild intra and extra hepatic bile duct dilatation with the common bile duct measuring up to 8 mm. The gallbladder is also mildly distended. Questionable gallbladder wall thickening given the degree of distention. No definite filling defects within the common bile duct. No hepatic masses. No evidence for bowel obstruction. Normal appendix. Questionable thickening of the colon is likely due to underdistention. A low-grade colitis is considered less likely but not entirely excluded. IMPRESSION: 1. Mild intra and extrahepatic bile duct dilatation. The gallbladder is also distended with questionable gallbladder wall thickening given the degree of distention. Therefore, this could represent a developing acute cholecystitis. Recommend follow-up ultrasound to assess for the possibility of an obstructive stone within the common bile duct. 2. Severe thickening of the distal esophagus with paraesophageal fat stranding/edema. This is consistent with a nonspecific esophagitis 3. Mild thickening of the gastric antrum. 4. Questionable thickening of the colon is likely due to underdistention. A low- grade colitis is considered less likely but not entirely excluded. 5. A percutaneous gastrostomy tube is in good position. ABDOMINAL ULTRASOUND, RIGHT UPPER QUADRANT HISTORY: Elevated LFTs. cholecystitis, elevated LFT. COMPARISON: Abdomen and pelvis CT 04/20/2022. FINDINGS: Pancreas: The pancreas demonstrates a normal echotexture. Liver: 14 cm in length. Mild intrahepatic bile duct dilatation again noted. Gallbladder: The gallbladder is distended and almost completely filled with sludge/tiny stones. However, no gallbladder wall thickening. No pericholecystic fluid. Negative sonographic CBD: Upper limits of normal measuring 6.5 mm. Right kidney: No hydronephrosis. A 2.3 cm upper pole cyst. IMPRESSION: 1. Redemonstration of the mild intrahepatic bile duct dilatation. The common bile duct is technically at the upper limits of normal for age. 2. Distended gallbladder which is almost completely filled with sludge/small stones. However, no gallbladder wall thickening. MRCP CLINICAL HISTORY: Gallstones. Abdominal pain. TECHNIQUE: Utilizing a 1.5 Mary magnet and dedicated coil, multiplanar, multiecho imaging of the upper abdomen was performed utilizing heavily T2 weighted pulsing sequences without IV contrast. COMPARISON STUDY: CT of the abdomen and pelvis and right upper quadrant ultrasound April 20, 2022. FINDINGS: Mild intra and extra hepatic biliary ductal dilatation is noted. Common bile duct measures 7 mm in caliber. This exam is mildly compromised by motion artifact. There is a possible 3 mm distal common bile duct calculus. The gallbladder is distended and filled with gallstones and sludge. Suspected mild gallbladder wall thickening is present. No hepatic lesions are identified on this unenhanced exam. Water attenuation bilateral renal lesions favor cysts. Marked wall thickening of the distal esophagus with adjacent fluid is noted. This was shown on CT. Trace right pleural effusion is noted. There is no pancreatic ductal dilatation. Extensive plaque of the abdominal aorta and bilat eral coronary arteries is noted. Infrarenal abdominal aorta is ectatic. Caliber of visualized small and large bowel are normal. Gastrostomy tube is in place. IMPRESSION: 1. Mild intra and extra hepatic biliary ductal dilatation. Exam mildly compromised by artifact. Possible 3 mm distal common bile duct calculus. 2. Distended gallbladder which contains stones and sludge. Mild gallbladder wall thickening. If suspicion for acute cholecystitis, a hepatobiliary scan could be obtained. 3. Distal esophageal wall thickening with adjacent fluid, as shown on prior CT. This favors esophagitis.
--- NOTE | 2022-04-21 18:19 | Hospitalist Progress Note ---
Date of Service April 21, 2022 Assessment & Plan (1) Cholecystitis: (2) Delayed gastric emptying: (3) Nausea & vomiting: (4) Small cell lung cancer: (5) Chronic kidney disease, stage 3a: (6) Severe protein-calorie malnutrition: Plan Patient is a 67 yr female with H/O metastatic small cell lung CA; presents with nausea and vomiting. Imaging reveals gallbladder distention with likely acute cholecystitis with obstructing gallstones. Acute cholecystitis: Choledocholithiasis Suspected acute cholangitis Esophagitis Transaminitis --CT ABD:Mild intra and extrahepatic bile duct dilatation. The gallbladder is also distended with questionable gallbladder wall thickening given the degree of distention. Therefore, this could represent a developing acute cholecystitis. Recommend follow-up ultrasound to assess for the possibility of an obstructive stone within the common bile duct. Severe thickening of the distal esophagus with paraesophageal fat stranding/edema. This is consistent with a nonspecific esophagitis. . Mild thickening of the gastric antrum. Questionable thickening of the colon is likely due to underdistention. A low-grade colitis is considered less likely but not entirely excluded. A percutaneous gastrostomy tube is in good position. --Gall Bladder USD:Redemonstration of the mild intrahepatic bile duct dilatation. The common bile duct is technically at the upper limits of normal for age. Distended gallbladder which is almost completely filled with sludge/small stones. However, no gallbladder wall thickening. --MRCP:Mild intra and extra hepatic biliary ductal dilatation. Exam mildly compromised by artifact. Possible 3 mm distal common bile duct calculus. Distended gallbladder which contains stones and sludge. Mild gallbladder wall thickening. If suspicion for acute cholecystitis, a hepatobiliary scan could be obtained. Distal esophageal wall thickening with adjacent fluid, as shown on prior CT. This favors esophagitis. --Blood Cultures:pending --Hold tube feeds, keep her n.p.o. Continue broad-spectrum IV antibiotics, gentle fluids Appreciate GI and surgery Input Pain control Monitor LFTs Continue PPI Plan for ERCP tomorrow Will need cholecystectomy eventually Intermittent chest pain Likely secondary to above Negative troponins Resolved Monitor Small cell lung CA: Severe protein caloric malnutrition Stage III small cell lung cancer diagnosed November 2021. Started chemoradiation on December 2021. Received 2 cycles of cisplatin and etoposide along with radiation treatment at [facility] Completed radiation therapy and is no on chemotherapy holiday Follows with [facility] oncology Dr. Prajapati Follow-up with oncology as outpatient Hypothyroidism: Continue levothyroxine DVT Px: Lovenox SQ CODE STATUS: Full Code Disposition PT OT prior to discharge Admission and Anticipated Discharge Date Admission Date: April 20, 2022 Subjective Patient is seen and examined at bedside States having left lower quadrant pain which is similar to yesterday Epigastric pain resolved Denies any chest pain, dyspnea, dizziness No other complaints Review of Systems Review of Systems: All systems reviewed & are unremarkable except as noted in Subjective Physical Exam Physical Exam: Physical Exam: Vitals signs as noted above General Appearance: Thin, cachectic, chronically ill appearing, no apparent distress Head: normocephalic, Atraumatic Eyes: normal inspection, EOMI Neck: supple, Trachea midline Respiratory/Chest: Decreased breath sounds, CTA, No accessory muscle use Cardiovascular: S1, S2, No murmur Abdomen/GI:Soft, +G tube, tender LLQ, Bowel sounds present, No guarding/rigidity Extremities/Musculoskeletal:normal inspection, no edema Neurologic/Psych:AAOX3, grossly no focal neurological deficits Skin: normal color, warm Results & Data Results & Data ([facility]) Vital Signs (Past 12 Hours) Vital Signs Temp Pulse Pulse Resp BP BP Pulse Ox 04/21/22 14:18 92 H 04/21/22 15:26 37.4 C 99 H 14 118/69 94 04/21/22 13:57 37.1 C 93 H 14 125/65 95 04/21/22 13:00 37.0 C 80 14 128/73 97 04/21/22 11:59 37.3 C 97 H 14 94/55 L 96 04/21/22 09:59 37.0 C 84 16 102/64 95 04/21/22 07:55 37.1 C 95 H 16 108/54 L 94 O2 Del Method 04/21/22 14:18 04/21/22 15:26 Room Air 04/21/22 13:57 Room Air 04/21/22 13:00 Room Air 04/21/22 11:59 Room Air 04/21/22 09:59 Room Air 04/21/22 07:55 Room Air Laboratory Results Short CBC 04/21/22 Range/Units 07:34 WBC 7.36 (4.8-10.8) K/ul Hgb 8.8 L (12.0-16.0) g/dl Hct 27.3 L (34.1-44.9) % Plt Count 281 (130-400) K/uL BMP 04/21/22 07:34 Sodium 137 Potassium 3.9 Chloride 105 Carbon Dioxide 29 BUN 17 Creatinine 0.63 Glucose 105 H Calcium 8.5 Liver Function 04/21/22 Range/Units 07:34 Total Bilirubin 1.2 H (0.2-1.0) mg/dl Direct Bilirubin 0.6 H (0-0.2) mg/dl AST 598 H (13-39) U/L ALT 460 H (7-52) U/L Alkaline Phosphatase 397 H (34-104) U/L Albumin 3.3 L (3.4-5.0) gm/dl Urine 04/21/22 Range/Units 10:56 Urine Color Yellow Urine Appearance Clear (Clear) Urine pH 6.0 (4.5-7.5) Ur Specific [place] 1.025 (1.000-1.030) Urine Protein Trace H (Negative) Urine Glucose (UA) Negative (Negative)
[2022-04-22] MEDS: PIPERACILLIN/TAZOBACTAM 3.375 GM in DEXTROSE 5% 100 ML IV SCH ×3 (01:00→17:17)
[2022-04-22 08:04] LABS: Hematocrit (blood only) 25.5 % (34.1-44.9); Hemoglobin 8.4 g/dl (12.0-16.0); Mean Corpuscular Hemoglobin 34.9 pg (25.0-34.0); Mean Corpuscular Hgb Conc 32.9 g/dL (32.0-36.0); Mean Corpuscular Volume 105.8 fL (80.0-100.0); Mean Platelet Volume 10.3 fL (9.4-12.3); Platelet Count 271 K/uL (130-400); RDW Coefficient of Variation 16.5 % (11.5-14.5); Red Blood Count 2.41 M/uL (3.93-5.22); White Blood Count 4.97 K/ul (4.8-10.8)
[2022-04-22] MEDS ORDERED: fentaNYL citrate 100 MCG/2 ML VIAL ONE (08:17)
[2022-04-22] MEDS ORDERED: LIDOCAINE 2% MPF LOCAL 5 ML VIAL INFIL ONE (08:17)
[2022-04-22] MEDS ORDERED: MIDAZOLAM HCL 1 MG/ML 2ML VIAL ONE (08:17)
[2022-04-22] MEDS ORDERED: PROPOFOL IV EMULSION 10 MG/ML 20 ML VIAL IV ONE ×2 (08:17→12:37)
[2022-04-22 08:56] LABS: Albumin Globulin Ratio 1.5 (0.9-2); Albumin Level 3.2 gm/dl (3.4-5.0); BUN Creatinine Ratio 16.1 (10-20); Bilirubin,Total 1.8 mg/dl (0.2-1.0); Calcium 8.3 mg/dl (8.5-10.1); Creatinine Clr Calc Pharmacy 58.3 ml/min; Est GFR (African American) 106.6 ml/min; Globulin 2.2 gm/dl (2.5-4.0); Magnesium 1.7 mg/dl (1.7-2.4); Potassium 3.8 mmol/L (3.5-5.1); Total Protein 5.4 gm/dl (6.0-8.3)
[2022-04-22] MEDS: PANTOprazole 40 MG in SYRINGE 0 ML IV SCH ×2 (09:03→21:07)
[2022-04-22] MEDS ORDERED: fentaNYL citrate 100 MCG/2 ML VIAL IV PRN (10:16)
[2022-04-22] MEDS ORDERED: ONDANSETRON INJ 2 MG/ML 2 ML VIAL ONE (10:16)
[2022-04-22] MEDS ORDERED: ONDANSETRON INJ 2 MG/ML 2 ML VIAL IV PRN (10:16)
[2022-04-22] MEDS ORDERED: ePHEDrine sulfate 50 MG/ML AMP IV PRN ×2 (10:16→13:44)
[2022-04-22] MEDS ORDERED: HYDROmorphone INJ 2 MG/ML SYR/VIAL IV PRN (10:16)
[2022-04-22] MEDS ORDERED: PROMETHAZINE HCL 12.5 MG in SODIUM CHLORIDE 0.9% 50 ML IV PRN (10:16)
[2022-04-22] MEDS ORDERED: ATROPINE SULFATE 0.1 MG/ML 10ML SYR IV PRN ×2 (10:16→13:44)
--- NOTE | 2022-04-22 10:16 | Anesthesiology Consultation ---
Date of Service April 22, 2022 Assessment & Plan Chart Review Chart Review: Acceptable Risk for Surgery Consults Requested none History Surgery Operation Date: 04/22/22 09:50 Proposed Procedures p Endoscopic Retrograde Cholangiopancreato - Servando Ibarra MD Height/Weight Height: 5 ft 6 in Weight: 43.1 kg Allergies Allergy/AdvReac Type Severity Reaction Status Date / Time No Known Drug Allergies Allergy Verified 02/03/22 11:24 Medications Home Medications Medication Instructions Recorded Confirmed Last Taken albuterol sulfate 90 mcg/actuation 2 puff inhalation QID PRN 12/19/21 04/20/22 Unknown aerosol inhaler (ProAir HFA) shortness of breath or wheezing ascorbic acid (vitamin C) 100 mg 100 mg PO DAILY 12/19/21 04/20/22 Unknown tablet cholecalciferol (vitamin D3) 50 2,000 unit PO DAILY 12/19/21 04/20/22 Unknown mcg (2,000 unit) capsule famotidine 20 mg tablet 20 mg PO BID 12/19/21 04/20/22 Unknown ipratropium 0.5 mg-albuterol 3 mg 3 ml inhalation Q6H PRN shortness 12/19/21 04/20/22 Unknown (2.5 mg base)/3 mL nebulization of breath or wheezing soln levothyroxine 88 mcg tablet 88 mcg PO DAILY 12/19/21 04/20/22 Unknown (Synthroid) mecobalamin (vitamin B12) 1,000 1,000 mcg PO DAILY 12/19/21 04/20/22 Unknown mcg disintegrating tablet,sublingual ondansetron HCl 8 mg tablet 8 mg PO Q8H PRN n/v 12/30/21 04/20/22 Unknown prochlorperazine maleate 10 mg 10 mg PO Q6H PRN n/v 12/30/21 04/20/22 Unknown tablet (Compazine) Magic Mouthwash 300 mL mouthwash 10 ml mucous membrane ACHS 01/27/22 04/20/22 Unknown Dysphagia #300 mL dronabinol 2.5 mg capsule (Marinol) 2.5 mg PO BID Nausea and appetite 02/07/22 04/20/22 Unknown stimulant #60 caps omeprazole 20 mg capsule,delayed 20 mg PO DAILY 03/06/22 04/20/22 Unknown release metoprolol succinate 25 mg 12.5 mg PO DAILY 30 days #15 tabs 03/27/22 04/20/22 Unknown tablet,extended release 24 hr sennosides 8.6 mg tablet (Senokot) 8.6 mg PO QAM 30 days #30 tabs 03/27/22 04/20/22 Unknown Active Medications Generic Name Dose Route Start Last Admin Trade Name Freq PRN Reason Stop Dose Admin Enoxaparin Sodium 30 mg 04/21/22 09:00 04/21/22 08:44 Enoxaparin Inj 30 Mg/0.3 Ml Syr SQ 05/21/22 08:59 30 mg QAM MANUELA Administration Pantoprazole Sodium 40 mg/ 10 mls @ 5 mls/min 04/20/22 21:00 04/22/22 09:03 Syringe IV 05/20/22 20:59 5 mls/min BID MANUELA Administration Piperacillin Sod/Tazobactam 115 mls @ 28.75 mls/hr 04/21/22 02:00 04/22/22 09:03 Sod 3.375 gm/ Dextrose IV 04/30/22 01:59 28.8 mls/hr Q8H MANUELA Administration Protocol Morphine Sulfate 2 mg 04/20/22 21:45 04/21/22 18:30 Morphine Sulfate 2 Mg/Ml Carp IV 05/04/22 21:44 2 mg Q3H PRN Administration Pain NPO Date Last Intake of Fluids: 04/21/22 Time Last Intake of Fluids: 19:00 Date Last Intake of Solids: 04/19/22 Past Medical History Medical History Adult failure to thrive Anemia Aneurysm of anterior communicating artery Apical ballooning syndrome Calcified granuloma of lung Cardiomyopathy Cholecystitis Chronic bronchitis Chronic kidney disease, stage 3a Constipation COPD (chronic obstructive pulmonary disease) Depression Elevated troponin Encounter for pre-operative examination DULCE (generalized anxiety disorder) GERD (gastroesophageal reflux disease) Hyponatremia Hypothyroidism Idiopathic peripheral neuropathy Malignant neoplasm of right lung (11/28/21) Nausea & vomiting Osteoarthritis Palliative care encounter Precordial chest pain Refractory nausea and vomiting Saccular aneurysm Severe protein-calorie malnutrition Small cell lung cancer Thoracic outlet syndrome Tobacco use disorder Past Family History Family History Mother , Age 27 Ovarian cancer Father , Age 70 Alcoholism Alcohol abuse with other alcohol-induced disorder Brother , Age 65 Alcohol abuse with other alcohol-induced disorder Alcoholism Sister No problems noted. Past Surgical History Surgical History H/O cataract removal with insertion of prosthetic lens H/O total hysterectomy S/P bronchoscopy with biopsy (~11/28/21) S/P tonsillectomy Status post bronchoscopy diagnostic with or without washing 12/06/2021 Status post knee surgery Social History Smoking Status: Former smoker tobacco type: cigarettes Smoking cigarettes per day: 8-12 Do You Dip or Chew Tobacco: No Hx Alcohol Use: No Hx Substance Use: No substance use type: does not use Physical Exam Vital Signs Last Vital Signs Temp 36.8 C 04/22/22 10:01 Pulse 98 H 04/22/22 10:01 Resp 16 04/22/22 10:01 BP 119/65 04/22/22 10:01 Pulse Ox 96 04/22/22 10:01 O2 Del Method 04/22/22 10:01 Testing Laboratory Results 04/22/22 07:32 04/22/22 07:32 Urine Color Yellow 04/21/22 10:56 Urine Appearance Clear (Clear) 04/21/22 10:56 Urine pH 6.0 (4.5-7.5) 04/21/22 10:56 Ur Specific [place] 1.025 (1.000-1.030) 04/21/22 10:56 Urine Protein Trace (Negative) H 04/21/22 10:56 Urine Glucose (UA) Negative (Negative) 04/21/22 10:56 Urine Ketones Negative (Negative) 04/21/22 10:56 Urine Nitrite Negative (Negative) 04/21/22 10:56 Ur Leukocyte Esterase 1+ (Negative) H 04/21/22 10:56 Urine WBC (Auto) 5-10 /hpf (0-5) H 04/21/22 10:56 Urine RBC (Auto) 0-4 /hpf (0-4) 04/21/22 10:56 U Hyaline Cast (Auto) 1-5 /lpf (0-5) 04/21/22 10:56 U Epithel Cells (Auto) 10-20 /lpf (0-5) H 04/21/22 10:56 Urine Bacteria (Auto) Negative (Negative) 04/21/22 10:56 04/20/22 19:59 Aerobic Blood Culture - Preliminary Blood No growth in Aerobic bottle after 24 hours. Anaerobic Blood Culture - Final 04/20/22 19:59 Aerobic Blood Culture - Preliminary Blood No growth in Aerobic bottle after 24 hours. Anaerobic Blood Culture - Preliminary No growth in Anaerobic bottle after 24 hours.
--- NOTE | 2022-04-22 11:38 | History & Physical Bridge Note ---
Date of Service April 22, 2022 History & Physical Bridge Note I have examined the patient, reviewed the History & Physical and in the interval since the performance of the History & Physical I have noted the following changes of clinical significance: no changes noted ERCP Patient was explained in detail regarding risks, benefits, limitations and alternatives of the above endoscopic procedure. Risks of intravenous sedation used for procedure were also explained. Risks include, but not limited to perforation, bleeding, infection, respiratory distress, cardiac arrest and . Patient is also aware about the possibility of missed lesion. Patient's questions were answered. The patient verbalized understanding the information and agreed to undergo the procedure.
[2022-04-22] MEDS ORDERED: INDOMETHACIN 50 MG SUPP PR ONE (12:50)
--- NOTE | 2022-04-22 12:52 | Operative Report ---
Post Operative Report Pre & Post Diagnosis Operation Date: 04/22/22 09:50 Pre-Op Diagnosis: NAUSEA AND VOMITING I identified the patient and participated in the time-out.: Yes Procedure Operation Date: 04/22/22 09:50 <No data on this case meets the specified criteria> Surgeon Servando Ibarra MD Die Cleaner None Estimated Blood Loss 0 Findings See Below (CBD stones and pus removed, CBD stent placed) Specimens None Description of Procedure ERCP I attest to the content of the Intraoperative Record and any orders documented therein. Any exceptions are noted below.
--- NOTE | 2022-04-22 13:06 | GI REPORT ---
Patient Name: Bailey Diaz Procedure Date: 04/22/2022 12:00 PM Date of : 1955 Admit Type: Inpatient Age: 67 Gender: Female Attending MD: Servando Ibarra MD, Procedure: ERCP Providers: Servando Ibarra MD Referring MD: Rohit Galloway Md Indications: For therapy of bile duct stone(s), For therapy of ascending cholangitis Medicines: Propofol per Anesthesia Complications: No immediate complications. Estimated Blood Loss: Estimated blood loss: none. Procedure: Pre-Anesthesia Assessment: - Prior to the procedure, a History and Physical was performed, and patient medications, allergies and sensitivities were reviewed. The patient's tolerance of previous anesthesia was reviewed. - The risks and benefits of the procedure and the sedation options and risks were discussed with the patient. All questions were answered and informed consent was obtained. - Patient identification and proposed procedure were verified prior to the procedure by the physician and the nurse. The procedure was verified in the procedure room. - Pre-procedure physical examination revealed no contraindications to sedation. After obtaining informed consent, the scope was passed under direct vision. Throughout the procedure, the patient's blood pressure, pulse, and oxygen saturations were monitored continuously. The Duodenoscope was introduced through the mouth, and advanced to the duodenum and used to inject contrast into the bile duct. The ERCP was accomplished without difficulty. The patient tolerated the procedure well. Findings: The contract driver film was normal. The esophagus was successfully intubated under direct vision. The scope was advanced to a normal major papilla in the descending duodenum without detailed examination of the pharynx, larynx and associated structures, and upper GI tract. The upper GI tract was grossly normal. PEG tube seen in the stomach. The ventral pancreatic duct was inadvertently cannulated. The ventral pancreatic duct in the head of the pancreas was normal. A 0.025 inch x 270 cm angled Visiglide wire was passed into the biliary tree. The Fusion OMNI sphincterotome was passed over the guidewire and the bile duct was then deeply cannulated. Contrast was injected. I personally interpreted the bile duct images. Ductal flow of contrast was adequate. Image quality was adequate. Contrast extended to the main bile duct. Opacification of the entire biliary tree was successful. The maximum diameter of the ducts was 12 mm. Biliary sphincterotomy was made with a monofilament traction (standard) sphincterotome using ERBE electrocautery. There was no post-sphincterotomy bleeding. The biliary tree was swept with a 15 mm balloon starting at the bifurcation. Sludge was swept from the duct. Many stones were removed. No stones remained. Pus was swept from the duct. One 5 Fr by 9 cm plastic pancreatic stent with a single external pigtail and no internal flaps was placed into the ventral pancreatic duct. Clear fluid flowed through the stent. The stent was in good position. One 10 Fr by 8 cm plastic biliary stent with a single external flap and a single internal flap was placed into the common bile duct. Bile flowed through the stent. The stent was in good position. Indomethacin 100 mg was given via suppository to decrease the risk of post-ERCP pancreatitis (PEP). Impression: - Choledocholithiasis was found. Complete removal was accomplished by biliary sphincterotomy and balloon extraction. - One plastic biliary stent was placed into the common bile duct. - One plastic pancreatic stent was placed into the ventral pancreatic duct and Indomethacin given to decrease risk of post-ERCP pancreatitis. Recommendation: - Return patient to [facility] for [facility] care. - Repeat ERCP in 2 months to remove stent. - Surgery follow up for cholecystectomy. - Continue ABx. Servando Ibarra MD 04/22/2022 1:06:06 PM This report has been signed electronically. Note Initiated On: 04/22/2022 12:00 PM Number of Addenda: 0 I attest to the content of the Intraoperative Record and orders documented therein, exceptions below {[id number]}
--- NOTE | 2022-04-22 13:45 | Anesthesiology Progress Note ---
Date of Service April 22, 2022 Anesthesia Post Procedure Vital Signs Vital Signs: Temp Pulse Pulse Pulse Resp BP BP 04/22/22 13:30 36.6 C 92 H 14 148/74 H 04/22/22 13:20 90 16 142/88 H 04/22/22 13:10 91 H 16 138/87 04/22/22 13:03 36.3 C L 103 H 16 147/80 H 04/22/22 10:01 36.8 C 98 H 16 119/65 04/22/22 08:04 37.1 C 91 H 18 119/67 04/22/22 07:30 04/22/22 06:06 97 H 04/22/22 03:33 37.0 C 93 H 18 125/72 04/21/22 23:00 36.9 C 94 H 18 125/70 04/21/22 22:15 92 H 04/21/22 20:55 04/21/22 19:00 37.0 C 94 H 18 113/66 04/21/22 14:18 92 H 04/21/22 15:26 37.4 C 99 H 14 118/69 04/21/22 13:57 37.1 C 93 H 14 125/65 Pulse Ox O2 Del Method O2 Flow Rate 04/22/22 13:30 93 Room Air 04/22/22 13:20 97 Room Air 04/22/22 13:10 97 Room Air 04/22/22 13:03 97 Oxymask 5 04/22/22 10:01 96 Room Air 04/22/22 08:04 92 Room Air 04/22/22 07:30 Room Air 04/22/22 06:06 04/22/22 03:33 92 Room Air 04/21/22 23:00 94 Room Air 04/21/22 22:15 04/21/22 20:55 Room Air 04/21/22 19:00 93 Room Air 04/21/22 14:18 04/21/22 15:26 94 Room Air 04/21/22 13:57 95 Room Air Pain Intensity Abdomen: Pain Intensity: 2 Transfer of Care Handoff Completed per policy Notes Mental Status: alert / awake / arousable and participated in evaluation Patient Amnestic to Procedure: Yes Nausea / Vomiting: adequately controlled Pain: adequately controlled Airway Patency, RR, SpO2: stable & adequate BP & HR: stable & adequate Hydration State: stable & adequate Anesthetic Complications: no major complications apparent
--- NOTE | 2022-04-22 13:46 | Fluoroscopy Report ---
[place] ERCP biliary ductal HISTORY: 67 years-old Female CHECK DUCTS COMPARISON: CT abdomen and pelvis 04/20/2022, MRCP 04/21/2022 TECHNIQUE: 7 spot fluoroscopic images of the abdomen were obtained utilizing 1 minute and 46.2 second s fluoroscopy time FINDINGS: Endoscope is noted within the duodenum. There is cannulation of the the common bile and pancreatic du cts. There is retrograde injection of contrast into the common bile duct. Mild intrahepatic and extra hepatic biliary ductal dilation is noted with contrast also noted within the gallbladder. Subsequent images demonstrate balloon sweep of the common bile duct. No biliary stricture or definite filling de fects identified. Subsequent images demonstrate placement of a common bile duct stent which appears t o be in satisfactory positioning. Contrast is also noted within the small bowel. IMPRESSION: Fluoroscopic assistance as above. ACT 112: Negative or not required by law. The above report was generated using voice recognition software. It may contain grammatical, syntax o r spelling errors. Electronically signed by: Cullen Long M.D. 04/22/2022 1:44 PM
[2022-04-22] MEDS ORDERED: SODIUM CHLORIDE 0.9% 1000ML 1,000 ML IV ONE (17:41)
--- NOTE | 2022-04-22 17:42 | Hospitalist Progress Note ---
Date of Service April 22, 2022 Assessment & Plan (1) Cholecystitis: (2) Delayed gastric emptying: (3) Nausea & vomiting: (4) Small cell lung cancer: (5) Chronic kidney disease, stage 3a: (6) Severe protein-calorie malnutrition: Plan Patient is a 67 yr female with H/O metastatic small cell lung CA; presents with nausea and vomiting. Imaging reveals gallbladder distention with likely acute cholecystitis with obstructing gallstones. Acute cholecystitis: Choledocholithiasis Suspected acute cholangitis Esophagitis Transaminitis --CT ABD:Mild intra and extrahepatic bile duct dilatation. The gallbladder is also distended with questionable gallbladder wall thickening given the degree of distention. Therefore, this could represent a developing acute cholecystitis. Recommend follow-up ultrasound to assess for the possibility of an obstructive stone within the common bile duct. Severe thickening of the distal esophagus with paraesophageal fat stranding/edema. This is consistent with a nonspecific esophagitis. . Mild thickening of the gastric antrum. Questionable thickening of the colon is likely due to underdistention. A low-grade colitis is considered less likely but not entirely excluded. A percutaneous gastrostomy tube is in good position. --Gall Bladder USD:Redemonstration of the mild intrahepatic bile duct dilatation. The common bile duct is technically at the upper limits of normal for age. Distended gallbladder which is almost completely filled with sludge/small stones. However, no gallbladder wall thickening. --MRCP:Mild intra and extra hepatic biliary ductal dilatation. Exam mildly compromised by artifact. Possible 3 mm distal common bile duct calculus. Distended gallbladder which contains stones and sludge. Mild gallbladder wall thickening. If suspicion for acute cholecystitis, a hepatobiliary scan could be obtained. Distal esophageal wall thickening with adjacent fluid, as shown on prior CT. This favors esophagitis. --S/P ERCP: Choledocholithiasis was found. Complete removal was accomplished by biliary sphincterotomy and balloon extraction. 1 plastic biliary stent was placed into the common bile duct. 1 plastic pancreatic stent was placed into the ventral pancreatic duct and indomethacin given to decrease risk for post ERCP pancreatitis --Blood Cultures: Negative to date --Hold tube feeds for today Continue IV Zosyn , gentle fluids Appreciate GI and surgery Input Pain control Monitor LFTs Continue PPI Patient will need repeat ERCP in 2 months for stent removal Will need cholecystectomy eventually Resume tube feeds as able Intermittent chest pain Likely secondary to above Negative troponins Resolved Monitor Small cell lung CA: Severe protein caloric malnutrition Stage III small cell lung cancer diagnosed November 2021. Started chemoradiation on December 2021. Received 2 cycles of cisplatin and etoposide along with radiation treatment at [facility] Completed radiation therapy and is no on chemotherapy holiday Follows with [facility] oncology Dr. Prajapati Follow-up with oncology as outpatient Hypothyroidism: Continue levothyroxine DVT Px: Lovenox SQ CODE STATUS: Full Code Disposition PT OT prior to discharge Admission and Anticipated Discharge Date Admission Date: April 20, 2022 Subjective Patient is seen and examined at bedside States feeling a lot better today Had ERCP earlier today Abdominal pain much improved Discussed with patient's family at bedside Denies any chest pain, dyspnea, dizziness, nausea Review of Systems Review of Systems: All systems reviewed & are unremarkable except as noted in Subjective Physical Exam Physical Exam: Physical Exam: Vitals signs as noted above General Appearance: Thin, cachectic, chronically ill appearing, no apparent distress Head: normocephalic, Atraumatic Eyes: normal inspection, EOMI Neck: supple, Trachea midline Respiratory/Chest: Decreased breath sounds, CTA, No accessory muscle use Cardiovascular: S1, S2, No murmur Abdomen/GI:Soft, +G tube, mild tender, Bowel sounds present, No guarding/rigidity Extremities/Musculoskeletal:normal inspection, no edema Neurologic/Psych:AAOX3, grossly no focal neurological deficits Skin: normal color, warm Results & Data Results & Data ([facility]) Vital Signs (Past 12 Hours) Vital Signs Temp Pulse Pulse Pulse Resp BP BP 04/22/22 14:14 79 04/22/22 15:03 36.7 C 86 14 150/63 H 04/22/22 13:30 36.6 C 92 H 14 148/74 H 04/22/22 13:20 90 16 142/88 H 04/22/22 13:10 91 H 16 138/87 04/22/22 13:03 36.3 C L 103 H 16 147/80 H 04/22/22 10:01 36.8 C 98 H 16 119/65 04/22/22 08:04 37.1 C 91 H 18 119/67 04/22/22 07:30 04/22/22 06:06 97 H Pulse Ox O2 Del Method O2 Flow Rate 04/22/22 14:14 04/22/22 15:03 93 Room Air 04/22/22 13:30 93 Room Air 04/22/22 13:20 97 Room Air 04/22/22 13:10 97 Room Air 04/22/22 13:03 97 Oxymask 5 04/22/22 10:01 96 Room Air 04/22/22 08:04 92 Room Air 04/22/22 07:30 Room Air 04/22/22 06:06 Laboratory Results Short CBC 04/22/22 Range/Units 07:32 WBC 4.97 (4.8-10.8) K/ul Hgb 8.4 L (12.0-16.0) g/dl Hct 25.5 L (34.1-44.9) % Plt Count 271 (130-400) K/uL BMP 04/22/22 07:32 Sodium 137 Potassium 3.8 Chloride 104 Carbon Dioxide 27 BUN 10 Creatinine 0.62 Glucose 82 Calcium 8.3 L Liver Function 04/22/22 Range/Units 07:32 Total Bilirubin 1.8 H (0.2-1.0) mg/dl AST 236 H (13-39) U/L ALT 351 H (7-52) U/L Alkaline Phosphatase 371 H (34-104) U/L Albumin 3.2 L (3.4-5.0) gm/dl
--- NOTE | 2022-04-22 18:53 | Surgery Progress Note ---
Date of Service April 22, 2022 Assessment & Plan (1) Cholelithiasis: Plan: F/U cholelithiasis, S/P ERCP, no abdominal pain, Plan, I recommend to do laparoscopic cholecystectomy, possible open or cholangiogram, but pt wants to wait for 2-3 weeks, do out -patient surgery, F/U me 2 weeks, , sign off today, please call with questions, Thanks, Plan 67-year-old female with a history of stage III small cell lung cancer diagnosed in November status postradiation therapy and currently on chemotherapy holiday presented to the emergency room with complaint of abdominal pain with nausea and vomiting. She recently had a PEG tube placed at [facility] for severe protein calorie malnutrition which is currently working without any issues. CT scan of the abdomen and pelvis as well as gallbladder ultrasound and MRCP showing cholelithiasis with mild wall thickening and question of a possible 3 mm occult common bile duct stone. She has no leukocytosis. T bili is 1.2, direct bili is 0.6, LFTs elevated elevated lipase improved to 100. Plan: She is currently scheduled for ERCP tomorrow with gastroenterology. Await results of ERCP and determine need for cholecystectomy following results. Continue current medical management N.p.o. after midnight Dr. Scott has seen and examined patient and agrees with above. Admission and Anticipated Discharge Date Admission Date: April 20, 2022 Supervising Physician Co-Signing Physician Notes I performed a history and physical examination of the patient today, including specifically on physical exam - soft abdomen. I have discussed the patient's management with the advanced practitioner. Please refer to the nurse practitioner's note for the documented findings and plan of care. ERCP tomorrow. Surgery eval for cholecystectomy. Subjective Patient is seen and examined at bedside States feeling a lot better today Had ERCP earlier today Abdominal pain much improved Discussed with patient's family at bedside Denies any chest pain, dyspnea, dizziness, nausea 04/22/2022 6:[address] Sctot F/U cholelithiasis, S/P ERCP, pt had ERCP done today, remove CBD stone, stents placed, pt denies abdominal pain, no fever, Physical Exam Constitutional: WD/WN, vitals as above no distress, Eyes: PERRL, conjunctivae normal, anicteric sclerae Neck: trachea midline, no thyromegaly Respiratory: normal respiratory effort, lungs clear to auscultation Cardiovascular: RRR, no murmur, no edema Gastrointestinal (Abdomen): soft, NT, ND Bs +, Neurologic: patellar DTR's 2+ bilat, sensation intact Psychiatric: A+Ox3, euthymic affect Results & Data ([facility]) Vital Signs (Past 12 Hours) Vital Signs Temp Pulse Pulse Pulse Resp BP BP 04/22/22 14:14 79 04/22/22 15:03 36.7 C 86 14 150/63 H 04/22/22 13:30 36.6 C 92 H 14 148/74 H 04/22/22 13:20 90 16 142/88 H 04/22/22 13:10 91 H 16 138/87 04/22/22 13:03 36.3 C L 103 H 16 147/80 H 04/22/22 10:01 36.8 C 98 H 16 119/65 04/22/22 08:04 37.1 C 91 H 18 119/67 04/22/22 07:30 Pulse Ox O2 Del Method O2 Flow Rate 04/22/22 14:14 04/22/22 15:03 93 Room Air 04/22/22 13:30 93 Room Air 04/22/22 13:20 97 Room Air 04/22/22 13:10 97 Room Air 04/22/22 13:03 97 Oxymask 5 04/22/22 10:01 96 Room Air 04/22/22 08:04 92 Room Air 04/22/22 07:30 Room Air Laboratory Results Abnormal lab results 04/22/22 04/22/22 Range/Units 07:32 07:32 RBC 2.41 L (3.93-5.22) M/uL Hgb 8.4 L (12.0-16.0) g/dl Hct 25.5 L (34.1-44.9) % MCV 105.8 H (80.0-100.0) fL MCH 34.9 H (25.0-34.0) pg RDW Std Deviation 64.0 H (36.4-46.3) fL RDW Coeff of Wendy 16.5 H (11.5-14.5) % Calcium 8.3 L (8.5-10.1) mg/dl Total Bilirubin 1.8 H (0.2-1.0) mg/dl AST 236 H (13-39) U/L ALT 351 H (7-52) U/L Alkaline Phosphatase 371 H (34-104) U/L Total Protein 5.4 L (6.0-8.3) gm/dl Albumin 3.2 L (3.4-5.0) gm/dl Globulin 2.2 L (2.5-4.0) gm/dl
[2022-04-23] MEDS: PIPERACILLIN/TAZOBACTAM 3.375 GM in DEXTROSE 5% 100 ML IV SCH ×2 (02:10→09:21)
[2022-04-23 07:51] LABS: Hematocrit (blood only) 26.3 % (34.1-44.9); Hemoglobin 8.6 g/dl (12.0-16.0); Mean Corpuscular Hemoglobin 34.3 pg (25.0-34.0); Mean Corpuscular Hgb Conc 32.7 g/dL (32.0-36.0); Mean Corpuscular Volume 104.8 fL (80.0-100.0); Mean Platelet Volume 10.3 fL (9.4-12.3); Platelet Count 281 K/uL (130-400); RDW Coefficient of Variation 15.7 % (11.5-14.5); RDW Standard Deviation 60.4 fL (36.4-46.3); Red Blood Count 2.51 M/uL (3.93-5.22); White Blood Count 4.81 K/ul (4.8-10.8)
[2022-04-23 08:36] LABS: Albumin Globulin Ratio 1.4 (0.9-2); Albumin Level 3.1 gm/dl (3.4-5.0); BUN Creatinine Ratio 18.3 (10-20); Bilirubin,Total 0.9 mg/dl (0.2-1.0); Calcium 8.4 mg/dl (8.5-10.1); Creatinine Clr Calc Pharmacy 62.7 ml/min; Est GFR (African American) 107.8 ml/min; Globulin 2.2 gm/dl (2.5-4.0); Magnesium 1.7 mg/dl (1.7-2.4); Potassium 3.4 mmol/L (3.5-5.1); Total Protein 5.3 gm/dl (6.0-8.3)
[2022-04-23] MEDS ORDERED: MAGNESIUM SULFATE / D5W 1 GM/100 ML BAG IV ONE (09:00)
[2022-04-23] MEDS: PANTOprazole 40 MG in SYRINGE 0 ML IV SCH (09:21)
[2022-04-23] MEDS: POTASSIUM CHLORIDE / WTR 10 MEQ/100 ML PLCT IV SCH ×2 (10:04→13:05)
--- NOTE | 2022-04-23 12:08 | Gastroenterology Progress Note ---
Date of Service April 23, 2022 Assessment & Plan (1) Nausea & vomiting: (2) Cholecystitis: (3) Elevated LFTs: (4) Bile duct abnormality: Plan 67-year-old female with history of lung cancer on chemotherapy, G-tube in place for feedings given history of severe malnutrition, admitted with abd pain, w/u c/w cholelithiasis, possible cholecystitis, with abnormal biliary dilation, concerning for possible stone in the CBD. She underwent ERCP yesterday with CBD stone removed and stents placed in CBD and PD. She has no further abd pain; feeling well. Today abd soft, nontender. LFTs are trending down. She is HD stable and afebrile. - Pt will need repeat ERCP in 2 months to remove stents; our office will arrange this Continue supportive care with hydration Continue ABX Continue PPI - Analgesia as needed - Pt working with surgery to determine decision on cholecystectomy/timing - GI will sign off, please call with questions Thank you for allowing us to participate in the care of this patient. Please call with any acute changes, questions or concerns. Please see addendum below with additional recommendation from my supervising physician. Admission and Anticipated Discharge Date Admission Date: April 20, 2022 Supervising Physician Co-Signing Physician Notes I performed a history and physical examination of the patient today, including specifically on physical exam - soft abdomen. I have discussed the patient's management with the advanced practitioner. Please refer to the nurse practitioner's note for the documented findings and plan of care. Lap paulie per surgical team. Repeat ERCP in 2 months for stent removal. Recall GI if needed. Subjective Patient seen and examined, chart reviewed. No acute events overnight. Pt feeling well. No abd pain, fever, chills, n/v, melena, hematochezia, CP, SOB. Review of Systems Review of Systems: All systems reviewed & are unremarkable except as noted in HPI & below Physical Exam Eyes: PERRL, conjunctivae normal, anicteric sclerae Respiratory: normal respiratory effort, lungs clear to auscultation Cardiovascular: Rate/Rhythm: regular rate and regular rhythm Gastrointestinal (Abdomen): soft, nontender, BS x 4 quadrants, nondistended Skin: no rashes, warm and dry Psychiatric: A+Ox3, euthymic affect Results & Data ([facility]) Vital Signs (Past 12 Hours) Vital Signs Temp Pulse Pulse Pulse Resp BP Pulse Ox 12/07/22 11:42 36.9 C 82 18 124/71 93 04/23/22 08:06 36.7 C 89 19 106/62 93 04/23/22 05:59 80 04/23/22 04:00 37.0 C 82 18 104/62 94 O2 Del Method 04/23/22 11:42 Room Air 04/23/22 08:06 Room Air 04/23/22 05:59 04/23/22 04:00 Room Air Laboratory Results 04/23/22 04/23/22 Range/Units 07:01 07:01 WBC 4.81 (4.8-10.8) K/ul RBC 2.51 L (3.93-5.22) M/uL Hgb 8.6 L (12.0-16.0) g/dl Hct 26.3 L (34.1-44.9) % MCV 104.8 H (80.0-100.0) fL MCH 34.3 H (25.0-34.0) pg MCHC 32.7 (32.0-36.0) g/dL RDW Std Deviation 60.4 H (36.4-46.3) fL RDW Coeff of Wendy 15.7 H (11.5-14.5) % Plt Count 281 (130-400) K/uL MPV 10.3 (9.4-12.3) fL Sodium 139 (136-145) mmol/L Potassium 3.4 L (3.5-5.1) mmol/L Chloride 105 (98-107) mmol/L Carbon Dioxide 26 (21-32) mmol/L Anion Gap 8 (3-11) BUN 11 (6-23) mg/dl Creatinine 0.60 (0.6-1.2) mg/dl Est Cr Clr Drug Dosing 62.7 ml/min Est GFR ( Amer) 107.8 ml/min Est GFR (Non-Af Amer) 93.0 ml/min BUN/Creatinine Ratio 18.3 (10-20) Glucose 74 (70-99(Fasting)) mg/dl Calcium 8.4 L (8.5-10.1) mg/dl Magnesium 1.7 (1.7-2.4) mg/dl Total Bilirubin 0.9 D (0.2-1.0) mg/dl AST 81 H (13-39) U/L ALT 214 H (7-52) U/L Alkaline Phosphatase 304 H (34-104) U/L Total Protein 5.3 L (6.0-8.3) gm/dl Albumin 3.1 L (3.4-5.0) gm/dl Globulin 2.2 L (2.5-4.0) gm/dl Albumin/Globulin Ratio 1.4 (0.9-2) Diagnostic Findings ERCP 04/23/22: Impression: - Choledocholithiasis was found. Complete removal was accomplished by biliary sphincterotomy and balloon extraction. - One plastic biliary stent was placed into the common bile duct. - One plastic pancreatic stent was placed into the ventral pancreatic duct and Indomethacin given to decrease risk of post-ERCP pancreatitis. Recommendation: - Return patient to [facility] for [facility] care. - Repeat ERCP in 2 months to remove stent. - Surgery follow up for cholecystectomy. - Continue ABx.
[2022-04-23 15:36] VITALS: BP 126/62; TEMP 98.2; O2SAT 95
--- NOTE | 2022-04-23 15:49 | Discharge Summary ---
Date of Service April 23, 2022 Admission HPI Per Admitting Provider Ms. Diaz is a 67 year old female that presented to the [facility] as she has been having abdominal pain intermittently and described it as sharp 6/10. SHe recently had a G-tube placed at [facility] and has been pursuing tube feedings for management of severe protein calorie malnourishment related to her malignant small cell lung cancer. She also reports intermittent chest pain that started this morning that is different than what she feels in her abdomen. An abdominal CT scan was obtained with gallbladder distention noted with possible acute cholecystitis with numerous obstructing gallstones. GI and general surgery consult placed. As mentioned, the patient has malignant small cell lung cancer that was diagnosed December 11, 2021 and she is a patient of Dr. Prajapati's. She has completed a course of radiation treatment along with a combined chemotherapy cisplatin/etoposide and is currently on a chemotherapy holiday. Patient was due to have an appointment with Dr. Prajapati this coming week on Thursday. Patient has had significant nausea throughout her chemotherapy and has been seen by palliative medicine as well. Additional past medical history includes severe protein caloric malnourishment, GERD, and hypothyroidism. The patient was sitting upright in her hospital bed and denies PENA, SOB, diarrhea, recent falls, or dizziness, trauma. Patient does use a walker at home. She denies any changes in her recent medications outside of a new low dose Metoprolol. Patient will be admitted for further evaluation and management. Please see A/P for further details. Admission Exam Per Admitting Provider General Appearance: Thin, cachectic, chronically ill appearing, no apparent distress Head: normocephalic, Atraumatic Eyes: normal inspection, EOMI Neck: supple, Trachea midline Respiratory/Chest: Decreased breath sounds, CTA, No accessory muscle use Cardiovascular: S1, S2, No murmur Abdomen/GI:Soft, +G tube, tender generalized, predominantly epigastric, LLQ, Bowel sounds present, No guarding/rigidity Extremities/Musculoskeletal:normal inspection, no edema Neurologic/Psych:AAOX3, grossly no focal neurological deficits Skin: normal color, warm Principal Diagnosis choledocholethiasis Discharge Exam General Appearance: Thin, cachectic, chronically ill appearing, no apparent distress Head: normocephalic, Atraumatic Eyes: normal inspection, EOMI Neck: supple, Trachea midline Respiratory/Chest: Decreased breath sounds, CTA, No accessory muscle use Cardiovascular: S1, S2, No murmur Abdomen/GI:Soft, +G tube, nontender, Bowel sounds present, No guarding/rigidity Extremities/Musculoskeletal:normal inspection, no edema Neurologic/Psych:AAOX3, grossly no focal neurological deficits Skin: normal color, warm Discharge Data Allergies Allergy/AdvReac Type Severity Reaction Status Date / Time No Known Drug Allergies Allergy Verified 02/03/22 11:24 Consultations 04/20/22 17:42 ED Decision to Admit Stat 04/20/22 18:22 Consult Gastroenterology Routine 04/20/22 18:46 Consult General Surgery Routine 04/20/22 21:45 Consult General Surgery Routine Procedures Performed Operation Date: 04/22/22 09:50 Actual Procedures p Endoscopic Retrograde Cholangiopancreatography - Srevando Ibarra MD Ordered Studies 04/20/22 14:56 CT abd pelvis IV con only Stat 04/20/22 16:09 US gallbladder Stat 04/21/22 00:18 MR MRCP Routine 04/22/22 09:50 FL ERCP biliary ductal Routine Hospital Course (1) Cholecystitis: (2) Delayed gastric emptying: (3) Nausea & vomiting: (4) Small cell lung cancer: (5) Chronic kidney disease, stage 3a: (6) Severe protein-calorie malnutrition: Plan Patient is a 67 yr female with H/O metastatic small cell lung CA; presents with nausea and vomiting. Imaging reveals gallbladder distention with likely acute cholecystitis with obstructing gallstones. Acute cholecystitis: Choledocholithiasis Suspected acute cholangitis Esophagitis Transaminitis --CT ABD:Mild intra and extrahepatic bile duct dilatation. The gallbladder is also distended with questionable gallbladder wall thickening given the degree of distention. Therefore, this could represent a developing acute cholecystitis. Recommend follow-up ultrasound to assess for the possibility of an obstructive stone within the common bile duct. Severe thickening of the distal esophagus with paraesophageal fat stranding/edema. This is consistent with a nonspecific esophagitis. . Mild thickening of the gastric antrum. Questionable thickening of the colon is likely due to underdistention. A low-grade colitis is considered less likely but not entirely excluded. A percutaneous gastrostomy tube is in good position. --Gall Bladder USD:Redemonstration of the mild intrahepatic bile duct dilatation. The common bile duct is technically at the upper limits of normal for age. Distended gallbladder which is almost completely filled with sludge/small stones. However, no gallbladder wall thickening. --MRCP:Mild intra and extra hepatic biliary ductal dilatation. Exam mildly compromised by artifact. Possible 3 mm distal common bile duct calculus. Distended gallbladder which contains stones and sludge. Mild gallbladder wall thickening. If suspicion for acute cholecystitis, a hepatobiliary scan could be obtained. Distal esophageal wall thickening with adjacent fluid, as shown on prior CT. This favors esophagitis. --S/P ERCP: Choledocholithiasis was found. Complete removal was accomplished by biliary sphincterotomy and balloon extraction. 1 plastic biliary stent was placed into the common bile duct. 1 plastic pancreatic stent was placed into the ventral pancreatic duct and indomethacin given to decrease risk for post ERCP pancreatitis --Blood Cultures: Negative to date --Hold tube feeds for today Continue IV Zosyn , gentle fluids Appreciate GI and surgery Input Pain control Monitor LFTs Continue PPI Patient will need repeat ERCP in 2 months for stent removal Will need cholecystectomy eventually - for follow up in 2 weeks with surgery for lap paulie planning Resume tube feeds - will discharge to complete 7 day course of abx with cefdnir and metronidazole Small cell lung CA: Severe protein caloric malnutrition Stage III small cell lung cancer diagnosed November 2021. Started chemoradiation on December 2021. Received 2 cycles of cisplatin and etoposide along with radiation treatment at [facility] Completed radiation therapy and is no on chemotherapy holiday Follows with [facility] oncology Dr. Prajapati Follow-up with oncology as outpatient Hypothyroidism: Continue levothyroxine DVT Px: Lovenox SQ CODE STATUS: Full Code Disposition PT OT prior to discharge Total Time Total Time Spent Total Time Spent (In Minutes): 47 Total Time Includes: Examination of the Patient, Discharge Planning, Medication Reconciliation and Communication With Other Providers Discharge Plan Discharge Items Patient Disposition: Home - Self-Care Reason For Visit: NAUSEA AND VOMITING Discharge Diagnosis: choledocholithiasis Activity: Resume your previous activity Non-emergency contact: Primary Care Provider, Surgeon and Field Scout Call non-emergency contact if: you have any medication questions and your symptoms worsen Follow-up/Referrals: Nikhil Scott MD [Physician] - (Call to make appointment for 2 weeks from discharge ) Servando Ibarra MD [Physician] - (Will need to have follow up in 2 months for stent removal) Nina To MD [Primary Care Provider] - (Date & Time 04/29/2022 11:00 AM Provider Joanie Hanna MD Department [facility] ) Diet: Heart Healthy Addtl Attending Provider Instructions: You were admitted for abdominal pain. You were found to have a common bile duct stone causing blockage of the gallbladder ducts. You were seen by GI and surgery and GI did an ERCP for stone removal and placed a stent in your biliary duct and pancreatic duct, which they will remove in about 2 months as an outpatient. Surgery determined to have you follow up in their office for cholecystectomy as an outpatient. You will finish a 7 day course of antibiotics at home. Pending Studies at Discharge: No Stand-Alone Forms: My [facility], Smoking Cessation Medications and DC Order Prescriptions: New cefdinir 300 mg capsule 300 mg PO BID 5 Days Qty: 10 0RF metronidazole 500 mg tablet 500 mg PO TID Qty: 15 0RF Continued ascorbic acid (vitamin C) 100 mg tablet 100 mg PO DAILY cholecalciferol (vitamin D3) 50 mcg (2,000 unit) capsule 2,000 unit PO DAILY mecobalamin (vitamin B12) 1,000 mcg tablet,disintegrating 1,000 mcg PO DAILY famotidine 20 mg tablet 20 mg PO BID levothyroxine [Synthroid] 88 mcg tablet 88 mcg PO DAILY albuterol sulfate [ProAir HFA] 90 mcg/actuation HFA aerosol inhaler 2 puff inhalation QID PRN (Reason: shortness of breath or wheezing) ipratropium-albuterol 0.5 mg-3 mg(2.5 mg base)/3 mL solution for nebulization 3 ml inhalation Q6H PRN (Reason: shortness of breath or wheezing) ondansetron HCl 8 mg tablet 8 mg PO Q8H PRN (Reason: n/v) prochlorperazine maleate [Compazine] 10 mg tablet 10 mg PO Q6H PRN (Reason: n/v) Magic Mouthwash 300 mL mouthwash 10 ml mucous membrane ACHS Qty: 300 5RF Rx Instructions: Benadryl 12.5 mg/5 mL oral elixir; Maalox 200 mg-200 mg-20 mg/5 mL oral suspension; Xylocaine Viscous 2 % mucosal solution;[Generic substitution ok] 1:1:1 compound Per 300 mL dronabinol [Marinol] 2.5 mg capsule 2.5 mg PO BID Qty: 60 0RF Rx Instructions: administer before lunch and evening meal/dinner omeprazole 20 mg capsule,delayed release(DR/EC) 20 mg PO DAILY metoprolol succinate 25 mg Tablet Extended Release 24 Hr 12.5 mg PO DAILY 30 Days Qty: 15 0RF sennosides [Senokot] 8.6 mg Tablet 8.6 mg PO QAM 30 Days Qty: 30 0RF Discharge Orders: Discharge Order (Routine); Ordered 04/23/22 Ordered By: Babatunde Green Admission Data Admit Date/Time: 04/20/22 18:03 Attending Provider: Babatunde Green Admit Provider: Rohit Galloway Primary Care Provider: Nina To Other Providers: Milad Matthews ; Rohit Galloway ; Kirk Mcelroy
[2022-04-23 16:10] VITALS: PULSE 82
== END 2022-04-23 17:10 | disposition home or self-care (01) | DRG 444 ==
LOC: ED 11:07 → 2N 18:03 → SUATTDRO 18:03 → 2N 21:24